=== PATIENT | female | born 1950 | race Caucasian/White ===

== ENCOUNTER → 2018-01-21 14:37 | Outpatient (CLI) | payer MEDICARE, SELFPAY ==
--- NOTE | 2018-01-21 14:41 | BI_ITS ---
MAMMOGRAPHY - BILATERAL SCREENING REASON FOR EXAM: Female, 67 years old. Routine annual screening examination. PERTINENT HISTORY: Aunt with breast cancer. Remote right excisional breast biopsy. TECHNIQUE: Digital bilateral breast ten (3D mammographic acquisition) in the CC and MLO projections. 2-D mediolateral oblique (MLO) and craniocaudad (CC) views of both breasts were obtained. CAD: Full Field Digital Mammography with Computer Added Detection was performed. COMPARISON: Comparison is made with prior axial examination dated September 21, 2016 and September 13, 2014. FINDINGS: Breast Composition: There are scattered areas of fibroglandular density. There are no dominant masses or suspicious calcifications. No other significant abnormalities are identified. There has been no significant change since the prior study. BI/SCREENING MAMM (CAD), BILAT IMPRESSION: Stable bilateral screening mammogram. Yearly follow-up mammogram recommended. (A) ASSESSMENT CATEGORY: BIRADS Category 1: Negative. A letter regarding these results will be sent to the patient by the facility within 30 days. Approximately 10% of breast cancers are not detected by mammography. A normal mammogram should not delay biopsy of a clinically suspicious abnormality. [id number] Electronically Signed: Ildefonso Owens MD at 8:07 EDT Tel [phone], Service support ,
== END ==
PROVIDERS: Visit Provider Obstetrics & Gynecology
DX: Z12.31 Encounter for screening mammogram for malignant neoplasm of breast (principal)
CPT/HCPCS: 77063; 77067

== ENCOUNTER → 2018-10-21 15:05 | Outpatient (CLI) | payer MEDICARE, SELFPAY ==
[2018-10-21 18:29] LABS: Anion Gap 6 (5-15); BUN 16 mg/dL (7-18); BUN/Creat Ratio 20.5 RATIO (10-20); Chloride 106 mmol/L (98-107); Cholesterol 228 mg/dL (200); Creatinine, Serum 0.78 mg/dL (0.55-1.02); EST Glomerular Filtration Rate 78 mL/min (>60); Est Glom Filt Rate - Afr Amer 94 mL/min (>60); Glucose 88 mg/dL (74-106); High Density Lipoprotein 80 mg/dL; Potassium 4.1 mmol/L (3.5-5.1); Sodium Level 141 mmol/L (136-145); Triglycerides 57 mg/dL; Very Low Density Lipoprotein 11 mg/dL (5-40)
[2018-10-21 18:31] LABS: Vitamin D,25 Hydroxy 55.9 ng/mL (29.95-100.01)
== END ==
PROVIDERS: Visit Provider Family Medicine
DX: Z00.00 Encounter for general adult medical examination without abnormal findings (principal); E55.9 Vitamin D deficiency, unspecified
CPT/HCPCS: 36415; 80048; 80061; 82306

== ENCOUNTER → 2019-01-30 08:38 | Outpatient (CLI) | payer MEDICARE, SELFPAY ==
[2019-01-03 14:17] VITALS: BMI 24.3
--- NOTE | 2019-01-30 08:42 | BI_ITS ---
MAMMOGRAPHY - BILATERAL SCREENING REASON FOR EXAM: Female, 68 years old. Routine annual screening examination. PERTINENT HISTORY: Non-contributory. TECHNIQUE: Digital bilateral breast adrianna (3D mammographic acquisition) in the CC and MLO projections. 2-D mediolateral oblique (MLO) and craniocaudad (CC) views of both breasts were obtained. CAD: Full Field Digital Mammography with Computer Added Detection was performed. COMPARISON: Comparison is made with prior study dated January 21, 2018 and September 13, 2014. FINDINGS: Breast Composition: There are scattered areas of fibroglandular density. There are no dominant masses or suspicious calcifications. Small bilateral axillary lymph nodes. No other significant abnormalities are identified. There has been no significant change since the prior study. BI/SCREEN MAMM (CAD) W/ADRIANNA BILAT IMPRESSION: Stable bilateral screening mammogram. Yearly follow-up mammogram recommended. (A) ASSESSMENT CATEGORY: BIRADS Category 2: Benign. A letter regarding these results will be sent to the patient by the facility within 30 days. Approximately 10% of breast cancers are not detected by mammography. A normal mammogram should not delay biopsy of a clinically suspicious abnormality. [id number] Electronically Signed: Ildefonso Owens, at 9:54 EDT , Service support ,
== END ==
PROVIDERS: Referring Provider Obstetrics & Gynecology; Visit Provider Obstetrics & Gynecology
DX: Z12.31 Encounter for screening mammogram for malignant neoplasm of breast (principal)
CPT/HCPCS: 77063; 77067

== ENCOUNTER → 2020-01-19 10:50 | Outpatient (CLI) | payer MEDICARE, SELFPAY ==
[2020-01-08 09:55] VITALS: BMI 24.0
--- NOTE | 2020-01-19 10:56 | BI_ITS ---
MAMMOGRAPHY - BILATERAL SCREENING 3-D TOMOSYNTHESIS REASON FOR EXAM: Female, 69 years old. Routine screening PERTINENT HISTORY: FM HX MAAT GRT AUNT 30''S, PAT COUSINS, RT EXC BX (SEBACEOUS CYST) 1989. TECHNIQUE: 2-D mammograms and 3-D Tomosynthesis of the breast (s) were performed. CAD was performed. COMPARISON: 01/30/2019 FINDINGS: The breast composition is composed of scattered fibroglandular density. Scattered benign calcifications are seen. No dense spiculated masses or suspicious microcalcifications are identified. No architectural distortion is identified. There is no skin thickening or retraction. There has been no significant change since the prior study. BI/SCREEN MAMM (CAD) W/ADRIANNA BILAT IMPRESSION: No mammographic signs of malignancy. Routine yearly mammograms recommended. ASSESSMENT CATEGORY: BIRADS Category 2: Benign. A letter regarding these results will be sent to the patient by the facility within 30 days. FOLLOW UP RECOMMENDATION: Yearly follow up mammogram recommended. (A) Approximately 10% of breast cancers are not detected by mammography. A normal mammogram should not delay biopsy of a clinically suspicious abnormality. Electronically Signed: Justin Bowers MD at 12:23 EDT , Service support ,
== END ==
PROVIDERS: PCP Family Medicine; Referring Provider Obstetrics & Gynecology; Visit Provider Obstetrics & Gynecology
DX: Z12.31 Encounter for screening mammogram for malignant neoplasm of breast (principal)
CPT/HCPCS: 77063; 77067

== ENCOUNTER → 2020-02-15 16:19 | Outpatient (CLI) | payer MEDICARE, SELFPAY ==
[2020-01-08 09:55] VITALS: BMI 24.0
[2020-02-15 17:02] LABS: Absolute Lymphocyte Count 1.39 X10^3/uL (0.83-4.51); Absolute Neutrophil Count 7.4 X10^3/uL (2.0-7.7); Basophil# 0.02 X10^3/uL; Basophil% 0.2 % (0-1); Eosinophil# 0.03 X10^3/uL; Eosinophils% 0.3 % (0-5); Hematocrit 39.3 % (37-47); Hemoglobin 12.7 g/dL (12.0-15.0); Lymphocyte # 1.39 X10^3/ul (4.0); Lymphocyte % 14.3 % (19-41); Mean Corp Hgb Conc 32.3 g/dL (32-36); Mean Corpuscular Volume 95.9 fL (81-99); Mean Platelet Vol. 10.7 fl (6.2-12.0); Monocyte# 0.87 X10^3/uL; NRBC Flagged by Analyzer 0 % (0-5); Neutrophil # 7.38 X10^3/uL (2.7-7.7); Platelet Count 177 K/mm3 (150-450); RBC Distribution Width SD 45.4 fl (35.1-43.9); White Blood Count 9.7 K/mm3 (4.4-11.0)
[2020-02-15 17:52] LABS: ALB/GLOB Ratio 1.2 RATIO (0.9-2.4); AST(SGOT) 17 U/L (15-37); Alanine Aminotransfer ALT/SGPT 18 U/L (13-56); Albumin, Serum 3.8 g/dL (3.2-5.0); Alkaline Phosphatase 61 U/L (45-117); Anion Gap 3 (5-15); BUN 16 mg/dL (7-18); BUN/Creat Ratio 19.8 RATIO (10-20); Calcium,Total 8.5 mg/dL (8.5-10.1); Chloride 108 mmol/L (98-107); Creatinine, Serum 0.81 mg/dL (0.55-1.02); EST Glomerular Filtration Rate 74 mL/min (>60); Est Glom Filt Rate - Afr Amer 90 mL/min (>60); Globulin 3.2 g/dL (2.2-4.2); Glucose 88 mg/dL (74-106); Potassium 3.6 mmol/L (3.5-5.1); Sodium Level 141 mmol/L (136-145); Thyroid Stim Hormone (TSH) 1.81 uIU/mL (0.358-3.74)
[2020-02-16 13:13] LABS: Hepatitis C Antibody Non-Reactive (Nonreactive); Vitamin D,25 Hydroxy 46.1 ng/mL
== END ==
PROVIDERS: PCP Family Medicine Geriatric Medicine; Visit Provider Family Medicine Geriatric Medicine
DX: E55.9 Vitamin D deficiency, unspecified (principal); R53.83 Other fatigue; Z13.89 Encounter for screening for other disorder
CPT/HCPCS: 36415; 80053; 82306; 84443; 85025; 86803

== ENCOUNTER 2020-02-16 15:17 | Emergency (ER) | payer MEDICARE, SELFPAY ==
[2020-01-08 09:55] VITALS: BMI 24.0
[2020-02-16 15:18] VITALS: BP 129/82; PULSE 87; RESP 16; TEMP 36.6; O2SAT 96; BMI 23.3
--- NOTE | 2020-02-16 15:29 | ED.VIS.GEN ---
History of Present Illness Chief Complaint: Cellulitis Informant: Patient Narrative: 69 year-old female presents with concern for swelling to her left hand. States that she was bitten by a cat approximately 48 hours ago. Presented to her primary care physician who then gave her 4 doses of IV antibiotics in the office. States it is gotten progressively worse as well as the redness that is streaking up her arm. States that it is aching in nature and worse with movement. Patient states that it was her cat and has been up-to-date on shots. Past Medical History - Allergies and Home Meds Allergies/Adverse Reactions: Allergies sulfamethoxazole [From Bactrim] Allergy (Mild, Verified 02/16/20 15:18) Other trimethoprim [From Bactrim] Allergy (Mild, Verified 02/16/20 15:18) Other Primary Care Physician: Cesar Perkins Chi, MD [Primary Care Provider] - Past Medical History: None Surgical History: no surgical history Lives: Spouse/ Significant Other Smoking Status: Never smoker Alcohol: None Drugs: None Review of Systems General: Denies: Chills, Fever, Sweats Eyes: Denies: Visual changes - bilaterally, Diplopia ENT: Denies: Rhinorrhea, Sore throat Cardiovascular: Denies: Chest pain, Palpitations Respiratory: Denies: Dyspnea, Cough, Dyspnea on exertion Gastrointestinal: Denies: Abdominal pain, Nausea, Vomiting, Diarrhea, Melena, Hematochezia Genitourinary: Denies: Dysuria, Hematuria, Frequency Musculoskeletal: Reports: Arthralgias. Denies: Back pain, Extremity Pain Skin: Reports: Wounds. Denies: Rash Neurological: Denies: Headache, Weakness, Numbness Physical Exam Vital Signs/Narrative: Vital Signs Temp Pulse Resp BP Pulse Ox 02/16/20 15:18 98 F 87 16 129/82 H 96 Inital Vital Signs reviewed: Yes General: Well nourished, Well developed, No Acute Distress Head: Normocephalic, Atraumatic Eyes: Perrl, EOMI ENT: Moist mucous membranes, No rhinorrhea Neck: Supple, Nontender Cardiovascular: Regular rate, Regular rhythm, No murmurs Respiratory: No distress, CTA bilaterally, Chest nontender Abdomen: Soft, Nontender, Nondistended, Normal bowel sounds Back: Nontender, Normal Inspection Extremities: - - Significant edema and erythema to the left hand and wrist. Erythema extending up the left arm to mid forearm. Skin: Normal color, No rash Neurological: Alert, Oriented x3, Cranial nerves II-XII grossly intact, Normal Strength, Normal Sensation Psychological: Normal affect, Normal Mood Diagnostic/Tx/Re-eval Laboratory Data 02/16/20 02/16/20 15:40 15:40 WBC 8.7 RBC 4.21 Hgb 12.7 Hct 40.5 MCV 96.2 MCH 30.2 MCHC 31.4 L RDW Std Deviation 45.9 H RDW Coeff of Smiley 13.0 Plt Count 178 MPV 11.0 Immature Gran % (Auto) 0.200 Neut % (Auto) 74.0 H Lymph % (Auto) 14.3 L [place] % (Auto) 10.7 H Eos % (Auto) 0.6 Baso % (Auto) 0.2 Absolute Neuts (auto) 6.5 Absolute Lymphs (auto) 1.25 Nucleated RBC % 0 ESR 11 Sodium 141 Potassium 4.0 Chloride 111 H Carbon Dioxide 28.0 Anion Gap 2 L BUN 16 Creatinine 1.01 Estim Creat Clear Calc 49.21 Est GFR (MDRD) Af Amer 70 Est GFR (MDRD) Non-Af 58 L BUN/Creatinine Ratio 15.8 Glucose 97 Calcium 8.2 L C-React Prot Ext Range 68.80 H - Medical Decision Making Appears well and nontoxic. Vital signs within normal limits. No leukocytosis. Elevated CRP. Concern for significant cellulitis versus abscess. Patient was given Unasyn as well as vancomycin. Spoke initially with orthopedist hotel registration clerk Dr. Dalton who could not accept given it would require hand surgery. Spoke with plastic surgeon Dr. May will be out of town this weekend. Spoke finally with Dr. Crane hand surgeon at [facility] who is agreeable with transfer and admission to hospitalist service. Patient will be admitted to Dr. Gallo's service. Will travel by private vehicle. Stable at time of transfer. Impression: 1. Cat bite 2. Left upper extremity cellulitis versus abscess ED Disposition - Plan for ED Patient: Disposition: [facility] Referrals: Cesar Perkins Chi, MD [Primary Care Provider] -
[2020-02-16 15:47] LABS: Absolute Lymphocyte Count 1.25 X10^3/uL (0.83-4.51); Absolute Neutrophil Count 6.5 X10^3/uL (2.0-7.7); Basophil# 0.02 X10^3/uL; Basophil% 0.2 % (0-1); Eosinophil# 0.05 X10^3/uL; Eosinophils% 0.6 % (0-5); Hematocrit 40.5 % (37-47); Hemoglobin 12.7 g/dL (12.0-15.0); Lymphocyte # 1.25 X10^3/ul (4.0); Lymphocyte % 14.3 % (19-41); Mean Corp Hgb Conc 31.4 g/dL (32-36); Mean Corpuscular Hgb 30.2 pg (27.0-32.0); Mean Corpuscular Volume 96.2 fL (81-99); Monocyte# 0.93 X10^3/uL; Monocyte% 10.7 % (0-10); NRBC Flagged by Analyzer 0 % (0-5); Neutrophil # 6.46 X10^3/uL (2.7-7.7); Platelet Count 178 K/mm3 (150-450); RBC Distribution Width SD 45.9 fl (35.1-43.9); Red Blood Count 4.21 M/mm3 (4.2-5.4); White Blood Count 8.7 K/mm3 (4.4-11.0)
[2020-02-16 15:59] LABS: Erythrocyte Sedimentation Rate 11 mm/hr (0-30)
[2020-02-16 16:07] LABS: Anion Gap 2 (5-15); BUN 16 mg/dL (7-18); BUN/Creat Ratio 15.8 RATIO (10-20); Calcium,Total 8.2 mg/dL (8.5-10.1); Chloride 111 mmol/L (98-107); Creatinine, Serum 1.01 mg/dL (0.55-1.02); EST Glomerular Filtration Rate 58 mL/min (>60); Est Glom Filt Rate - Afr Amer 70 mL/min (>60); Estimated Creatinine Clearance 49.21 ml/min; Glucose 97 mg/dL (74-106); Sodium Level 141 mmol/L (136-145)
--- NOTE | 2020-02-16 17:39 | ED.RN ---
not sepsis work up at this time
[2020-02-16 17:41] VITALS: BP 139/74; PULSE 81; RESP 18; O2SAT 99
[2020-02-16 19:41] VITALS: BP 134/78; PULSE 71; RESP 16; O2SAT 99
== END 2020-02-16 19:44 | disposition short-term general hospital (02) ==
PROVIDERS: Emergency Provider Emergency Medicine; PCP Family Medicine Geriatric Medicine
DX: S61.452A Open bite of left hand, initial encounter (principal); W55.01XA Bitten by cat, initial encounter; Y93.9 Activity, unspecified; Y92.9 Unspecified place or not applicable; Y99.9 Unspecified external cause status
CPT/HCPCS: 80048; 85025; 85652; 86140; 96365; 96366; 96367; 99284; J7030; J7050; A4216; J0295

== ENCOUNTER → 2020-02-29 07:46 | Outpatient (CLI) | payer MEDICARE, SELFPAY ==
[2020-02-16 15:18] VITALS: BMI 23.3
[2020-02-29 09:23] LABS: Anion Gap 5 (5-15); BUN 11 mg/dL (7-18); BUN/Creat Ratio 7.7 RATIO (10-20); Calcium,Total 8.8 mg/dL (8.5-10.1); Chloride 106 mmol/L (98-107); Creatinine, Serum 1.43 mg/dL (0.55-1.02); EST Glomerular Filtration Rate 39 mL/min (>60); Est Glom Filt Rate - Afr Amer 47 mL/min (>60); Glucose 93 mg/dL (74-106); Potassium 3.8 mmol/L (3.5-5.1); Sodium Level 141 mmol/L (136-145)
== END ==
PROVIDERS: PCP Family Medicine; Referring Provider Internal Medicine Nephrology; Visit Provider Internal Medicine Nephrology
DX: N17.9 Acute kidney failure, unspecified (principal)
CPT/HCPCS: 36415; 80048

== ENCOUNTER 2020-09-26 10:00 | Outpatient (RCR) | payer MEDICARE, SELFPAY ==
--- NOTE | 2020-09-04 09:04 | HP.PTEVAL_ITS ---
Patient's Visit Information MARCE VILLA is a 70 year old F referred to Physical Therapy by Dr. Laura Riddle MD with a diagnosis of RIGHT SACROILEITIS. Date of Evaluation: 09/04/20 Physical Therapist: Shani Espinal PT, Cert MDT - Visit Plan Frequency: 2x /Week Duration: 6 Weeks Plan: POSTURE CORRECTION/STRENGTHENING, INSTRUCTION IN APPROPRIATE BODY MECHANICS AND ACTIVITY MODIFICATIONS. DLS STARTING WITH A NEUTRAL SPINE PROGRESSING ROM TOLERATED. KATJA LE ROM, STRETCHING AND STRENGTHENING. HEP INSTRUCTION. - Subjective Work/Leisure: RETIRED. 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 Disability: NO. Present symptoms: RIGHT LOW BACK PAIN. RIGHT LATERAL THIGH PAIN THAT WRAPS AROUND AND GOES DOWN THE FRONT OF THE RIGHT THIGH. PATIENT DENIES NUMBNESS AND TINGLING ANYWHERE. Present since: END OF APR 2020 (ABOUT 4 MONTHS AGO). Pain Scale: WORST 8/10, LEAST 0/10. Currently: 10. I'M NOT GETTING ANY BETTER. Commenced as a result of: PICKING UP LARGE LOGS AND PUTTING THEM IN A WHEEL [place]. STATES SHE FELT A PULL IN HER RIGHT LOW BACK - AN INSTANT HURT WHILE SHE WAS DOING IT AND THE REST OF THE DAY WAS MISERABLE BECAUSE SHE STILL HAD TO CLEAN UP THE TREE. Symptoms at onset: RIGHT LOW BACK. Worse: BEGIN DEJA OF HIKE BUT GETS BETTER SHE GOES, BENDING OVER, SITTING, MVMT IN GENERAL, LEANING OVER TO CLEAN THE CAT BOX, RISING FROM SITTING, LYING DOWN AT NIGHT. CAN'T LAY ON EITHER SIDE WHEN FIRST GOES TO BED BUT EVENTUALLY CAN. Better: IBUPROFEN, LIDOCAINE TOPICAL, RIGHT KNEE TO CHEST HOLDING FOR ABOUT 2 MINUTES. Disturbed sleep: YES. Previous history/Previous treatment: LOW BACK PAIN WORKING AND WENT TO [facility]IROP[facility]CTOR ABOUT 5 YEARS AGO. STATES SHE WAS PICKING UP TOO MUCH WEIGHT AT WORK. Treatment this episode: PATIENT REPORTS SHE WENT TO A CHIROPRACTOR BECAUSE SHE WAS GETTING WORSE. ONLY ONE CHIROPRACTIC VISIT THIS EPISODE. FELT BETTER THAT DAY AND HAD HIGH HOPES BUT BACK TO [place] ONE THE NEXT DAY. THEN WENT TO SEE DR. RIDDLE. PT CONSULT. Coughing/sneezing/straining: POSITIVE. Gait: DIFFICULTY INITIATING GAIT BUT BECOMES NORMAL. Difficulty initiating urinatin: NO. Accidents: NO. Unexplained weight loss: NO. Imaging: NO. PMH: UNREMARKABLE. OTHER: JANUARY 2020 GOT BIT BY CAT IN L HAND AND GOT INFECTION. HOSPITALIZED IN JANUARY FOR 8 DAYS. PLASTIC SURGERY L HAND. STATES KIDNEYS WERE SHUTTING DOWN. VERY SICK. ON 4 ANTIBIOTICS. HAD RECOVERED BY THE TIME SHE HURT HER BACK IN APR 2020. - Objective Sitting/Standing Posture: FAIR. Lordosis: INCREASED. Lateral shift: NO. Relevant shift: N/A. Active Correction of posture: NE. Other Observations: INDEP GAIT AND TRANSFERS WITHOUT OBVIOUS GUARDING. Motor deficit: KATJA LE'S 5/5 WITH MMT'ING AND TESTING DOES NOT INCREASE PAIN. Sensory deficit: KATJA LE LIGHT TOUCH SENSATION INTACT AND SYMMETRICAL. ROM deficit: KATJA LE'S WFL'S. Reflexes: KATJA LE'S 2/3. Dural Signs: NEGATIVE KATJA LE'S. Lumbar mvmt loss: flex - NIL. ext - MIN. R SG - MOD. L SG - MIN. Core strength: FAIR. Palpation: TENDERNESS WITH PALPATION OF THE RIGHT LUMBOSACRAL REGION. OTHERWISE, NO ACUTE THORACIC, LUMBAR, SACRAL, BUTTOCK OR HIP TENDERNESS. TREATMENT: NEUROMUSCULAR REEDUCATION - RETRAINING OF MVMT AND POSTURE FOR SITTING, LYING AND STANDING ACTIVITIES. - Goals Goal 1:: DECREASE C/O RIGHT LOW BACK PAIN. Goal Time Frame: 4-6 Weeks Goal 2:: IMPROVE PERSONAL CARE, SITTING, STANDING, SLEEP, TRAVEL AND HOMEMAKING FUNCTION Goal Time Frame: 4-6 Weeks Goal 3:: INSTRUCT IN PROPHYLAXIS Goal Time Frame: 4-6 Weeks - Anticipated Interventions Patient/Client Instruction: Educate patient on: Condition, Plan of Care, Risk Factors, Benefits of Fitness Program For the Purpose of:: To improve self management Therapeutic Exercise to Include: Strength training, Body mechanics, Postural training, Flexibilty training, Neuromotor development, Dynamic Lumbar Stabilization For the Purpose of:: To decrease pain, To improve muscle performance and motor function, To increase tolerance to activity/condition/position, To improve ability of physical actions for home/community/work/leisure TENS: Yes IF ES: Yes Cryotherapy (ice pack, ice massage): Yes Thermo therapy (hot pack): Yes Ultrasound (thermal/non thermal): Yes For the Purpose of:: To decrease pain, To decrease swelling/inflammation, To improve nutrient delivery to tissue Thank you for the opportunity to evaluate your patient. For Medicare and Medicare HMO plans, please review the plan of care and approve it. It will need to be FAXED BACK to us at [phone] for Medicare purposes. For Medicare only, by signing this I certify the plan of care. Please let me know if there are questions or concerns regarding this plan of care. Physician Signature: Date:
--- NOTE | 2020-09-26 12:41 | HP.PTDCSUM ---
It has been my pleasure to treat MARCE VILLA referred by Dr. Laura Riddle MD, with the diagnosis of RIGHT SACROILEITIS for a total of 6 visit(s). Discharge Date: Please see the following information for a summary of their discharge status. Subjective: I'VE BEEN FEELING BETTER, BUT FLARED IT UP PICKING UP CAT IN CAT CARRIER AND SITTING IN [place] FOR AN HOUR. PATIENT REPORTS PAIN ALMOST INSTANTLY WENT AWAY WITH US LAST VISIT. ONLY NEEDING TO TAKE ONE IBUPROFEN ABOUT ONCE A WK NOW AND WAS TAKING 2 ABOUT EVERY OTHER DAY. PATIENT REPORTS SHE WOULD LIKE TO STOP FORMAL PT AT THIS TIME AND SEE HOW SHE DOES WITH THE EX'S ON HER OWN. RIGHT LBP Pain Intensity (Out of 10): 8 RIGHT THIGH Pain Intensity (Out of 10): 0 % Improvement: 40 Objective/Function: ABLE TO ABOLISH THIGH SX'S AND REDUCE LBP TO 1/10 POST SESSION. PATIENT IS MAKING SLOW PROGRESS TOWARD ALL PT GOALS AND IS A GOOD CANDIDATE TO CONTINUE PT BASED ON PROGRESS MADE, CONTINUED HIGH PAIN LEVELS AT TIMES AND ROOM FOR FURTHER IMPROVEMENT BUT SHE WOULD LIKE TO BE DISCHARGED TO [facility] AT THIS TIME. SHE IS INDEP WITH HEP AND WE WILL DISCHARGE BUT WOULD BE HAPPY TO RESUME PT NEEDED/INDICATED IN THE FUTURE. Goal 1:: DECREASE C/O RIGHT LOW BACK PAIN. Goal Progress: Progressing Goal 2:: IMPROVE PERSONAL CARE, SITTING, STANDING, SLEEP, TRAVEL AND HOMEMAKING FUNCTION Goal Progress: Progressing Goal 3:: INSTRUCT IN PROPHYLAXIS Goal Progress: Progressing Plan: D/C AT PATIENTS REQUEST. If there are questions or concerns regarding this patient's physical therapy, please feel free to call me at [phone]. Thank you for the referral of this patient. Sincerely, Shani Espinal, PT, Cert MDT
== END 2020-09-26 19:00 | disposition home or self-care (01) ==
LOC: PT 10:00
PROVIDERS: PCP Family Medicine; Referring Provider Family Medicine; Visit Provider Family Medicine
DX: M46.1 Sacroiliitis, not elsewhere classified (principal)
CPT/HCPCS: 97035; 97110; 97112; 97162; 97530

== ENCOUNTER → 2021-01-20 12:55 | Outpatient (CLI) | payer MEDICARE, SELFPAY ==
[2021-01-09 08:30] VITALS: BMI 23.3
--- NOTE | 2021-01-20 12:58 | BI_ITS ---
MAMMOGRAPHY - BILATERAL SCREENING REASON FOR EXAM: Female, 70 years old. Routine annual screening examination. PERTINENT HISTORY: Non-contributory. TECHNIQUE: Digital bilateral breast adrianna (3D mammographic acquisition) in the CC and MLO projections. 2-D mediolateral oblique (MLO) and craniocaudad (CC) views of both breasts were obtained. CAD: Full Field Digital Mammography with Computer Added Detection was performed. COMPARISON: Comparison is made with prior study dated 01/19/2020 and 01/30/2019. FINDINGS: Breast Composition: There are scattered areas of fibroglandular density. There are no dominant masses or suspicious calcifications. No other significant abnormalities are identified. There has been no significant change since the prior study. BI/SCRN MAMM (CAD)W/ADRIANNA BILAT IMPRESSION: Stable bilateral screening mammogram. Yearly follow-up mammogram recommended. (A) ASSESSMENT CATEGORY: BIRADS Category 1: Negative. A letter regarding these results will be sent to the patient by the facility within 30 days. Approximately 10% of breast cancers are not detected by mammography. A normal mammogram should not delay biopsy of a clinically suspicious abnormality. [id number] Electronically Signed: Ildefonso Owens MD at 14:20 EDT , Service support ,
== END ==
PROVIDERS: PCP Family Medicine; Referring Provider Obstetrics & Gynecology; Visit Provider Obstetrics & Gynecology
DX: Z12.31 Encounter for screening mammogram for malignant neoplasm of breast (principal)
CPT/HCPCS: 77063; 77067

== ENCOUNTER 2021-08-06 13:18 | Outpatient (CLI) | payer MEDICARE, SELFPAY ==
[2021-08-06] MEDS: DENOSUMAB 60 MG/ML SC (13:41)
== END 2021-08-06 23:59 | disposition short-term general hospital (02) ==
LOC: MEDOUTP 13:19
PROVIDERS: PCP Family Medicine; Referring Provider Internal Medicine Endocrinology, Diabetes & Metabolism; Visit Provider Internal Medicine Endocrinology, Diabetes & Metabolism
DX: M81.0 Age-related osteoporosis without current pathological fracture (principal)
CPT/HCPCS: 96372; J0897

== ENCOUNTER 2021-08-19 08:51 | Outpatient (CLI) | payer MEDICARE, SELFPAY ==
[2021-08-19 09:54] LABS: Vitamin D,25 Hydroxy 45.5 ng/mL
[2021-08-19 10:07] LABS: ALB/GLOB Ratio 1.2 RATIO (0.9-2.4); AST(SGOT) 18 U/L (15-37); Alanine Aminotransfer ALT/SGPT 21 U/L (13-56); Albumin, Serum 3.6 g/dL (3.2-5.0); Alkaline Phosphatase 85 U/L (45-117); Anion Gap 3 (5-15); BUN 16 mg/dL (7-18); Calcium,Total 8.2 mg/dL (8.5-10.1); Chloride 109 mmol/L (98-107); Cholesterol 231 mg/dL (200); Creatinine, Serum 0.84 mg/dL (0.55-1.02); EST Glomerular Filtration Rate 71 mL/min (>60); Est Glom Filt Rate - Afr Amer 86 mL/min (>60); Globulin 3.1 g/dL (2.2-4.2); Glucose 81 mg/dL (74-106); High Density Lipoprotein 83 mg/dL; Potassium 4.3 mmol/L (3.5-5.1); Protein, Total 6.7 g/dL (6.4-8.2); Sodium Level 141 mmol/L (136-145); Thyroid Stim Hormone (TSH) 2.86 uIU/mL (0.358-3.74); Triglycerides 74 mg/dL; Very Low Density Lipoprotein 15 mg/dL (5-40)
== END 2021-08-19 23:59 | disposition short-term general hospital (02) ==
LOC: LAB 08:52
PROVIDERS: PCP Family Medicine; Referring Provider Internal Medicine Endocrinology, Diabetes & Metabolism; Visit Provider Internal Medicine Endocrinology, Diabetes & Metabolism
DX: M81.0 Age-related osteoporosis without current pathological fracture (principal); R53.83 Other fatigue; E55.9 Vitamin D deficiency, unspecified; E78.2 Mixed hyperlipidemia
CPT/HCPCS: 36415; 80053; 80061; 82306; 84443

== ENCOUNTER → 2022-02-04 | Outpatient (CLI) | payer MEDICARE, SELFPAY ==
[2022-02-04] MEDS: DENOSUMAB 60 MG/ML SC (13:38)
[2022-02-04 13:44] VITALS: BP 104/59; PULSE 68; RESP 16; O2SAT 97
== END | disposition home or self-care (01) ==
LOC: MEDOUTP 13:26
PROVIDERS: PCP Family Medicine; Referring Provider Internal Medicine Endocrinology, Diabetes & Metabolism; Visit Provider Internal Medicine Endocrinology, Diabetes & Metabolism
DX: M81.0 Age-related osteoporosis without current pathological fracture (principal)
CPT/HCPCS: 96372; J0897

== ENCOUNTER → 2022-02-12 | Outpatient (CLI) | payer MEDICARE, SELFPAY ==
--- NOTE | 2022-02-12 15:20 | BI_ITS ---
MAMMOGRAPHY - BILATERAL SCREENING REASON FOR EXAM: Female, 71 years old. Routine annual screening examination. PERTINENT HISTORY: Non-contributory. TECHNIQUE: Digital bilateral breast adrianna (3D mammographic acquisition) in the CC and MLO projections. 2-D mediolateral oblique (MLO) and craniocaudad (CC) views of both breasts were obtained. CAD: Full Field Digital Mammography with Computer Added Detection was performed. COMPARISON: Comparison is made with prior study dated 01/20/2021 and 01/19/2020. FINDINGS: Breast Composition: The breasts are heterogeneously dense, which may obscure small masses. There are no dominant masses or suspicious calcifications. No other significant abnormalities are identified. There has been no significant change since the prior study. BI/SCRN MAMM (CAD)W/ADRIANNA BILAT IMPRESSION: Stable bilateral screening mammogram. Yearly follow-up mammogram recommended. (A) ASSESSMENT CATEGORY: BIRADS Category 1: Negative. A letter regarding these results will be sent to the patient by the facility within 30 days. Approximately 10% of breast cancers are not detected by mammography. A normal mammogram should not delay biopsy of a clinically suspicious abnormality. [id number] Electronically Signed: Ildefonso Owens MD at 8:03 EDT ,
--- NOTE | 2022-02-12 15:37 | BD_ITS ---
STUDY: DUAL ENERGY X-RAY ABSORPTIOMETRY / DXA REASON FOR EXAM: Female, 71 years old. Osteoporosis TECHNIQUE: Bone Mineral Density (BMD) measurements of lumbar spine and bilateral hips were obtained. COMPARISON: Comparison is made with prior examination dated 09/13/2014. FINDINGS: Lumbar Spine (L1-L4): g/cm2 (0.813) / T-score (-2.1) / Z-score (0.1) Findings are suggestive of osteopenia with a high fracture risk. Left Femur Total: g/cm2 (0.710) / T-score (-1.9) / Z-score (-0.3) Left Femoral Neck: g/cm2 (0.638) / T-score (-1.9) / Z-score (0.0) Right Femur Total: g/cm2 (0.705) / T-score (-1.9) / Z-score (-0.3) Right Femoral Neck: g/cm2 (0.6-0) / T-score (-2.1) / Z-score (-0.2) The T-Scores on the most recent prior examination were: Lumbar Spine (L1-L4): There has been improvement of bone density since the previous examination. Left Femur Total: which represents an improvement of 4.4%. Right Femur Total: which represents an improvement of 11.1%. BD/Dexa Bone Density Study IMPRESSION: The patient is considered osteopenic as outlined below according to World [employer] Organization (WHO) criteria with a high fracture risk. There has been improvement of bone density since the previous examination. Reference Information: The T-score is the number of standard deviations above or below the standard which is normal for young adults at their peak bone mineral density. The World Health Organization (WHO) interprets the T-scores as follows: Above -1 Normal bone density Between -1 and -2.5 Osteopenia Equal to / or below -2.5 Osteoporosis As a practical clinical guideline, osteopenia may be graded as follows: Mild -1 through -1.5 Moderate -1.6 through -2.0 Severe -2.1 through -2.4 The Z-score is the number of standard deviations above or below age-matched controls. A Z-score of less than -1.5 would be considered abnormal. References: 1. NIH Osteoporosis and Related Bone Diseases www osteo.org 2. International Society for Clinical Densitometry www iscd.org 3. National Osteoporosis Foundation www nof.org Electronically Signed: Ildefonso Owens MD at 15:21 EDT ,
== END | disposition home or self-care (01) ==
LOC: OPBD 15:18
PROVIDERS: PCP Family Medicine; Visit Provider Obstetrics & Gynecology
DX: Z12.31 Encounter for screening mammogram for malignant neoplasm of breast (principal); M81.0 Age-related osteoporosis without current pathological fracture; M85.80 Other specified disorders of bone density and structure, unspecified site
CPT/HCPCS: 77063; 77067; 77080

== ENCOUNTER → 2022-08-05 | Outpatient (CLI) | payer MEDICARE, SELFPAY ==
[2022-08-05 13:27] VITALS: BP 131/72; PULSE 71; RESP 16; TEMP 36.2; O2SAT 98; BMI 22.9
[2022-08-05] MEDS: DENOSUMAB 60 MG/ML SC (13:32)
[2022-08-05 15:01] LABS: PTHIN 71.1 pg/mL (18.4-80.1)
[2022-08-05 15:06] LABS: Vitamin D,25 Hydroxy 42.8 ng/mL
[2022-08-05 15:11] LABS: ALB/GLOB Ratio 1.2 RATIO (0.9-2.4); AST(SGOT) 19 U/L (15-37); Alanine Aminotransfer ALT/SGPT 24 U/L (13-56); Albumin, Serum 3.8 g/dL (3.2-5.0); Alkaline Phosphatase 62 U/L (45-117); Anion Gap 6 (5-15); BUN 16 mg/dL (7-18); BUN/Creat Ratio 17.2 RATIO (10-20); Chloride 104 mmol/L (98-107); Creatinine, Serum 0.93 mg/dL (0.55-1.02); EST Glomerular Filtration Rate 63 mL/min (>60); Est Glom Filt Rate - Afr Amer 76 mL/min (>60); Globulin 3.1 g/dL (2.2-4.2); Glucose 89 mg/dL (74-106); Potassium 4.1 mmol/L (3.5-5.1); Protein, Total 6.9 g/dL (6.4-8.2); Sodium Level 138 mmol/L (136-145); Thyroid Stim Hormone (TSH) 2.37 uIU/mL (0.358-3.74)
== END | disposition home or self-care (01) ==
PROVIDERS: PCP Family Medicine; Referring Provider Internal Medicine Endocrinology, Diabetes & Metabolism; Visit Provider Internal Medicine Endocrinology, Diabetes & Metabolism
DX: M81.0 Age-related osteoporosis without current pathological fracture (principal); E83.51 Hypocalcemia; R53.83 Other fatigue
CPT/HCPCS: 36415; 80053; 82306; 83970; 84443; 96372; J0897

== ENCOUNTER 2023-02-05 14:35 | Outpatient (CLI) | payer MEDICARE, SELFPAY ==
[2023-02-05 14:50] VITALS: BP 94/46; PULSE 76; RESP 16; TEMP 36.1; O2SAT 94
[2023-02-05] MEDS: DENOSUMAB 60 MG/ML SC (14:56)
== END 2023-02-05 14:36 | disposition home or self-care (01) ==
LOC: MEDOUTP 14:35
PROVIDERS: PCP Family Medicine; Referring Provider Internal Medicine Endocrinology, Diabetes & Metabolism; Visit Provider Internal Medicine Endocrinology, Diabetes & Metabolism
DX: M81.0 Age-related osteoporosis without current pathological fracture (principal)
CPT/HCPCS: 96372; J0897

== ENCOUNTER → 2023-02-15 | Outpatient (CLI) | payer MEDICARE, SELFPAY ==
--- NOTE | 2023-02-15 08:49 | BI_ITS ---
MAMMOGRAPHY - BILATERAL SCREENING REASON FOR EXAM: Female, 72 years old. Routine annual screening examination. PERTINENT HISTORY: Non-contributory. TECHNIQUE: Digital bilateral breast adrianna (3D mammographic acquisition) in the CC and MLO projections. 2-D mediolateral oblique (MLO) and craniocaudad (CC) views of both breasts were obtained. CAD: Full Field Digital Mammography with Computer Added Detection was performed. COMPARISON: Comparison is made with prior study dated February 12, 2022 and January 20, 2021. FINDINGS: Breast Composition: The breasts are heterogeneously dense, which may obscure small masses. There are no dominant masses or suspicious calcifications. No other significant abnormalities are identified. There has been no significant change since the prior study. BI/SCRN MAMM (CAD)W/ADRIANNA BILAT IMPRESSION: Stable bilateral screening mammogram. Yearly follow-up mammogram recommended. (A) ASSESSMENT CATEGORY: BIRADS Category 1: Negative. A letter regarding these results will be sent to the patient by the facility within 30 days. Approximately 10% of breast cancers are not detected by mammography. A normal mammogram should not delay biopsy of a clinically suspicious abnormality. [id number] Electronically Signed: Ildefonso Owens MD at 9:42 EDT ,
== END | disposition home or self-care (01) ==
LOC: OPBI 08:48
PROVIDERS: PCP Family Medicine; Referring Provider Obstetrics & Gynecology; Visit Provider Obstetrics & Gynecology
DX: Z12.31 Encounter for screening mammogram for malignant neoplasm of breast (principal)
CPT/HCPCS: 77063; 77067

== ENCOUNTER 2023-08-06 13:04 | Outpatient (CLI) | payer MEDICARE, SELFPAY ==
[2023-08-06 13:28] VITALS: BP 123/74; PULSE 87; RESP 16; TEMP 35.9; O2SAT 100; BMI 22.4
[2023-08-06] MEDS: DENOSUMAB 60 MG/ML SC (13:38)
--- OUTSIDE RECORDS SUMMARY | 2023-08-06 13:58 | XMS RPT_ITS | CCD ---
Author Name Unknown Address [address] [place] [address] Organization [facility] Care Team Providers Care Discharge Planner Name Role Phone Ajit POE, Ren Primary Care Provider Allergies Allergy Classification Reported Allergen(s) Allergy Type Date of Onset Reaction(s) Facility (1 source) Sulfamethoxazole / Trimethoprim Drug Allergy [facility] Work Phone: Medications Completed/Discontinued Medications Medication Drug Class(es) Dates Sig (Normalized) Sig (Original) calcium carbonate 600 mg / cholecalciferol 125 unt oral tablet (1 source) Vitamin D Start: 03-29-2020 calcium carbonate/vitamin d3(CALCIUM 600 + D 600 MG-125 UNIT TAB) Take by mouth once daily. 0 03/29/2020 Active Problems Problem Classification Problem Date Documented Da te Episodic/Chronic Anxiety disorders (1 source) Anxiety; Translations: [Anxiety disorder, unspecified] Onset: 07-29-2016 07-29-2016 Chronic Disorders of lipid metabolism (1 source) Mixed hyperlipidemia; Translations: [Mixed hyperlipidemia] Onset: 07-29-2016 07-29-2016 Chronic Menopausal disorders (1 source) Atrophic vaginitis; Translations: [Postmenopausal atrophic vaginitis] Onset: 07-02-2008 07-02-2008 Chronic Osteoporosis (1 source) Osteoporosis; Translations: [Age-related osteoporosis without current pathological fracture] Onset: 07-29-2016 07-29-2016 Chronic Other screening for suspected conditions (not mental disorders or infectious disease) (2 sources) Patient encounter status; Translations: [Encounter for screening mammogram for malignant neoplasm of breast] Onset: 07-29-2016 Episodic Results Test Name Value Interpretation Reference Range Facil ity Encounters Encounter Date Encounter Type Care Provider Facility Start: 01-21-2022 ambulatory Ren Mclaughlin Work Phone: [facility] Procedures Date Procedure Procedure Detail Performing Clinician Start: 01-30-2019 Mammography Ren youngblood MD Work Phone: Start: 07-29-2016 Adult depression scr eening assessment Ren Turner MD Work Phone: Start: 09-26-2012 Colonoscopy Ren youngblood MD Work Phone: Plan of Treatment Date Care Activity Detail Author Start: 09-24-2024 LIPID SCREEN LIPID SCREEN [facility] Start: 03-18-2023 DIABETES SCREEN DIABETES SCREEN [facility] Start: 09-26-2022 Colonoscopy COLONOSCOPY [facility] Start: 09-26-2022 COLORECTAL CANCER SCREENING COLORECTAL CANCER SCREENING [facility] Start: 03-26-2022 Influenza [facility] Start: 12-25-2021 COVID-19 VACCINE (2 - Pfizer series) COVID-19 VACCINE (2 - Pfizer series) [facility] Start: 07-26-2021 ADVANCE DIRECTIVE DISCUSSION ADVANCE DIRECTIVE DISCUSSION [facility] Start: 01-31-2020 Mammography MAMMOGRAM [facility] Start: 07-29-2017 Adult depression screening assessment DEPRESSION SCREENING [facility] Start: 2015 PNEUMOCOCCAL: 65+ (1 - PCV) PNEUMOCOCCAL: 65+ (1 - PCV) [facility] Start: 2000 SHINGRIX VACCINE (1 of 2) SHINGRIX VACCINE (1 of 2) [facility] Start: 1995 COLOGUARD (FIT-DNA) COLOGUARD (FIT-DNA) [facility] Start: [address] COLONOGRAPHY [facility] Start: 1995 FECAL OCCULT BLOOD FECAL OCCULT BLOOD [facility] Start: 1995 SIGMOIDOSCOPY SIGMOIDOSCOPY [facility] Start: 1969 Urine microalbumin profile DTAP,TDAP,TD (1 - Tdap) [facility] Start: 1968 HEPATITIS C SCREENING HEPATITIS C SCREENING [facility] End: 02-20-2023 Screening mammography bi 2-view breast inc cad ANÍBAL SCREENING Radiology Routine Encounter for screening mammogram for breast cancer 1 Occurrences starting 01/21/2022 until 02/20/2023 [facility] Work Phone: Immunizations Immunization Date Immunization Notes Care Provider Sheldon delgado 12-04-2021 COVID-19 vaccine, ag e 12+ yr ([employer] - PURPLE [employer]) eRn Turner MD Work Phone: [facility] 05-16-2017 influenza, high dose seasonal, preservative-free Ren Turner MD Work Phone: [facility] 05-13-2016 influenza, high dose seasonal, preservative-free Ren Turner MD Work Phone: [facility] Work Phone: 04-25-2011 influenza virus vaccine, unspecified formulation Ren Turner MD Work Phone: [facility] Payers Date Payer Category Payer Unknown ANTHEM BLUE CROS S AND BLUE SHIELD AN[employer]M MEDIBLUE O [id number] 2019-Present [phone] [address] [place] [address] O [id number] Social History Date Type Detail Facility Tobacco smoking stat [facility] Never smoked tobacco [facility] Start: 03-29-2020 Alcohol intake Current drinke r of alcohol (finding) [facility] Start: 03-29-2020 Alcohol intake [facility] Start: 1950 Sex Assigned At Not on file [facility] Clinical Note 01-21-2022 Note Date & Type Note Facility 01-21-2022 Note Patient Outreach (IN [facility]) [facility] ([id number]) 1950 F Date Time Provider Department 01/21/22 REN TURNER During your visit today, we recorded the following information about you: Allergies As of Date: 01/21/2022 Noted Allergy Reaction BACTRIM (SULFAMETHOXAZOLE-TRIMETH*05/27/2006 Comments: Rash and swelling of her throat Date Reviewed: 06/26/2020 Reviewed by: Tri Sheffield LPN - Fully Assessed Visit Diagnosis:Encounter for screening mammogram for breast cancer [Z12.31] Order(s):[facility] SCREENING [[id number]] Order #: [id number] FUTURE Prescriptions as of 01/26/2022 - denosumab (PROLIA) 60 mg/mL Inject 1 mL subcutaneously once every 6 months. - docosahexaenoic acid/epa (FISH OIL ORAL) Take by mouth once daily. - ondansetron (ZOFRAN) 4 mg tablet Take 1 tablet by mouth every 12 hours as needed for Nausea/Vomiting. - loperamide (IMODIUM) 2 mg cap(s) Take 1 capsule by mouth twice daily as needed for Diarrhea. - Lactobacillus acidophilus (ACIDOPHILUS) cap Take 1 capsule by mouth twice daily for 15 days. - Cholecalciferol, Vitamin D3, 5,000 unit cap Take 1 capsule by mouth once daily. - turmeric root extract 500 mg cap Take 500 mg by mouth once daily. - estradiol (ESTRACE) 0.01 % (0.1 mg/g) vaginal cream Use 1 g vaginally 3 times a WEEK. - vitamin b complex(B COMPLEX 1 TAB) Take one(1) tablet daily. - THERAPEUTIC MULTIVITAMIN TAB Take one(1) tablet daily. - calcium carbonate/vitamin d3(CALCIUM 600 + D 600 MG-125 UNIT TAB) Take by mouth once daily. Problem List As Of Date 01/21/2022 Noted Resolved Symptomatic menopausal or female climacteric st*07/02/2008 07/17/2011 ATROPHIC VAGINITIS [N95.2] 07/02/2008 Mixed hyperlipidemia [E78.2] 07/29/2016 Osteoporosis [M81.0] 07/29/2016 Anxiety [F41.9] 07/29/2016 Shortened HI interval [R94.31] 07/29/2016 Cellulitis [L03.90] 02/16/2020 02/23/2020 BESSY (acute kidney injury) (HCC) [N17.9] 02/23/2020 02/23/2020 Encounter Status:Closed by [facility], PRODUSER on 01/26/22 [facility] Clinical Note 07-23-2021 Note Date & Type Note Facility 02-14-2021 Note Patient Outreach (IN [facility]) [facility] ([id number]) 1950 F Date Time Provider Department 02/14/21 REN TURNER During your visit today, we recorded the following information about you: Allergies As of Date: 02/14/2021 Noted Allergy Reaction BACTRIM (SULFAMETHOXAZOLE-TRIMETH*05/27/2006 Comments: Rash and swelling of her throat Date Reviewed: 06/26/2020 Reviewed by: Tri Sheffield LPN - Fully Assessed Visit Diagnosis:Encounter for screening mammogram for breast cancer [Z12.31] Order(s):[facility] SCREENING [[id number]] Order #: [id number] FUTURE Prescriptions as of 02/17/2021 - denosumab (PROLIA) 60 mg/mL Inject 1 mL subcutaneously once every 6 months. - docosahexaenoic acid/epa (FISH OIL ORAL) Take by mouth once daily. - ondansetron (ZOFRAN) 4 mg tablet Take 1 tablet by mouth every 12 hours as needed for Nausea/Vomiting. - loperamide (IMODIUM) 2 mg cap(s) Take 1 capsule by mouth twice daily as needed for Diarrhea. - Lactobacillus acidophilus (ACIDOPHILUS) cap Take 1 capsule by mouth twice daily for 15 days. - Cholecalciferol, Vitamin D3, 5,000 unit cap Take 1 capsule by mouth once daily. - turmeric root extract 500 mg cap Take 500 mg by mouth once daily. - estradiol (ESTRACE) 0.01 % (0.1 mg/g) vaginal cream Use 1 g vaginally 3 times a WEEK. - vitamin b complex(B COMPLEX 1 TAB) Take one(1) tablet daily. - THERAPEUTIC MULTIVITAMIN TAB Take one(1) tablet daily. - calcium carbonate/vitamin d3(CALCIUM 600 + D 600 MG-125 UNIT TAB) Take by mouth once daily. Facility-Administered Medications as of 02/17/2021 - denosumab 60 mg injection (PROLIA) Problem List As Of Date 02/14/2021 Noted Resolved Symptomatic menopausal or female climacteric st*07/02/2008 07/17/2011 ATROPHIC VAGINITIS [N95.2] 07/02/2008 Mixed hyperlipidemia [E78.2] 07/29/2016 Osteoporosis [M81.0] 07/29/2016 Anxiety [F41.9] 07/29/2016 Shortened HI interval [R94.31] 07/29/2016 Cellulitis [L03.90] 02/16/2020 02/23/2020 BESSY (acute kidney injury) (HCC) [N17.9] 02/23/2020 02/23/2020 Encounter Status:Closed by ANAI QUINTANILLA on 02/17/21 [facility] History of Past illness Narrative 02-23-2020 Note Date & Type Note Facility documented as of this encounter (statuses as of 01/26/2022) [facility] Evaluation note Note Date & Type Note Facility documented in this encounter [facility] Reason for referral (narrative) Diagnostic Procedure Only (Routine) - Pending Review Note Date & Type Note Facility Referral ID Status Reason Start Date Expiration Date Visits Requested Visits Authorized [id number] Pending Review Auto-Generat ed Referral 01/21/2022 02/20/2023 1 1 [facility] Summary Purpose Family History No Family History Records FoundNo Family History Records FoundNo Family History Records Found Advance Directives Documents on File Type Date Recorded Patient General Assignment Reporter Expl anation Advance Directive(s) 02/17/2020 12:12 PM Hospital Course Note HNO ID: [id number] Author: Mary Huggins Service: Hospital Medicine Author Type: Physician Type: Discharge Summary Filed: 02/23/2020 4:36 PM Note Text: DISCHARGE SUMMARY PATIENT NAME: Zulay Bearden Code Status: Not on file Highest Readmission Risk Score: 11 The 30 day readmissions risk score is derived from an internally validated risk model which evaluates patient level characteristics, utilization history, medication orders and lab results up until the day of discharge. Patients with a score of 40 or above are considered highest risk for readmission. Specific patient level drivers will be listed at the bottom of the summary. Admission Information Admission Information ADMIT DATE: 02/16/2020 DISCHARGE DATE: 02/23/2020 MY [facility] AND MEDICAL TE[facility]: [facility] Doctor: Tavares Huggins Primary Care Provider: REN TURNER MD My Medical Team Members: Treatment Team: Attending Provider: Tavares Huggins Consulting: Darrius Grant Consulting: Collette Nunn (Fel) Consulting: (more content not included)... Note HNO ID: [id number] Author: Manjula Grant Service: Plastic Surgery Author Type: Physician Type: Brief Op Note Filed: 02/17/2020 1:28 PM Note Text: BRIEF OPERATIVE / PROCEDURE NOTE LOG ID: [id number] SURGERY/PROCEDURE DATE: 02/17/2020 INCISION/PROCEDURE START TIME: 1:05 PM INCISION CLOSE/PROCEDURE END TIME: 1:23 PM SURGEON(S)/PROCEDURALIST(S) AND CONCRETE PLACEMENT EQUIPMENT OPERATOR(S): Surgeon(s) and Role: * Darrius Grant - Yosi No Additional Staff SURGERY/PROCEDURE(S): I AND D cat bite abscess L wrist dorsum ANESTHESIA: General FINDINGS: seropurulent fluid in subcutaneous space and peritendinous sheath -- no evidence of carpal joint penetration ESTIMATED BLOOD LOSS: 0 ml SPECIMENS: None COMPLICATIONS: None PRE-OP/PRE-PROCEDURE DIAGNOSIS: ABOVE POST-OP/POST-PROCEDURE DIAGNOSIS: Same as Preop SIGNATURE: Darrius Grant MD PATIENT NAME: Zulay Bearden DATE: February 17, 2020 TIME: 1:26 PM PAGER/CONTACT #: Procedure Findings Note HNO ID: [id number] Author: Manjula Grant Service: Plastic Surgery Author Type: Physician Type: Brief Op Note Filed: 02/17/2020 1:28 PM Note Text: BRIEF OPERATIVE / PROCEDURE NOTE LOG ID: [id number] SURGERY/PROCEDURE DATE: 02/17/2020 INCISION/PROCEDURE START TIME: 1:05 PM INCISION CLOSE/PROCEDURE END TIME: 1:23 PM SURGEON(S)/PROCEDURALIST(S) AND CONCRETE PLACEMENT EQUIPMENT OPERATOR(S): Surgeon(s) and Role: * Darrius Grant - Yosi No Additional Staff SURGERY/PROCEDURE(S): I AND D cat bite abscess L wrist dorsum ANESTHESIA: General FINDINGS: seropurulent fluid in subcutaneous space and peritendinous sheath -- no evidence of carpal joint penetration ESTIMATED BLOOD LOSS: 0 ml SPECIMENS: None COMPLICATIONS: None PRE-OP/PRE-PROCEDURE DIAGNOSIS: ABOVE POST-OP/POST-PROCEDURE DIAGNOSIS: Same as Preop SIGNATURE: Darrius Grant MD PATIENT NAME: Zulay Bearden DATE: February 17, 2020 TIME: 1:26 PM PAGER/CONTACT #: Additional Source Comments INFORMATION SOURCE (unrecogn ized section and content) DATE CREATED AUTHOR AUTHOR'S ORGANIZ ATION 03/21/2020 [facility] DATE CREATED AUTHOR AUTHOR'S ORGANIZ ATION 01/26/2022 [facility] Source Comments (unrecognize d section and content) In the event this informatio n is protected by the Federal Confidentiality of Alcohol and Drug Abuse Patient Records regulations: The Federal rules restrict any use of the information to criminally investigate or prosecute any alcohol or drug abuse patient.[facility] Care Teams (unrecognized sec tion and content) FOR RECORDS PERTAINING TO PATIENTS WHO ARE OR HAVE BEEN ENROLLED IN A CHEMICAL DEPENDENCY/SUBSTANCEABUSE PROGRAM, SOME INFORMATION MAY BE OMITTED. This clinical summary was aggregated from multiple sources. Caution should be exercised in using it in the provision of clinical care. This summary normalizes information from multiple sources, and as a consequence, information in this document may materially change the coding, format and clinical context of patient data. In addition, data may be omitted in some cases. CLINICAL DECISIONS SHOULD BE BASED ON THE PRIMARY CLINICAL RECORDS. [employer] provides no warranty or guarantee of the accuracy or completeness of information in this document.
[2023-08-06 14:20] LABS: Vitamin D,25 Hydroxy 59.2 ng/mL
[2023-08-06 14:31] LABS: ALB/GLOB Ratio 1.1 RATIO (0.9-2.4); AST(SGOT) 19 U/L (15-37); Alanine Aminotransfer ALT/SGPT 20 U/L (13-56); Albumin, Serum 3.8 g/dL (3.2-5.0); Alkaline Phosphatase 76 U/L (45-117); Anion Gap 6 (5-15); BUN 16 mg/dL (7-18); BUN/Creat Ratio 15.8 RATIO (10-20); Calcium,Total 9.5 mg/dL (8.5-10.1); Chloride 106 mmol/L (98-107); Creatinine, Serum 1.01 mg/dL (0.55-1.02); EST Glomerular Filtration Rate 57 mL/min (>60); Est Glom Filt Rate - Afr Amer 69 mL/min (>60); Estimated Creatinine Clearance 44.64 ml/min; Globulin 3.4 g/dL (2.2-4.2); Glucose 92 mg/dL (74-106); Potassium 4.1 mmol/L (3.5-5.1); Protein, Total 7.2 g/dL (6.4-8.2); Sodium Level 141 mmol/L (136-145); Thyroid Stim Hormone (TSH) 2.56 uIU/mL (0.358-3.74)
== END 2023-08-06 13:05 | disposition home or self-care (01) ==
PROVIDERS: PCP Family Medicine; Referring Provider Internal Medicine Endocrinology, Diabetes & Metabolism; Visit Provider Internal Medicine Endocrinology, Diabetes & Metabolism
DX: M81.0 Age-related osteoporosis without current pathological fracture (principal); E83.51 Hypocalcemia
CPT/HCPCS: 36415; 80053; 82306; 84443; 96372; J0897

== ENCOUNTER 2024-02-04 13:21 | Outpatient (CLI) | payer MEDICARE, SELFPAY ==
[2024-02-04 13:43] VITALS: BP 117/68; PULSE 72; RESP 16; TEMP 36.4; O2SAT 94
[2024-02-04] MEDS: DENOSUMAB 60 MG/ML SC (13:47)
== END 2024-02-04 23:59 | disposition home or self-care (01) ==
LOC: MEDOUTP 13:21
PROVIDERS: PCP Family Medicine; Referring Provider Internal Medicine Endocrinology, Diabetes & Metabolism; Visit Provider Internal Medicine Endocrinology, Diabetes & Metabolism
DX: M81.0 Age-related osteoporosis without current pathological fracture (principal)
CPT/HCPCS: 96372; J0897

== ENCOUNTER → 2024-03-01 | Outpatient (CLI) | payer MEDICARE, SELFPAY ==
--- NOTE | 2024-03-01 08:23 | BI_ITS ---
MAMMOGRAPHY - BILATERAL SCREENING REASON FOR EXAM: Female, 73 years old. Routine annual screening examination. PERTINENT HISTORY: Non-contributory. TECHNIQUE: Digital bilateral breast adrianna (3D mammographic acquisition) in the CC and MLO projections. 2-D mediolateral oblique (MLO) and craniocaudad (CC) views of both breasts were obtained. CAD: Full Field Digital Mammography with Computer Added Detection was performed. COMPARISON: Comparison is made with prior study dated February 15, 2023 and February 12, 2022. FINDINGS: Breast Composition: The breasts are heterogeneously dense, which may obscure small masses. There are no dominant masses or suspicious calcifications. No other significant abnormalities are identified. There has been no significant change since the prior study. BI/SCRN MAMM (CAD)W/DARIANNA BILAT IMPRESSION: Stable bilateral screening mammogram. Yearly follow-up mammogram recommended. (A) ASSESSMENT CATEGORY: BIRADS Category 1: Negative. A letter regarding these results will be sent to the patient by the facility within 30 days. Approximately 10% of breast cancers are not detected by mammography. A normal mammogram should not delay biopsy of a clinically suspicious abnormality. [id number] Electronically Signed: Ildefonso Owens MD at 9:41 EDT ,
== END | disposition home or self-care (01) ==
LOC: OPBI 08:23
PROVIDERS: PCP Family Medicine; Referring Provider Nurse Practitioner Women's Health; Visit Provider Nurse Practitioner Women's Health
DX: Z12.31 Encounter for screening mammogram for malignant neoplasm of breast (principal)
CPT/HCPCS: 77063; 77067

== ENCOUNTER → 2024-05-29 | Outpatient (CLI) | payer MEDICARE, SELFPAY ==
--- NOTE | 2024-05-29 11:38 | RAD_ITS ---
INDICATION: pain post fall EXAMINATION/TECHNIQUE: X-RAY - RIGHT XR Shoulder Min 2 Views 4 VIEWS COMPARISON: No relevant prior comparison study available FINDINGS: SOFT TISSUES: No soft tissue swelling or gas. No radiopaque foreign body. BONES/JOINTS: No acute fracture or subluxation.. Normal alignment. Preservation of the joint space.. No sclerotic or destructive changes observed. RAD/Shoulder min 2 Views IMPRESSION: Negative. Electronically Signed: Rody Dimas MD at 1:18 EST ,
== END | disposition home or self-care (01) ==
PROVIDERS: PCP Family Medicine; Referring Provider Family Medicine; Visit Provider Family Medicine
DX: S46.911D Strain of unspecified muscle, fascia and tendon at shoulder and upper arm level, right arm, subsequent encounter (principal); X58.XXXD Exposure to other specified factors, subsequent encounter
CPT/HCPCS: 73030

== ENCOUNTER 2024-05-30 08:56 | Outpatient (RCR) | payer MEDICARE, SELFPAY ==
--- NOTE | 2024-05-30 11:34 | HP.PTEVAL_ITS ---
Patient's Visit Information Visit Information Visit Information: MARCE VILLA is a 74 year old F referred to Physical Therapy by Dr. Laura Riddle MD with a diagnosis of R RTC strain. Date of Evaluation: 05/30/24 Physical Therapist: Art Doherty DPT Visit Plan Frequency: 1x/Week Duration: 6 Weeks Plan: 1) AAROM of R shoulder 2) RTC strengthening as tolerated. Slow progressive to aid in tissue remodeling. Pt. to trial exercises on her own for 1-2 weeks then back to PT once approved Subjective Subjective: Pt. is here today for her initial evaluation with diagnosis of R RTC strain. Pt. reports falling while hiking in May. Pt. reports having pain since. Pt. reports a progressive pain. She reports losing strength as well. D ifficulty with sleeping. Pt. is having difficulty with reaching [place] and with reaching out to the side. She has not done much strengthening for her R shoulder due to fear of making it worse. Pt. is hopeful to reduce symptoms in order to get back to all recreational activities without limitations. Pain R shoulder: Pain Intensity (Out of 10): 4 Pain Intensity Range: 2 and 7 Objective Objective: POSTURE: Pt. has decent posture in. Fairly normal shoulder positioning. No marked shoulder elevation. PALPATION: Pt. has tenderness at biceps in groove and most of her pain at posterior aspect of subacromial space. NEURO: Pt. has normal sensation and normal DTR of BUEs. ROM: AROM: L shoulder: full motion without increase in symptoms. R shoulder: flexion 170deg increase NW at mid range and above, abd 160deg increase NW at mid range and above, functional ER C4 increase NW, functional IR L 3 increase NW. Pt. has most pain with eccentrically lowering her arm out of these positions. PROM: R shoulder: flexion 175 increase NW at end range, no pain until then. Abd 170deg increase NW at end range, ER at 90deg of abd 95deg mild increase NW at end range. IR at 90deg of abd 50deg mild increase NW. MMT: L shoulder: flexion 15.1#, abd 13.2#, ER 13.1#, IR 15.9#. R shoulder: flexion 10.8# increase NW, abd 10.1# increase NW, ER 9.7# increase NW, IR 14.8# NE. Special Tests R Shoulder Lift Off Test - Subscapular Tear: Negative R Shoulder Drop Sign - IS Test: Negative R Shoulder Empty Can - SS: Positive R Shoulder Neer - Impingement: Positive R Shoulder Chiu Augustine - Impingement: Positive R Shoulder Speeds Test - Labrum/Biceps: Positive Balance/Special Test Scores Quick DASH Score: 27.2725 Goals Goal 1:: LTG: Pt. to be I with HEP. Goal Time Frame: 4-6 Weeks Goal 2:: LTG: Pt. have full R shoulder ROM without increase in symptoms. Goal Time Frame: 4-6 Weeks Goal 3:: LTG: Pt. to have symmetrical strength between B shoulders. Goal Time Frame: 4-6 Weeks Goal 4:: STG: Pt. to sleep throughout the night without increase in symptoms. Goal Time Frame: 2 Weeks Rehabilitation Potential Physical Therapy Diagnosis: Pt. has signs and symptoms consistent with R RTC strain. Due to her mech of injury I would consider a tear, but she has decent ROM with some weakness of her RTC. I would suggest that she work on progressive strengthening of her R RTC and periscapular musculature and regain full ROM in order to get back to all activities without limitations. Rehabilitation Potential: Good Anticipated Interventions Patient/Client Instruction: Educate patient on: Condition, Plan of Care, Risk Factors and Benefits of Fitness Program For the Purpose of:: To improve health and function, To foster healthy habits, To improve decision making, To facilitate caregiver knowledge, To improve self management, To prevent re-injury and To improve ability to perform tasks related to life management Therapeutic Exercise to Include: Strength training For the Purpose of:: To decrease pain, To increase ROM, To improve muscle performance and motor function, To increase tolerance to activity/condition/position, To improve health of tissue, To decrease soft tissue restriction, To increase flexibility/ROM, To improve endurance, To reduce risk of recurrence and To improve safety Text: Thank you for the opportunity to evaluate your patient. For Medicare and Medicare HMO plans, please review the plan of care and approve it. It will need to be FAXED BACK to us at [phone] for Medicare purposes. For Medicare only, by signing this I certify the plan of care. Please let me know if there are questions or concerns regarding this plan of care. Physician Signature: Date:
== END 2024-05-30 19:00 | disposition home or self-care (01) ==
LOC: PT 08:56
PROVIDERS: PCP Family Medicine; Referring Provider Family Medicine; Visit Provider Family Medicine
DX: S46.011D Strain of muscle(s) and tendon(s) of the rotator cuff of right shoulder, subsequent encounter (principal)
CPT/HCPCS: 97161

== ENCOUNTER 2024-08-04 13:25 | Outpatient (CLI) | payer MEDICARE, SELFPAY ==
[2024-08-04 13:38] VITALS: BP 118/71; PULSE 70; RESP 16; TEMP 35.5; O2SAT 100
[2024-08-04] MEDS: DENOSUMAB 60 MG/ML SC (13:49)
== END 2024-08-04 23:59 | disposition home or self-care (01) ==
LOC: MEDOUTP 13:26
PROVIDERS: PCP Family Medicine; Referring Provider Internal Medicine Endocrinology, Diabetes & Metabolism; Visit Provider Internal Medicine Endocrinology, Diabetes & Metabolism
DX: M81.0 Age-related osteoporosis without current pathological fracture (principal)
CPT/HCPCS: 96372; J0897

== ENCOUNTER → 2024-10-05 | Outpatient (CLI) | payer MEDICARE, SELFPAY ==
[2024-10-05 12:34] LABS: ALB/GLOB Ratio 1.7 RATIO (0.9-2.4); AST(SGOT) 21 U/L (<=31); Alanine Aminotransfer ALT/SGPT 12 U/L (<=34); Albumin, Serum 4.1 g/dL (3.4-4.8); Alkaline Phosphatase 66 U/L (35-104); Anion Gap 10 (5-15); BUN 23 mg/dL (4-19); BUN/Creat Ratio 26.7 RATIO (10-20); Calcium,Total 9.1 mg/dL (7.6-11.0); Carbon Dioxide 24.2 mmol/L (21.0-32.0); Chloride 107 mmol/L (98-108); Creatinine, Serum 0.88 mg/dL (0.70-1.20); EST Glomerular Filtration Rate 69 (>60); Globulin 2.5 g/dL (2.2-4.2); Glucose 92 mg/dL (70-99); Potassium 4.6 mmol/L (3.3-5.1); Protein, Total 6.6 g/dL (5.9-8.4); Sodium Level 141 mmol/L (133-145); Total Bilirubin 0.49 mg/dL (0.00-1.30)
[2024-10-05 12:37] LABS: Vitamin D,25 Hydroxy 33.6 ng/mL (30-100)
[2024-10-05 13:24] LABS: Cholesterol 256 mg/dL (<=200); High Density Lipoprotein 80 mg/dL; Low Density Lipoprotein Calc. 155 mg/dL; Triglycerides 108 mg/dL; Very Low Density Lipoprotein 22 mg/dL (5-40); cholesterol:hdl ratio screen 3.21
== END | disposition home or self-care (01) ==
LOC: LAB 09:55
PROVIDERS: PCP Family Medicine; Referring Provider Internal Medicine Endocrinology, Diabetes & Metabolism; Visit Provider Internal Medicine Endocrinology, Diabetes & Metabolism
DX: E78.5 Hyperlipidemia, unspecified (principal); E55.9 Vitamin D deficiency, unspecified; M81.0 Age-related osteoporosis without current pathological fracture
CPT/HCPCS: 80053; 80061; 82306

== ENCOUNTER 2025-02-01 13:23 | Outpatient (CLI) | payer MEDICARE, SELFPAY ==
[2025-02-01 13:29] VITALS: BP 136/71; PULSE 65; RESP 16; TEMP 36.5; O2SAT 100
[2025-02-01] MEDS: DENOSUMAB 60 MG/ML SC (13:32)
== END 2025-02-01 23:59 | disposition home or self-care (01) ==
LOC: MEDOUTP 13:25
PROVIDERS: PCP Family Medicine; Referring Provider Internal Medicine Endocrinology, Diabetes & Metabolism; Visit Provider Internal Medicine Endocrinology, Diabetes & Metabolism
DX: M81.0 Age-related osteoporosis without current pathological fracture (principal)
CPT/HCPCS: 96372; J0897

== ENCOUNTER → 2025-03-02 | Outpatient (CLI) | payer MEDICARE, SELFPAY ==
--- NOTE | 2025-03-02 10:08 | BI_ITS ---
EXAM: SCRN MAMM (CAD)W/ADRIANNA BILAT DATE: 03/02/2025 CLINICAL HISTORY: F, Age 74 y/o , SCREEN FOR BREAST CANCER TECHNIQUE: SCRN MAMM (CAD)W/ADRIANNA BILAT COMPARISON: Prior exam(s) were compared FINDINGS: TISSUE DENSITY: The breasts are heterogeneously dense, which may obscure small masses. Bilateral Breast Mammographic Findings: No suspicious masses, calcifications or other abnormalities are identified. BI/SCRN MAMM (CAD)W/ADRIANNA BILAT IMPRESSION: No mammographic evidence of malignancy in either breast OVERALL FINAL ASSESSMENT BI-RADS 1: NEGATIVE. RECOMMENDATION: Routine annual follow-up in 1 Year A letter with findings and recommendations will be mailed to the patient. Reading Location: [id number]
--- OUTSIDE RECORDS SUMMARY | 2025-03-02 11:26 | XMS RPT_ITS | CCD ---
Author Organization [facility] Care Team Providers Care Stamp Mounter Name Role Phone Ajit POE, Ren Primary Care Provider Dr. Laura Riddle Primary Care Provider Dr. Laura Riddle Referring Provider [phone] Connors Attending Provider Dr. Christina Bazan Attending Provider Dr. Laura Riddle Primary Care Provider Dr. Laura Riddle Referring Provider Dr. Kurt Connors Attending Provider Dr. Laura Riddle Primary Care Provider Dr. Laura Riddle Referring Provider Dr. Christina Bazan Attending Provider Dr. Jose Perez Attending Provider [phone] Laura Riddle Primary Care Provider Dr. Laura Riddle Referring Provider [phone] Kurt Connors Attending Provider Ajit POE, Ren Primary Care Provider Dr. Laura Riddle MD Primary Care Provider Dr. Laura Riddle MD Referring Provider Dr. Kurt Connors MD Attending Provider Dr. Kurt Connors MD Referring Provider Dr. Laura Riddle MD Primary Care Provider Dr. Kurt Cononrs MD Attending Provider Dr. Kurt Connors MD Referring Provider Jolliff, Laura S Referring Unavailable Jolliff, Laura S Attending Unavailable Jolliff, Laura S Primary Care Unavailable Heber ASSISTANT CLINICAL DIRECTOR, Jami Referring Unavailable Kemal ASSISTANT CLINICAL DIRECTOR, Jami Attending Unavailable Jolliff, Laura S Primary Care Unavailable Waylon, Kurt Attending Unavailable Jolliff, Laura S Primary Care Unavailable Waylon, Kurt Referring Unavailable Jolliff, Laura S Primary Care Unavailable Waylon, Kurt Referring Unavailable Waylon, Kurt Attending Unavailable Christina Bazan Attending Unavailabl e Jolliff, Laura S Referring Unavailable Jolliff, Laura S Primary Care Unavailable Waylon, Kurt Attending Unavailable Jolliff, Laura S Referring Unavailable Jolliff, Laura S Primary Care Unavailable Waylon, Kurt Referring Unavailable Waylon, Kurt Attending Unavailable Jolliff, Laura S Primary Care Unavailable Jolliff, Laura S Referring Unavailable Jolliff, Laura S Attending Unavailable Jolliff, Laura S Primary Care Unavailable Dr. Lauar Riddle MD Primary Care Provider Dr. Kurt Connors MD Attending Provider Dr. Kurt Connors MD Referring Provider Dr. Laura Riddle MD Referring Provider Dr. Christina Bazan DO Attending Provider Allergies Allergy Classification Reported Allergen(s) Allergy Type Date of Onset Reaction(s) Facility (2 sources) Sulfamethoxazole / Trimethoprim Drug Allergy 6 [facility] Work Phone: (8 sources) Sulfamethoxazole Drug Allergy 2 Other [facility] (8 sources) Trimethoprim Drug Allergy 2 Other [facility] (1 source) Sulfamethoxazole Drug Allergy 5 [facility] Repository (1 source) Trimethoprim Drug Allergy 5 [facility] Repository Medications Current Medications Medication Drug Class(es) Dates Sig (Normalized) Sig (Original) biotin 1 mg oral capsule (6 sources) Start: 01-27-2023 take 1 capsule by mouth once daily Biotin 1 mg capsule Active 1 mg PO DAILY January 27, 2023 12:00am cholecalciferol 0.125 mg oral capsule (9 sources) Vitamin D Start: 07-23-2022 take 1 capsule by mouth once daily Cholecalciferol (Vitamin D3) 125 mcg (5,000 unit) capsule Active 125 ug PO DAILY July 23, 2022 1:00am Start: 07-29-2016 take 1 capsule by [facility] once daily Cholecalciferol, Vitamin D3, 5,000 unit cap Take 1 capsule by mouth once daily. 0 07/29/2016 Active Comment on above: Take 1 capsule by [facility] once daily. melatonin 3 mg oral capsule (6 sources) Start: 01-27-2023 take 1 capsule by mouth at bedtime as needed for sleep Melatonin 3 mg capsule Active 3 mg PO BEDTIME as needed for sleep January 27, 2023 12:00am Mineral Oil-Hydrophil Petrolat (Aquaphor) ointment (4 sources) Start: 07-22-2023 Mineral Oil-Hydrophil Petrolat (Aquaphor) ointment Active 1 NMA TOPICAL THREE TIMES A DAY July 22, 2023 1:00am Start: 07-22-2023 Mineral Oil-Hy drophil Petrolat (Aquaphor) ointment Active 1 APPLIC TOPICAL THREE TIMES A DAY July 22, 2023 12:00am Multivitamin preparation (4 sources) Start: 07-23-2022 take 1 tablet by mouth every other day Multivitamin Active 1 TABLET PO .QOD July 23, 2022 1:00am Start: 07-23-2022 take 1 tablet by [facility] every other day Multivitamin Active 1 TABLET PO .QOD July 23, 2022 12:00am Multivitamin tablet (3 sources) Start: 07-23-2022 Multivitamin t ablet Active 1 {tbl} PO .QOD July 23, 2022 1:00am Vitamin B Complex (6 sources) Start: 07-22-2023 take 1 tablet by mouth once daily Vitamin B Complex Active 1 TABLET PO DAILY July 22, 2023 9:00am Start: 01-27-2023 End: 07-22-2023 take 1 tablet by mouth once daily Vitamin B Complex Discontinued 1 TABLET PO DAILY January 26, 2023 11:00pm July 22, 2023 9:01am Start: 01-27-2023 take 1 tablet by [facility] once daily Vitamin B Complex Active 1 TABLET PO DAILY January 27, 2023 12:00am Start: 07-04-2009 vitamin b comp shayy(B COMPLEX 1 TAB) Take one(1) tablet daily. 0 07/04/2009 Active Comment on above: Take one(1) tablet d aily. Vitamin B Complex tablet (6 sources) Start: 07-22-2023 Vitamin B Complex tablet Active 1 {tbl} PO DAILY as needed for . July 22, 2023 10:00am Start: 01-27-2023 End: 07-22-2023 Vitamin B Complex tablet Dis continued 1 {tbl} PO DAILY January 27, 2023 12:00am July 22, 2023 10:01am Completed/Discontinued Medications Medication Drug Class(es) Dates Sig (Normalized) Sig (Original) calcium carbonate 600 mg / cholecalciferol 125 unt oral tablet (2 sources) Vitamin D Start: 03-29-2020 calcium carbonate/vitamin d3(CALCIUM 600 + D 600 MG-125 UNIT TAB) Take by mouth once daily. 0 03/29/2020 Active Comment on above: Take by mouth once d aily. clobetasol propionate 0.0005 mg/mg topical ointment (20 sources) Corticosteroid Start: 01-09-2021 End: 07-21-2024 Clobetasol 0.05 % ointment Discontinued 1 NMA TOPICAL AT BEDTIME July 22, 2023 9:59am July 21, 2024 9:32am apply thin layer; massage gently into affected area nightly x 6 weeks then 1-2x weekly Start: 08-06-2017 End: 01-03-2019 Clobetasol 0.05 % ointment D iscontinued 1 NMA TOPICAL AT BEDTIME 22 10August 06, 2017 1:00am January 03, 2019 2:20pm apply thin layer; massage gently into affected area Start: 08-06-2017 End: 01-03-2019 Clobetasol Discontinued 1 AP PLIC TOPICAL AT BEDTIME August 06, 2017 12:00am January 03, 2019 1:20pm apply thin layer; massage gently into affected area 1 ml denosumab 60 mg/ml prefilled syringe (20 sources) RANK Ligand Inhibitor Start: 07-24-2021 End: 07-22-2023 Denosumab Active 60 MG SC every 6 months July 22, 2023 9:04am Start: 06-24-2020 End: 08-03-2024 Denosumab 60 mg/mL syringe D iscontinued 60 mg SC every 6 months 07 26January 25, 2024 1:37pm August 03, 2024 1:45pm Start: 08-06-2017 End: 01-03-2019 Denosumab (Prolia) 60 mg/mL syringe Discontinued 60 mg SC every 6 months August 06, 2017 1:00am January 03, 2019 2:20pm Comment on above: Inject 1 mL subcutan eously once every 6 months. docosahexaenoic acid/epa (FISH OIL ORAL) (1 source) docosahexaenoic acid/epa (FISH OIL ORAL) Take by mouth once daily. 0 Active Comment on above: Take by mouth once d aily. estradiol 0.1 mg/ml vaginal cream (2 sources) Estrogen Start: estradiol (ESTRACE) 0.01 % (0.1 mg/g) vaginal cream Use 1 g vaginally 3 times a WEEK. 42 g 0 08/12/2012 Active Comment on above: Use 1 g vaginally 3 times a WEEK. loperamide hydrochloride 2 mg oral capsule (1 source) Opioid Agonist Start: take 1 capsule by mouth every twelve hours as needed loperamide (IMODIUM) 2 mg cap(s) Take 1 capsule by mouth twice daily as needed for Diarrhea. 10 capsule 0 02/23/2020 Active Comment on above: Take 1 capsule by [facility] twice daily as needed for Diarrhea. niacin 500 mg oral tablet (7 sources) Nicotinic Acid Start: End: take 1 tablet by mouth every week Niacin 500 mg tablet Discontinued 500 mg PO .3X weekly July 23, 2022 1:00am July 23, 2022 10:31am Penelope 5-Aco-Yba-Fish Oil (Fish Oil) 1,200 (144-216) mg capsule (7 sources) Start: End: Penelope 0-Hde-Hwt-Fish Oil (Fish Oil) 1,200 (144-216) mg capsule Discontinued 1 NMA PO DAILY July 23, 2022 1:00am July 23, 2022 10:31am Start: 07-23-2022 End: 07-23-2022 take 1 capsule by mouth once daily Penelope 1-Gcm-Qbk-Fish Oil (Fish Oil) 1,200 (144-216) mg capsule Discontinued 1 CAP PO DAILY July 23, 2022 1:00am July 23, 2022 10:31am Start: 07-23-2022 End: 07-23-2022 take 1 capsule by mouth once daily Penelope 0-Uzi-Buk-Fish Oil (Fish Oil) 1,200 (144-216) mg capsule Discontinued 1 CAP PO DAILY July 23, 2022 12:00am July 23, 2022 9:31am ondansetron 4 mg oral tablet (1 source) Serotonin-3 Receptor Antagonist Start: 02-23-2020 take 1 tablet by mouth every twelve hours as needed ondansetron (ZOFRAN) 4 mg tablet Take 1 tablet by mouth every 12 hours as needed for Nausea/Vomiting. 10 tablet 0 02/23/2020 Active Comment on above: Take 1 tablet by [facility] every 12 hours as needed for Nausea/Vomiting. rifAXIMin 550 mg oral tablet (8 sources) Rifamycin Antibacterial Start: 01-09-2021 End: 01-23-2021 take 1 tablet by mouth three times daily Rifaximin (Xifaxan) 550 mg tablet Discontinued 550 mg PO THREE TIMES A DAY 42 14 0 January 09, 2021 12:00am January 22, 2021 12:00am January 23, 2021 12:01am THERAPEUTIC MULTIVITAMIN TAB (2 sources) Start: 06-30-2007 THERAPEUTIC MULTIVITAMIN TAB Take one(1) tablet daily. 0 06/30/2007 Active Comment on above: Take one(1) tablet d aily. turmeric root extract 500 mg cap (2 sources) Start: 07-29-2016 take 1 capsule by mouth once daily turmeric root extract 500 mg cap Take 500 mg by mouth once daily. 0 07/29/2016 Active Comment on above: Take 500 mg by mouth once daily. Problems Active Problems Problem Classification Problem Date Documented Da te Episodic/Chronic Administrative/social admission (10 sources) Counseling procedure with explicit context; Translations: [Vaccine counseling] Episodic Anxiety disorders (2 sources) Anxiety; Translations: [Anxiety disorder, unspecified] Onset: 07-29-2016 07-29-2016 Chronic Chronic kidney disease (9 sources) Chronic kidney disease; Translations: [Chronic kidney disease, unspecified] Chronic Disorders of lipid metabolism (3 sources) Mixed hyperlipidemia; Translations: [Mixed hyperlipidemia] Onset: 07-29-2016 07-29-2016 Chronic Menopausal disorders (2 sources) Atrophic vaginitis; Translations: [Postmenopausal atrophic vaginitis] Onset: 07-02-2008 07-02-2008 Chronic Nutritional deficiencies (10 sources) Vitamin D deficiency; Translations: [Vitamin D deficiency, unspecified] Onset: 07-21-2024 07-23-2022 Chronic Osteoporosis (17 sources) Osteoporosis; Translations: [Age-related osteoporosis without current pathological fracture] Onset: 07-29-2016 07-29-2016 Chronic Comment on above: On Prolia Other gastrointestinal disorders (8 sources) Irritable bowel syndrome with diarrhea; Translations: [Irritable bowel syndrome with diarrhea] 01-09-2021 Chronic Comment on above: failed OTC medicatio ns, xifaxan ordered. Other gastrointestinal disorders (1 source) Irritable bowel syndrome with diarrhea; Translations: [Irritable bowel syndrome] Chronic Other gastrointestinal disorders (8 sources) Incontinence of feces; Translations: [Full incontinence of feces] 01-09-2021 Episodic Comment on above: likely related to ch kimi in stool after hospitalization. Other gastrointestinal disorders (8 sources) Finding of measures of abdomen; Translations: [Other specified symptoms and signs involving the digestive system and abdomen] 01-03-2019 Episodic Comment on above: pelvic us Other gastrointestinal disorders (1 source) Full incontinence of feces; Translations: [Full incontinence of feces] Episodic Other nervous system disorders (4 sources) Tremor; Translations: [Tremor, unspecified] 07-22-2023 Episodic Other nervous system disorders (1 source) Tremor, unspecified; Translations: [Abnormal involuntary movements] 07-22-2023 Episodic Other nutritional; endocrine; and metabolic disorders (7 sources) Hypocalcemia; Translations: [Hypocalcemia] 07-23-2022 Chronic Other nutritional; endocrine; and metabolic disorders (1 source) Hypocalcemia; Translations: [Hypocalcemia] 07-23-2022 Chronic Other skin disorders (9 sources) Lichen sclerosus et atrophicus; 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 Past or Other Problems Problem Classification Problem Date Documented Da te Episodic/Chronic Other screening for suspected conditions (not mental disorders or infectious disease) (4 sources) Patient encounter status; Translations: [Encounter for screening mammogram for malignant neoplasm of breast] Onset: 07-29-2016 Episodic Sprains and strains (2 sources) Strain of muscle(s) and tendon(s) of the rotator cuff of right shoulder, initial encounter; Translations: [Strain of unspecified muscle, fascia and tendon at shoulder and upper arm level, right arm, subsequent encounter] Onset: 06-19-2024 Episodic Results Test Name Value Interpretation Reference Range Facility Anion gap in Serum or Plasma Ordered By: Kurt Connors on 10-05-2024 Anion gap [Moles/Vol] 10 mmol/L 5-15 [facility] BUN/creatinine ratioOrdered By: Kurt Connors on 10-05-2024 Urea nitrogen/Creatinine [Mass ratio] 26.7 mg/mg High 10-20 [facility] Bilirubin, totalOrdered By: Kurt Connors on 10-05-2024 Bilirubin [Mass/Vol] 0.49 mg/dL 0.00-1.30 [facility] Calculated very low density lipoprotein (VLDL) cholesterol measurementOrdered By: Kurt Connors on 10-05-2024 Calculated very low density lipoprotein (VLDL) cholesterol measurement 22 mg/dL 5-40 [facility] VLDL Cholesterol 22 mg/dL 5-40 [facility] Carbon dioxide, total [Moles /volume] in Central venous bloodOrdered By: Kurt Connors on 10-05-2024 CO2 [Moles/Vol] 24.2 mmol/L 21.0-32.0 [facility] Chloride assayOrdered By: Jw Connors on 10-05-2024 Chloride [Moles/Vol] 107 mmol/L 98-108 [facility] Comprehensive Metabolic Prof deepika 10-05-2024 Albumin [Mass/Vol] 4.1 g/dL Normal 3.4-4.8 [facility] Comment on above: Performed By: #### L 500.4050, L506.1001 #### [facility] [address] [place], [address] Albumin/Globulin [Mass ratio] 1.7 {ratio} Normal 0.9-2.4 [facility] Comment on above: Performed By: #### L [id number], L506.1001 #### [facility] [address] [place], [address] ALK PHOS 66 U/L Normal 35-104 [facility] Comment on above: Performed By: #### L [id number], L506.1001 #### [facility] [address] [place], [address] ALT [Catalytic activity/Vol] 12 U/L Normal <=34 [facility] Comment on above: Performed By: #### L [id number], L506.1001 #### [facility] [address] [place], [address] AST [Catalytic activity/Vol] 21 U/L Normal <=31 [facility] Comment on above: Performed By: #### L [id number], L506.1001 #### [facility] [address] [place], [address] Bilirubin [Mass/Vol] 0.49 mg/dL Normal 0.00-1.30 [facility] Comment on above: Performed By: #### L [id number], L506.1001 #### [facility] [address] [place], [address] BUN/CRE 26.7 RATIO High 10-20 [facility] Comment on above: Performed By: #### L [id number], L506.1001 #### [facility] [address] [place], [address] Calcium [Mass/Vol] 9.1 mg/dL Normal 7.6-11.0 [facility] Comment on above: Performed By: #### L [id number], L506.1001 #### [facility] [address] [place], [address] Chloride [Moles/Vol] 107 mmol/L Normal 98-108 [facility] Comment on above: Performed By: #### L [id number], [id number] #### [facility] [address] [place], [address] CO2 [Moles/Vol] 24.2 mmol/L Normal 21.0-32.0 [facility] Comment on above: Performed By: #### L [id number], L506.1001 #### [facility] [address] [place], [address] Creatinine [Mass/Vol] 0.88 mg/dL Normal 0.70-1.20 [facility] Comment on above: Performed By: #### L [id number], [id number] #### [facility] [address] [place], [address] GAP 10 Normal 5-15 [facility] Comment on above: Performed By: #### L 500.4050, [id number] #### [facility] [address] [place], [address] GFR/1.73 sq M.predicted among non-blacks MDRD (S/P/Bld) [Vol rate/Area] 69 mL/min/{1.73_m2} Normal >60 [facility] Comment on above: Result Comment: mL/m in/1.73m2 CKD-EPI Creatinine Equation (2020) Performed By: #### L 500.4050, L506.1001 #### [facility] [address] [place], [address] Globulin (S) [Mass/Vol] 2.5 g/dL Normal 2.2-4.2 [facility] Comment on above: Performed By: #### L [id number], L506.1001 #### [facility] [address] [place], [address] Glucose [Mass/Vol] 92 mg/dL Normal 70-99 [facility] Comment on above: Performed By: #### L 500.4050, [id number] #### [facility] [address] [place], [address] Potassium [Moles/Vol] 4.6 mmol/L Normal 3.3-5.1 [facility] Comment on above: Performed By: #### L [id number], [id number] #### [facility] [address] [place], [address] Sodium [Moles/Vol] 141 mmol/L Normal 133-145 [facility] Comment on above: Performed By: #### L 500.4050, [id number] #### [facility] [address] [place], [address] T PROT 6.6 g/dL Normal 5.9-8.4 [facility] Comment on above: Performed By: #### L [id number], [id number] #### [facility] [address] [place], [address] Urea nitrogen [Mass/Vol] 23 mg/dL High 4-19 [facility] Comment on above: Performed By: #### L 500.4050, [id number] #### [facility] [address] [place], [address] GFR/1.73 sq M.predicted haroldo g non-blacks MDRD (S/P/Bld) [Vol rate/Area]Ordered By: Kurt Connors on 10-05-2024 Estimated GFR (MDRD) Non-Af Amer 69 >60 [facility] Comment on above: mL/min/1.73m2 CKD-EP I Creatinine Equation (2020) Glomerular filtration rate ( GFR) estimation/1.73 sq m using serum, plasma, or whole bOrdered By: Kurt Connors on 10-05-2024 GFR/1.73 sq M.predicted among non-blacks MDRD (S/P/Bld) [Vol rate/Area] 69 mL/min/{1.73_m2} >60 [facility] Comment on above: mL/min/1.73m2 CKD-EP I Creatinine Equation (2020) L506.1001on 10-05-2024 Vitamin D 25-OH 33.6 ng/mL Normal 30-100 [facility] Comment on above: Result Comment: Vivian min D Status Deficiency: <20 ng/mL (50nmol/L) Insufficiency: 20-30 ng/mL (50-75 nmol/L) Sufficiency: 30-100 ng/mL (75-250 nmol/L) Toxicity: >100 ng/mL (>250 nmol/L) Performed By: #### L 500.4050, L506.1001 #### [facility] [address] [place], [place], [id number] LDL calc ser/plasOrdered By: Kurt Connors on 10-05-2024 Cholesterol in LDL [Mass/Vol] 155 mg/dL [facility] Comment on above: Nupyxqhygw=096-993 m g/dL & Higher Ijfu=923 mg/dL or greater LDL Cholesterol, Calculated 155 mg/dL [facility] Comment on above: Xxakiamqjm=027-008 m g/dL & Higher Oeie=210 mg/dL or greater Laboratory - Chemistry and C hemistry - challengeOrdered By: Kurt Connors on 10-05-2024 AST [Catalytic activity/Vol] 21 U/L <32 [facility] Lipid Profileon 10-05-2024 CHOL:HDL 3.21 Normal [facility] Comment on above: Order Comment: OFFIC E CALLED AND SAID TO ADD THIS TEST ON TO BW DONE THIS AM Performed By: #### L 500.0250 #### [facility] [address] [place], [place], [address] Cholesterol [Mass/Vol] 256 mg/dL High <=200 [facility] Comment on above: Order Comment: OFFIC E CALLED AND SAID TO ADD THIS TEST ON TO BW DONE THIS AM Result Comment: Chol esterol level, Desirable <200 mg/dL Borderline high cholesterol 200-239 mg/dL High cholesterol >=240 mg/dL Recommendations of the NCEP Adult Treatment Panel for the following risk-cutoff thresholds for the [place] population. Performed By: #### L 500.4100 #### [facility] [address] [place], [address] Cholesterol in HDL [Mass/Vol] 80 mg/dL Normal [facility] Comment on above: Order Comment: OFFIC E CALLED AND SAID TO ADD THIS TEST ON TO BW DONE THIS AM Result Comment: Amanda onal Cholesterol Education Program (NCEP) guidelines: <40 mg/dL: Low HDL-cholesterol (major risk factor for CHD) >= 60 mg/dL: High HDL-cholesterol (negative risk factor for CHD) HDL-cholesterol is affected by a number of factors, e.g. smoking, exercise, hormones, sex and age. Performed By: #### L 500.4100 #### [facility] [address] [place], [address] Cholesterol in LDL [Mass/Vol] 155 mg/dL Normal [facility] Comment on above: Order Comment: OFFIC E CALLED AND SAID TO ADD THIS TEST ON TO BW DONE THIS AM Result Comment: Bord ixcdou=189-828 mg/dL Higher Xrck=179 mg/dL or greater Performed By: #### L 500.4100 #### [facility] [address] [place], [address] Cholesterol in VLDL [Mass/Vol] 22 mg/dL Normal 5-40 [facility] Comment on above: Order Comment: OFFIC E CALLED AND SAID TO ADD THIS TEST ON TO BW DONE THIS AM Performed By: #### L 500.4100 #### [facility] [address] [place], [address] Triglyceride [Mass/Vol] 108 mg/dL Normal [facility] Comment on above: Order Comment: OFFIC E CALLED AND SAID TO ADD THIS TEST ON TO BW DONE THIS AM Result Comment: The drugs N-Acetylcysteine and Metamizole may falsely depress this assay. Normal range: <150 mg/dL Borderline High: 150-199 mg/dL High: 200-499 mg/dL Very High: >500 mg/dL Performed By: #### L 500.4100 #### [facility] [place], [address] Potassium (Unsp spec) [Mass/ Vol]Ordered By: Kurt Connors on 10-05-2024 Potassium [Moles/Vol] 4.6 mmol/L 3.3-5.1 [facility] Potassium measurement (mass/ volume)Ordered By: Kurt Connors on 10-05-2024 Potassium (Unsp spec) [Mass/Vol] 4.6 mmol/L 3.3-5.1 [facility] Screening total cholesterol/ high density lipoprotein (HDL) cholesterol ratioOrdered By: Kurt Connors on 10-05-2024 Cholesterol.total/Chol esterol in HDL [Mass ratio] 3.21 {ratio} [facility] Serum creatinine measurement (mass/volume)Ordered By: Kurt Connors on 10-05-2024 Creatinine [Mass/Vol] 0.88 mg/dL 0.70-1.20 [facility] Serum globulin measurementOr dered By: Kurt Connors on 10-05-2024 Globulin (S) [Mass/Vol] 2.5 g/dL 2.2-4.2 [facility] Serum glucose measurement (m ass/volume)Ordered By: Kurt Connors on 10-05-2024 Glucose [Mass/Vol] 92 mg/dL 70-99 [facility] Serum or plasma alanine johnson otransferase (ALT) measurementOrdered By: Kurt Connosr on 10-05-2024 ALT [Catalytic activity/Vol] 12 U/L <35 [facility] Serum or plasma albumin maciej urement (mass/volume)Ordered By: Kurt Connors on 10-05-2024 Albumin [Mass/Vol] 4.1 g/dL 3.4-4.8 [facility] Serum or plasma albumin/glob ulin mass ratioOrdered By: Kurt Connors on 10-05-2024 Albumin/Globulin [Mass ratio] 1.7 {ratio} 0.9-2.4 [facility] Serum or plasma alkaline babs sphatase measurementOrdered By: Kurt Connors on 10-05-2024 ALP [Catalytic activity/Vol] 66 U/L 35-104 [facility] Serum or plasma calcium maciej urement (mass/volume)Ordered By: Kurt Connors on 10-05-2024 Calcium [Mass/Vol] 9.1 mg/dL 7.6-11.0 [facility] Serum or plasma cholesterol in HDL measurement (mass/volume)Ordered By: Kurt Connors on 10-05-2024 Cholesterol in HDL [Mass/Vol] 80 mg/dL >40 [facility] Comment on above: National Cholesterol Education Program (NCEP) guidelines:<40 mg/dL: Low HDL-cholesterol (major risk factor for CHD)>= 60 mg/dL: High HDL-cholesterol (negative risk factor for CHD)HDL-cholesterol is affected by a number of factors, e.g. smoking, exercise, hormones, sex and age. Serum or plasma cholesterol measurement (mass/volume)Ordered By: Kurt Connors on 10-05-2024 Cholesterol [Mass/Vol] 256 mg/dL High <201 [facility] Comment on above: Cholesterol level, D esirable <200 mg/dLBorderline high cholesterol 200-239 mg/dLHigh cholesterol >=240 mg/dLRecommendations of the NCEP Adult Treatment Panel for the following risk-cutoff thresholds for the [place] population. Serum or plasma urea nitroge n measurement (mass/volume)Ordered By: Kurt Connors on 10-05-2024 Urea nitrogen [Mass/Vol] 23 mg/dL High 4-19 [facility] Sodium levelOrdered By: Kurt Connors on 10-05-2024 Sodium [Moles/Vol] 141 mmol/L 133-145 [facility] Total proteinOrdered By: Kane Connors on 10-05-2024 Protein [Mass/Vol] 6.6 g/dL 5.9-8.4 [facility] Triglycerides measurementOrd ered By: Kurt Connors on 10-05-2024 Triglyceride [Mass/Vol] 108 mg/dL <199 [facility] Comment on above: The drugs N-Acetylcy steine and Metamizole may falsely depress this assay. Normal range: <150 mg/dLBorderline High: 150-199 mg/dLHigh: 200-499 mg/dLVery High: >500 mg/dL Vitamin D, 25-hydroxyOrdered By: Kurt Connors on 10-05-2024 Vitamin D 25-Hydroxy 33.6 ng/mL 30-100 [facility] Comment on above: Vitamin D StatusDefi ciency: <20 ng/mL (50nmol/L)Insufficiency: 20-30 ng/mL (50-75 nmol/L)Sufficiency: 30-100 ng/mL (75-250 nmol/L)Toxicity: >100 ng/mL (>250 nmol/L) Endocrinology Visit Reporton 07-21-2024 Endocrinology Visit Report [facility] [address] [place] [address] OFFICE VISIT Date of Service: 07/21/24 MR#: [id number] Acct: [id number] Name: ZULAY BEARDEN Rep #: [id number] : 1950 Provider: Dao Escamilla Age/Sex: 74/F [place] [facility] [place]: Signed Intake Vital Signs 07/22/23 08:55 02/04/24 13:43 07/21/24 08:28 Height 5 ft 5 in 5 ft 5 in 5 ft 5 in Weight: 146 lb 2 oz BMI 24.3 BP 129/73 H Blood Pressure Location Rt brachial Position Sitting Pulse 66 Pulse Source Monitor Pulse Oximetry (%) 98 Oxygen Delivery Method room air Intake Visit Reasons: 1 Y FU Chief Complaint: Annual Is patient in pain?: No Allergies sulfamethoxazole (From Bactrim) Allergy (Mild, Verified 02/04/24 13:43) Other trimethoprim (From Bactrim) Allergy (Mild, Verified 02/04/24 13:43) Other Medications ???Medication ???Instructions ???Recorded ???Confirmed ???Type cholecalciferol (vitamin D3) 125 125 mcg PO DAILY 07/23/22 07/21/24 History mcg (5,000 unit) capsule multivitamin 1 tab PO .QOD 07/23/22 07/21/24 History biotin 1 mg capsule 1 mg PO DAILY 01/27/23 07/21/24 History melatonin 3 mg capsule 3 mg PO HS PRN sleep 01/27/23 07/21/24 History mineral oil-hydrophil petrolat 1 applic topical TID 07/22/23 07/21/24 History topical ointment (Aquaphor topical ointment) vitamin B complex 1 tab PO DAILY PRN . 07/22/23 07/21/24 History denosumab 60 mg/mL subcutaneous 60 mg subcut [id number] #1 mL 01/25/24 07/21/24 Rx syringe clobetasol 0.05 % topical ointment 1 applic topical QHS PRN 07/21/24 07/21/24 History Have you fallen in the past year?: Yes PFSH Medical History Fecal incontinence Tremor Vitamin D deficiency Hypocalcemia Vaccine counseling CKD (chronic kidney disease) Osteoporosis Lichen sclerosus et atrophicus colonoscopy Skin cancer Surgical History History of surgery on arm H/O dilation and curettage Family History Mother Arthritis Tremors of nervous system Father Cancer prostate Grandfather Cancer prostate Social History Smoking Status: Never smoker alcohol intake: current details: social substance use type: does not use caffeine: Yes what type of physical activity do you participate in: walking and other details: hike frequency: other details: 30-50 miles per week seatbelt use: always do you feel safe at home: Yes additional social history: 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 She has osteoporosis and started Prolia in 2020. She is tolerating it well. She understands she will take Prolia for her lifetime. Her mother last July. She has been travelling a lot this year. She is feeling well. She is due for labs. Osteoporosis/Bone Results: Calcium Level 9.5 mg/dL (8.5-10.1) Albumin 3.8 g/dL (3.2-5.0) Parathyroid Hormone (Intact) 71.1 pg/mL (18.4-80.1) Vitamin D 25-Hydroxy 59.2 ng/mL ROS Const Constitutional: No fatigue or weight change ENT ENT: No dizziness/vertigo Cardio Cardiology: No chest pain at rest, chest pain with exertion, shortness of breath or palpitations Skin Skin: No wounds Endo Endocrine: No fatigue or weight change Exam Const General: cooperative, healthy appearing, comfortable, no acute distress, well developed and not cushingoid Nutritional Appearance: well nourished Orientation: alert, awake and oriented x3 HENMT Head: normal to inspection Ears: hearing grossly normal bilaterally Nose: external nose normal Mouth: oral mucosae normal Eyes General: appearance normal, both eyes and all related structures Alignment and Position: alignment normal Periorbital: periorbital findings normal Eyelids: eyelids normal Conjunctivae: conjunctivae normal Neck Neck: normal visual inspection Neck mass: No Thyroid: diffusely enlarged (mild enlargerment) Lymphatic: no lymphadenopathy noted Chest Chest palpation inspection: normal inspection of the chest Resp Effort Inspection: normal respiratory effort, able to speak in complete sentences, symmetric chest movement, no audible wheezes and no cough Auscultation: Bilateral: Clear to Auscultation Cardio Rate: regular rate Rhythm: regular rhythm Pulses: posterior tibial pulses present Skin General: no rashes or lesions noted Neuro General: patient alert, patient awake and patient oriented x3 Cranial Nerves: (more content not included)... Normal [facility] Inital Evaluation (1) - PTon 05-30-2024 Inital Evaluation (1) - PT [facility] Physical Therapy [facility] [address] [place] [id number] / REHABILITATION SERVICES INITIAL EVALUATION MR#: [id number] Acct: [id number] Name: ZULAY BEARDEN Rep #: [id number] : 1950 74 From: Art Doherty DPT Referring Dr.: Dr. Laura Riddle MD Status: RE G RCR Insurance[facility] Patient's Visit Information Visit Information Visit Information: ZULAY BEARDEN is a 74 year old F referred to Physical Therapy by Dr. Laura Riddle MD with a diagnosis of R RTC strain. Date of Evaluation: 05/30/24 Physical Therapist: Art Doherty DPT Visit Plan Frequency: 1x/Week Duration: 6 Weeks Plan: 1) AAROM of R shoulder 2) RTC strengthening as tolerated. Slow progressive to aid in tissue remodeling. Pt. to trial exercises on her own for 1-2 weeks then back to PT once approved Subjective Subjective: Pt. is here today for her initial evaluation with diagnosis of R RTC strain. Pt. reports falling while hiking in May. Pt. reports having pain since. Pt. reports a progressive pain. She reports losing strength as well. Difficulty with sleeping. Pt. is having difficulty with reaching [place] and with reaching out to the side. She has not done much strengthening for her R shoulder due to fear of making it worse. Pt. is hopeful to reduce symptoms in order to get back to all recreational activities without limitations. Pain R shoulder: Pain Intensity (Out of 10): 4 Pain Intensity Range: 2 and 7 Objective Objective: POSTURE: Pt. has decent posture in. Fairly normal shoulder positioning. No marked shoulder elevation. PALPATION: Pt. has tenderness at biceps in groove and most of her pain at posterior aspect of subacromial space. NEURO: Pt. has normal sensation and normal DTR of BUEs. ROM: AROM: L shoulder: full motion without increase in symptoms. R shoulder: flexion 170deg increase NW at mid range and above, abd 160deg increase NW at mid range and above, functional ER C4 increase NW, functional IR L 3 increase NW. Pt. has most pain with eccentrically lowering her arm out of these positions. PROM: R shoulder: flexion 175 increase NW at end range, no pain until then. Abd 170deg increase NW at end range, ER at 90deg of abd 95deg mild increase NW at end range. IR at 90deg of abd 50deg mild increase NW. MMT: L shoulder: flexion 15.1#, abd 13.2#, ER 13.1#, IR 15.9#. R shoulder: flexion 10.8# increase NW, abd 10.1# increase NW, ER 9.7# increase NW, IR 14.8# NE. Special Tests R Shoulder Lift Off Test - Subscapular Tear: Negative R Shoulder Drop Sign - IS Test: Negative R Shoulder Empty Can - SS: Positive R Shoulder Neer - Impingement: Positive R Shoulder Chiu Augustine - Impingement: Positive R Shoulder Speeds Test - Labrum/Biceps: Positive Balance/Special Test Scores Quick DASH Score: 27.2725 Goals Goal 1:: LTG: Pt. to be I with HEP. Goal Time Frame: 4-6 Weeks Goal 2:: LTG: Pt. have full R shoulder ROM without increase in symptoms. Goal Time Frame: 4-6 Weeks Goal 3:: LTG: Pt. to have symmetrical strength between B shoulders. Goal Time Frame: 4-6 Weeks Goal 4:: STG: Pt. to sleep throughout the night without increase in symptoms. Goal Time Frame: 2 Weeks Rehabilitation Potential Physical Therapy Diagnosis: Pt. has signs and symptoms consistent with R RTC strain. Due to her mech of injury I would consider a tear, but she has decent ROM with some weakness of her RTC. I would suggest that she work on progressive strengthening of her R RTC and periscapular musculature and regain full ROM in order to get back to all activities without limitations. Rehabilitation Potential: Good Anticipated Interventions Patient/Client Instruction: Educate patient on: Condition, Plan of Care, Risk Factors and Benefits of Fitness Program For the Purpose of:: To improve health and function, To foster healthy habits, To improve decision making, To facilitate caregiver knowledge, To improve self management, To prevent re-injury and To improve ability to perform tasks related to life management Therapeutic Exercise to Include: Strength training For the Purpose of:: To decrease pain, To increase ROM, To improve muscle performance and motor function, To increase tolerance to activity/condition/posi tion, To improve health of tissue, To decrease soft tissue restriction, To increase flexibility/ROM, To improve endurance, To reduce risk of recurrence and To improve safety Text: Thank you for the opportunity to evaluate your patient. For Medicare and Medicare HMO plans, please review the plan of care and approve it. It will need to be FAXED BACK to us at [phone] for Medicare purposes. For Medicare only, by signing this I certify the plan of care. Please let me know if there are questions or concerns regard (more content not included)... Normal [facility] Shoulder min 2 Viewson 05-29 Shoulder min 2 Views [facility] [address] [place], [place] [address] Shoulder min 2 Views MR#: [id number] Acct: [id number] Name: ZULAY BEARDEN Rep #: [id number] : 1950 F 74 From: Rody Mclaughlin PCP: Dr. Laura Riddle MD Status: REG CLI Study: Shoulder min 2 Views Date of Exam: 05/29/24 Exam# [id number] Ordering Dr: [place] [id number] INDICATION: pain post fall EXAMINATION/TECHNIQUE: X-RAY - RIGHT XR Shoulder Min 2 Views 4 VIEWS COMPARISON: No relevant prior comparison study available FINDINGS: SOFT TISSUES: No soft tissue swelling or gas. No radiopaque foreign body. BONES/JOINTS: No acute fracture or subluxation.. Normal alignment. Preservation of the joint space.. No sclerotic or destructive changes observed. RAD/Shoulder min 2 Views IMPRESSION: Negative. Electronically Signed: Rody Dimas MD at 1:18 EST [place] Location ID and State: [facility] / [place] Tel , Service support , CC: Dr. Laura Riddle MD Order Clerk: Signed Normal [facility] SCRN MAMM (CAD)W/ADRIANNA BILATo n 03-01-2024 SCRN MAMM (CAD)W/ADRIANNA BILAT [facility] [address] [place] [address] SCRN MAMM (CAD)W/ADRIANNA BILAT MR#: [id number] Acct: [id number] Name: ZULAY BEARDEN Rep #: [id number] : 1950 F 73 From: Ildefonso vegas MD PCP: Dr. Laura Riddle MD Status: REG CLI Study: SCRN MAMM (CAD)W/ADRIANNA BILAT Date of Exam: 02/15 Exam# [id number] Ordering Dr: [place] [id number] MAMMOGRAPHY - BILATERAL SCREENING REASON FOR EXAM: Female, 73 years old. Routine annual screening examination. PERTINENT HISTORY: Non-contributory. TECHNIQUE: Digital bilateral breast adrianna (3D mammographic acquisition) in the CC and MLO projections. 2-D mediolateral oblique (MLO) and craniocaudad (CC) views of both breasts were obtained. CAD: Full Field Digital Mammography with Computer Added Detection was performed. COMPARISON: Comparison is made with prior study dated February 15, 2023 and February 12, 2022. FINDINGS: Breast Composition: The breasts are heterogeneously dense, which may obscure small masses. There are no dominant masses or suspicious calcifications. No other significant abnormalities are identified. There has been no significant change since the prior study. BI/SCRN MAMM (CAD)W/ADRIANNA BILAT IMPRESSION: Stable bilateral screening mammogram. Yearly follow-up mammogram recommended. (A) ASSESSMENT CATEGORY: BIRADS Category 1: Negative. A letter regarding these results will be sent to the patient by the facility within 30 days. Approximately 10% of breast cancers are not detected by mammography. A normal mammogram should not delay biopsy of a clinically suspicious abnormality. [id number] Electronically Signed: Ildefonso Owens MD at 9:41 EDT , CC: MARTY Sommer; Dr. aLura Riddle MD Order Clerk: Signed Normal [facility] Basophil percentageOrdered B y: Kurtfredy Connors on 08-06-2023 Bilirubin [Mass/Vol] 0.60 mg/dL 0.20-1.00 [facility] Comment on above: For patients on eltr ombopag therapy, use of Dimension Freedom TBIL is not recommended. Chloride [Moles/Vol] 106 mmol/L 98-107 [facility] Glucose [Mass/Vol] 92 mg/dL 74-106 [facility] Potassium [Moles/Vol] 4.1 mmol/L 3.5-5.1 [facility] Protein [Mass/Vol] 7.2 g/dL 6.4-8.2 [facility] Sodium [Moles/Vol] 141 mmol/L 136-145 [facility] Laboratory - Chemistry and C hemistry - challengeOrdered By: Kurt Connors on 08-06-2023 ALP [Catalytic activity/Vol] 76 U/L 45-117 [facility] ALT [Catalytic activity/Vol] 20 U/L 13-56 [facility] CO2 [Moles/Vol] 29.0 mmol/L 21.0-32.0 [facility] Globulin (S) [Mass/Vol] 3.4 g/dL 2.2-4.2 [facility] Urea nitrogen/Creatinine [Mass ratio] 15.8 mg/mg 10-20 [facility] No Panel InformationOrdered By: Kurt Connors on 08-06-2023 Estimated Creatinine Clearance Calc 44.64 ml/min [facility] Estimated GFR (MDRD) Amer 69 mL/min >60 [facility] Comment on above: GFR Calc Estimated GFR (MDRD) Non-Af Amer 57 mL/min >60 [facility] Comment on above: Non- GFR Calc Thyroid Stimulating Hormone (TSH) 2.56 uIU/mL 0.358-3.74 [facility] Vitamin D 25-Hydroxy 59.2 ng/mL [facility] Comment on above: Vitamin D 25(OH) Sta tus Range Deficiency <20 ng/mL (50nmol/L) Insufficiency 20 - 30 ng/mL (50 - 75 nmol/L) Sufficiency 30 - 100 ng/mL (75 - 250 nmol/L) Toxicity >100 ng/mL (>250 nmol/L) Serum or plasma albumin maciej urement (mass/volume)Ordered By: Kurt Connors on 08-06-2023 Albumin [Mass/Vol] 3.8 g/dL 3.2-5.0 [facility] Serum or plasma albumin/glob ulin mass ratioOrdered By: Kurt Connors on 08-06-2023 Albumin/Globulin [Mass ratio] 1.1 {ratio} 0.9-2.4 [facility] Serum or plasma calcium maciej urement (mass/volume)Ordered By: Kurt Connors on 08-06-2023 Calcium [Mass/Vol] 9.5 mg/dL 8.5-10.1 [facility] Serum or plasma creatinine m easurement (mass/volume)Ordered By: Kurt Connors on 08-06-2023 Creatinine [Mass/Vol] 1.01 mg/dL 0.55-1.02 [facility] Comment on above: The validity of the calculated GFR & GFRAA in patients over 70 years has not been determined. Clinical correlation is essential. Serum or plasma urea nitroge n measurement (mass/volume)Ordered By: Kurt Connors on 08-06-2023 Urea nitrogen [Mass/Vol] 16 mg/dL 7-18 [facility] Thin prep Papanicolaou smear with manual screeningOrdered By: Kurt Connors on 08-06-2023 Thin prep Papanicolaou smear with manual screening 19 U/L 15-37 [facility] Thin prep Papanicolaou smear with manual screening 6 5-15 [facility] Basophil percentageOrdered B y: Dr. Connors on 08-05-2022 Bilirubin [Mass/Vol] 0.60 mg/dL 0.20-1.00 [facility] Comment on above: For patients on eltr ombopag therapy, use of Dimension Freedom TBIL is not recommended. Chloride [Moles/Vol] 104 mmol/L 98-107 [facility] Glucose [Mass/Vol] 89 mg/dL 74-106 [facility] Potassium [Moles/Vol] 4.1 mmol/L 3.5-5.1 [facility] Protein [Mass/Vol] 6.9 g/dL 6.4-8.2 [facility] Sodium [Moles/Vol] 138 mmol/L 136-145 [facility] Laboratory - Chemistry and C hemistry - challengeOrdered By: Dr. Connors on 08-05-2022 ALP [Catalytic activity/Vol] 62 U/L 45-117 [facility] ALT [Catalytic activity/Vol] 24 U/L 13-56 [facility] CO2 [Moles/Vol] 28.0 mmol/L 21.0-32.0 [facility] Globulin (S) [Mass/Vol] 3.1 g/dL 2.2-4.2 [facility] Urea nitrogen/Creatinine [Mass ratio] 17.2 mg/mg 10-20 [facility] No Panel InformationOrdered By: Dr. Connors on 08-05-2022 Estimated Creatinine Clearance Calc 49.20 ml/min [facility] Estimated GFR (MDRD) Amer 76 mL/min >60 [facility] Comment on above: GFR Calc Estimated GFR (MDRD) Non-Af Amer 63 mL/min >60 [facility] Comment on above: Non- GFR Calc Parathyroid Hormone (Intact) 71.1 pg/mL 18.4-80.1 [facility] Thyroid Stimulating Hormone (TSH) 2.37 uIU/mL 0.358-3.74 [facility] Vitamin D 25-Hydroxy 42.8 ng/mL [facility] Comment on above: Vitamin D 25(OH) Sta tus Range Deficiency <20 ng/mL (50nmol/L) Insufficiency 20 - 30 ng/mL (50 - 75 nmol/L) Sufficiency 30 - 100 ng/mL (75 - 250 nmol/L) Toxicity >100 ng/mL (>250 nmol/L) Serum or plasma albumin maciej urement (mass/volume)Ordered By: Dr. Connors on 08-05-2022 Albumin [Mass/Vol] 3.8 g/dL 3.2-5.0 [facility] Serum or plasma albumin/glob ulin mass ratioOrdered By: Dr. Connors on 08-05-2022 Albumin/Globulin [Mass ratio] 1.2 {ratio} 0.9-2.4 [facility] Serum or plasma calcium maciej urement (mass/volume)Ordered By: Dr. Connors on 08-05-2022 Calcium [Mass/Vol] 9.0 mg/dL 8.5-10.1 [facility] Serum or plasma creatinine m easurement (mass/volume)Ordered By: Dr. Connors on 08-05-2022 Creatinine [Mass/Vol] 0.93 mg/dL 0.55-1.02 [facility] Comment on above: The validity of the calculated GFR & GFRAA in patients over 70 years has not been determined. Clinical correlation is essential. Serum or plasma urea nitroge n measurement (mass/volume)Ordered By: Dr. Connors on 08-05-2022 Urea nitrogen [Mass/Vol] 16 mg/dL 7-18 [facility] Thin prep Papanicolaou smear with manual screeningOrdered By: Dr. Connors on 08-05-2022 Thin prep Papanicolaou smear with manual screening 19 U/L 15-37 [facility] Thin prep Papanicolaou smear with manual screening 6 5-15 [facility] OPERATIVE NOon 03-17-2020 OPERATIVE NO HNO ID: [id number] Author: Darrius Grant Service: Plastic Surgery Author Type: Physician Type: Operative Report Filed: 03/20/2020 11:35 AM Note Text: [facility] - Operative Report ZULAY BEARDEN : 1950 AGE: 69. SEX: F PATIENT TYPE: I HOSP SVC: INT LOCATION: [id number] ATTENDING PHYSICIAN: HUNTER GARRIDO CSN NUMBER: [id number] DATE OF SURGERY/PROCEDURE: 02/17/2020 INCISION/PROCEDURE START TIME: 1:05 PM INCISION CLOSE/PROCEDURE END TIME: 1:23 PM PREOPERATIVE DIAGNOSIS: Abscess, left dorsal wrist secondary to cat bite infection. POSTOPERATIVE DIAGNOSIS: Abscess, left dorsal wrist secondary to cat bite infection. SURGEON: Darrius Grant MD EMPLOYEE BENEFITS DIRECTOR: No Additional Staff SURGERY/PROCEDURE: Incision and drainage of abscess, left dorsal wrist (into extensor tendon sheaths). ANESTHESIA: General. OPERATIVE FINDINGS: Seropurulent drainage in subcutaneous space and around extensor tendon sheath, 4th dorsal compartment. COMPLICATIONS: None. INDICATIONS: This is a middle-aged female who presented with a few day history of cat bite to the left dorsal wrist and hand. This was a stray cat that she had picked up sometime within the past previous year. Apparently, the cat was up-to- date with its shots, etc. Despite initiation of oral antibiotics by her family doctor at [place], her infection progressively worsened. She was transferred to [facility] for hand surgical consultation. Aggressive IV antibiotics were initiated, but her pain and erythema was worsening. Surgical intervention was therefore recommended. She was brought to the operative room at this time for the above-mentioned procedure. DESCRIPTION OF PROCEDURE: After transported by cart to the operating room, patient was placed in the supine position on the operating room table. Following successful induction of general anesthesia, the left upper extremity was prepped and draped in usual sterile fashion using antiseptic soap solution. Through a longitudinally oriented incision made between the 3rd and 4th dorsal extensor compartments, dissection was begun. Seropurulent drainage was noted in the subcutaneous space and around the extensor tendon sheath in the 4th dorsal extensor compartment. The wound was copiously irrigated. The infection did not appear to extend deeper into the radiocarpal joint. This did not appear to extend. After copious irrigation of the wound, one-half inch iodoform gauze was inserted into the subcutaneous space adjacent to the 4th dorsal extensor compartment tendon sheaths. A dry sterile bulky dressing was then applied. Sponge and needle counts were correct. Blood losswas minimal. The patient tolerated the procedure well and was transferred to recovery room in stable condition. Darrius Grant MD MOP:[id number] /[id number] Normal [facility] Basic Metabolic Panelon 07- Anion gap [Moles/Vol] 9 mmol/L Normal 9-18 [facility] Comment on above: Performed By: #### G FR #### [facility] [address] [place], [place] [address] Calcium [Mass/Vol] 8.2 mg/dL Low 8.5-10.2 [facility] Comment on above: Performed By: #### G FR #### [facility] [address] [place], [place] [address] Chloride [Moles/Vol] 111 mmol/L High 97-105 [facility] Comment on above: Performed By: #### G FR #### [facility] [address] [place], [place] [address] CO2 Blood 23 mmol/L Normal 22-30 [facility] Comment on above: Performed By: #### G FR #### [facility] [address], [place] [address] Creatinine [Mass/Vol] 1.58 mg/dL High 0.58-0.96 [facility] Comment on above: Performed By: #### G FR #### [facility] [address], [place] [address] Glucose [Mass/Vol] 93 mg/dL Normal 74-99 [facility] Comment on above: Result Comment: The [place] Diabetes Association (ADA) provides guidance for cutoff values for fasting glucose and random glucose. The ADA defines fasting as no caloric intake for at least 8 hours.Fasting plasma glucose results between 100 to 125 mg/dL indicate increased risk for diabetes (prediabetes). Fasting plasma glucose results greater than or equal to 126 mg/dL meet the criteria for diagnosis of diabetes. In the absence of unequivocal hyperglycemia, results should be confirmed by repeat testing. In a patient with classic symptoms of hyperglycemia or hyperglycemic crisis, random plasma glucose results greater than or equal to 200 mg/dL meet the criteria for diagnosis of diabetes. Reference: Standards of Medical Care in Diabetes 2016; [place] [employer]. Diabetes Care. 2016;39(Suppl 1). Performed By: #### G FR #### [facility] [address], [place] [address] Potassium [Moles/Vol] 4.0 mmol/L Normal 3.7-5.1 [facility] Comment on above: Performed By: #### G FR #### [facility] [address], [place] [address] Sodium [Moles/Vol] 143 mmol/L Normal 136-144 [facility] Comment on above: Performed By: #### G FR #### [facility] [address], [place] [address] Urea nitrogen [Mass/Vol] 11 mg/dL Normal 7-21 [facility] Comment on above: Performed By: #### G FR #### [facility] [address], [place] [address] CASE MANAGEMon 02-23-2020 CASE MANAGEM HNO ID: [id number] Author: Tamiko LazaroRn) SEUN Canales Service: Care Management Author Type: Registered Nurse Type: Care Mgt Progress Note Filed: 02/23/2020 10:10 AM Note Text: CARE MANAGEMENT PROGRESS NOTE SERVICE DATE: 02/23/2020 SERVICE TIME: 10:09 AM LOS: 6 days Final ID recs are oral abx. Pharmacy aware of linezolid. Plan remains dc home. Will continue to follow. . SIGNATURE: Tamiko Canales RN PATIENT NAME: Zulay Bearden DATE: February 23, 2020 TIME: 10:09 AM PAGER/CONTACT #: [phone] [facility] CONSULT PROGon 02-23-2020 CONSULT PROG HNO ID: [id number] Author: Darrius Grant Service: Plastic Surgery Author Type: Physician Type: Consult Progress Note Filed: 02/23/2020 2:40 PM Note Text: PLASTIC SURGERY AND HAND SURGERY STAFF NOTE: Plans for anticipated discharge noted. PLAN: 1. To continue dressing changes BID at home with Iodoform gauze as in hospital. 2. OK to get wound wet in shower and wash with soap and water (any soap is OK). 3. F/u in my office in [place] on 03/07/2020 -- patient should call at her convenience for an appointment anytime this week. Please contact me for any other questions or concerns. Thank you, Amandeep Grant MD Pager: [phone] [facility] ECG COMPLETEon 02-23-2020 ECG COMPLETE NAME : ZULAY BEARDEN PID : [id number] : 1950 Gender : Female Race : ORD : [id number] Procedure Date : Feb 23 2020 13:17:01 Edit Date : Feb 25 2020 11:29:24 Diagnosis:SINUS RHYTHM WITH SHORT TX OTHERWISE NORMAL ECG NO PREVIOUS ECGS AVAILABLE Confirmed by MD HAHTAWAY SACHIN ([id number]) on 02/25/2020 11:29:19 AM Ventricular Rate : 67 BPM Atrial Rate : 67 BPM P-R Interval : 106 ms QRS Duration : 78 ms Q-T Interval : 404 ms QTC Calculation(Bazett) : 426 ms P Chacon : 41 degrees R Chacon : 65 degrees T Chacon : 39 degrees Test Reason : Arrhythmia Location : 19 : [id number] Overread By : MD HATHAWAY SACHIN Edited By : MD HATHAWAY SACHIN Referred By : KRISTEN SCHULER Acquired by : KATHY STOVER [facility] MDRD GFRon 02-23-2020 GFR/1.73 sq M predicted among non-blacks MDRD (S/P/Bld) [Vol rate/Area] 32.35 mL/min/{1.73_m2} Normal >60mL/min/1.7 3m2 [facility] Comment on above: Result Comment: If t he patient is , multiply the result by 1.210. Performed By: #### G FR #### [facility] [address] [place] [address] PLAN OF CAREon 02-23-2020 PLAN OF CARE HNO ID: [id number] Author: Minna Gallo (Sales Service Rep) Service: ? Author Type: ? Type: Plan of Care Filed: 02/23/2020 6:13 PM Note Text: The following medications were delivered to the patient's RN Angella at the nurses station. Medication List START taking these medications ACIDOPHILUS Cap Generic drug: Lactobacillus acidophilus Take 1 capsule by mouth twice daily for 15 days. amoxicillin-clavulanic acid 875-125 mg per tablet Commonly known as: AUGMENTIN Take 1 tablet by mouth every 12 hours for 15 days. linezolid 600 mg tablet Commonly known as: ZYVOX Take 1 tablet by mouth every 12 hours for 15 days. loperamide 2 mg cap(s) Commonly known as: IMODIUM Take 1 capsule by mouth twice daily as needed for Diarrhea. ondansetron 4 mg tablet Commonly known as: ZOFRAN Take 1 tablet by mouth every 12 hours as needed for Nausea/Vomiting. CONTINUE taking these medications B COMPLEX 1 Tab Generic drug: vitamin b complex CALCIUM 600 + D 600-125 mg-unit Tab Generic drug: Calcium-Cholecalciferol (D3) Cholecalciferol (Vitamin D3) 125 mcg (5,000 unit) Cap estradiol 0.01 % (0.1 mg/gram) vaginal cream Commonly known as: ESTRACE Use 1 g vaginally 3 times a WEEK. therapeutic multivitamin tablet Commonly known as: THERA VITAMIN turmeric root extract 500 mg Cap You might also be taking other medications not listed above. If you have questions about any of your other medications, talk to the person who prescribed them or your Primary Care Provider. STOP taking these medications denosumab 60 mg/mL Commonly known as: ONDINA Gallo (Sales Service Rep) PAGER: [phone] February 23, 2020 6:12 PM Normal [facility] PROGRESSon 02-23-2020 PROGRESS HNO ID: [id number] Author: Hunter Garrido Service: Hospital Medicine Author Type: Physician Type: Progress Notes Filed: 02/23/2020 3:59 PM Note Text: DEPARTMENT OF HOSPITAL MEDICINE PROGRESS NOTE SERVICE DATE: 02/23/2020 SERVICE TIME: 3:41 PM Hospital Medicine/Primary Attending: Hunter Garrido MD NIGHT AND WEEKEND COVERAGE: [place] COVERAGE: From 7am - 7pm, please call [phone] After 7pm, please call cross cover pager #[phone] Subjective INTERVAL HPI: patient seen at bedside. She has been doing dressing changes and was saying that she had instruction from surgeon. Surgery recs are noted in the chart. Iodoform gauze and dressing changes bid. Needs continued follow up as outpatient in [place] office 03/07/2020. Discussed with ID, duration of antibiotics is supposed to three weeks since surgery date 02/16. Confirmed with ID antibiotics until 03/09/2020. Patient's hand swelling continues to improve with less swelling than before and improved range of motion. She has remained afebrile and no leukocytosis. c diff was checked and was negative. Patient is requesting medication for nausea only as needed after discharge. Discussed with nurse and some wound supplies to be provided from hospital. Counseled on follow up. Patient says she has followed with cardio in past and has had an event monitor which was nil acute. MEDICATIONS: Reviewed Objective PHYSICAL EXAM: BP 127/68 Pulse 66 Temp (Src) 98.8 (Oral) Resp 18 Ht 5' 6 (1.68m) Wt 165 lb 1.6 oz (74.9kg) SpO2 95% LMP 04/23/2008 BMI 26.66 kg/(m2). O2 Therapy: Room Air Physical Exam Performed General: awake alert oriented x 4 no acute distress sitting up in bed HEENT: eomi perrl no marked pallor nor icterus CV: s1s2 normal, rrr, no mrg no jvd Lung: bilateral air entry no wheezes no rales no rubs no rhonchi Abdomen: soft nt nd bowel sounds present Extremities: no le edema skin warm and moist Left wrist dressing cdi, the swelling has gone down further since two days ago, the erythema has receded, have not noticed drainage from wounds, she has improved rom in wrist and for making a fist, she states swelling is improved ? Lines, Drains, and Airways Line Peripheral 02/21/20 0104 Right Forearm 22 Gauge 2 days DATA: Diagnostic tests reviewed for today's visit: Most recent labs and imaging results. Assessment/Plan Active Problems: 1. ?Left hand cellulitis: POA, stable S/p cat bite, ptnt states domesticated cat Id recs appreciated, linezolid and augmentin for three week course since surgery so until 03/09 Id aware of cultures ? As per plastics, left hand/wrist pain slowly improving, seropurulent fluid in subcutaneous space and peritendinous sheath -- no evidence of carpal joint penetration ? Hand swelling continues to improve since two days ago ? 2. ?Diarrhea: POA, stable Likely antibiotic induced c diff was negative Patient states relief with immodium prn ? 3. ?LORETA: POA, stable Renal on board Cr trending down S/p ivf and patient is tolerating po Monitor, continued follow up outpatient, repeat bmp in 5-7 days ? Renal doses and avoid nephrotoxic medications No nsaids Renal recommendations appreciated ? 4. ?Incidentally noted 2.2 cm left kidney nodule: POA, stable Further imaging was recommended w/wo contrast On hold bc of loreta until after f/u outpatient Medication and Non-Pharmacologic VTE Prophylaxis/Anticoagula nts Anticoagulant AND Antiplatelet Medications (From admission, onward) Start Dose Route Frequency Ordered Stop 02/16/202129 heparin 5,000 Units injection (Medical Risk Categories) 5,000 Units SUBCUTANEOUS EVERY 12 HOURS 02/16/201 -- VTE Prophylaxis: heparin dvt px Disposition: Home Plan of care discussed with: Provider, RN, Patient, id SIGNATURE: Hunter Garrido MD PATIENT NAME: Zulay Bearden DATE: February 23, 2020 TIME: 3:41 PM PAGER/CONTACT #: [phone] etx [id number] Normal [facility] PROGRESS HNO ID: [id number] Author: Anibal Nunn Service: Nephrology Author Type: Physician Type: Progress Notes Filed: 02/23/2020 10:31 PM Note Text: Nephrology Progress Note Following for LORETA. Pt denies CP or SOB. Nausea is stable with Zofran. Diarrhea is controlled with Imodium. Current Inpatient Medications: denosumab 60 mg injection (PROLIA), 60 mg, SUBCUTANEOUS, Q 6 MONTH, Vik (Office Worker) Adam, 60 mg at 12/25/19 1443 Cholecalciferol, Vitamin D3, 5,000 unit cap, Take 1 capsule by mouth once daily., Disp: , Rfl: 0 turmeric root extract 500 mg cap, Take 500 mg by mouth once daily., Disp: , Rfl: 0 estradiol (ESTRACE) 0.01 % (0.1 mg/g) vaginal cream, Use 1 g vaginally 3 times a WEEK., Disp: 42 g, Rfl: 0 vitamin b complex(B COMPLEX 1 TAB), Take one(1) tablet daily., Disp: , Rfl: 0 THERAPEUTIC MULTIVITAMIN TAB, Take one(1) tablet daily., Disp: , Rfl: 0 ondansetron (ZOFRAN) 4 mg tablet, Take 1 tablet by mouth every 12 hours as needed for Nausea/Vomiting., Disp: 10 tablet, Rfl: 0 linezolid (ZYVOX) 600 mg tablet, Take 1 tablet by mouth every 12 hours for 15 days., Disp: 30 tablet, Rfl: 0 amoxicillin-clavulanic acid (AUGMENTIN) 875-125 mg per tablet, Take 1 tablet by mouth every 12 hours for 15 days., Disp: 30 tablet, Rfl: 0 loperamide (IMODIUM) 2 mg cap(s), Take 1 capsule by mouth twice daily as needed for Diarrhea., Disp: 10 capsule, Rfl: 0 Lactobacillus acidophilus (ACIDOPHILUS) cap, Take 1 capsule by mouth twice daily for 15 days., Disp: 30 capsule, Rfl: 0 calcium carbonate/vitamin d3(CALCIUM 600 + D 600 MG-125 UNIT TAB), Take one(1) tablet twice daily., Disp: , Rfl: 0 Vitals: BP 127/68 Pulse 66 Temp 37.1 ?C (98.8 ?F) (Oral) Resp 18 Ht 167.6 cm (5' 6) Wt 74.9 kg (165 lb 1.6 oz) LMP 04/23/2008 SpO2 95% BMI 26.65 kg/m? BLOOD PRESSURE RANGE: Systolic (24hrs), Av , Min:125 , Max:128 ; Diastolic (24hrs), Av, Min:60, Max:68 24HR INTAKE/OUTPUT: Intake/Output Summary (Last 24 hours) at 02/23/20202228 Last data filed at 02/23/2020 1300 Gross per 24 hour Intake 1080 ml Output ? Net 1080 ml Physical exam: General: A+O x 3. NAD. HEENT: NCAT, MMM. Neck: Supple. Heart: Normal S1, S2. No R/M/G. Lungs: CTAB. Abdomen: +BS, soft, NT. No G/R. Ext: No LE edema. Neuro: No focal deficit. Data: Labs: Recent Labs 02/22/20 0622 WBC 5.82 HB 10.0* HCT 31.3* MCV 93.2 PLT 197 Recent Labs 02/23/20 0520 02/22/20 0622 02/21/20 0615 NA 143 144 143 K 4.0 3.9 3.9 CO2 23 22 22 P -- 3.3 3.1 BUN 11 14 12 CREAT 1.58* 1.76* 2.09* CA 8.2* 8.4* 8.2* Assessment and Plan: 1. Acute Kidney injury. No prior history of CKD. LORETA is prerenal, related to GI fluid loss, nausea and prior use of NSAID. FENa was <1% on 02/18, but pt has likely ?progressed to ischemic ATN. ? Renal function has continued to slowly improve. Stopped IVF on 02/21/20 as pt has better oral intake and is feeling swollen. Continue to encourage oral intake. Recheck renal function in am. No need for kidney replacement therapy. OK to discharge today. I will arrange for follow up at our office in [place] in 1-2 weeks. ? 2. Metabolic acidosis. Serum HCO3 is 23. Likely due to LORETA and diarrhea. Serum HCO3 is stable today. Continue treatment of LOREAT as above. Imodium for diarrhea. ? 3. L hand infection s/p cat bite. S/p I+D. Antibiotic as per hospitalist. ? 4. L renal nodule. Will need re imaging at later date. This can be followed as outpt. ? d/w Dr. Garrido Please do not hesitate to contact me at [phone] if there is any question or concern. Natthavat Tanphaichitr, MD (Anibal Nunn) [facility] PROGRESS HNO ID: [id number] Author: Gael Villagomez III Service: Infectious Disease Author Type: Physician Type: Progress Notes Filed: 02/23/2020 1:58 PM Note Text: INFECTIOUS DISEASE PROGRESS NOTE February 23, 2020 1:55 PM Subjective Nausea no worse on oral antibiotics. Review of Systems No fevers or chills Mild left wrist pain Nausea No diarrhea No rashes Objective Current Facility-Administered Medications Medication Dose Route Frequency Provider Last Rate Last Dose - linezolid 600 mg tab(s) (ZYVOX) 600 mg ORAL q 12 H Gael Dc Dahlia III 600 mg at 02/23/20 0945 - amoxicillin-clavulanic acid 875 mg tab(s) (AUGMENTIN) 875 mg ORAL q 12 H Gael Villagomez III 875 mg at 02/23/20 0945 - loperamide 2 mg cap(s) (IMODIUM) 2 mg ORAL TID PRN Sherine Mcgill MD 2 mg at 02/23/20 0806 - oxyCODONE IR 5 mg tab(s) (ROXICODONE) 5 mg ORAL q 4 H PRN Sherine Mcgill MD - acetaminophen 650 mg tab(s) (TYLENOL) 650 mg ORAL q 6 H PRN Sherine Mcgill MD 650 mg at 02/23/20 0806 - LORazepam 0.5 mg injection (ATIVAN) 0.5 mg INTRAVENOUS q 6 H PRN Graham He - heparin 5,000 Units injection 5,000 Units SUBCUTANEOUS q 12 H Darrius H Rudy 5,000 Units at 02/23/20 0807 - aluminum-magnesium hydroxide-simethicone 200-200-20 mg/5 mL 30 mL (MAALOX,MYLANTA,MAG-AL PLUS) 30 mL ORAL DAILY PRN Darrius H Rudy - ondansetron 4 mg tab(s) (ZOFRAN) 4 mg ORAL q 6 H PRN Darrius H Rudy 4 mg at 02/23/20 1332 Or - ondansetron (PF) 4 mg injection (ZOFRAN) 4 mg INTRAVENOUS q 6 H PRN Darrius H Rudy 4 mg at 02/22/20 2313 - polyethylene glycol 3350 17 g packet (MIRALAX, GLYCOLAX) 17 g ORAL DAILY PRN Darrius H Rudy - docusate sodium 100 mg cap(s) (COLACE) 100 mg ORAL BID PRN Darrius H Rudy - magnesium hydroxide 400 mg/5 mL 30 mL (MOM) 30 mL ORAL DAILY PRN Darrius H Rudy - bisacodyl 10 mg suppository (DULCOLAX) 10 mg RECTAL DAILY PRN Darrius H Rudy 02/22/20 1908 02/22/20 2319 02/23/20 0652 02/23/20 1315 BP: 125/67 125/66 128/60 127/68 Pulse: 87 73 69 66 Resp: 16 18 18 18 Temp: 37.2 ?C (99 ?F) 36.9 ?C (98.4 ?F) 36.4 ?C (97.5 ?F) 37.1 ?C (98.8 ?F) TempSrc: Oral Oral Oral Oral SpO2: 96% 93% 93% 95% Weight: 74.9 kg (165 lb 1.6 oz) Height: Physical Exam General: no distress Extremities: left wrist bandaged DATA: Recent Labs 02/23/20 0520 02/22/20 0622 02/21/20 0615 WBC -- 5.82 -- HB -- 10.0* -- HCT -- 31.3* -- PLT -- 197 -- NEUTNUM -- 3.53 -- CREAT 1.58* 1.76* 2.09* Microbiology and infection related labs: Cultures reviewed- coagulase negative staph from 02/16 still in ID process Impression/Recommendati ons 69 female with tenosynovitis and cellulitis related to cat bite with growth of a coagulase negative staph from the surgical site- currently in work-up for ID and susceptibility. Would still want to cover for anaerobes and pasteurella as well. Seems to be tolerating antibiotics ok. Continue linezolid plus augmentin through 03/02 I will call her Wednesday with final culture results She is ok for discharge from my standpoint SIGNATURE: Gael Villagomez III, MD PATIENT NAME: Zulay Bearden DATE: February 23, 2020 TIME: 1:55 PM PAGER/CONTACT #: [phone] Normal [facility] PROGRESS HNO ID: [id number] Author: Hunter Garrido Service: Hospital Medicine Author Type: Physician Type: Progress Notes Filed: 02/22/2020 11:47 PM Note Text: DEPARTMENT OF HOSPITAL MEDICINE PROGRESS NOTE SERVICE DATE: 02/22/2020 SERVICE TIME: 11:45 PM Hospital Medicine/Primary Attending: Hunter Garrido MD NIGHT AND WEEKEND COVERAGE: [place] COVERAGE: From 7am - 7pm, please call [phone] After 7pm, please call cross cover pager #[phone] Subjective INTERVAL HPI: patient seen at bedside. Discussed with id. Patient's hand swelling continues to improve and can now make fist and has rom at wrist. MEDICATIONS: Reviewed Objective PHYSICAL EXAM: BP 125/67 Pulse 87 Temp (Src) 99 (Oral) Resp 16 Ht 5' 6 (1.68m) Wt 166 lb 3.2 oz (75.4kg) SpO2 96% LMP 04/23/2008 BMI 26.84 kg/(m2). O2 Therapy: Room Air Physical Exam Performed General: awake alert oriented x 4 no acute distress sitting up in bed HEENT: eomi perrl no marked pallor nor icterus CV: s1s2 normal, rrr, no mrg no jvd Lung: bilateral air entry no wheezes no rales no rubs no rhonchi Abdomen: soft nt nd bowel sounds present Extremities: no le edema skin warm and moist Left wrist swelling present moreso on the dorsum of the hand with some tenderness, radial pulse is palpable, erythema and swelling seem to have receded from fingers and forearm Lines, Drains, and Airways Line Peripheral 02/21/20 0104 Right Forearm 22 Gauge 1 day DATA: Diagnostic tests reviewed for today's visit: Most recent labs and imaging results. Assessment/Plan Active Problems: 1. Left hand cellulitis: POA, stable S/p cat bite, ptnt states domesticated cat Id recs appreciated, linezolid and augmentin Culture from I and d - coag neg staph Pain medicine as needed ? As per plastics, left hand/wrist pain slowly improving, seropurulent fluid in subcutaneous space and peritendinous sheath -- no evidence of carpal joint penetration Hand swelling improved further today ? 2. Diarrhea: POA, stable Likely antibiotic induced c diff was negative Patient states relief with immodium ? 3. LORETA: POA, stable Renal on board Cr trending down Receiving ivf Monitor ? Renal doses and avoid nephrotoxic medications ? 4. Incidentally noted 2.2 cm left kidney nodule: POA, stable Further imaging was recommended w/wo contrast On hold bc of loreta Medication and Non-Pharmacologic VTE Prophylaxis/Anticoagula nts Anticoagulant AND Antiplatelet Medications (From admission, onward) Start Dose Route Frequency Ordered Stop 02/16/202129 heparin 5,000 Units injection (Medical Risk Categories) 5,000 Units SUBCUTANEOUS EVERY 12 HOURS 02/16/202110 -- VTE Prophylaxis: heparin dvt px Disposition: Home Plan of care discussed with: Provider, RN, Patient SIGNATURE: Hunter Garrido MD PATIENT NAME: Zulay Bearden DATE: February 22, 2020 TIME: 11:45 PM PAGER/CONTACT #: [phone] etx [id number] Normal [facility] CONSULTon 02-22-2020 CONSULT HNO ID: [id number] Author: Gael Villagomez III Service: Infectious Disease Author Type: Physician Type: Consults Filed: 02/23/2020 1:15 AM Note Text: Patient seen. Full note to follow. Start linezolid and augmentin po. Stop IV antibiotics. INFECTIOUS DISEASE CONSULT NOTE February 22, 2020 4:29 PM REASON FOR CONSULT: cat bite with forearm infection REFERRING PHYSICIAN: Dr. Garrido HPI: 69 female who presented after cat bite to left wrist. Has IANDD which showed tenosynovitis. Growth of coagulase negative staph from site. Currently on vancomycin and zosyn. Patient overall feeling much better. Mild pain in wrist at present. 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 - PMH - PAST MEDICAL HISTORY OF ARTHRITIS - PMH - PAST MEDICAL HISTORY OF REYNAUDS DISEASE - Skin cancer Face FAMILY HISTORY Problem Relation Age of Onset - Cancer Father PROSTATE, AND KIDNEY - Cancer Mother SKIN - Cancer Paternal Grandfather PROSTATE, AND HEART DISEASE, STOKE - Cancer Paternal Aunt pancreatic and lung Social History Tobacco Use - Smoking status: Never Smoker - Smokeless tobacco: Never Used Substance Use Topics - Alcohol use: Yes Alcohol/week: 20.0 standard drinks Types: 8 Glasses of Wine (5oz) per week Comment: occasionally - Drug use: No Current Facility-Administered Medications Medication Dose Route Frequency Provider Last Rate Last Dose - piperacillin-tazobactam iv piggyback 3.375 g in dextrose (iso-osmotic) 50 mL (ZOSYN) 3.375 g INTRAVENOUS q 8 H Mohammad F Holiness 100 mL/hr at 02/22/20 1414 3.375 g at 02/22/20 1414 - loperamide 2 mg cap(s) (IMODIUM) 2 mg ORAL TID PRN Sherine Mcgill MD 2 mg at 02/22/20 1031 - oxyCODONE IR 5 mg tab(s) (ROXICODONE) 5 mg ORAL q 4 H PRN Sherine Mcgill MD - lactated ringers infusion 75 mL/hr INTRAVENOUS CONTINUOUS [place] (Res) MD Jey 75 mL/hr at 02/21/20 0613 75 mL/hr at 02/21/20612 - acetaminophen 650 mg tab(s) (TYLENOL) 650 mg ORAL q 6 H PRN Sherine Mcgill MD 650 mg at 02/21/202023 - LORazepam 0.5 mg injection (ATIVAN) 0.5 mg INTRAVENOUS q 6 H PRN Graham He - heparin 5,000 Units injection 5,000 Units SUBCUTANEOUS q 12 H Darrius H Rudy 5,000 Units at 02/22/20 0826 - aluminum-magnesium hydroxide-simethicone 200-200-20 mg/5 mL 30 mL (MAALOX,MYLANTA,MAG-AL PLUS) 30 mL ORAL DAILY PRN Darrius H Rudy - ondansetron 4 mg tab(s) (ZOFRAN) 4 mg ORAL q 6 H PRN Darrius H Rudy Or - ondansetron (PF) 4 mg injection (ZOFRAN) 4 mg INTRAVENOUS q 6 H PRN Darrius H Rudy 4 mg at 02/18/20 1907 - polyethylene glycol 3350 17 g packet (MIRALAX, GLYCOLAX) 17 g ORAL DAILY PRN Darrius H Rudy - docusate sodium 100 mg cap(s) (COLACE) 100 mg ORAL BID PRN Darrius H Rudy - magnesium hydroxide 400 mg/5 mL 30 mL (MOM) 30 mL ORAL DAILY PRN Darrius H Rudy - bisacodyl 10 mg suppository (DULCOLAX) 10 mg RECTAL DAILY PRN Darrius H Rudy - vancomycin dosing and monitoring per pharmacy OTHER As Directed Darrius Grant ACTIVE PROBLEM LIST Postmenopausal Atrophic Vaginitis Mixed Hyperlipidemia Osteoporosis Anxiety Shortened Pr Interval Cellulitis Review of Systems Constitutional: Negative. HENT: Negative. Respiratory: Negative. Cardiovascular: Negative. Gastrointestinal: Positive for nausea. Negative for diarrhea. Genitourinary: Negative. Skin: Negative. 02/21/20 1843 02/21/20 2338 02/22/20 0810 02/22/20 0820 BP: 122/71 126/65 132/75 Pulse: 65 71 76 Resp: 18 16 16 Temp: 37.1 ?C (98.8 ?F) 36.8 ?C (98.2 ?F) 36.5 ?C (97.7 ?F) TempSrc: Oral Oral Oral SpO2: 94% 96% 96% Weight: 71.4 kg (157 lb 6.5 oz) 75.4 kg (166 lb 3.2 oz) Height: Physical Exam Constitutional: She is well-developed, well-nourished, and in no distress. HENT: Mouth/Throat: Oropharynx is clear and moist. Eyes: Conjunctivae are normal. No scleral icterus. Cardiovascular: Normal rate and regular rhythm. No murmur heard. Pulmonary/Chest: Effort normal and breath sounds normal. Abdominal: Soft. Bowel sounds are normal. There is no abdominal tenderness. Musculoskeletal: General: No edema. Comments: Small wound at IANDD site with packing in place. Very faint erythema much improved compared to prior lines of demarcation. Mild edema. Skin: Skin is warm and dry. No rash noted. DATA: Recent Labs 02/22/20 0622 02/21/20 0615 02/20/20 0640 WBC 5.82 -- -- HB 10.0* -- -- HCT 31.3* -- -- PLT 197 -- -- NA 144 143 143 K 3.9 3.9 3.9 CHLOR 112* 113* 112* CO2 22 22 20* CREAT 1.76* 2.09* 2.65* P 3.3 3.1 -- BUN 14 12 16 GLUC 94 94 94 TPROT -- -- 5.1* ALB 3.1* 3.0* 3.1* CA 8.4* 8.2* 7.9* ALKPHOS -- -- 33* TBILI -- -- 0.3 AST -- -- 15 ALT -- -- 8 LIPASE -- -- 25 Coagulase negative staph from superficial and deep cultures from IANDD Assessment 69 female with tenosynovitis and cellulitis related to cat bite with growth of a coagulase negative staph from the surgical site. Would still want to cover for anaerobes and pasteurella as well. Plan Change to oral linezolid plus oral augmentin . Would like to get total of three weeks of antibiotics from surgical date so would plan for therapy through 03/02. Asked micro to do ID/susceptibility of coagulase negative staph to see if we could give her doxycycline instead of linezolid, but if she is doing well before this is back then can be sent home on linezolid plus augmentin SIGNATURE: Gael Villagomez III, MD PATIENT NAME: Zulay Bearden DATE: February 23, 2020 TIME: 1:15 AM PAGER/CONTACT #: [phone] [facility] CONSULT PROGon 02-22-2020 CONSULT PROG HNO ID: [id number] Author: Karla Bangura (Pharmacist) Service: Pharmacy Author Type: Pharmacist Type: Consult Progress Note Filed: 02/22/2020 6:05 PM Note Text: PHARMACY VANCOMYCIN DOSING NOTE Patient Name: Zulay Bearden Admission Date: 02/16/2020 Date of Consult: 02/22/2020 Time of Consult: 6:05 PM The ID service has discontinued vancomycin therapy. Pharmacy vancomycin dosing service will sign off. Thank you for allowing us to participate in this patient's care. Please contact pharmacy if questions. EXT [phone] KARLA BANGURA, PHARMACIST [facility] CONSULT PROG HNO ID: [id number] Author: Asha Khanna MD Service: Nephrology Author Type: Resident Type: Consult Progress Note Filed: 02/22/2020 3:36 PM Note Text: Attestation signed by Anibal Nunn at 02/22/2020 11:26 PM NEPHROLOGY STAFF PHYSICIAN NOTE OF PERSONAL INVOLVEMENT IN CARE AND VISIT ATTESTATION I have seen the patient face to face and reviewed the history and physical examination obtained and documented by Dr. Khanna. I personally participated in the ronquillo components. I have discussed the case and management of the patient's care. Agree with above findings, assessment and plan of care. Amendments, if present, are entered in the note and/or detailed below. Following for LORETA. Pt denies CP or SOB. Still with occasional nausea. Diarrhea is controlled with Imodium. Exam: General: A+O x 3. NAD. HEENT: NCAT, MMM. Neck: Supple. Heart: Normal S1, S2. No R/M/G. Lungs: CTAB. Abdomen: +BS, soft, NT. No G/R. Ext: No LE edema. Neuro: No focal deficit. Impression/Plan: 1. Acute Kidney injury. No prior history of CKD. Suspect LORETA is prerenal, related to GI fluid loss, nausea and prior use of NSAID. FENa was <1% on 02/18, but pt has likely progressed to ischemic ATN. Renal function has continued to improve. Stopped IVF on 02/21/20 as pt has better oral intake and is feeling swollen. Continue to encourage oral intake. Recheck renal function in am. No need for kidney replacement therapy. 2. Metabolic acidosis. Serum HCO3 is 20. Likely due to LORETA and diarrhea. Serum HCO3 is stable today. Continue treatment of LORETA as above. Imodium for diarrhea. 3. L hand infection s/p cat bite. S/p I+D. Antibiotic as per hospitalist. 4. L renal nodule. Will need re imaging at later date. This can be followed as outpt. Divya Velazco MD (Anibal Nunn) Please do not hesitate to call me at if there is any questions. CONSULT PROGRESS NOTE NEPHROLOGY SERVICE SERVICE DATE: 02/22/2020 SERVICE TIME: 1:53 PM Subjective HPI: 69 year old female ?has a past medical history of Mixed hyperlipidemia, Osteoporosis (07/22/2016) presented with?Left hand and forearm redness, swelling, pain after cat bite?for last few days?prior to arrival to the hospital.?Initially?red ness and swelling?was mild,?intermittent?but gradually getting more persistent. During her hospital course the patient developed LORETA 2/2 NSAIDs and hypovolemia and hence nephrology was consulted. ? INTERVAL HISTORY:? Patient reports improvement in the left arm pain , nausea which later improved and some episodes of loose bowel movement this AM again requiring imodium. She denies episodes of vomiting today. She does not report fever, chills, chest pain, dyspnea, changes in bowel or bladder habits. She reported improvement in cough and she is on Imodium for diarrhea.? MEDICATIONS: Current Facility-Administered Medications Medication Dose Route Frequency - heparin 5,000 Units injection 5,000 Units SUBCUTANEOUS q 12 H - aluminum-magnesium hydroxide-simethicone 200-200-20 mg/5 mL 30 mL (MAALOX,MYLANTA,MAG-AL PLUS) 30 mL ORAL DAILY PRN - ondansetron 4 mg tab(s) (ZOFRAN) 4 mg ORAL q 6 H PRN Or - ondansetron (PF) 4 mg injection (ZOFRAN) 4 mg INTRAVENOUS q 6 H PRN - polyethylene glycol 3350 17 g packet (MIRALAX, GLYCOLAX) 17 g ORAL DAILY PRN - docusate sodium 100 mg cap(s) (COLACE) 100 mg ORAL BID PRN - magnesium hydroxide 400 mg/5 mL 30 mL (MOM) 30 mL ORAL DAILY PRN - bisacodyl 10 mg suppository (DULCOLAX) 10 mg RECTAL DAILY PRN - vancomycin dosing and monitoring per pharmacy OTHER As Directed - LORazepam 0.5 mg injection (ATIVAN) 0.5 mg INTRAVENOUS q 6 H PRN - oxyCODONE IR 5 mg tab(s) (ROXICODONE) 5 mg ORAL q 4 H PRN - lactated ringers infusion 75 mL/hr INTRAVENOUS CONTINUOUS - acetaminophen 650 mg tab(s) (TYLENOL) 650 mg ORAL q 6 H PRN - loperamide 2 mg cap(s) (IMODIUM) 2 mg ORAL TID PRN - piperacillin-tazobactam iv piggyback 3.375 g in dextrose (iso-osmotic) 50 mL (ZOSYN) 3.375 g INTRAVENOUS q 8 H Objective PHYSICAL EXAM: BP 132/75 Pulse 76 Temp 36.5 ?C (97.7 ?F) (Oral) Resp 16 Ht 167.6 cm (5' 6) Wt 75.4 kg (166 lb 3.2 oz) LMP 04/23/2008 SpO2 96% BMI 26.83 kg/m? Intake/Output Summary (Last 24 hours) at 02/22/2020 1535 Last data filed at 02/22/2020 1414 Gross per 24 hour Intake 1110 ml Output ? Net 1110 ml Constitutional:?No acute distress, Responsive, Normal habitus and Well-nourished Neck:?Trachea midline No jugular venous distension Cardiovascular:?Regular rate and rhythm, normal S1 and S2, no murmurs, rubs, or gallops No peripheral edema Respiratory:?Normal respiratory effort. Lungs clear bilaterally. Abdomen:?Soft, non-tender, non-distended. Normal bowel sounds. No hepatosplenomegaly. Psychiatric:?Alert and oriented x self, place, time, and setting Normal mood/affect DATA: Diagnostic tests reviewed for today's visit: Most recent labs and imaging results. Most recent labs Most recent imaging Most recent EKG Recent Labs 02/22/20 0622 02/21/20 0615 02/20/20 0640 02/19/20 0530 02/18/20 0550 NA 144 143 143 142 142 K 3.9 3.9 3.9 3.9 4.0 CHLOR 112* 113* 112* 112* 110* CO2 22 22 20* 20* 24 BUN 14 12 16 17 16 CREAT 1.76* 2.09* 2.65* 2.92* 1.58* GLUC 94 94 94 102* 120* ANION 10 8* 11 10 8* CA 8.4* 8.2* 7.9* 7.6* 8.0* P 3.3 3.1 -- -- -- Recent Labs 02/22/20 0622 02/19/20 0530 02/18/20 0550 WBC 5.82 6.41 7.44 HB 10.0* 10.7* 11.0* HCT 31.3* 34.1 34.7 PLT 197 164* 156* No results for input(s): INR, APTT in the last 168 hours. Recent Labs 02/19/20 1130 COLOR YELLOW UGLUC NEGATIVE UBILI NEGATIVE UKET NEGATIVE SPGR 1.012 UPH 5.0 UPROT TRACE* NITRITES NEGATIVE LEUKEST NEGATIVE UWBC 5.7* URBC 4.8 No results for input(s): PH, PCO2, PO2, LACT in the last 168 hours. Assessment/Plan 69 year old female who presents with?PMH of osteoporosis who initially presented for a cat bite.Nephrology was consulted for LORETA. ? ? PLAN? 1.LOERTA -Patient had pre renal insult most likely. She has a FeNa of <1% -She had hypovolemia secondary to vomiting and diarrhea. She also received toradol which could have contributed to LORETA. She was on vancomycin and zosyn combination which could be contributory. -She did not have any episodes on vomiting today -Encourage oral fluid intake -Acetaminophen PRN for pain -Avoid nephrotoxic agents. ? 2.Renal nodule on USG -Indeterminate 2.2 x 2.1 x 1.5 cm left kidney hypoechoic cortical nodule. -Follow up O/P -Needs to be assessed using contrast CT scan/ MRI, to be avoided now in the setting of LORETA SIGNATURE: Asha Khanna MD PATIENT NAME: Zulay Bearden DATE: February 22, 2020 TIME: 1:53 PM PAGER: [phone] Normal [facility] CONSULT PROG HNO ID: [id number] Author: Betsy Newsome (Pharmacist) Service: Pharmacy Author Type: Pharmacist Type: Consult Progress Note Filed: 02/21/2020 10:56 PM Note Text: PHARMACY VANCOMYCIN DOSING NOTE Patient Name: Zulay Bearden Admission Date: 02/16/2020 Date of Consult: 02/21/2020 Time of Consult: 10:51 PM Indication: Skin/Soft tissue infection Goal Range: 10-20 mcg/mL RECOMMENDATIONS/PLAN: Pharmacy consulted for vancomycin dosing for Zulay Bearden, a 69 year old, female who is being treated with vancomycin for SSTI from feline bite. 1. Patient is currently ordered Vancomycin dosed by level. Today is day 6 of therapy. 2. The most recent vancomycin level was 14 mcg/mL drawn at 2103 on 02/21/2020. This is a 23 hour level on the 6th day of therapy. 3. Vancomycin level is below or within therapeutic goal. Will re dose vancomycin 1 g x 1 dose today 4. The next vancomycin level has been ordered for 02/22/2020 @ 2200 (Completed) We will follow patient renal function, vancomycin levels and doses with you during the course of therapy. Additional recommendations will appear in follow up notes. If you have [place] [phone]. Age: [age] year old Allergies: ALLERGIES Allergen Reactions - Bactrim [Sulfametho* Rash and swelling of her throat Last 3 Encounter Wt Readings: Date: Wt: 02/16/2020 71.8 kg (158 lb 3.2 oz) 09/25/2019 69.4 kg (153 lb) 10/29/2016 68.9 kg (152 lb) Last 1 Encounter Ht Readings: Date: Ht: 02/16/2020 167.6 cm (5' 6) CrCl: 25.8 mL/min Temp (24hrs), Av.8 ?C (98.3 ?F), Min:36.5 ?C (97.7 ?F), Max:37.1 ?C (98.8 ?F) - Current Temp: 37.1 ?C (98.8 ?F) Labs BUN (mg/dL) Date Value 02/21/2020 12 02/20/2020 16 02/19/2020 17 Creatinine (mg/dL) Date Value 02/21/2020 2.09 (H) 02/20/2020 2.65 (H) 02/19/2020 2.92 (H) WBC (thou/cmm) Date Value 02/19/2020 6.41 02/18/2020 7.44 02/17/2020 8.41 Vancomycin Levels: Vancomycin,Random (ug/mL) Date/Time Value 02/21/2020 2103 14.0 02/20/20207 12.1 BETSY NEWSOME, PHARMACIST Normal [facility] Hemogram/Diffon 02-22-2020 Abs Immature Grans 0.02 thou/cmm Normal 0.00-0.05 [facility] Comment on above: Performed By: #### G FR #### [place] [address] Abs Neut (ANC) 3.53 thou/cmm Normal 1.56-6.13 [facility] Comment on above: Performed By: #### G FR #### [place] [address] Abs. Baso 0.04 thou/cmm Normal 0.01-0.08 [facility] Comment on above: Performed By: #### G FR #### [place] [address] Abs. Hickman 0.64 thou/cmm Normal 0.27-0.70 [facility] Comment on above: Performed By: #### G FR #### [place] [address] Basophils/100 WBC (Bld) 0.7 % Normal [facility] Comment on above: Performed By: #### G FR #### [place] [address] Eosinophils (Bld) [#/Vol] 0.16 thou/cmm Normal 0.00-0.31 [facility] Comment on above: Performed By: #### G FR #### [place] [address] Eosinophils/100 WBC (Bld) 2.7 % Normal [facility] Comment on above: Performed By: #### G FR #### [place] [address] Erythrocyte distribution width (RBC) [Ratio] 13.2 % Normal 11.7-14.4 [facility] Comment on above: Performed By: #### G FR #### [address] [place], [place] [address] Hematocrit (Bld) [Volume fraction] 31.3 % Low 34.1-44.9 [facility] Comment on above: Performed By: #### G FR #### [facility] [address] [place] [address] Hemoglobin (Bld) [Mass/Vol] 10.0 g/dL Low 11.2-15.7 [facility] Comment on above: Performed By: #### G FR #### [facility] [address] [place] [address] Immature Grans 0.30 % Normal [facility] Comment on above: Performed By: #### G FR #### [facility] [address] [place] [address] Lymphocytes (Bld) [#/Vol] 1.44 thou/cmm Normal 1.18-3.74 [facility] Comment on above: Performed By: #### G FR #### [place] [address] Lymphocytes/100 WBC (Bld) 24.7 % Normal [facility] Comment on above: Performed By: #### G FR #### [facility] [address] [place] [address] MCH (RBC) [Entitic mass] 29.8 pg Normal 25.6-32.2 [facility] Comment on above: Performed By: #### G FR #### [facility] [address] [place] [address] MCHC (RBC) [Mass/Vol] 31.9 % Normal 31.6-34.8 [facility] Comment on above: Performed By: #### G FR #### [facility] [address] [place] [address] MCV (RBC) [Entitic vol] 93.2 fL Normal 79.4-94.8 [facility] Comment on above: Performed By: #### G FR #### [place] [address] Monocytes/100 WBC (Bld) 11.0 % Normal [facility] Comment on above: Performed By: #### G FR #### [facility] [address] [place] [address] Platelet mean volume (Bld) [Entitic vol] 10.8 fL Normal 9.4-12.3 [facility] Comment on above: Performed By: #### G FR #### [facility] [address] [place] [address] Platelets (Bld) [#/Vol] 197 thou/cmm Normal 182-369 [facility] Comment on above: Performed By: #### G FR #### [facility] [address] [place] [address] RBC (Bld) [#/Vol] 3.36 mil/cmm Low 3.93-5.22 [facility] Comment on above: Performed By: #### G FR #### [facility] [address] [place] [address] RDW SD 45.4 fl Normal 36.4-46.3 [facility] Comment on above: Performed By: #### G FR #### [facility] [address] [place] [address] Seg Neutrophil 60.6 % Normal [facility] Comment on above: Performed By: #### G FR #### [facility] [address] [place] [address] WBC (Bld) [#/Vol] 5.82 thou/cmm Normal 3.98-10.04 [facility] Comment on above: Performed By: #### G FR #### [facility] [address] [place] [address] Renal Function Panelon 02-21 Albumin [Mass/Vol] 3.1 g/dL Low 3.9-4.9 [facility] Comment on above: Performed By: #### G FR #### [facility] [address] [place] [address] Anion gap [Moles/Vol] 10 mmol/L Normal 9-18 [facility] Comment on above: Performed By: #### G FR #### [facility] [address] [place] [address] Calcium [Mass/Vol] 8.4 mg/dL Low 8.5-10.2 [facility] Comment on above: Performed By: #### G FR #### [facility] [address] [place], [place] [address] Chloride [Moles/Vol] 112 mmol/L High 97-105 [facility] Comment on above: Performed By: #### G FR #### [facility] [address] [place], [place] [address] CO2 Blood 22 mmol/L Normal 22-30 [facility] Comment on above: Performed By: #### G FR #### [facility] [address] [place], [place] [address] Creatinine [Mass/Vol] 1.76 mg/dL High 0.58-0.96 [facility] Comment on above: Performed By: #### G FR #### [facility] [address] [place], [place] [address] Glucose [Mass/Vol] 94 mg/dL Normal 74-99 [facility] Comment on above: Result Comment: The [place] [employer] (ADA) provides guidance for cutoff values for fasting glucose and random glucose. The ADA defines fasting as no caloric intake for at least 8 hours.Fasting plasma glucose results between 100 to 125 mg/dL indicate increased risk for diabetes (prediabetes). Fasting plasma glucose results greater than or equal to 126 mg/dL meet the criteria for diagnosis of diabetes. In the absence of unequivocal hyperglycemia, results should be confirmed by repeat testing. In a patient with classic symptoms of hyperglycemia or hyperglycemic crisis, random plasma glucose results greater than or equal to 200 mg/dL meet the criteria for diagnosis of diabetes. Reference: Standards of Medical Care in Diabetes 2016; [place] [employer]. Diabetes Care. 2016;39(Suppl 1). Performed By: #### G FR #### [facility] [address] [place], [place] [address] Phosphate [Mass/Vol] 3.3 mg/dL Normal 2.7-4.8 [facility] Comment on above: Performed By: #### G FR #### [facility] [address] [place], [place] [address] Potassium [Moles/Vol] 3.9 mmol/L Normal 3.7-5.1 [facility] Comment on above: Performed By: #### G FR #### [facility] [address] [place], [place] [address] Sodium [Moles/Vol] 144 mmol/L Normal 136-144 [facility] Comment on above: Performed By: #### G FR #### [facility] [address] [place], [place] [address] Urea nitrogen [Mass/Vol] 14 mg/dL Normal 7-21 [facility] Comment on above: Performed By: #### G FR #### [facility] [address] [place], [place] [address] CASE MANAGEMon 02-21-2020 CASE MANAGEM HNO ID: [id number] Author: Kelle Muro Service: Care Management Author Type: ? Type: Care Mgt Progress Note Filed: 02/21/2020 11:29 AM Note Text: CARE MANAGEMENT PROGRESS NOTE SERVICE DATE: 02/21/2020 SERVICE TIME: 1015 LOS: 4 days IMM Follow Up Copy Given: Yes Copy given to:: Patient Method: In Person SIGNATURE: Kelle Muro PATIENT NAME: Zulay Bearden DATE: February 21, 2020 TIME: 11:29 AM Normal [facility] CONSULT PROGon 02-21-2020 CONSULT PROG HNO ID: [id number] Author: Asha Khanna MD Service: Nephrology Author Type: Resident Type: Consult Progress Note Filed: 02/21/2020 1:59 PM Note Text: Attestation signed by Anibal Nunn at 02/21/2020 7:51 PM NEPHROLOGY STAFF PHYSICIAN NOTE OF PERSONAL INVOLVEMENT IN CARE AND VISIT ATTESTATION I have seen the patient face to face and reviewed the history and physical examination obtained and documented by Dr. Khanna. I personally participated in the ronquillo components. I have discussed the case and management of the patient's care. Agree with above findings, assessment and plan of care. Amendments, if present, are entered in the note and/or detailed below. Following for LORETA. Pt denies CP, SOB or nausea. Diarrhea is controlled with Imodium. Complain of L hand pain. Starting to feel swollen, especially in the hands. Exam: General: A+O x 3. NAD. HEENT: NCAT, MMM. Neck: Supple. Heart: Normal S1, S2. No R/M/G. Lungs: CTAB. Abdomen: +BS, soft, NT. No G/R. Ext: No LE edema. Neuro: No focal deficit. Impression/Plan: 1. Acute Kidney injury. No prior history of CKD. Suspect LORETA is prerenal, related to GI fluid loss, nausea and use of NSAID in the past 2 days. FENa was <1%. Has likely progressed to ischemic ATN. Renal function has continued to slowly improve. OK to continue vancomycin and Zosyn for now. Doubt AIN or ATN from antibiotics. Will stop IVF today as pt has better david intake and is feeling swollen. Recheck renal function in am. If renal function is worse or if she cannot keep up with oral intake, I may restart IVF tomorrow. Encouraged oral intake today. No urgent need for kidney replacement therapy. 2. Metabolic acidosis. Serum HCO3 is 20. Likely due to LORETA and diarrhea. Serum HCO3 is better today. Continue treatment of LORETA as above. Imodium for diarrhea. 3. L hand infection s/p cat bite. S/p I+D. Antibiotics as per hospitalist. Divya Velazco MD (Anibal Nunn) Please do not hesitate to call me at if there is any questions. CONSULT PROGRESS NOTE NEPHROLOGY SERVICE SERVICE DATE: 02/21/2020 SERVICE TIME: 1:53 PM Subjective HPI: 69 year old female ?has a past medical history of Mixed hyperlipidemia, Osteoporosis (07/22/2016) presented with?Left hand and forearm redness, swelling, pain after cat bite?for last few days?prior to arrival to the hospital.?Initially?red ness and swelling?was mild,?intermittent?but gradually getting more persistent. During her hospital course the patient developed LORETA 2/2 NSAIDs and hypovolemia and hence nephrology was consulted. ? INTERVAL HISTORY:? Patient reports improvement in the left arm pain , improvement in nausea and some episodes of loose bowel movement this AM requiring imodium. She denies episodes of vomiting today. She does not report fever, chills, chest pain, dyspnea, changes in bowel or bladder habits. She reported improvement in cough and she is on Imodium for diarrhea.? MEDICATIONS: Current Facility-Administered Medications Medication Dose Route Frequency - heparin 5,000 Units injection 5,000 Units SUBCUTANEOUS q 12 H - aluminum-magnesium hydroxide-simethicone 200-200-20 mg/5 mL 30 mL (MAALOX,MYLANTA,MAG-AL PLUS) 30 mL ORAL DAILY PRN - ondansetron 4 mg tab(s) (ZOFRAN) 4 mg ORAL q 6 H PRN Or - ondansetron (PF) 4 mg injection (ZOFRAN) 4 mg INTRAVENOUS q 6 H PRN - polyethylene glycol 3350 17 g packet (MIRALAX, GLYCOLAX) 17 g ORAL DAILY PRN - docusate sodium 100 mg cap(s) (COLACE) 100 mg ORAL BID PRN - magnesium hydroxide 400 mg/5 mL 30 mL (MOM) 30 mL ORAL DAILY PRN - bisacodyl 10 mg suppository (DULCOLAX) 10 mg RECTAL DAILY PRN - piperacillin-tazobactam iv piggyback 3.375 g in dextrose (iso-osmotic) 50 mL (ZOSYN) 3.375 g INTRAVENOUS q 6 H - vancomycin dosing and monitoring per pharmacy OTHER As Directed - LORazepam 0.5 mg injection (ATIVAN) 0.5 mg INTRAVENOUS q 6 H PRN - oxyCODONE IR 5 mg tab(s) (ROXICODONE) 5 mg ORAL q 4 H PRN - lactated ringers infusion 75 mL/hr INTRAVENOUS CONTINUOUS - acetaminophen 650 mg tab(s) (TYLENOL) 650 mg ORAL q 6 H PRN - loperamide 2 mg cap(s) (IMODIUM) 2 mg ORAL TID PRN Objective PHYSICAL EXAM: BP 130/71 Pulse 77 Temp 36.5 ?C (97.7 ?F) (Oral) Resp 18 Ht 167.6 cm (5' 6) Wt 71.8 kg (158 lb 3.2 oz) LMP 04/23/2008 SpO2 97% BMI 25.53 kg/m? Intake/Output Summary (Last 24 hours) at 02/21/2020 1353 Last data filed at 02/20/2020 1400 Gross per 24 hour Intake 360 ml Output ? Net 360 ml Constitutional:?No acute distress, Responsive, Normal habitus and Well-nourished Neck:?Trachea midline No jugular venous distension Cardiovascular:?Regular rate and rhythm, normal S1 and S2, no murmurs, rubs, or gallops No peripheral edema Respiratory:?Normal respiratory effort. Lungs clear bilaterally. Abdomen:?Soft, non-tender, non-distended. Normal bowel sounds. No hepatosplenomegaly. Psychiatric:?Alert and oriented x self, place, time, and setting Normal mood/affect DATA: Diagnostic tests reviewed for today's visit: Most recent labs and imaging results. Most recent labs Most recent imaging Most recent EKG Recent Labs 02/21/20 0615 02/20/20 0640 02/19/20 0530 02/18/20 0550 02/17/20 0329 NA 143 143 142 142 139 K 3.9 3.9 3.9 4.0 3.6* CHLOR 113* 112* 112* 110* 108* CO2 22 20* 20* 24 22 BUN 12 16 17 16 10 CREAT 2.09* 2.65* 2.92* 1.58* 0.75 GLUC 94 94 102* 120* 97 ANION 8* 11 10 8* 9 CA 8.2* 7.9* 7.6* 8.0* 8.0* P 3.1 -- -- -- -- Recent Labs 02/19/20 0530 02/18/20 0550 02/17/20 0329 WBC 6.41 7.44 8.41 HB 10.7* 11.0* 11.7 HCT 34.1 34.7 36.7 PLT 164* 156* 169* No results for input(s): INR, APTT in the last 168 hours. Recent Labs 02/19/20 1130 COLOR YELLOW UGLUC NEGATIVE UBILI NEGATIVE UKET NEGATIVE SPGR 1.012 UPH 5.0 UPROT TRACE* NITRITES NEGATIVE LEUKEST NEGATIVE UWBC 5.7* URBC 4.8 No results for input(s): PH, PCO2, PO2, LACT in the last 168 hours. Assessment/Plan 69 year old female who presents with?PMH of osteoporosis who initially presented for a cat bite.Nephrology was consulted for LORETA. ? ? PLAN? 1.LORETA -Patient had pre renal insult most likely. She has a FeNa of <1% -She had hypovolemia secondary to vomiting and diarrhea. She also received toradol which could have contributed to LORETA. She was on vancomycin and zosyn combination which could be contributory. -She did not have any episodes on vomiting today -IV fluid discontinued today, encourage oral fluid intake -Acetaminophen PRN for pain -Avoid nephrotoxic agents. ? 2.Renal nodule on USG -Indeterminate 2.2 x 2.1 x 1.5 cm left kidney hypoechoic cortical nodule. -Follow up O/P -Needs to be assessed using contrast CT scan/ MRI, to be avoided now in the setting of LORETA SIGNATURE: Asha Khanna MD PATIENT NAME: Zulay Bearden DATE: February 21, 2020 TIME: 1:53 PM PAGER: [phone] [facility] CONSULT PROG HNO ID: [id number] Author: Betsy Newsome (Pharmacist) Service: Pharmacy Author Type: Pharmacist Type: Consult Progress Note Filed: 02/20/2020 10:22 PM Note Text: PHARMACY VANCOMYCIN DOSING NOTE Patient Name: Zulay Bearden Admission Date: 02/16/2020 Date of Consult: 02/20/2020 Time of Consult: 10:08 PM Indication: Skin/Soft tissue infection Goal Range: 10-20 mcg/mL RECOMMENDATIONS/PLAN: Pharmacy consulted for vancomycin dosing for Zulay Bearden, a 69 year old, female who is being treated with vancomycin for SSTI from feline bite. 1. Patient is currently ordered Vancomycin dosed by level. Today is day 5 of therapy. 2. The most recent vancomycin level was 12.1 mcg/mL drawn at 7 on 02/20/2020. This is a 46 hour level on the 5th day of therapy. 3. Vancomycin level is below or within therapeutic goal. Will re dose vancomycin 1 g x 1 dose today 4. The next vancomycin level has been ordered for 02/21/2020 @ 2200 (Completed) We will follow patient renal function, vancomycin levels and doses with you during the course of therapy. Additional recommendations will appear in follow up notes. If [place] [phone]. Age: [age] year old Allergies: ALLERGIES Allergen Reactions - Bactrim [Sulfametho* Rash and swelling of her throat Last 3 Encounter Wt Readings: Date: Wt: 02/16/2020 71.8 kg (158 lb 3.2 oz) 09/25/2019 69.4 kg (153 lb) 10/29/2016 68.9 kg (152 lb) Last 1 Encounter Ht Readings: Date: Ht: 02/16/2020 167.6 cm (5' 6) CrCl: 20.3 mL/min Temp (24hrs), Av.6 ?C (97.8 ?F), Min:36.3 ?C (97.4 ?F), Max:36.8 ?C (98.2 ?F) - Current Temp: 36.8 ?C (98.2 ?F) Labs BUN (mg/dL) Date Value 02/20/2020 16 02/19/2020 17 02/18/2020 16 Creatinine (mg/dL) Date Value 02/20/2020 2.65 (H) 02/19/2020 2.92 (H) 02/18/2020 1.58 (H) WBC (thou/cmm) Date Value 02/19/2020 6.41 02/18/2020 7.44 02/17/2020 8.41 Vancomycin Levels: Vancomycin,Random (ug/mL) Date/Time Value 02/20/2020 2057 12.1 02/19/2020 2216 20.1 (H) BETSY NEWSOME, PHARMACIST [facility] NURSING PROGon 02-21-2020 NURSING PROG HNO ID: [id number] Author: Zulay (Rn) Nitin, SEUN Service: Nursing Author Type: Registered Nurse Type: Nursing Progress Note Filed: 02/21/2020 12:05 PM Note Text: Dr. Garrido at bedside with patient to see her during soaking. Support offered Normal [facility] PROGRESSon 02-21-2020 PROGRESS HNO ID: [id number] Author: Hunter Garrido Service: Hospital Medicine Author Type: Physician Type: Progress Notes Filed: 02/21/2020 12:19 PM Note Text: DEPARTMENT OF HOSPITAL MEDICINE PROGRESS NOTE SERVICE DATE: 02/21/2020 SERVICE TIME: 12:05 PM Hospital Medicine/Primary Attending: Hunter Garrido MD NIGHT AND WEEKEND COVERAGE: [place] COVERAGE: From 7am - 7pm, please call [phone] After 7pm, please call cross cover pager [phone] Subjective INTERVAL HPI: Patient seen at bedside. She says that swelling from fingers and forearm and redness has gone down but there is still quite a bit of tenderness on the dorsum of the left hand around and distal to wear incisions are. Did not appreciate purulence at this time. She has difficulty making a full fist but can do this partially, and she seems to have some range of motion in wrist. Plastic surgery recs appreciated - s/p I and d and findings of seropurulent fluid in sq space and peritendinous sheat but no evidence of carpal joint penetration. Afebrile. Patient sitting up in bed comfortably. MEDICATIONS: Reviewed Objective PHYSICAL EXAM: BP 127/61 Pulse 68 Temp (Src) 98.2 (Oral) Resp 16 Ht 5' 6 (1.68m) Wt 158 lb 3.2 oz (71.8kg) SpO2 94% LMP 04/23/2008 BMI 25.55 kg/(m2). O2 Therapy: Room Air Physical Exam Performed General: awake alert oriented x 4 no acute distress sitting up in bed HEENT: eomi perrl no marked pallor nor icterus CV: s1s2 normal, rrr, no mrg no jvd Lung: bilateral air entry no wheezes no rales no rubs no rhonchi Abdomen: soft nt nd bowel sounds present Extremities: no le edema skin warm and moist Left wrist swelling present moreso on the dorsum of the hand with some tenderness, radial pulse is palpable, erythema and swelling seem to have receded from fingers and forearm Lines, Drains, and Airways Line Peripheral 02/21/20 0104 Right Forearm 22 Gauge less than 1 day DATA: Diagnostic tests reviewed for today's visit: Most recent labs and imaging results. Assessment/Plan Active Problems: 1. Left hand cellulitis: POA, stable S/p cat bite, ptnt states domesticated cat Currently on vanco and zosyn Culture from I and d - coag neg staph Consult ID Pain medicine as needed As per plastics, left hand/wrist pain slowly improving, seropurulent fluid in subcutaneous space and peritendinous sheath -- no evidence of carpal joint penetration Still has some swelling and tenderness on dorsum of hand/wrist, erythema seems to have receded 2. Diarrhea: POA, stable Likely antibiotic induced c diff was negative Patient states relief with immodium 3. LORETA: POA, stable Renal on board Cr trending down Receiving ivf Monitor Renal doses and avoid nephrotoxic medications 4. Incidentally noted 2.2 cm left kidney nodule: POA, stable Further imaging was recommended w/wo contrast On hold bc of loreta Medication and Non-Pharmacologic VTE Prophylaxis/Anticoagula nts Anticoagulant AND Antiplatelet Medications (From admission, onward) Start Dose Route Frequency Ordered Stop 02/16/202129 heparin 5,000 Units injection (Medical Risk Categories) 5,000 Units SUBCUTANEOUS EVERY 12 HOURS 02/16/202110 -- VTE Prophylaxis: heparin dvt px Disposition: Home Plan of care discussed with: Provider, RN, Patient SIGNATURE: Hunter Garrido MD PATIENT NAME: Zulay Bearden DATE: February 21, 2020 TIME: 12:05 PM PAGER/CONTACT #: [phone] Normal [facility] Renal Function Panelon 02-20 Albumin [Mass/Vol] 3.0 g/dL Low 3.9-4.9 [facility] Comment on above: Performed By: #### G FR #### [facility] [address], [place] [address] Anion gap [Moles/Vol] 8 mmol/L Low 9-18 [facility] Comment on above: Performed By: #### G FR #### [facility] [address], [place] [address] Calcium [Mass/Vol] 8.2 mg/dL Low 8.5-10.2 [facility] Comment on above: Performed By: #### G FR #### [facility] [address], [place] [address] Chloride [Moles/Vol] 113 mmol/L High 97-105 [facility] Comment on above: Performed By: #### G FR #### [facility] [address], [place] [address] CO2 Blood 22 mmol/L Normal 22-30 [facility] Comment on above: Performed By: #### G FR #### [facility] [address], [place] [address] Creatinine [Mass/Vol] 2.09 mg/dL High 0.58-0.96 [facility] Comment on above: Performed By: #### G FR #### [facility] [address], [place] [address] Glucose [Mass/Vol] 94 mg/dL Normal 74-99 [facility] Comment on above: Result Comment: The [place] Diabetes Association (ADA) provides guidance for cutoff values for fasting glucose and random glucose. The ADA defines fasting as no caloric intake for at least 8 hours.Fasting plasma glucose results between 100 to 125 mg/dL indicate increased risk for diabetes (prediabetes). Fasting plasma glucose results greater than or equal to 126 mg/dL meet the criteria for diagnosis of diabetes. In the absence of unequivocal hyperglycemia, results should be confirmed by repeat testing. In a patient with classic symptoms of hyperglycemia or hyperglycemic crisis, random plasma glucose results greater than or equal to 200 mg/dL meet the criteria for diagnosis of diabetes. Reference: Standards of Medical Care in Diabetes 2016; [place] [employer]. Diabetes Care. 2016;39(Suppl 1). Performed By: #### G FR #### [facility] [address], [place] [address] Phosphate [Mass/Vol] 3.1 mg/dL Normal 2.7-4.8 [facility] Comment on above: Performed By: #### G FR #### [facility] [address], [place] [address] Potassium [Moles/Vol] 3.9 mmol/L Normal 3.7-5.1 [facility] Comment on above: Performed By: #### G FR #### [facility] [address], [place] [address] Sodium [Moles/Vol] 143 mmol/L Normal 136-144 [facility] Comment on above: Performed By: #### G FR #### [facility] [address] [place] [address] Urea nitrogen [Mass/Vol] 12 mg/dL Normal 7-21 [facility] Comment on above: Performed By: #### G FR #### [facility] [address] [place] [address] Vancomycin,Randomon 02-21-20 20 INR Coag (Bld) [Relative time] 14.0 ug/mL Normal 10.0-20.0 [facility] Comment on above: Result Comment: Refe rence ranges and high/low indicator flags are provided as general guidelines only. The treating physician must determine appropriate target levels/dosing based on the specific clinical situation. 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 Will follow-up as able. Manager Event Signature: Nafisa Davis To contact the Spiritual Care Department: Please call [phone] or Page the On-Call Manager Event at pager [phone] Thank you for the opportunity to be of service. This is an electronically created document. IF PRINTED, PLEASE DO NOT REMOVE FROM THE CHART OR MODIFY PRINTED COPY. Normal [facility] CONSULTon 02-20-2020 CONSULT HNO ID: [id number] Author: Asha Khanna MD Service: Nephrology Author Type: Resident Type: Consults Filed: 02/20/2020 7:02 PM Note Text: Attestation signed by Anibal Nunn at 02/20/2020 7:28 PM NEPHROLOGY STAFF PHYSICIAN NOTE OF PERSONAL INVOLVEMENT IN CARE AND VISIT ATTESTATION I have seen the patient face to face and reviewed the history and physical examination obtained and documented by Dr. Khanna. I personally participated in the ronquillo components. I have discussed the case and management of the patient's care. Agree with above findings, assessment and plan of care. Amendments, if present, are entered in the note and/or detailed below. Following for LORETA. Pt denies CP, SOB or nausea. Complain of L hand pain. Exam: General: A+O x 3. NAD. HEENT: NCAT, MMM. Neck: Supple. Heart: Normal S1, S2. No R/M/G. Lungs: CTAB. Abdomen: +BS, soft, NT. No G/R. Ext: No LE edema. Neuro: No focal deficit. Impression/Plan: 1. Acute Kidney injury. No prior history of CKD. Suspect LORETA is prerenal, related to GI fluid loss, nausea and use of NSAID in the past 2 days. FENa is <1%. At some risk of progression to ischemic ATN. Continue with IVF. Will use LR since she has low serum HCO3. Mo obstruction seen on renal US. OK to continue vancomycin and Zosyn for now. Doubt AIN or ATN from antibiotics. Recheck renal function in am. No urgent need for kidney replacement therapy. 2. Metabolic acidosis. Serum HCO3 is 20. Likely due to LORETA and diarrhea. Use LR to limit further acidosis. 3. L hand infection s/p cat bite. S/p I+D. Antibiotics as per hospitalist. Divya Velazco MD (Anibal Nunn) Please do not hesitate to call me at if there is any questions. CONSULT PROGRESS NOTE NEPHROLOGY SERVICE SERVICE DATE: 02/20/2020 SERVICE TIME: 6:58 PM Subjective HPI: 69 year old female ?has a past medical history of Mixed hyperlipidemia, Osteoporosis (07/22/2016) presented with?Left hand and forearm redness, swelling, pain after cat bite?for last few days?prior to arrival to the hospital.?Initially?red ness and swelling?was mild,?intermittent?but gradually getting more persistent. ? INTERVAL HISTORY: Patient reports improvement in the left arm pain , improvement in nausea and some episodes of loose bowel movement this AM requiring imodium. She denies episodes of vomiting today. She does not report fever, chills, chest pain, dyspnea, changes in bowel or bladder habits. She reported increased cough since morning and appeared like she is trying to take deep breathes during my conversation, will reduce the IV fluid rate. MEDICATIONS: Current Facility-Administered Medications Medication Dose Route Frequency - heparin 5,000 Units injection 5,000 Units SUBCUTANEOUS q 12 H - aluminum-magnesium hydroxide-simethicone 200-200-20 mg/5 mL 30 mL (MAALOX,MYLANTA,MAG-AL PLUS) 30 mL ORAL DAILY PRN - ondansetron 4 mg tab(s) (ZOFRAN) 4 mg ORAL q 6 H PRN Or - ondansetron (PF) 4 mg injection (ZOFRAN) 4 mg INTRAVENOUS q 6 H PRN - polyethylene glycol 3350 17 g packet (MIRALAX, GLYCOLAX) 17 g ORAL DAILY PRN - docusate sodium 100 mg cap(s) (COLACE) 100 mg ORAL BID PRN - magnesium hydroxide 400 mg/5 mL 30 mL (MOM) 30 mL ORAL DAILY PRN - bisacodyl 10 mg suppository (DULCOLAX) 10 mg RECTAL DAILY PRN - piperacillin-tazobactam iv piggyback 3.375 g in dextrose (iso-osmotic) 50 mL (ZOSYN) 3.375 g INTRAVENOUS q 6 H - vancomycin dosing and monitoring per pharmacy OTHER As Directed - LORazepam 0.5 mg injection (ATIVAN) 0.5 mg INTRAVENOUS q 6 H PRN - oxyCODONE IR 5 mg tab(s) (ROXICODONE) 5 mg ORAL q 4 H PRN - lactated ringers infusion 75 mL/hr INTRAVENOUS CONTINUOUS - acetaminophen 650 mg tab(s) (TYLENOL) 650 mg ORAL q 6 H PRN - loperamide 2 mg cap(s) (IMODIUM) 2 mg ORAL TID PRN Objective PHYSICAL EXAM: BP 127/71 Pulse 65 Temp 36.3 ?C (97.4 ?F) (Oral) Resp 16 Ht 167.6 cm (5' 6) Wt 71.8 kg (158 lb 3.2 oz) LMP 04/23/2008 SpO2 97% BMI 25.53 kg/m? Intake/Output Summary (Last 24 hours) at 02/20/2020 1858 Last data filed at 02/20/2020 1400 Gross per 24 hour Intake 2650 ml Output ? Net 2650 ml Constitutional: No acute distress, Responsive, Normal habitus and Well-nourished Neck: Trachea midline No jugular venous distension Cardiovascular: Regular rate and rhythm, normal S1 and S2, no murmurs, rubs, or gallops No peripheral edema Respiratory: Normal respiratory effort. Lungs clear bilaterally. Abdomen: Soft, non-tender, non-distended. Normal bowel sounds. No hepatosplenomegaly. Psychiatric: Alert and oriented x self, place, time, and setting Normal mood/affect DATA: Diagnostic tests reviewed for today's visit: Most recent labs and imaging results. Most recent labs Most recent imaging Recent Labs 02/20/20 0640 02/19/20 0530 02/18/20 0550 02/17/20 0329 NA 143 142 142 139 K 3.9 3.9 4.0 3.6* CHLOR 112* 112* 110* 108* CO2 20* 20* 24 22 BUN 16 17 16 10 CREAT 2.65* 2.92* 1.58* 0.75 GLUC 94 102* 120* 97 ANION 11 10 8* 9 CA 7.9* 7.6* 8.0* 8.0* Recent Labs 02/19/20 0530 02/18/20 0550 02/17/20 0329 WBC 6.41 7.44 8.41 HB 10.7* 11.0* 11.7 HCT 34.1 34.7 36.7 PLT 164* 156* 169* No results for input(s): INR, APTT in the last 168 hours. Recent Labs 02/19/20 1130 COLOR YELLOW UGLUC NEGATIVE UBILI NEGATIVE UKET NEGATIVE SPGR 1.012 UPH 5.0 UPROT TRACE* NITRITES NEGATIVE LEUKEST NEGATIVE UWBC 5.7* URBC 4.8 No results for input(s): PH, PCO2, PO2, LACT in the last 168 hours. Assessment/Plan 69 year old female who presents with PMH of osteoporosis who initially presented for a cat bite.Nephrology was consulted for LORETA. ? PLAN 1.LORETA -Patient has SeCr trending from 0.75 upon admission to 2.92 in 3 days. -Patient has pre renal insult most likely. She has a FeNa of <1% -She had hypovolemia secondary to vomiting and diarrhea yesterday. She also received toradol over the last 3 days which could have contributed to LORETA. She is on vancomycin and zosyn combination which could be contributory. -She did not have any episodes on vomiting today -IV fluid at 75 ml/h, switch to LR from NS in the setting of decreasing bicarb -Toradol replaced by acetaminophen -Adequate oral intake -Renal USG -Vanc levels per pharmacy -Renal US, avoid nephrotoxic agents. 2.Renal nodule on USG -Indeterminate 2.2 x 2.1 x 1.5 cm left kidney hypoechoic cortical nodule. -Follow up O/P -Needs to be assessed using contrast CT scan/ MRI, to be avoided now in the setting of LORETA SIGNATURE: Asha Khanna MD PATIENT NAME: Zulay Bearden DATE: February 20, 2020 TIME: 6:58 PM PAGER: [phone] Normal [facility] CONSULT PROGon 02-20-2020 Cholesterol [Mass/Vol] HNO ID: [id number] Author: Darrius Grant Service: Plastic Surgery Author Type: Physician Type: Consult Progress Note Filed: 02/20/2020 12:49 PM Note Text: PLASTIC SURGERY AND HAND SURGERY STAFF NOTE: Appreciate all medical teams' assistance with this patient's care. L hand and wrist pain improving slowly. WBC continues to trend downward. Continue present dressing changes. Amandeep Grant MD Pager: [phone] Normal [facility] CONSULT PROG HNO ID: [id number] Author: Betsy Newsome (Pharmacist) Service: Pharmacy Author Type: Pharmacist Type: Consult Progress Note Filed: 02/19/2020 11:09 PM Note Text: PHARMACY VANCOMYCIN DOSING NOTE Patient Name: Zulay Bearden Admission Date: 02/16/2020 Date of Consult: 02/19/2020 Time of Consult: 11:02 PM Indication: Skin/Soft tissue infection Goal Range: 10-20 mcg/mL RECOMMENDATIONS/PLAN: Pharmacy consulted for vancomycin dosing for Zulay Bearden, a 69 year old, female who is being treated with vancomycin for SSTI from feline bite. 1. Patient is currently ordered Vancomycin dosed by level. Today is day 4 of therapy. 2. The most recent vancomycin level was 20.1 mcg/mL drawn at 2216 on 02/19/2020. This is a 23 hour level on the 4th day of therapy. 3. Serum creatinine and/or urine output have changed markedly in the previous days, therefore will discontinue vancomycin at this time and dose by level. Patient's LORETA has significantly worsened, therefore may see more accumulation of vancomycin. 4. The next vancomycin level has been ordered for 02/20/2020 @ 2200 (Completed) We will follow patient renal function, vancomycin levels and doses with you during the course of therapy. Additional recommendations will appear in follow up notes. If you have [place] [phone]. Age: [age] year old Allergies: ALLERGIES Allergen Reactions - Bactrim [Sulfametho* Rash and swelling of her throat Last 3 Encounter Wt Readings: Date: Wt: 02/16/2020 71.5 kg (157 lb 9.6 oz) 09/25/2019 69.4 kg (153 lb) 10/29/2016 68.9 kg (152 lb) Last 1 Encounter Ht Readings: Date: Ht: 02/16/2020 167.6 cm (5' 6) CrCl: 18.4 mL/min Temp (24hrs), Av.2 ?C (98.9 ?F), Min:36.9 ?C (98.4 ?F), Max:37.6 ?C (99.7 ?F) - Current Temp: 37 ?C (98.6 ?F) Labs BUN (mg/dL) Date Value 02/19/2020 17 02/18/2020 16 02/17/2020 10 Creatinine (mg/dL) Date Value 02/19/2020 2.92 (H) 02/18/2020 1.58 (H) 02/17/2020 0.75 WBC (thou/cmm) Date Value 02/19/2020 6.41 02/18/2020 7.44 02/17/2020 8.41 Vancomycin Levels: Vancomycin,Random (ug/mL) Date/Time Value 02/19/2020 2216 20.1 (H) 02/18/2020 2100 17.9 BETSY NEWSOME, PHARMACIST Normal [facility] CPKon 02-20-2020 CK [Catalytic activity/Vol] 42 U/L Normal 42-196 [facility] Comment on above: Performed By: #### C MP #### [place] [address] Comprehensive Metabolic Pane lorna 02-20-2020 Albumin [Mass/Vol] 3.1 g/dL Low 3.9-4.9 [facility] Comment on above: Performed By: #### C MP #### [place] [address] ALP [Catalytic activity/Vol] 33 U/L Low 34-123 [facility] Comment on above: Performed By: #### C MP #### [place] [address] ALT [Catalytic activity/Vol] 8 U/L Normal 7-38 [facility] Comment on above: Performed By: #### C MP #### [place] [address] Anion gap [Moles/Vol] 11 mmol/L Normal 9-18 [facility] Comment on above: Performed By: #### C MP #### [place] [address] AST [Catalytic activity/Vol] 15 U/L Normal 13-35 [facility] Comment on above: Performed By: #### C MP #### [place] [address] Bilirubin [Mass/Vol] 0.3 mg/dL Normal 0.2-1.3 [facility] Comment on above: Performed By: #### C MP #### [place] [address] Calcium [Mass/Vol] 7.9 mg/dL Low 8.5-10.2 [facility] Comment on above: Performed By: #### C MP #### [facility] [address], [place] [address] Chloride [Moles/Vol] 112 mmol/L High 97-105 [facility] Comment on above: Performed By: #### C MP #### [facility] [address], [place] [address] CO2 Blood 20 mmol/L Low 22-30 [facility] Comment on above: Performed By: #### C MP #### [facility] [address], [place] [address] Creatinine [Mass/Vol] 2.65 mg/dL High 0.58-0.96 [facility] Comment on above: Performed By: #### C MP #### [facility] [address], [place] [address] Glucose [Mass/Vol] 94 mg/dL Normal 74-99 [facility] Comment on above: Result Comment: The [place] Diabetes Association (ADA) provides guidance for cutoff values for fasting glucose and random glucose. The ADA defines fasting as no caloric intake for at least 8 hours.Fasting plasma glucose results between 100 to 125 mg/dL indicate increased risk for diabetes (prediabetes). Fasting plasma glucose results greater than or equal to 126 mg/dL meet the criteria for diagnosis of diabetes. In the absence of unequivocal hyperglycemia, results should be confirmed by repeat testing. In a patient with classic symptoms of hyperglycemia or hyperglycemic crisis, random plasma glucose results greater than or equal to 200 mg/dL meet the criteria for diagnosis of diabetes. Reference: Standards of Medical Care in Diabetes 2016; [place] [employer]. Diabetes Care. 2016;39(Suppl 1). Performed By: #### C MP #### [facility] [address], [place] [address] Potassium [Moles/Vol] 3.9 mmol/L Normal 3.7-5.1 [facility] Comment on above: Performed By: #### C MP #### [facility] [address], [place] [address] Protein [Mass/Vol] 5.1 g/dL Low 6.3-8.0 [facility] Comment on above: Performed By: #### C MP #### [facility] [address], [place] [address] Sodium [Moles/Vol] 143 mmol/L Normal 136-144 [facility] Comment on above: Performed By: #### C MP #### [facility] [address], [place] [address] Urea nitrogen [Mass/Vol] 16 mg/dL Normal 7-21 [facility] Comment on above: Performed By: #### C MP #### [facility] [address], [place] [address] Lipase Bloodon 02-20-2020 Lipase Blood 25 U/L Normal 16-61 [facility] Comment on above: Performed By: #### C MP #### [facility] [address], [place] [address] PROGRESSon 02-20-2020 PROGRESS HNO ID: [id number] Author: Sherine Mcgill MD Service: Hospital Medicine Author Type: Physician Type: Progress Notes Filed: 02/20/2020 4:28 PM Note Text: DEPARTMENT OF HOSPITAL MEDICINE PROGRESS NOTE SERVICE DATE: 02/20/2020 SERVICE TIME: 4:19 PM Hospital Medicine/Primary Attending: Sherine Guajardo MD NIGHT AND WEEKEND COVERAGE: After 7pm please page [phone] CHIEF COMPLAINT: Left hand pain, following cat bite SUBJECTIVE: Pt seen and examined. Redness and pain much better x 24 hours, swelling coming down, no chills. Significant improvement in nausea, able to eat food , no emesis. OBJECTIVE: PHYSICAL EXAM: BP 127/71 Pulse 65 Temp (Src) 97.4 (Oral) Resp 16 Ht 5' 6 (1.68m) Wt 158 lb 3.2 oz (71.8kg) SpO2 97% LMP 04/23/2008 BMI 25.55 kg/(m2). O2 Therapy: Room Air General - AANDOx3, NAD, Calm CV - RRR S1 S2, No M/R/G RESP - CTA B/L No wheezes, ronchi, rales ABD - soft, NT, ND +BS EXT - no gross joint deformity, no clubbing, cyanosis, edema NEURO - CN II-XII grossly intact, no focal deficits Left hand - two clean cuts on the dorsum of the hand , some swelling noted, no visible pus, no significant erythema around the woundsn, no induration. MEDICATIONS: Current Facility-Administered Medications Medication Dose Route Frequency - heparin 5,000 Units injection 5,000 Units SUBCUTANEOUS q 12 H - aluminum-magnesium hydroxide-simethicone 200-200-20 mg/5 mL 30 mL (MAALOX,MYLANTA,MAG-AL PLUS) 30 mL ORAL DAILY PRN - ondansetron 4 mg tab(s) (ZOFRAN) 4 mg ORAL q 6 H PRN Or - ondansetron (PF) 4 mg injection (ZOFRAN) 4 mg INTRAVENOUS q 6 H PRN - polyethylene glycol 3350 17 g packet (MIRALAX, GLYCOLAX) 17 g ORAL DAILY PRN - docusate sodium 100 mg cap(s) (COLACE) 100 mg ORAL BID PRN - magnesium hydroxide 400 mg/5 mL 30 mL (MOM) 30 mL ORAL DAILY PRN - bisacodyl 10 mg suppository (DULCOLAX) 10 mg RECTAL DAILY PRN - piperacillin-tazobactam iv piggyback 3.375 g in dextrose (iso-osmotic) 50 mL (ZOSYN) 3.375 g INTRAVENOUS q 6 H - vancomycin dosing and monitoring per pharmacy OTHER As Directed - LORazepam 0.5 mg injection (ATIVAN) 0.5 mg INTRAVENOUS q 6 H PRN - oxyCODONE IR 5 mg tab(s) (ROXICODONE) 5 mg ORAL q 4 H PRN - lactated ringers infusion 75 mL/hr INTRAVENOUS CONTINUOUS - acetaminophen 650 mg tab(s) (TYLENOL) 650 mg ORAL q 6 H PRN - loperamide 2 mg cap(s) (IMODIUM) 2 mg ORAL TID PRN DATA: Diagnostic tests reviewed for today's visit: CBC: No results for input(s): WBC, RBC, HB, HCT, PLT, MCV, MCH, MPV, RDW in the last 24 hours. Coags: No results for input(s): PT, INR, APTT in the last 24 hours. BMP: Recent Labs 02/20/20 0640 NA 143 K 3.9 CHLOR 112* CO2 20* BUN 16 CREAT 2.65* GLUC 94 CMP: Recent Labs 02/20/20 0640 NA 143 K 3.9 CHLOR 112* CO2 20* BUN 16 CREAT 2.65* GLUC 94 TPROT 5.1* CA 7.9* TBILI 0.3 ALKPHOS 33* ALT 8 AST 15 ANION 11 Cardiac Enzymes: Recent Labs 02/20/20 0640 CK 42 Liver Function, Amylase, Lipase: Recent Labs 02/20/20 0640 TPROT 5.1* ALB 3.1* ALT 8 AST 15 ALKPHOS 33* TBILI 0.3 LIPASE 25 MG/PHOS: No results for input(s): MG, P in the last 24 hours. Renal Panel: Recent Labs 02/20/20 0640 CREAT 2.65* BUN 16 GLUC 94 CA 7.9* CHLOR 112* K 3.9 CO2 20* NA 143 Heme: No results for input(s): RETICP, ABSRETIC, LD, SUNDEEP, FE, TIBC, TRANSFERSAT in the last 24 hours. No results found for: UALBCR Assessment/Plan Active Problems: This is a 69 year old female ?has a past medical history of Mixed hyperlipidemia, Osteoporosis (07/22/2016) presented with?Left hand and forearm redness, swelling, pain after cat bite. Patient was seen by plastic surgery, underwent I/D, cx growing coag negative staph but, sensitivity pending. Hospital course complicated by severe nausea emesis, (likely pain medications/abx related) and Elevated creatinine / LORETA 02/19/20. Wound healing well, remains on iv vancomycin, will switch to oral abx once sensitivity back. Active problems. ?#Left hand cellulitis likely 2/2 to cat bite - day 6 vancomycin/zosyn- Coag negative staph, sensitivity pending, vitals stable - low systolic BP - baseline for patient - S/p IANDD 02/16 - left hand with plastic surgery #ongoing nausea - improved with less narcotic use. - Zofran PRN for nausea. low-dose IV ativan as second line ? #LORETA,-creatinine slight decrease 2.6, ATN /pre renal from hypovolemia (emesis and diarhea) , low systolic blood pressure and concomittant NSAID use . Toradol discontinued 02/17 - continue NS @ 75/hr - Monitor BMP daily? -nephrology consult, -FENA < 1%, ?renal ultrasound - left kidney cortical nodule, discussed with Edouard Kang- will follow up as an outpatient, will be set up through . #Diarrhea, improving - Likely 2/2 to medication side effect - c diff negative, continue loperamide ? #History of osteoporosis - Stable on denosumab ? #Ppx: SCDs, heparin #FULL CODE #Dispo: , final culture results , improvement in renal function Medication and Non-Pharmacologic VTE Prophylaxis/Anticoagula nts Anticoagulant AND Antiplatelet Medications (From admission, onward) Start Dose Route Frequency Ordered Stop 02/16/202129 heparin 5,000 Units injection (Medical Risk Categories) 5,000 Units SUBCUTANEOUS EVERY 12 HOURS 02/16/202110 -- 02/16/202114 vte non-pharmacologic prophylaxis - none indicated (co,oh) 02/16/202114 activity - mobilize patient (co,ga) Lines, Drains, and Airways Line Peripheral 02/19/20 0900 Short Right Forearm 22 Gauge 1 day Plan of care discussed with: Provider, RN, Patient SIGNATURE: Sherine Guajardo MD PATIENT NAME: Zulay Bearden DATE: February 20, 2020 TIME: 4:19 PM PAGER/CONTACT #: Team color pager Disclaimer: Portions of this note may have been generated using [employer] voice recognition software. Reasonable efforts were made to correct any dictation errors that resulted due to the programming of this software but some may still be present. Normal [facility] US KIDNEY/BLADDERon 02-20-20 US KIDNEY/BLADDER Final Report DATE OF EXAM: Feb 20 2020 10:45AM [facility] 1055 - US KIDNEY/BLADDER / PROCEDURE REASON: Bladder outlet symptoms, BPH suspected Physician Interpretation EXAMINATION: RENAL ULTRASOUND CLINICAL HISTORY: Acute kidney injury. TECHNIQUE: Sonography of the kidneys and urinary bladder is performed. Images are obtained and stored in a permanent archive. MQ: UR_1 COMPARISON: None. RESULT: Right Kidney: -Renal length: 11.4 cm -Parenchyma: Prominent, hypoechoic pyramids. 1.8 cm parenchymal thickness. -Collecting system: No hydronephrosis. -Calculus: No echogenic, shadowing calculus. -Lesion: None. Left Kidney: -Renal length: 11.3 cm -Parenchyma: Normal parenchymal echogenicity. 1.8 cm parenchymal thickness. -Collecting system: No hydronephrosis. -Calculus: No echogenic, shadowing calculus. -Lesion: 2.2 x 2.1 x 1.5 cm heterogeneous hypoechoic cortical nodule medial kidney. Bladder: Unremarkable, under distended appearance. 44 cc volume. IMPRESSION: Indeterminate 2.2 x 2.1 x 1.5 cm left kidney hypoechoic cortical nodule. Further characterization with CT or MR imaging without and with IV contrast is needed to exclude the presence of soft tissue neoplasm when clinically able. No hydronephrosis to suggest obstructive uropathy. A summary of findings is discussed with Dr. Khanna at time of dictation. Order Clerk: [facility] Transcribe Date/Time: Feb 20 2020 10:59A Dictated by : BETHANIE VIDES MD This examination was interpreted and the report reviewed and electronically signed by: BETHANIE VIDES MD on Feb 20 2020 11:29AM EST Normal [facility] Vancomycin,Randomon 02-20-20 20 INR Coag (Bld) [Relative time] 12.1 ug/mL Normal 10.0-20.0 [facility] Comment on above: Result Comment: Refe rence ranges and high/low indicator flags are provided as general guidelines only. The treating physician must determine appropriate target levels/dosing based on the specific clinical situation. Performed By: #### G FR #### [place] [address] Basic Metabolic Panelon 01-24 Anion gap [Moles/Vol] 10 mmol/L Normal 9-18 [facility] Comment on above: Performed By: #### C MP #### [address] [address] Calcium [Mass/Vol] 7.6 mg/dL Low 8.5-10.2 [facility] Comment on above: Performed By: #### C MP #### [address] [address] Chloride [Moles/Vol] 112 mmol/L High 97-105 [facility] Comment on above: Performed By: #### C MP #### [address] [address] CO2 Blood 20 mmol/L Low 22-30 [facility] Comment on above: Performed By: #### C MP #### [facility] [address], [place] [address] Creatinine [Mass/Vol] 2.92 mg/dL High 0.58-0.96 [facility] Comment on above: Performed By: #### C MP #### [facility] [address] [place], [place] [address] Glucose [Mass/Vol] 102 mg/dL High 74-99 [facility] Comment on above: Result Comment: The [place] Diabetes Association (ADA) provides guidance for cutoff values for fasting glucose and random glucose. The ADA defines fasting as no caloric intake for at least 8 hours.Fasting plasma glucose results between 100 to 125 mg/dL indicate increased risk for diabetes (prediabetes). Fasting plasma glucose results greater than or equal to 126 mg/dL meet the criteria for diagnosis of diabetes. In the absence of unequivocal hyperglycemia, results should be confirmed by repeat testing. In a patient with classic symptoms of hyperglycemia or hyperglycemic crisis, random plasma glucose results greater than or equal to 200 mg/dL meet the criteria for diagnosis of diabetes. Reference: Standards of Medical Care in Diabetes 2016; [place] Diabetes Association. Diabetes Care. 2016;39(Suppl 1). Performed By: #### C MP #### [facility] [address] [place], [place] [address] Potassium [Moles/Vol] 3.9 mmol/L Normal 3.7-5.1 [facility] Comment on above: Performed By: #### C MP #### [facility] [address] [place], [place] [address] Sodium [Moles/Vol] 142 mmol/L Normal 136-144 [facility] Comment on above: Performed By: #### C MP #### [facility] [address] [place], [place] [address] Urea nitrogen [Mass/Vol] 17 mg/dL Normal 7-21 [facility] Comment on above: Performed By: #### C MP #### [facility] [address] [place], [place] [address] CASE MANAGEMon 02-19-2020 CASE MANAGEM HNO ID: [id number] Author: Kelle Muro Service: Care Management Author Type: ? Type: Care Mgt Progress Note Filed: 02/19/2020 1:49 PM Note Text: CARE MANAGEMENT PROGRESS NOTE SERVICE DATE: 02/19/2020 SERVICE TIME: 1030 LOS: 2 days IMM Follow Up Copy Given: Yes Copy given to:: Patient Method: In Person SIGNATURE: Kelle Muro PATIENT NAME: Zulay Bearden DATE: February 19, 2020 TIME: 1:49 PM PAGER/CONTACT #: Jeiym [facility] CASE MGT INIT ASSESon 2019 CASE MGT INIT ASSES HNO ID: [id number] Author: Tamiko (Rn) SEUN Canales Service: Care Management Author Type: Registered Nurse Type: Care Mgt Initial Assessment Filed: 02/19/2020 4:38 PM Note Text: CARE MANAGEMENT: ASSESSMENT AND DISCHARGE PLAN SERVICE DATE: February 19, 2020 SERVICE TIME: 4:37 PM PRIMARY CARE PHYSICIAN: REN TURNER MD ADMISSION STATUS: Inpatient Needs Prior to Discharge: None 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 Advantage Last Discharge Date: N/A Is this Within the Past 30 days? Last discharge within 30 days: No Advance Directive: Current Advance Directive: None Automatic Presser Attempted to Assist with AD Completion: Yes Action: Education Provided Health LiteracyHow often do you need to have someone help you when you read instructions, pamphlets, or other written material from your doctor or pharmacy? : 1 - Never How confident are you filling out medical forms by yourself?: 1 - Extremely If Patient scores > 3 on either question, the following interventions were put into place:: Patient did not score > 3 on either question. Baseline Mental Status Prior to this Illness what was the patient's Baseline Mental Status?: Alert AND Oriented Prior to this illness, has anyone described the patient having any of the following behaviors?: Not Applicable Relationship of the informant to the patient:: Self Functional Status: Independent Does Patient Currently Receive Any Community Services or Home Care?: None Equipment Prior to Admission: None SOCIAL: Living Arrangements: Home Lives With: Spouse Financial Resources: EmployedPrimary Contact: Extended Emergency Contact Information Primary Emergency Contact: Loy Bearden Address: [address] [place] [address] Relation: Spouse Supportive Patient Contact:: Yes Contact Resources: Family Family Name/Phone: Loy (spouse) [phone] Social Needs Food insecurity Worry: Not on file Inability: Not on file Resources Needed: No Social Needs Financial resource strain: Not on file Social Needs Transportation needs Medical: Not on file Non-medical: Not on file Caregiver AssessmentCaregiver is ready, willing and able to meet the patient's needs as recommended by the inter-professional team:: No Caregiver needed Does the patient have an acute stroke diagnosis, or has the patient had a stroke during this admission?: No Patient's transition needs and plan for meeting these needs: home independently no needs Patient's perception of need for this admission: cat bite Medication Adherance I am convinced of the importance of my prescription medication: 0 - Agree Completely I worry that my prescription medication will do more harm than good to me : 0 - Disagree Completely I feel financially burdened by my [id number] expenses for my prescription medication:: 0 - Disagree Completely Risk Score: 0 Patient is categorized as: Low risk < 2 Are you interested in bedside delivery of your medications? No Is Patient Psychosocially Complex?: No ASSESSMENT AND PLAN: Medical Needs: Medical Needs: None Psychosocial Needs: Psychosocial Needs: None FREEDOM OF CHOICE EXPLAINED: [place] of Choice Given: No Reason Not Given: No placements necessary POTENTIAL TRANSITION PLANS No Services Indicated From home w/ spouse, independent in activities of daily living, plan return home at discharge. No needs identified. Patient is currently on IV antibiotics but will likely be switched to orals. WIll continue to follow. SIGNATURE: Tamiko Canales RN PATIENT NAME: Zulay Bearden DATE: February 19, 2020 TIME: 4:37 PM PAGER/CONTACT #: [phone] [facility] CONSULTon 02-19-2020 CONSULT HNO ID: [id number] Author: Asha Khanna MD Service: Nephrology Author Type: Resident Type: Consults Filed: 02/19/2020 3:30 PM Note Text: Attestation signed by Anibal Nunn at 02/19/2020 10:34 PM NEPHROLOGY STAFF PHYSICIAN NOTE OF PERSONAL INVOLVEMENT IN CARE AND VISIT ATTESTATION I have seen the patient face to face and reviewed the history and physical examination obtained and documented by Dr. Khanna. I personally participated in the ronquillo components. I have discussed the case and management of the patient's care. Agree with above findings, assessment and plan of care. Amendments, if present, are entered in the note and/or detailed below. Consulted for LORETA. HPI: The pt is a 69-year-old woman with history of osteoporosis is admitted with L hand cat bite. She is s/p I+D of L wrist on 02/17/20. Nephrology is asked to see the patient because of LORETA. SCr has increased to 2.92 mg/dL today from 0.75 mg/dL on 02/17/20. There is no prior history of CKD. The pt did received ketorolac x 5 doses. She reports poor oral intake since admit. She was also nauseated and had loose BM yesterday. She denies CP, SOB, or LE edema. There is no LUTS. Exam: General: A+O x 3. NAD. HEENT: NCAT, MMM. Neck: Supple. Heart: Normal S1, S2. No R/M/G. Lungs: CTAB. Abdomen: +BS, soft, NT. No G/R. Ext: No LE edema. Neuro: No focal deficit. Impression/Plan: 1. Acute Kidney injury. No prior history of CKD. Suspect LORETA is prerenal, related to GI fluid loss, nausea and use of NSAID in the past 2 days. UA is reviewed and is not suggestive of glomerulonephritis (no significant RBC or proteinuria). Another possibility is vancomycin nephrotoxicity since she is also on Zosyn which can increase the risk for ATN due to vancomycin. At this point, however, I have lower suspicion for vancomycin renal toxicity. Agree with IVF. Will use LR since she has declining serum HCO3. Check CK in am to see if there if there is any significant rhabdomyolysis. Check renal US. OK to continue vancomycin and Zosyn for now. Recheck renal function in am. No urgent need for kidney replacement therapy. 2. Metabolic acidosis. Serum HCO3 is 20. Likely due to LORETA and diarrhea. Use LR to limit further acidosis. 3. L hand infection s/p cat bite. S/p I+D. Antibiotics as per hospitalist. Divya Velazco MD (Anibal Nunn) Please do not hesitate to call me at if there is any questions. CONSULT PROGRESS NOTE NEPHROLOGY SERVICE SERVICE DATE: 02/19/2020 SERVICE TIME: 3:03 PM Subjective HPI: 69 year old female has a past medical history of Mixed hyperlipidemia, Osteoporosis (07/22/2016) presented with Left hand and forearm redness, swelling, pain after cat bite for last few days prior to arrival to the hospital. Initially redness and swelling was mild, intermittent but gradually getting more persistent. INTERVAL HISTORY: Patient reports improvement in the left arm pain and redness, improvement in nausea and reduced episodes of loose bowel movement as well. She denies episodes of vomiting today. She does not report fever, chills, chest pain, dyspnea, changes in bowel or bladder habits. She was switched from toradol to acetaminophen yesterday. MEDICATIONS: Current Facility-Administered Medications Medication Dose Route Frequency - heparin 5,000 Units injection 5,000 Units SUBCUTANEOUS q 12 H - aluminum-magnesium hydroxide-simethicone 200-200-20 mg/5 mL 30 mL (MAALOX,MYLANTA,MAG-AL PLUS) 30 mL ORAL DAILY PRN - ondansetron 4 mg tab(s) (ZOFRAN) 4 mg ORAL q 6 H PRN Or - ondansetron (PF) 4 mg injection (ZOFRAN) 4 mg INTRAVENOUS q 6 H PRN - polyethylene glycol 3350 17 g packet (MIRALAX, GLYCOLAX) 17 g ORAL DAILY PRN - docusate sodium 100 mg cap(s) (COLACE) 100 mg ORAL BID PRN - magnesium hydroxide 400 mg/5 mL 30 mL (MOM) 30 mL ORAL DAILY PRN - bisacodyl 10 mg suppository (DULCOLAX) 10 mg RECTAL DAILY PRN - acetaminophen 650 mg tab(s) (TYLENOL) 650 mg ORAL q 6 H PRN - piperacillin-tazobactam iv piggyback 3.375 g in dextrose (iso-osmotic) 50 mL (ZOSYN) 3.375 g INTRAVENOUS q 6 H - vancomycin dosing and monitoring per pharmacy OTHER As Directed - LORazepam 0.5 mg injection (ATIVAN) 0.5 mg INTRAVENOUS q 6 H PRN - oxyCODONE IR 5 mg tab(s) (ROXICODONE) 5 mg ORAL q 4 H PRN - NaCl 0.9% iv infusion 150 mL/hr INTRAVENOUS CONTINUOUS Objective PHYSICAL EXAM: BP 110/59 Pulse 71 Temp 36.9 ?C (98.4 ?F) (Oral) Resp 18 Ht 167.6 cm (5' 6) Wt 71.5 kg (157 lb 9.6 oz) LMP 04/23/2008 SpO2 97% BMI 25.44 kg/m? Intake/Output Summary (Last 24 hours) at 02/19/2020 1503 Last data filed at 02/19/2020 0900 Gross per 24 hour Intake 1620 ml Output 50 ml Net 1570 ml Constitutional: No acute distress, Responsive, Normal habitus and Well-nourished Neck: Trachea midline No jugular venous distension Cardiovascular: Regular rate and rhythm, normal S1 and S2, no murmurs, rubs, or gallops No peripheral edema Respiratory: Normal respiratory effort. Lungs clear bilaterally. Abdomen: Soft, non-tender, non-distended. Normal bowel sounds. No hepatosplenomegaly. Psychiatric: Alert and oriented x self, place, time, and setting Normal mood/affect Left arm is covered in a dressing and has tenderness. DATA: Diagnostic tests reviewed for today's visit: Most recent labs and imaging results. Most recent labs Most recent imaging Recent Labs 02/19/20 0530 02/18/20 0550 02/17/20 0329 NA 142 142 139 K 3.9 4.0 3.6* CHLOR 112* 110* 108* CO2 20* 24 22 BUN 17 16 10 CREAT 2.92* 1.58* 0.75 GLUC 102* 120* 97 ANION 10 8* 9 CA 7.6* 8.0* 8.0* Recent Labs 02/19/20 0530 02/18/20 0550 02/17/20 0329 WBC 6.41 7.44 8.41 HB 10.7* 11.0* 11.7 HCT 34.1 34.7 36.7 PLT 164* 156* 169* No results for input(s): INR, APTT in the last 168 hours. No results for input(s): COLOR, CLARITY, UGLUC, UBILI, UKET, SPGR, UHB, UPH, UPROT, NITRITES, LEUKEST, UWBC, URBC in the last 8784 hours. No results for input(s): PH, PCO2, PO2, LACT in the last 168 hours. Recent Labs 02/19/20 0530 HB 10.7* Recent Labs 02/19/20 0530 02/17/20 0329 CA 7.6* < > 8.0* ALB -- -- 3.4* < > = values in this interval not displayed. Invalid input(s): HEPSABG Recent Labs 02/17/20 0329 TBILI 0.6 ALT 9 AST 15 ALKPHOS 61 Assessment/Plan 69 year old female who presents with PMH of osteoporosis who initially presented for a cat bite.Nephrology was consulted for LORETA. PLAN 1.LORETA -Patient has SeCr trending from 0.75 upon admission to 2.92 in 3 days. -Patient has pre renal insult most likely. She has a FeNa of <1% -She had hypovolemia secondary to vomiting and diarrhea yesterday. She also received toradol over the last 3 days which could have contributed to LORETA. She is on vancomycin and zosyn combination which could be contributory. -She did not have any episodes on vomiting today -IV fluid at 150 ml/h, switch to LR from NS in the setting of decreasing bicarb -Toradol replaced by acetaminophen -Adequate oral intake -Renal USG -Vanc levels per pharmacy -Renal US, avoid nephrotoxic agents. SIGNATURE: Asha Khanna MD PATIENT NAME: Zulay Bearden DATE: February 19, 2020 TIME: 3:03 PM PAGER: [phone] Normal [facility] CONSULT PROGon 02-19-2020 CONSULT PROG HNO ID: [id number] Author: Betsy Newsome (Pharmacist) Service: Pharmacy Author Type: Pharmacist Type: Consult Progress Note Filed: 02/18/2020 10:27 PM Note Text: PHARMACY VANCOMYCIN DOSING NOTE Patient Name: Zulay Bearden Admission Date: 02/16/2020 Date of Consult: 02/18/2020 Time of Consult: 10:23 PM Indication: Skin/Soft tissue infection Goal Range: 10-20 mcg/mL RECOMMENDATIONS/PLAN: Pharmacy consulted for vancomycin dosing for Zulay Bearden, a 69 year old, female who is being treated with vancomycin for SSTI from feline bite. 1. Patient is currently ordered Vancomycin dosed by level. Today is day 3 of therapy. 2. The most recent vancomycin level was 17.9 mcg/mL drawn at 2100 on 02/18/2020. This is a 24 hour level on the 3rd day of therapy. 3. Vancomycin level is below or within therapeutic goal. Will re dose vancomycin 1 g x 1 dose today 4. The next vancomycin level has been ordered for 02/19/2020 @ 2100 (Completed) We will follow patient renal function, vancomycin levels and doses with you during the course of therapy. Additional recommendations will appear in follow up notes. If you have [place] [phone]. Age: [age] year old Allergies: ALLERGIES Allergen Reactions - Bactrim [Sulfametho* Rash and swelling of her throat Last 3 Encounter Wt Readings: Date: Wt: 02/16/2020 70.9 kg (156 lb 3.2 oz) 09/25/2019 69.4 kg (153 lb) 10/29/2016 68.9 kg (152 lb) Last 1 Encounter Ht Readings: Date: Ht: 02/16/2020 167.6 cm (5' 6) CrCl: 31.5 mL/min Temp (24hrs), Av.8 ?C (98.3 ?F), Min:36.6 ?C (97.9 ?F), Max:37.2 ?C (99 ?F) - Current Temp: 37.2 ?C (99 ?F) Labs BUN (mg/dL) Date Value 02/18/2020 16 02/17/2020 10 09/25/2019 15 Creatinine (mg/dL) Date Value 02/18/2020 1.58 (H) 02/17/2020 0.75 09/25/2019 0.81 WBC Date Value 02/18/2020 7.44 thou/cmm 02/17/2020 8.41 thou/cmm 09/25/2019 6.52 k/uL Vancomycin Levels: Vancomycin,Random (ug/mL) Date/Time Value 02/18/2020 2100 17.9 02/18/2020 0849 21.4 (H) BETSY NEWSOME, PHARMACIST Normal [facility] CPKon 02-19-2020 CK [Catalytic activity/Vol] 32 U/L Low 42-196 [facility] Comment on above: Performed By: #### C MP #### [place] [address] Creatinine, Urineon 02-19-20 20 Creatinine, Urine 79.9 mg/dL Normal 42.2-237.9 [facility] Comment on above: Performed By: #### C MP #### [place] [address] Hemogramon 02-19-2020 Erythrocyte distribution width (RBC) [Ratio] 12.7 % Normal 11.7-14.4 [facility] Comment on above: Performed By: #### C MP #### [place] [address] Hematocrit (Bld) [Volume fraction] 34.1 % Normal 34.1-44.9 [facility] Comment on above: Performed By: #### C MP #### [place] [address] Hemoglobin (Bld) [Mass/Vol] 10.7 g/dL Low 11.2-15.7 [facility] Comment on above: Performed By: #### C MP #### [place] [address] MCH (RBC) [Entitic mass] 30.1 pg Normal 25.6-32.2 [facility] Comment on above: Performed By: #### C MP #### [place] [address] MCHC (RBC) [Mass/Vol] 31.4 % Low 31.6-34.8 [facility] Comment on above: Performed By: #### C MP #### [facility] [address] [place] [address] MCV (RBC) [Entitic vol] 96.1 fL High 79.4-94.8 [facility] Comment on above: Performed By: #### C MP #### [facility] [address] [place] [address] Platelet mean volume (Bld) [Entitic vol] 11.2 fL Normal 9.4-12.3 [facility] Comment on above: Performed By: #### C MP #### [place] [address] Platelets (Bld) [#/Vol] 164 thou/cmm Low 182-369 [facility] Comment on above: Performed By: #### C MP #### [place] [address] RBC (Bld) [#/Vol] 3.55 mil/cmm Low 3.93-5.22 [facility] Comment on above: Performed By: #### C MP #### [facility] [address] [place] [address] RDW SD 44.9 fl Normal 36.4-46.3 [facility] Comment on above: Performed By: #### C MP #### [place] [address] WBC (Bld) [#/Vol] 6.41 thou/cmm Normal 3.98-10.04 [facility] Comment on above: Performed By: #### C MP #### [place] [address] PROGRESSon 02-19-2020 PROGRESS HNO ID: [id number] Author: Sherine Mcgill MD Service: Hospital Medicine Author Type: Physician Type: Progress Notes Filed: 02/19/2020 11:01 AM Note Text: DEPARTMENT OF HOSPITAL MEDICINE PROGRESS NOTE SERVICE DATE: 02/19/2020 SERVICE TIME: 10:20 AM Hospital Medicine/Primary Attending: Sherine Guajardo MD NIGHT AND WEEKEND COVERAGE: After 7pm please page [phone] CHIEF COMPLAINT: Left hand cellulitis, SUBJECTIVE: Pt seen and examined. Severe nausea and loose stools since admission, overall feeling not so good. Pain in hand improving slowly. No chills. No abdominal pain. No blood in stools OBJECTIVE: PHYSICAL EXAM: BP 99/54 Pulse 64 Temp (Src) 99 (Oral) Resp 18 Ht 5' 6 (1.68m) Wt 157 lb 9.6 oz (71.5kg) SpO2 95% LMP 04/23/2008 BMI 25.45 kg/(m2). O2 Therapy: Room Air General - AANDOx3, NAD, Calm CV - RRR S1 S2, No M/R/G RESP - CTA B/L No wheezes, ronchi, rales ABD - soft, NT, ND +BS EXT - no gross joint deformity, no clubbing, cyanosis, edema NEURO - CN II-XII grossly intact, no focal deficits Left hand - wrapped, redness much improved compared to markings on skin from before. MEDICATIONS: Current Facility-Administered Medications Medication Dose Route Frequency - HYDROmorphone 0.5 mg injection (DILAUDID) 0.5 mg INTRAVENOUS q 4 H PRN - heparin 5,000 Units injection 5,000 Units SUBCUTANEOUS q 12 H - aluminum-magnesium hydroxide-simethicone 200-200-20 mg/5 mL 30 mL (MAALOX,MYLANTA,MAG-AL PLUS) 30 mL ORAL DAILY PRN - ondansetron 4 mg tab(s) (ZOFRAN) 4 mg ORAL q 6 H PRN Or - ondansetron (PF) 4 mg injection (ZOFRAN) 4 mg INTRAVENOUS q 6 H PRN - polyethylene glycol 3350 17 g packet (MIRALAX, GLYCOLAX) 17 g ORAL DAILY PRN - docusate sodium 100 mg cap(s) (COLACE) 100 mg ORAL BID PRN - magnesium hydroxide 400 mg/5 mL 30 mL (MOM) 30 mL ORAL DAILY PRN - bisacodyl 10 mg suppository (DULCOLAX) 10 mg RECTAL DAILY PRN - acetaminophen 650 mg tab(s) (TYLENOL) 650 mg ORAL q 6 H PRN - piperacillin-tazobactam iv piggyback 3.375 g in dextrose (iso-osmotic) 50 mL (ZOSYN) 3.375 g INTRAVENOUS q 6 H - vancomycin dosing and monitoring per pharmacy OTHER As Directed - LORazepam 0.5 mg injection (ATIVAN) 0.5 mg INTRAVENOUS q 6 H PRN DATA: Diagnostic tests reviewed for today's visit: CBC: Recent Labs 02/19/20 0530 WBC 6.41 RBC 3.55* HB 10.7* HCT 34.1 PLT 164* MCV 96.1* MCH 30.1 MPV 11.2 RDW 12.7 Coags: No results for input(s): PT, INR, APTT in the last 24 hours. BMP: Recent Labs 02/19/20 0530 NA 142 K 3.9 CHLOR 112* CO2 20* BUN 17 CREAT 2.92* GLUC 102* CMP: Recent Labs 02/19/20 0530 NA 142 K 3.9 CHLOR 112* CO2 20* BUN 17 CREAT 2.92* GLUC 102* CA 7.6* ANION 10 Cardiac Enzymes: No results for input(s): CK, MB, CKMB, TROPT in the last 24 hours. Liver Function, Amylase, Lipase: No results for input(s): TPROT, ALB, ALT, AST, ALKPHOS, TBILI, AMYLASE, LIPASE, LACTATE in the last 24 hours. MG/PHOS: No results for input(s): MG, P in the last 24 hours. Renal Panel: Recent Labs 02/19/20 0530 CREAT 2.92* BUN 17 GLUC 102* CA 7.6* CHLOR 112* K 3.9 CO2 20* NA 142 Heme: No results for input(s): RETICP, ABSRETIC, LD, SUNDEEP, FE, TIBC, TRANSFERSAT in the last 24 hours. No results found for: UALBCR Assessment/Plan This is a 69 year old female has a past medical history of Mixed hyperlipidemia, Osteoporosis (07/22/2016) presented with Left hand and forearm redness, swelling, pain after cat bite Active Problems: #Left hand cellulitis likely 2/2 to cat bite - day 5 vancomycin/zosyn for now pending cultures, NGTD day #2 , vitals stable - low systolic BP - baseline for patient - Imaging without gas or signs of OM - S/p IANDD 02/16 - left hand with plastic surgery - Zofran PRN for nausea. low-dose IV ativan as second line - Aggressive pain control -cx - no growth day 1, rare gram postiive organisms. ? #LORETA,-creatinine doubled in the last 24 hours, Nsaid induced vs Vancomycin induced vs ATN /pre renal from hypovolemia (emesis and diarhea) low systolic blood pressure. Toradol discontinued yesterday. - continue NS @150 cc/hr - Monitor on BMP daily -nephrology consult, renal ultrasound, urine analysis, urine electrolytes ? #Diarrhea, nausea without emesis - Likely 2/2 to medication side effect - Check c diff. If negative will treat with loperamide. - emesis secondary to narcotics?. Benign abdominal exam. Will check LFTs with am labs. ? #History of osteoporosis - Stable on denosumab ? #Ppx: SCDs, heparin #FULL CODE #Dispo: Pending OR, final culture results Medication and Non-Pharmacologic VTE Prophylaxis/Anticoagula nts Anticoagulant AND Antiplatelet Medications (From admission, onward) Start Dose Route Frequency Ordered Stop 02/16/202129 heparin 5,000 Units injection (Medical Risk Categories) 5,000 Units SUBCUTANEOUS EVERY 12 HOURS 02/16/202110 -- 02/16/202114 vte non-pharmacologic prophylaxis - none indicated (co,ga) 02/16/202114 activity - mobilize patient ([place] Lines, Drains, and Airways Line Peripheral 02/19/20 0900 Short Right Forearm 22 Gauge less than 1 day VTE Prophylaxis: Heparin 5000 units Sub Q BID Disposition: Home Functional Status Prior to Admit: Medical Necessity for Continued Hospitalization Plan of care discussed with: Provider, RN, Patient SIGNATURE: Sherine Guajardo MD PATIENT NAME: Zulay Bearden DATE: February 19, 2020 TIME: 10:20 AM PAGER/CONTACT #: Team color pager Disclaimer: Portions of this note may have been generated using [employer] voice recognition software. Reasonable efforts were made to correct any dictation errors that resulted due to the programming of this software but some may still be present. Normal [facility] Sodium,Urineon 02-19-2020 Sodium (U) [Moles/Vol] 26.0 mmol/L Normal 14.0-216.[address] [facility] Comment on above: Performed By: #### C MP #### [facility] [address] [place] [place] [address] Urinalysis Routineon 020 Bacteria LM.HPF (Urine sed) [#/Area] NONE Normal None [facility] Comment on above: Performed By: #### C MP #### [facility] [address] [place] [address] Ep Cells Urine 4.3 /hpf Normal 0.0-5.0 [facility] Comment on above: Performed By: #### C MP #### [place] [address] Hyaline Cast 1.0 /lpf Normal 0.0-1.0 [facility] Comment on above: Performed By: #### C MP #### [place] [address] RBC LM.HPF (Urine sed) [#/Area] 4.8 /[HPF] Normal 0.0-5.0 [facility] Comment on above: Performed By: #### C MP #### [place] [address] WBC LM.HPF (Urine sed) [#/Area] 5.7 /[HPF] High 0.0-5.0 [facility] Comment on above: Performed By: #### C MP #### [place] [address] Appearance (U) CLOUDY Normal [facility] Comment on above: Performed By: #### C MP #### [place] [address] Bilirubin (U) [Mass/Vol] Negative Normal Negative [facility] Comment on above: Performed By: #### C MP #### [place] [address] Color (U) YELLOW Normal [facility] Comment on above: Performed By: #### C MP #### [place] [address] Glucose Ql (U) Negative Normal Negative [facility] Comment on above: Performed By: #### C MP #### [facility] [address] [place] [address] Hemoglobin,Urine Negative Normal Negative [facility] Comment on above: Performed By: #### C MP #### [facility] [address] [place] [address] Ketone Urine Negative Normal Negative [facility] Comment on above: Performed By: #### C MP #### [facility] [address] [place] [address] Leukocytes Esterase Negative Normal Negative [facility] Comment on above: Performed By: #### C MP #### [facility] [address] [place] [address] Nitrites Urine Negative Normal Negative [facility] Comment on above: Performed By: #### C MP #### [facility] [address] [place] [address] pH (U) 5.0 [pH] Normal 5.0-8.0 [facility] Comment on above: Performed By: #### C MP #### [place] [address] Protein (U) [Mass/Vol] TRACE Abnormal Negative [facility] Comment on above: Performed By: #### C MP #### [place] [address] [place], Ur 1.012 Normal 1.005-1.030 [facility] Comment on above: Performed By: #### C MP #### [place] [address] Urobilinogen,Ur 0.2 EU/dL Normal 0.2-1.0 [facility] Comment on above: Performed By: #### C MP #### [place] [address] Vancomycin,Randomon 02-19-20 20 INR Coag (Bld) [Relative time] 20.1 ug/mL High 10.0-20.0 [facility] Comment on above: Result Comment: Refe rence ranges and high/low indicator flags are provided as general guidelines only. The treating physician must determine appropriate target levels/dosing based on the specific clinical situation. Performed By: #### C MP #### [facility] [address] [place], [place] [address] Basic Metabolic Panelon 07-2 -2019 Anion gap [Moles/Vol] 8 mmol/L Low 9-18 [facility] Comment on above: Performed By: #### B MP #### [facility] [address] [place], [place] [address] Calcium [Mass/Vol] 8.0 mg/dL Low 8.5-10.2 [facility] Comment on above: Performed By: #### B MP #### [facility] [address] [place], [place] [address] Chloride [Moles/Vol] 110 mmol/L High 97-105 [facility] Comment on above: Performed By: #### B MP #### [facility] [address] [place], [place] [address] CO2 Blood 24 mmol/L Normal 22-30 [facility] Comment on above: Performed By: #### B MP #### [facility] [address] [place], [place] [address] Creatinine [Mass/Vol] 1.58 mg/dL High 0.58-0.96 [facility] Comment on above: Performed By: #### B MP #### [facility] [address] [place], [place] [address] Glucose [Mass/Vol] 120 mg/dL High 74-99 [facility] Comment on above: Result Comment: The [place] Diabetes Association (ADA) provides guidance for cutoff values for fasting glucose and random glucose. The ADA defines fasting as no caloric intake for at least 8 hours.Fasting plasma glucose results between 100 to 125 mg/dL indicate increased risk for diabetes (prediabetes). Fasting plasma glucose results greater than or equal to 126 mg/dL meet the criteria for diagnosis of diabetes. In the absence of unequivocal hyperglycemia, results should be confirmed by repeat testing. In a patient with classic symptoms of hyperglycemia or hyperglycemic crisis, random plasma glucose results greater than or equal to 200 mg/dL meet the criteria for diagnosis of diabetes. Reference: Standards of Medical Care in Diabetes 2016; [place] [employer] Association. Diabetes Care. 2016;39(Suppl 1). Performed By: #### B MP #### [facility] [address] [place] [address] Potassium [Moles/Vol] 4.0 mmol/L Normal 3.7-5.1 [facility] Comment on above: Performed By: #### B MP #### [facility] [address] [place] [address] Sodium [Moles/Vol] 142 mmol/L Normal 136-144 [facility] Comment on above: Performed By: #### B MP #### [facility] [address] [place] [address] Urea nitrogen [Mass/Vol] 16 mg/dL Normal 7-21 [facility] Comment on above: Performed By: #### B MP #### [place] [address] C. diff by PCRon 02-18-2020 C. difficile by PCR Negative Normal Negative [facility] Comment on above: Performed By: #### C DIFF #### [place] [address] CONSULT PROGon 02-18-2020 Cholesterol [Mass/Vol] HNO ID: [id number] Author: Darrius Grant Service: Plastic Surgery Author Type: Physician Type: Consult Progress Note Filed: 02/18/2020 4:13 PM Note Text: PLASTIC SURGERY AND HAND SURGERY STAFF NOTE: POD # 1 s/p I AND D abscess L dorsal wrist: To begin BID soaks and dressing changes today. WBC trending downward, also. Amandeep Grant MD Pager: [phone] Normal [facility] CONSULT PROG HNO ID: [id number] Author: Jeff (Pharmd) Blanca Service: Pharmacy Author Type: Pharmacist Type: Consult Progress Note Filed: 02/18/2020 10:14 AM Note Text: PHARMACY VANCOMYCIN DOSING NOTE Patient Name: Zulay Bearden Admission Date: 02/16/2020 Date of Consult: 02/18/2020 Time of Consult: 10:12 AM Indication: Skin/Soft tissue infection Goal Range: 10-20 mcg/mL RECOMMENDATIONS/PLAN: Pharmacy consulted for vancomycin dosing for Zulay Bearden, a 69 year old, female who is being treated with vancomycin for SSTI - Cat bite 1. Patient is currently ordered Vancomycin 1 g IV q12h. Today is day 3 of therapy. 2. The most recent vancomycin level was 21.4 mcg/mL drawn at 0849 on 02/18/2020. This is a 12 hour level on the 3rd day of therapy. 3. Serum creatinine and/or urine output have changed markedly in the previous days, therefore will discontinue vancomycin at this time and dose by level. 4. The next vancomycin level has been ordered for today, 02/18/2020, at 2030 (Completed) We will follow patient renal function, vancomycin levels and doses with you during the course of therapy. Additional recommendations will appear in follow up notes. If you have any questions[place] [phone]. Age: [age] year old Allergies: ALLERGIES Allergen Reactions - Bactrim [Sulfametho* Rash and swelling of her throat Last 3 Encounter Wt Readings: Date: Wt: 02/16/2020 69.1 kg (152 lb 6.4 oz) 09/25/2019 69.4 kg (153 lb) 10/29/2016 68.9 kg (152 lb) Last 1 Encounter Ht Readings: Date: Ht: 02/16/2020 167.6 cm (5' 6) CrCl: 31.5 mL/min Temp (24hrs), Av.6 ?C (97.9 ?F), Min:36 ?C (96.8 ?F), Max:37 ?C (98.6 ?F) - Current Temp: 36.8 ?C (98.2 ?F) Labs BUN (mg/dL) Date Value 02/18/2020 16 02/17/2020 10 09/25/2019 15 Creatinine (mg/dL) Date Value 02/18/2020 1.58 (H) 02/17/2020 0.75 09/25/2019 0.81 WBC Date Value 02/18/2020 7.44 thou/cmm 02/17/2020 8.41 thou/cmm 09/25/2019 6.52 k/uL Vancomycin Levels: Vancomycin,Random (ug/mL) Date/Time Value 02/18/2020 0849 21.4 (H) Jeff Rios, PharmD Normal [facility] Hemogramon 02-18-2020 Erythrocyte distribution width (RBC) [Ratio] 12.6 % Normal 11.7-14.4 [facility] Comment on above: Performed By: #### C BC1 #### [facility] [address] [place], [place] [address] Hematocrit (Bld) [Volume fraction] 34.7 % Normal 34.1-44.9 [facility] Comment on above: Performed By: #### C BC1 #### [facility] [address] [place], [place] [address] Hemoglobin (Bld) [Mass/Vol] 11.0 g/dL Low 11.2-15.7 [facility] Comment on above: Performed By: #### C BC1 #### [facility] [address] [place], [place] [address] MCH (RBC) [Entitic mass] 30.3 pg Normal 25.6-32.2 [facility] Comment on above: Performed By: #### C BC1 #### [facility] [address] [place], [place] [address] MCHC (RBC) [Mass/Vol] 31.7 % Normal 31.6-34.8 [facility] Comment on above: Performed By: #### C BC1 #### [facility] [address] [place], [place] [address] MCV (RBC) [Entitic vol] 95.6 fL High 79.4-94.8 [facility] Comment on above: Performed By: #### C BC1 #### [facility] [address] [place], [place] [address] Platelet mean volume (Bld) [Entitic vol] 11.6 fL Normal 9.4-12.3 [facility] Comment on above: Performed By: #### C BC1 #### [facility] [address] [place], [place] [address] Platelets (Bld) [#/Vol] 156 thou/cmm Low 182-369 [facility] Comment on above: Performed By: #### C BC1 #### [facility] [address] [place], [place] [address] RBC (Bld) [#/Vol] 3.63 mil/cmm Low 3.93-5.22 [facility] Comment on above: Performed By: #### C BC1 #### [facility] [address] [place], [place] [address] RDW SD 44.1 fl Normal 36.4-46.3 [facility] Comment on above: Performed By: #### C BC1 #### [facility] [address] [place], [place] [address] WBC (Bld) [#/Vol] 7.44 thou/cmm Normal 3.98-10.04 [facility] Comment on above: Performed By: #### C BC1 #### [facility] [address] [place], [place] [address] PROGRESSon 02-18-2020 PROGRESS HNO ID: [id number] Author: Graham He Service: Hospital Medicine Author Type: Physician Type: Progress Notes Filed: 02/18/2020 8:59 AM Note Text: DEPARTMENT OF HOSPITAL MEDICINE PROGRESS NOTE SERVICE DATE: 02/18/2020 SERVICE TIME: 8:49 AM Hospital Medicine/Primary Attending: Graham He MD NIGHT AND WEEKEND COVERAGE: [place] COVERAGE: After 7pm, please call cross cover pager #[phone] Subjective INTERVAL HPI: POD#1 IANDD of left hand. Patient experienced significant post-operative nausea and vomiting, has continued today. Also reports some diarrhea. Pain is well controlled. She denies and fevers or chills. Was able to eat yogurt at breakfast but nothing else. MEDICATIONS: Reviewed Objective PHYSICAL EXAM: BP 113/48 Pulse 80 Temp (Src) 98.2 (Oral) Resp 16 Ht 5' 6 (1.68m) Wt 152 lb 6.4 oz (69.1kg) SpO2 96% LMP 04/23/2008 BMI 24.61 kg/(m2). O2 Therapy: Room Air Physical Exam Performed GENERAL: Alert, no distress, cooperative LUNGS: Lungs clear to auscultation, Good diaphragmatic excursion CARDIAC: Normal S1 and S2; no rubs, murmurs, or gallops ABDOMEN: Left hand swollen, erythematous, tender up to forearm. Very tender to palpation. Warm EXTREMITIES: Extremities normal, no deformities, edema, clubbing or skin discoloration. Good capillary refill., No ulcers NEURO: Gait normal. Reflexes normal and symmetric. Sensation grossly intact, Cranial nerves II-XII intact PULSES: 2+ radial, 2+ carotid Lines, Drains, and Airways Line Peripheral 02/16/20 2327 Admission to Hospital Right Forearm 20 Gauge 1 day Reviewed lines and needs to be continued: REASONS: Intravenous fluids and Intravenous antibiotics DATA: Diagnostic tests reviewed for today's visit: Most recent labs Assessment/Plan #Left hand cellulitis likely 2/2 to cat bite - Continue vancomycin/zosyn for now pending cultures, NGTD day #1 - Imaging without gas or signs of OM - S/p IANDD left hand with plastic surgery - Zofran PRN for nausea. Will add low-dose IV ativan as second line - Aggressive pain control #LORETA, likely pre-renal from vomiting/poor PO intake, would be early for ATN from vancomycin - Start NS @100 cc/hr for 1 day - Monitor on BMP daily #Diarrhea - Likely 2/2 to medication side effect - Check c diff. If negative will treat with loperamide. #History of osteoporosis - Stable on denosumab #Ppx: SCDs, heparin #FULL CODE #Dispo: Pending OR, final culture results Medication and Non-Pharmacologic VTE Prophylaxis/Anticoagula nts Anticoagulant AND Antiplatelet Medications (From admission, onward) Start Dose Route Frequency Ordered Stop 02/16/202129 heparin 5,000 Units injection (Medical Risk Categories) 5,000 Units SUBCUTANEOUS EVERY 12 HOURS 02/16/202110 -- 02/16/202114 vte non-pharmacologic prophylaxis - none indicated (co,ga) 02/16/202114 activity - mobilize patient ([place]) VTE Prophylaxis: VTE prophylaxis appropriate Disposition: Home Plan of care discussed with: Patient and RN SIGNATURE: Graham He MD PATIENT NAME: Zulay Bearden DATE: February 18, 2020 TIME: 8:49 AM PAGER/CONTACT #: [phone] [phone] Normal [facility] Vancomycin,Randomon 02-18-20 20 INR Coag (Bld) [Relative time] 17.9 ug/mL Normal 10.0-20.0 [facility] Comment on above: Result Comment: Refe rence ranges and high/low indicator flags are provided as general guidelines only. The treating physician must determine appropriate target levels/dosing based on the specific clinical situation. Performed By: #### V ANC #### [facility] [address] [place], [place] [address] INR Coag (Bld) [Relative time] 21.4 ug/mL High 10.0-20.0 [facility] Comment on above: Result Comment: Refe rence ranges and high/low indicator flags are provided as general guidelines only. The treating physician must determine appropriate target levels/dosing based on the specific clinical situation. Performed By: #### V ANC #### [facility] [address] [place], [place] [address] ANES Jose 02-17-2020 ANES POST HNO ID: [id number] Author: Michelle Hays Service: Anesthesiology Author Type: Physician Type: Anesthesia PostOp Filed: 02/17/2020 2:22 PM Note Text: POST ANESTHESIA EVALUATION NOTE SERVICE DATE: 02/17/2020 SERVICE TIME: 2:22 PM : 1950 Vitals: 02/17/20 0905 02/17/20 1213 02/17/20 1325 02/17/20 1415 Temp: 36.8 ?C (98.2 ?F) 37 ?C (98.6 ?F) 36 ?C (96.8 ?F) 36.4 ?C (97.5 ?F) 02/17/20 1330 02/17/20 1345 02/17/20 1400 02/17/20 1415 BP: 123/59 138/65 135/65 146/69 02/17/20 1330 02/17/20 1345 02/17/20 1400 02/17/20 1415 Pulse: 66 70 (!) 56 62 02/17/20 1330 02/17/20 1345 02/17/20 1400 02/17/20 1415 Resp: 11 12 9 11 02/17/20 1330 02/17/20 1345 02/17/20 1400 02/17/20 1415 SpO2: 100% 100% 100% 100% Validated Vital Signs: Yes POST ANES STATUS: No apparent anesthetic complications. The patient is appropriately hydrated with stable respiratory and cardiovascular status. Patient has safe and adequate airway control. The patient has appropriate pain relief and no significant post operative nausea or vomiting. The patient has achieved baseline mental status. Intra-Operative Events: No Significant Anesthesia Events Further assessment by Anesthesia Service: None Other Remarks: SIGNATURE: Michelle Hays MD PATIENT NAME: Zulay Bearden DATE: February 17, 2020 TIME: 2:21 PM PAGER/CONTACT #: [phone] [facility] ANES PREOPon 02-17-2020 ANES PREOP HNO ID: [id number] Author: Michelle Hays Service: Anesthesiology Author Type: Physician Type: Anesthesia PreOp Filed: 02/17/2020 12:24 PM Note Text: ANESTHESIOLOGY DAY OF SURGERY NOTE SERVICE DATE: 02/17/2020 SERVICE TIME: 12:00 PM : 1950 Procedure(s) (LRB): INCISION AND DRAINAGE ABSCESS EXTREMITY UPPER (Left) Surgeon(s): Darrius Grant Estimated body mass index is 23.86 kg/m? as calculated from the following: Height as of this encounter: 167.6 cm (5' 6). Weight as of this encounter: 67 kg (147 lb 12.8 oz). Most recent hematocrit and potassium results: Hematocrit 36.7 02/17/2020 Potassium 3.6 02/17/2020 69yo female with left hand cellulitis after a cat bite, HL, anxiety, Raynaud's disease Zosyn, next dose due at 1200? 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 SHOULDER BX. - PAST SURGICAL HISTORY OF 08/29/2010 Cancerous skin removed FAMILY HISTORY Problem Relation Age of Onset - Cancer Father PROSTATE, AND KIDNEY - Cancer Mother SKIN - Cancer Paternal Grandfather PROSTATE, AND HEART DISEASE, STOKE - Cancer Paternal Aunt pancreatic and lung Social History: Social History Tobacco Use - Smoking status: Never Smoker - Smokeless tobacco: Never Used Substance Use Topics - Alcohol use: Yes Alcohol/week: 20.0 standard drinks Types: 8 Glasses of Wine (5oz) per week Comment: occasionally - Drug use: No No current facility-administered medications on file prior to encounter. Current Outpatient Medications on File Prior to Encounter Medication Sig - Cholecalciferol, Vitamin D3, 5,000 unit cap [...] MULTIVITAMIN TAB Take one(1) tablet daily. - denosumab (PROLIA) 60 mg/mL Inject 1 mL subcutaneously once every 6 months. - calcium carbonate/vitamin d3(CALCIUM 600 + D 600 MG-125 UNIT TAB) Take one(1) tablet twice daily. Current Facility-Administered Medications Medication Dose Route Frequency Provider Last Rate Last Dose - [MAR Hold due to Transfer] ketorolac 15 mg injection (TORADOL) 15 mg INTRAVENOUS q 6 H PRN Mohammad F Holiness 15 mg at 02/16/209 - [MAR Hold due to Transfer] HYDROmorphone 0.5 mg injection (DILAUDID) 0.5 mg INTRAVENOUS q 4 H PRN Mohammad F Holiness - [MAR Hold due to Transfer] heparin 5,000 Units injection 5,000 Units SUBCUTANEOUS q 12 H Mohammad F Holiness - [MAR Hold due to Transfer] NaCl 0.9% iv infusion 75 mL/hr INTRAVENOUS CONTINUOUS Mohammad F Holiness 75 mL/hr at 02/16/200 75 mL/hr at 02/16/202129 - [MAR Hold due to Transfer] aluminum-magnesium hydroxide-simethicone 200-200-20 mg/5 mL 30 mL (MAALOX,MYLANTA,MAG-AL PLUS) 30 mL ORAL DAILY PRN Mohammad F Holiness - [MAR Hold due to Transfer] ondansetron 4 mg tab(s) (ZOFRAN) 4 mg ORAL q 6 H PRN Mohammad F Holiness Or - [MAR Hold due to Transfer] ondansetron (PF) 4 mg injection (ZOFRAN) 4 mg INTRAVENOUS q 6 H PRN Mohammad F Holiness - [MAR Hold due to Transfer] polyethylene glycol 3350 17 g packet (MIRALAX, GLYCOLAX) 17 g ORAL DAILY PRN Mohammad F Holiness - [MAR Hold due to Transfer] docusate sodium 100 mg cap(s) (COLACE) 100 mg ORAL BID PRN Mohammad F Holiness - [MAR Hold due to Transfer] magnesium hydroxide 400 mg/5 mL 30 mL (MOM) 30 mL ORAL DAILY PRN Mohammad F Holiness - [MAR Hold due to Transfer] bisacodyl 10 mg suppository (DULCOLAX) 10 mg RECTAL DAILY PRN Mohammad F Holiness - [MAR Hold due to Transfer] acetaminophen 650 mg tab(s) (TYLENOL) 650 mg ORAL q 6 H PRN Mohammad F Holiness - [MAR Hold due to Transfer] piperacillin-tazobactam iv piggyback 3.375 g in dextrose (iso-osmotic) 50 mL (ZOSYN) 3.375 g INTRAVENOUS q 6 H Mohammad F Holiness 100 mL/hr at 02/17/20 0908 3.375 g at 02/17/20 0908 - [MAR Hold due to Transfer] vancomycin dosing and monitoring per pharmacy OTHER As Directed Mohammad F Holiness - [MAR Hold due to Transfer] vancomycin iv piggyback 1 g in D5W 200 mL (VANCOCIN) 1 g INTRAVENOUS q 12 HR Mohammad F Holiness 200 mL/hr at 02/17/20 1118 1 g at 02/17/20 1118 Allergies: ALLERGIES Allergen Reactions - Bactrim [Sulfametho* Rash and swelling of her throat DOS EXAM: Adequate NPO status: Yes Anesthetic risks, benefits, alternatives, personnel and consent discussed: Yes Patient agrees to proceed: Yes Previous Anesthesia: No history of adverse event. Airway Assessment: MP 2; Neck ROM: Full ROM without neurologic symptoms; Airway Evaluation: No significant abnormalities Symptoms of Sleep Apnea: Age over 50 (69 year old) Dentition: Teeth intact Additional Physical Exam: Lungs: Patient health status unchanged since recent history and physical. See history and physical for exam findings. Cardiac: Patient health status unchanged since recent history and physical. See history and physical for exam findings. Additional Pertinent Findings: N/A Blood Products: Not anticipated for this procedure. Anesthetic Plan: General, Standard ASA Monitors Pain Management Plan: Parenteral or Oral ASA Class: 2 Other Medical Problems: None Chronic Beta Bacilio medication administered within 24 hours: N/A I have interviewed and examined the patient. I have reviewed the medical record and/or the pre-anesthesia evaluation, pertinent labs, and test results. Significant changes in the patient's condition since the History and Physical, not otherwise documented in primary service progress notes: No This contains updated information obtained within 48 hours of Surgery/Procedure. SIGNATURE: Michelle Hays MD PATIENT NAME: Zulay Bearden DATE: February 17, 2020 TIME: 12:00 PM CSN: [id number] [facility] CONSULT PROGon 02-17-2020 CONSULT PROG HNO ID: [id number] Author: Jeff (Pharmd) [place] Service: Pharmacy Author Type: Pharmacist Type: Consult Progress Note Filed: 02/17/2020 9:42 AM Note Text: PHARMACY VANCOMYCIN DOSING NOTE Patient Name: Zulay Bearden Admission Date: 02/16/2020 Date of Consult: 02/17/2020 Time of Consult: 9:39 AM Indication: Skin/Soft tissue infection Goal Range: 10-20 mcg/mL RECOMMENDATIONS/PLAN: Pharmacy consulted for vancomycin dosing for Zulay Bearden, a 69 year old, female who is being treated with vancomycin for SSTI - Cat bite 1. Patient is currently ordered Vancomycin 1 g IV q12h. Today is day 2 of therapy. 2. No vancomycin level has been drawn for this dosing regimen. 3. The present dose of vancomycin is the recommended dosage for this patient at this time. Continue therapy as prescribed. 4. The next vancomycin level has been ordered for 0830 on 02/18/2020 (Completed) Apparently the patient received a dose at [place] on 02/15 before arrival At [facility] of 1.25g x1 at 1800 and then received another 1g dose here at 2130. Therefore, will get a level before the 4th dose of the current regimen. We will follow patient renal function, vancomycin levels and doses with you during the course of therapy. Additional recommendations will appear in follow up notes. If you have [place] questions[place] [phone]. Age: [age] year old Allergies: ALLERGIES Allergen Reactions - Bactrim [Sulfametho* Rash and swelling of her throat Last 3 Encounter Wt Readings: Date: Wt: 02/16/2020 67 kg (147 lb 12.8 oz) 09/25/2019 69.4 kg (153 lb) 10/29/2016 68.9 kg (152 lb) Last 1 Encounter Ht Readings: Date: Ht: 02/16/2020 167.6 cm (5' 6) CrCl: 66.3 mL/min Temp (24hrs), Av ?C (98.6 ?F), Min:36.8 ?C (98.2 ?F), Max:37.2 ?C (99 ?F) - Current Temp: 36.8 ?C (98.2 ?F) Labs BUN (mg/dL) Date Value 02/17/2020 10 09/25/2019 15 08/04/2016 18 Creatinine (mg/dL) Date Value 02/17/2020 0.75 09/25/2019 0.81 08/04/2016 0.88 WBC Date Value 02/17/2020 8.41 thou/cmm 09/25/2019 6.52 k/uL Vancomycin Levels: No results found for: FLORENCIO Rios, PharmD Normal [facility] Comprehensive Metabolic Pane lorna 02-17-2020 Albumin [Mass/Vol] 3.4 g/dL Low 3.9-4.9 [facility] Comment on above: Performed By: #### C MP #### [address] [address] ALP [Catalytic activity/Vol] 61 U/L Normal 34-123 [facility] Comment on above: Performed By: #### C MP #### [address] [address] ALT [Catalytic activity/Vol] 9 U/L Normal 7-38 [facility] Comment on above: Performed By: #### C MP #### [facility] [address] [address] Anion gap [Moles/Vol] 9 mmol/L Normal 9-18 [facility] Comment on above: Performed By: #### C MP #### [facility] [address] [address] AST [Catalytic activity/Vol] 15 U/L Normal 13-35 [facility] Comment on above: Performed By: #### C MP #### [facility] [address] [address] Bilirubin [Mass/Vol] 0.6 mg/dL Normal 0.2-1.3 [facility] Comment on above: Performed By: #### C MP #### [facility] [address] [address] Calcium [Mass/Vol] 8.0 mg/dL Low 8.5-10.2 [facility] Comment on above: Performed By: #### C MP #### [facility] [address] [address] Chloride [Moles/Vol] 108 mmol/L High 97-105 [facility] Comment on above: Performed By: #### C MP #### [facility] [address] [address] CO2 Blood 22 mmol/L Normal 22-30 [facility] Comment on above: Performed By: #### C MP #### [facility] [address] [address] Creatinine [Mass/Vol] 0.75 mg/dL Normal 0.58-0.96 [facility] Comment on above: Performed By: #### C MP #### [facility] [address] [address] Glucose [Mass/Vol] 97 mg/dL Normal 74-99 [facility] Comment on above: Result Comment: The [place] Diabetes Association (ADA) provides guidance for cutoff values for fasting glucose and random glucose. The ADA defines fasting as no caloric intake for at least 8 hours.Fasting plasma glucose results between 100 to 125 mg/dL indicate increased risk for diabetes (prediabetes). Fasting plasma glucose results greater than or equal to 126 mg/dL meet the criteria for diagnosis of diabetes. In the absence of unequivocal hyperglycemia, results should be confirmed by repeat testing. In a patient with classic symptoms of hyperglycemia or hyperglycemic crisis, random plasma glucose results greater than or equal to 200 mg/dL meet the criteria for diagnosis of diabetes. Reference: Standards of Medical Care in Diabetes 2016; [place] [employer] Association. Diabetes Care. 2016;39(Suppl 1). Performed By: #### C MP #### [facility] [address] [address] Potassium [Moles/Vol] 3.6 mmol/L Low 3.7-5.1 [facility] Comment on above: Performed By: #### C MP #### [place] [address] Protein [Mass/Vol] 5.4 g/dL Low 6.3-8.0 [facility] Comment on above: Performed By: #### C MP #### [place] [address] Sodium [Moles/Vol] 139 mmol/L Normal 136-144 [facility] Comment on above: Performed By: #### C MP #### [place] [address] Urea nitrogen [Mass/Vol] 10 mg/dL Normal 7-21 [facility] Comment on above: Performed By: #### C MP #### [place] [address] Cult and Smr Aerobicon 02-16 Cult and Smr Aerobic Test performed at A [facility] No organisms seen Few Mononuclear cells Many RBCs ORGANISM: *Coagulase negative staphylococcus species (ID: 1) Rare Normal [facility] Comment on above: Performed By: #### C _AER #### [place] [address] Cult and Smr Aerobic Test performed at A [facility] No organisms seen Rare Polymorphonuclear leukocytes Rare Mononuclear cells Many RBCs ORGANISM: *Staphylococcus epidermidis (ID: 1) Rare Normal [facility] Comment on above: Performed By: #### C _AER #### [facility] [address] [address] HISTORY PHYSICALon 0 HISTORY PHYSICAL HNO ID: [id number] Author: Dmitry Desai Service: Hospital Medicine Author Type: Physician Type: HANDP Filed: 02/17/2020 6:23 AM Note Text: DEPARTMENT OF HOSPITAL MEDICINE HISTORY AND PHYSICAL EXAM AUTHOR: Dmitry Desai MD PATIENT NAME: Zulay Bearden DATE: February 17, 2020 , : 1950 Primary Care Physician: REN TURNER MD NIGHT AND WEEKEND COVERAGE: From 7am - 7pm, please call Sound Physician on duty After 7pm, please call cross cover pager #[phone] Subjective CHIEF COMPLAINT / REASON FOR ADMISSION: Left hand and forearm redness, swelling, pain after cat bite HPI: This is a 69 year old female has a past medical history of Mixed hyperlipidemia, Osteoporosis (07/22/2016) presented with Left hand and forearm redness, swelling, pain after cat bite for last few days prior to arrival to the hospital. Initially redness and swelling was mild, intermittent but gradually getting more persistent. No fever or chills reported. The patient was seen and examined at bedside, appears alert and awake with no acute distress and is able to answer simple questions. On direct questioning, patient denied any resting ongoing chest pain, resting SOB, hemoptysis, productive cough, fever, ongoing palpitation, active abdominal pain, hematemesis, rectal bleeding, ananth, hematuria, any other and GI complaints and any new focal neuro deficits . 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 SHOULDER BX. - PAST SURGICAL HISTORY OF 08/29/2010 Cancerous skin removed FAMILY HISTORY Problem Relation Age of Onset - Cancer Father PROSTATE, AND KIDNEY - Cancer Mother SKIN - Cancer Paternal Grandfather PROSTATE, AND HEART DISEASE, STOKE - Cancer Paternal Aunt pancreatic and lung Social History Tobacco Use - Smoking status: Never Smoker - Smokeless tobacco: Never Used Substance Use Topics - Alcohol use: Yes Alcohol/week: 20.0 standard drinks Types: 8 Glasses of Wine (5oz) per week Comment: occasionally - Drug use: No TOBHX Tobacco Use: Never ALCHX Alcohol Use: Approximately 12 oz/week [which includes 8 Glasses of Wine (5oz) per week] (occasionally) DRUGHX Drug Use: No ALLERGIES: ALLERGIES Allergen Reactions - Bactrim [Sulfametho* Rash and swelling of her throat HOME MEDICATIONS: denosumab 60 mg injection (PROLIA), 60 mg, SUBCUTANEOUS, Q 6 MONTH, Vik (Office Worker) Adam, 60 mg at 12/25/19 1443 Cholecalciferol, Vitamin D3, 5,000 unit cap, Take 1 capsule by mouth once daily., Disp: , Rfl: 0 turmeric root extract 500 mg cap, Take 500 mg by mouth once daily., Disp: , Rfl: 0 estradiol (ESTRACE) 0.01 % (0.1 mg/g) vaginal cream, Use 1 g vaginally 3 times a WEEK., Disp: 42 g, Rfl: 0 vitamin b complex(B COMPLEX 1 TAB), Take one(1) tablet daily., Disp: , Rfl: 0 THERAPEUTIC MULTIVITAMIN TAB, Take one(1) tablet daily., Disp: , Rfl: 0 denosumab (PROLIA) 60 mg/mL, Inject 1 mL subcutaneously once every 6 months., Disp: 1 mL, Rfl: 1 calcium carbonate/vitamin d3(CALCIUM 600 + D 600 MG-125 UNIT TAB), Take one(1) tablet twice daily., Disp: , Rfl: 0 MEDICATIONS: Current Facility-Administered Medications Medication Dose Route Frequency - ketorolac 15 mg injection (TORADOL) 15 mg INTRAVENOUS q 6 H PRN - HYDROmorphone 0.5 mg injection (DILAUDID) 0.5 mg INTRAVENOUS q 4 H PRN - heparin 5,000 Units injection 5,000 Units SUBCUTANEOUS q 12 H - NaCl 0.9% iv infusion 75 mL/hr INTRAVENOUS CONTINUOUS - aluminum-magnesium hydroxide-simethicone 200-200-20 mg/5 mL 30 mL (MAALOX,MYLANTA,MAG-AL PLUS) 30 mL ORAL DAILY PRN - ondansetron 4 mg tab(s) (ZOFRAN) 4 mg ORAL q 6 H PRN Or - ondansetron (PF) 4 mg injection (ZOFRAN) 4 mg INTRAVENOUS q 6 H PRN - polyethylene glycol 3350 17 g packet (MIRALAX, GLYCOLAX) 17 g ORAL DAILY PRN - docusate sodium 100 mg cap(s) (COLACE) 100 mg ORAL BID PRN - magnesium hydroxide 400 mg/5 mL 30 mL (MOM) 30 mL ORAL DAILY PRN - bisacodyl 10 mg suppository (DULCOLAX) 10 mg RECTAL DAILY PRN - acetaminophen 650 mg tab(s) (TYLENOL) 650 mg ORAL q 6 H PRN - piperacillin-tazobactam iv piggyback 3.375 g in dextrose (iso-osmotic) 50 mL (ZOSYN) 3.375 g INTRAVENOUS q 6 H - vancomycin dosing and monitoring per pharmacy OTHER As Directed - vancomycin iv piggyback 1 g in D5W 200 mL (VANCOCIN) 1 g INTRAVENOUS q 12 HR ROS: Pertinent positives and negatives are noted in the HPI, all other systems are reviewed and negative Objective Vitals: BP 133/69 Pulse 81 Temp (Src) 99 (Oral) Resp 16 Ht 5' 6 (1.68m) Wt 147 lb 12.8 oz (67.0kg) SpO2 96% LMP 04/23/2008 BMI 23.87 kg/(m2). O2 Therapy: Room Air Physical Exam: GENERAL: No acute distress, Alert and awake, Afebrile, Appears tired and weak otherwise hemodynamically stable at present. HEENT: PERRLA, no icterus. OP clear and no exudates. NECK: Supple, There is no LAD or thyromegaly. no carotid/ophthalmic bruits, JVD None. RESPIRATORY: Bilateral equal vesicular breath sound with no wheezing. Lung bases are clear. HEART: No tachycardia at bedside and regular rhythm. Normal S1 and S2, No S3 or S4 is audible. No pulsation, thrills, murmur or friction rubs. ABDOMEN: Soft, nondistended, nontender. No hepatomegaly or splenomegaly. No CVA tenderness on the both sides. Bowel sound is present. Left UE: Redness, pain, tenderness and swelling of entire hand, wrist extending upto mid forearm. No crepitation of fluctuations EXTREMITIES: All peripheral pulses are present. No calf tenderness or swelling. No pedal edema is present.. NEUROLOGY: Alert and awake. No new focal neuro deficit. Bilateral Pupil is equal and reactive to light. CN-ii-xii otherwise grossly intact. Motor and Sensory: Grossly Intact bilaterally with no new focal signs Admission Lab/Imaging/Procedure workup: Available labs/imaging/test results were reviewed by me. Most recent labs and imaging results. Results for orders placed or performed in visit on 09/25/19 LIPID PANEL BASIC Result Value Ref Range Cholesterol, Total 244 (H) <200 mg/dL Triglyceride 64 <150 mg/dL HDL Cholesterol 78 >39 mg/dL LDL Cholesterol 153 (H) <100 mg/dL Non HDL Cholesterol 166 (H) <130 mg/dL Fasting Time 16 hrs VLDL Cholesterol 13 <30 mg/dL TC:HDL Ratio 3.13 <5.10 LDL:HDL Ratio 1.96 <2.54 CBC + DIFF Result Value Ref Range WBC 6.52 3.70 - 11.00 k/uL RBC 4.40 3.90 - 5.20 m/uL Hemoglobin 13.3 11.5 - 15.5 g/dL Hematocrit 41.4 36.0 - 46.0 % MCV 94.1 80.0 - 100.0 fL MCH 30.2 26.0 - 34.0 pG MCHC 32.1 30.5 - 36.0 g/dL RDW-CV 12.6 11.5 - 15.0 % Platelet Count 206 150 - 400 k/uL MPV 11.2 9.0 - 12.7 fL Neut% 59.4 % Abs Neut (ANC) 3.85 1.45 - 7.50 k/uL Lymph% 31.4 % Abs Lymph 2.05 1.00 - 4.00 k/uL Hickman% 7.8 % Abs Hickman 0.51 <0.87 k/uL Eosin% 0.9 % Abs Eosin 0.06 <0.46 k/uL Baso% 0.5 % Abs Baso 0.03 <0.11 k/uL Nucleated Reds 0.0 0 /100 WBC Absolute nRBC <0.01 <0.01 k/uL Diff Type Auto Diff BASIC METABOLIC PNL Result Value Ref Range Glucose 92 74 - 99 mg/dL BUN 15 7 - 21 mg/dL Creatinine 0.81 0.58 - 0.96 mg/dL Sodium 140 136 - 144 mmol/L Potassium 4.2 3.7 - 5.1 mmol/L Chloride 103 97 - 105 mmol/L CO2 26 22 - 30 mmol/L Anion Gap 11 9 - 18 mmol/L Calcium 9.5 8.5 - 10.2 mg/dL eGFR- >60 eGFR-All Other Races >60 . Present on Admission: - Cellulitis Assessment/Plan # Cellulitis of left hand with no clear abscess/gas formation - rule out sepsis - After cat bite Redness, pain, tenderness and swelling of entire hand, wrist extending upto mid forearm. No crepitation of fluctuations Tetanus shots uptodate Started on IV Vancomycin + Zosyn Imaging showed no subcutaneous gas / features of OM Hand Surgery consult requested for possible IANDD F/u culture and vitals, Wound care consult/wound dressing, ID consult as needed. # Rest of the chronic medical problems are stable and will be managed with appropriately with home medications, placed nursing communication order to verify home medications before giving them to the patient. # Diet: On PO Diet # IVF's: No # Fall Precaution: Yes # Disposition: Home/primary residence # Code Status: Full code by default # DVT Prophylaxis : - Anticoagulant AND Antiplatelet Medications (From admission, onward) Start Dose Route Frequency Ordered Stop 02/16/202129 heparin 5,000 Units injection (Medical Risk Categories) 5,000 Units SUBCUTANEOUS EVERY 12 HOURS 02/16/202110 -- The patient at bedside was counseled about clinical status, laboratory/imaging results, diagnoses, medication side effects, risk, and treatment plan, all questions were answered to patient's satisfaction and verbalized understanding SIGNATURE: Dmitry Desai MD PATIENT NAME: Zulay Bearden PAGER/CONTACT #: After 7 pm [phone] Disclaimer: Portions of this note may have been generated using [employer] voice recognition software. Reasonable efforts were made to correct any dictation errors that resulted due to the programming of this software but some may still be present. Normal [facility] Hemogramon 02-17-2020 Erythrocyte distribution width (RBC) [Ratio] 13.0 % Normal 11.7-14.4 [facility] Comment on above: Performed By: #### C BC1 #### [facility] [address] [address] Hematocrit (Bld) [Volume fraction] 36.7 % Normal 34.1-44.9 [facility] Comment on above: Performed By: #### C BC1 #### [facility] [address], [place] [address] Hemoglobin (Bld) [Mass/Vol] 11.7 g/dL Normal 11.2-15.7 [facility] Comment on above: Performed By: #### C BC1 #### [facility] [address] [address] MCH (RBC) [Entitic mass] 30.2 pg Normal 25.6-32.2 [facility] Comment on above: Performed By: #### C BC1 #### [facility] [address] [address] MCHC (RBC) [Mass/Vol] 31.9 % Normal 31.6-34.8 [facility] Comment on above: Performed By: #### C BC1 #### [facility] [address] [address] MCV (RBC) [Entitic vol] 94.6 fL Normal 79.4-94.8 [facility] Comment on above: Performed By: #### C BC1 #### [facility] [address] [address] Platelet mean volume (Bld) [Entitic vol] 11.4 fL Normal 9.4-12.3 [facility] Comment on above: Performed By: #### C BC1 #### [facility] [address] [address] Platelets (Bld) [#/Vol] 169 thou/cmm Low 182-369 [facility] Comment on above: Performed By: #### C BC1 #### [facility] [address] [address] RBC (Bld) [#/Vol] 3.88 mil/cmm Low 3.93-5.22 [facility] Comment on above: Performed By: #### C BC1 #### [facility] [address] [place], [place] [address] RDW SD 44.7 fl Normal 36.4-46.3 [facility] Comment on above: Performed By: #### C BC1 #### [facility] [address], [place] [address] WBC (Bld) [#/Vol] 8.41 thou/cmm Normal 3.98-10.04 [facility] Comment on above: Performed By: #### C BC1 #### [facility] [address] [place] [id number] NURSING PROGon 02-17-2020 NURSING PROG HNO ID: [id number] Author: Rafaela (Rn) SEUN Weeks Service: Nursing Author Type: Registered Nurse Type: Nursing Progress Note Filed: 02/18/2020 2:19 AM Note Text: Nursing Progress Note Patient Name: Zulay Bearden Patient Location: [id number]/[facility]5400-54 02-23 Daily Note: Updated Pts daughter on the phone with pts approval regarding pts procedure today and plan of care. All questions answered. Daughter had wanted to talk to pt on the phone, but pt stated that she didn't feel up to it, so encouraged her to call pts spouse Loy per pts request if she wanted to know anything more. Daughter agreeable to this. This note was completed by: Rafaela Weeks RN Normal [facility] PROGRESSon 02-17-2020 PROGRESS HNO ID: [id number] Author: Graham He Service: Hospital Medicine Author Type: Physician Type: Progress Notes Filed: 02/17/2020 11:47 AM Note Text: DEPARTMENT OF HOSPITAL MEDICINE PROGRESS NOTE SERVICE DATE: 02/17/2020 SERVICE TIME: 11:31 AM Hospital Medicine/Primary Attending: Graham He MD NIGHT AND WEEKEND COVERAGE: [place] COVERAGE: After 7pm, please call cross cover pager #[phone] Subjective INTERVAL HPI: NAEON. Patient still hsa very bad pain. Had some pus drainage from one of the sites. No fevers or chills, nausea or vomiting. Seen by Dr. Grant this morning. Patient will be taken to OR this afternoon. MEDICATIONS: Reviewed Objective PHYSICAL EXAM: BP 100/61 Pulse 66 Temp (Src) 98.2 (Oral) Resp 18 Ht 5' 6 (1.68m) Wt 147 lb 12.8 oz (67.0kg) SpO2 97% LMP 04/23/2008 BMI 23.87 kg/(m2). O2 Therapy: Room Air Physical Exam Performed GENERAL: Alert, no distress, cooperative LUNGS: Lungs clear to auscultation, Good diaphragmatic excursion CARDIAC: Normal S1 and S2; no rubs, murmurs, or gallops ABDOMEN: Left hand swollen, erythematous, tender up to forearm. Very tender to palpation. Warm EXTREMITIES: Extremities normal, no deformities, edema, clubbing or skin discoloration. Good capillary refill., No ulcers NEURO: Gait normal. Reflexes normal and symmetric. Sensation grossly intact, Cranial nerves II-XII intact PULSES: 2+ radial, 2+ carotid Lines, Drains, and Airways Line Peripheral 02/16/20 0947 Admission to Hospital Right Forearm 20 Gauge less than 1 day Reviewed lines and needs to be continued: REASONS: Intravenous fluids and Intravenous antibiotics DATA: Diagnostic tests reviewed for today's visit: Most recent labs Assessment/Plan #Left hand cellulitis likely 2/2 to cat bite - Continue vancomycin/zosyn for now - Imaging without gas or signs of OM - Consult to hand surgery for possible debridement/cx, Dr. Grant to take patient today. Appreciate quick response to consult. Will make NPO. MIVF while not eating. - Aggressive pain control #History of osteoporosis - Stable on denosumab #Ppx: SCDs, heparin #FULL CODE #Dispo: Pending OR, final culture results Medication and Non-Pharmacologic VTE Prophylaxis/Anticoagula nts Anticoagulant AND Antiplatelet Medications (From admission, onward) Start Dose Route Frequency Ordered Stop 02/16/202129 heparin 5,000 Units injection (Medical Risk Categories) 5,000 Units SUBCUTANEOUS EVERY 12 HOURS 02/16/202110 -- 02/16/202114 vte non-pharmacologic prophylaxis - none indicated (fl,ga) 02/16/202114 activity - mobilize patient ([place]) VTE Prophylaxis: VTE prophylaxis appropriate Disposition: Home Plan of care discussed with: Patient and RN SIGNATURE: Graham He MD PATIENT NAME: Zulay Bearden DATE: February 17, 2020 TIME: 11:31 AM PAGER/CONTACT #: [phone] [phone] [facility] CONSULT PROGon 02-16-2020 CONSULT PROG HNO ID: [id number] Author: Renae Glass (Pharmacist) Service: Pharmacy Author Type: Pharmacist Type: Consult Progress Note Filed: 02/16/2020 10:05 PM Note Text: PHARMACY VANCOMYCIN DOSING NOTE Patient Name: Zulay Bearden Admission Date: 02/16/2020 Date of Consult: 02/16/2020 Time of Consult: 9:46 PM Indication: Skin/Soft tissue infection Goal Range: 10-20 mcg/mL RECOMMENDATIONS/PLAN: Pharmacy consulted for vancomycin dosing for Zulay Bearden, a 69 year old, female who is being treated with vancomycin for SSTI 1. Patient is currently ordered Vancomycin 1 g IV q12h. Today is day 1 of therapy. 2. No vancomycin level has been drawn for this dosing regimen. 3. Will schedule vancomycin to 1 g with a dosing interval of once as patient has no recent labs/sCr to calculate creatinine clearance. 4. The next vancomycin level will be scheduled by pharmacy once a dosing frequency has been established after patient's BMP results and their creatinine clearance can be calculated. We will follow patient renal function, vancomycin levels and doses with you during the course of therapy. Additional recommendations will appear in follow up notes. If you have any questions, please [place] pharmacy [place] ext [phone]. Age: [age] year old Allergies: ALLERGIES Allergen Reactions - Bactrim [Sulfametho* Rash and swelling of her throat Last 3 Encounter Wt Readings: Date: Wt: 09/25/2019 69.4 kg (153 lb) 10/29/2016 68.9 kg (152 lb) 09/25/2016 67.6 kg (149 lb) Last 1 Encounter Ht Readings: Date: Ht: 09/25/2019 165.1 cm (5' 5) CrCl: unknown, waiting for labs mL/min Temp (24hrs), Av.2 ?C (99 ?F), Min:37.2 ?C (99 ?F), Max:37.2 ?C (99 ?F) - Current Temp: 37.2 ?C (99 ?F) Labs BUN (mg/dL) Date Value 09/25/2019 15 08/04/2016 18 Creatinine (mg/dL) Date Value 09/25/2019 0.81 08/04/2016 0.88 WBC (k/uL) Date Value 09/25/2019 6.52 Vancomycin Levels: No results found for: FLORENCIO GLASS, PHARMACIST Normal [facility] HOSPon 02-16-2020 HOSP Patient:Arnoldo Bearden MRN: Height:5' 6(1.676 m) Weight:147 lb 12.8 oz (67.042 kg) Outpatient Medications as of 02/17/20: denosumab (PROLIA) 60 mg/mL Cholecalciferol, Vitamin D3, 5,000 unit cap turmeric root extract 500 mg cap estradiol (ESTRACE) 0.01 % (0.1 mg/g) vaginal cream vitamin b complex(B COMPLEX 1 TAB) THERAPEUTIC MULTIVITAMIN TAB calcium carbonate/vitamin d3(CALCIUM 600 + D 600 MG-125 UNIT TAB) Admission/Clinic Administered Medications as of 02/17/20: ketorolac 15 mg injection (TORADOL) HYDROmorphone 0.5 mg injection (DILAUDID) heparin 5,000 Units injection NaCl 0.9% iv infusion aluminum-magnesium hydroxide-simethicone 200-200-20 mg/5 mL 30 mL (MAALOX,MYLANTA,MAG-AL PLUS) ondansetron 4 mg tab(s) (ZOFRAN) ondansetron (PF) 4 mg injection (ZOFRAN) polyethylene glycol 3350 17 g packet (MIRALAX, GLYCOLAX) docusate sodium 100 mg cap(s) (COLACE) magnesium hydroxide 400 mg/5 mL 30 mL (MOM) bisacodyl 10 mg suppository (DULCOLAX) acetaminophen 650 mg tab(s) (TYLENOL) piperacillin-tazobactam iv piggyback 3.375 g in dextrose (iso-osmotic) 50 mL (ZOSYN) vancomycin dosing and monitoring per pharmacy vancomycin iv piggyback 1 g in D5W 200 mL (VANCOCIN) Problem List: Postmenopausal atrophic vaginitis [N95.2] Mixed hyperlipidemia [E78.2] Osteoporosis [M81.0] Anxiety [F41.9] Shortened TX interval [R94.31] Cellulitis [L03.90] Allergies: Bactrim [Sulfamethoxazole-Trime thoprim] Date Verified: 02/17/20 Lab Values Lab Value Units Date High Low POTA* 3.6 mmol/L 02/17/2020 5.1 3.7 DEMETRIA* 36.7 % 02/17/2020 44.9 34.1 Progress Notes (): RENAE GLASS, PHARMACIST 02/16/2020 10:05 PM Signed PHARMACY VANCOMYCIN DOSING NOTE Patient Name: Zulay Bearden Admission Date: 02/16/2020 Date of Consult: 02/16/2020 Time of Consult: 9:46 PM Indication: Skin/Soft tissue infection Goal Range: 10-20 mcg/mL RECOMMENDATIONS/PLAN: Pharmacy consulted for vancomycin dosing for Zulay Bearden, a 69 year old, female who is being treated with vancomycin for SSTI 1. Patient is currently ordered Vancomycin 1 g IV q12h. Today is day 1 of therapy. 2. No vancomycin level has been drawn for this dosing regimen. 3. Will schedule vancomycin to 1 g with a dosing interval of once as patient has no recent labs/sCr to calculate creatinine clearance. 4. The next vancomycin level will be scheduled by pharmacy once a dosing frequency has been established after patient's BMP results and their creatinine clearance can be calculated. We will follow patient renal function, vancomycin levels and doses with you during the course of therapy. Additional recommendations will appear in follow up notes. If you have any questions, please contact pharmacy at ext [phone]. Age: [age] year old Allergies: ALLERGIES Allergen Reactions - Bactrim [Sulfametho* Rash and swelling of her throat Last 3 Encounter Wt Readings: Date: Wt: 09/25/2019 69.4 kg (153 lb) 10/29/2016 68.9 kg (152 lb) 09/25/2016 67.6 kg (149 lb) Last 1 Encounter Ht Readings: Date: Ht: 09/25/2019 165.1 cm (5' 5) CrCl: unknown, waiting for labs mL/min Temp (24hrs), Av.2 ?C (99 ?F), Min:37.2 ?C (99 ?F), Max:37.2 ?C (99 ?F) - Current Temp: 37.2 ?C (99 ?F) Labs BUN (mg/dL) Date Value 09/25/2019 15 08/04/2016 18 Creatinine (mg/dL) Date Value 09/25/2019 0.81 08/04/2016 0.88 WBC (k/uL) Date Value 09/25/2019 6.52 Vancomycin Levels: No results found for: FLORENCIO GLASS, PHARMACIST Dmitry Desai MD 02/17/2020 6:23 AM Signed DEPARTMENT OF HOSPITAL MEDICINE HISTORY AND PHYSICAL EXAM AUTHOR: Dmitry Desai MD PATIENT NAME: Zulay Bearden DATE: February 17, 2020 , : 1950 Primary Care Physician: REN TURNER MD NIGHT AND WEEKEND COVERAGE: From 7am - 7pm, please call Sound Physician on duty After 7pm, please call cross cover pager #[phone] Subjective CHIEF COMPLAINT / REASON FOR ADMISSION: Left hand and forearm redness, swelling, pain after cat bite HPI: This is a 69 year old female has a past medical history of Mixed hyperlipidemia, Osteoporosis (07/22/2016) presented with Left hand and forearm redness, swelling, pain after cat bite for last few days prior to arrival to the hospital. Initially redness and swelling was mild, intermittent but gradually getting more persistent. No fever or chills reported. The patient was seen and examined at bedside, appears alert and awake with no acute distress and is able to answer simple questions. On direct questioning, patient denied any resting ongoing chest pain, resting SOB, hemoptysis, productive cough, fever, ongoing palpitation, active abdominal pain, hematemesis, rectal bleeding, ananth, hematuria, any other and GI complaints and any new focal neuro deficits . 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 SHOULDER BX. - PAST SURGICAL HISTORY OF 08/29/2010 Cancerous skin removed FAMILY HISTORY Problem Relation Age of Onset - Cancer Father PROSTATE, AND KIDNEY - Cancer Mother SKIN - Cancer Paternal Grandfather PROSTATE, AND HEART DISEASE, STOKE - Cancer Paternal Aunt pancreatic and lung Social History Tobacco Use - Smoking status: Never Smoker - Smokeless tobacco: Never Used Substance Use Topics - Alcohol use: Yes Alcohol/week: 20.0 standard drinks Types: 8 Glasses of Wine (5oz) per week Comment: occasionally - Drug use: No TOBHX Tobacco Use: Never ALCHX Alcohol Use: Approximately 12 oz/week [which includes 8 Glasses of Wine (5oz) per week] (occasionally) DRUGHX Drug Use: No ALLERGIES: ALLERGIES Allergen Reactions - Bactrim [Sulfametho* Rash and swelling of her throat HOME MEDICATIONS: denosumab 60 mg injection (PROLIA), 60 mg, SUBCUTANEOUS, Q 6 MONTH, Vik (Salazar) Adam, 60 mg at 12/25/19 1443 Cholecalciferol, Vitamin D3, 5,000 unit cap, Take 1 capsule by mouth once daily., Disp: , Rfl: 0 turmeric root extract 500 mg cap, Take 500 mg by mouth once daily., Disp: , Rfl: 0 estradiol (ESTRACE) 0.01 % (0.1 mg/g) vaginal cream, Use 1 g vaginally 3 times a WEEK., Disp: 42 g, Rfl: 0 vitamin b complex(B COMPLEX 1 TAB), Take one(1) tablet daily., Disp: , Rfl: 0 THERAPEUTIC MULTIVITAMIN TAB, Take one(1) tablet daily., Disp: , Rfl: 0 denosumab (PROLIA) 60 mg/mL, Inject 1 mL subcutaneously once every 6 months., Disp: 1 mL, Rfl: 1 calcium carbonate/vitamin d3(CALCIUM 600 + D 600 MG-125 UNIT TAB), Take one(1) tablet twice daily., Disp: , Rfl: 0 MEDICATIONS: Current Facility-Administered Medications Medication Dose Route Frequency - ketorolac 15 mg injection (TORADOL) 15 mg INTRAVENOUS q 6 H PRN - HYDROmorphone 0.5 mg injection (DILAUDID) 0.5 mg INTRAVENOUS q 4 H PRN - heparin 5,000 Units injection 5,000 Units SUBCUTANEOUS q 12 H - NaCl 0.9% iv infusion 75 mL/hr INTRAVENOUS CONTINUOUS - aluminum-magnesium hydroxide-simethicone 200-200-20 mg/5 mL 30 mL (MAALOX,MYLANTA,MAG-AL PLUS) 30 mL ORAL DAILY PRN - ondansetron 4 mg tab(s) (ZOFRAN) 4 mg ORAL q 6 H PRN Or - ondansetron (PF) 4 mg injection (ZOFRAN) 4 mg INTRAVENOUS q 6 H PRN - polyethylene glycol 3350 17 g packet (MIRALAX, GLYCOLAX) 17 g ORAL DAILY PRN - docusate sodium 100 mg cap(s) (COLACE) 100 mg ORAL BID PRN - magnesium hydroxide 400 mg/5 mL 30 mL (MOM) 30 mL ORAL DAILY PRN - bisacodyl 10 mg suppository (DULCOLAX) 10 mg RECTAL DAILY PRN - acetaminophen 650 mg tab(s) (TYLENOL) 650 mg ORAL q 6 H PRN - piperacillin-tazobactam iv piggyback 3.375 g in dextrose (iso-osmotic) 50 mL (ZOSYN) 3.375 g INTRAVENOUS q 6 H - vancomycin dosing and monitoring per pharmacy OTHER As Directed - vancomycin iv piggyback 1 g in D5W 200 mL (VANCOCIN) 1 g INTRAVENOUS q 12 HR ROS: Pertinent positives and negatives are noted in the HPI, all other systems are reviewed and negative Objective Vitals: BP 133/69 Pulse 81 Temp (Src) 99 (Oral) Resp 16 Ht 5' 6 (1.68m) Wt 147 lb 12.8 oz (67.0kg) SpO2 96% LMP 04/23/2008 BMI 23.87 kg/(m2). O2 Therapy: Room Air Physical Exam: GENERAL: No acute distress, Alert and awake, Afebrile, Appears tired and weak otherwise hemodynamically stable at present. HEENT: PERRLA, no icterus. OP clear and no exudates. NECK: Supple, There is no LAD or thyromegaly. no carotid/ophthalmic bruits, JVD None. RESPIRATORY: Bilateral equal vesicular breath sound with no wheezing. Lung bases are clear. HEART: No tachycardia at bedside and regular rhythm. Normal S1 and S2, No S3 or S4 is audible. No pulsation, thrills, murmur or friction rubs. ABDOMEN: Soft, nondistended, nontender. No hepatomegaly or splenomegaly. No CVA tenderness on the both sides. Bowel sound is present. Left UE: Redness, pain, tenderness and swelling of entire hand, wrist extending upto mid forearm. No crepitation of fluctuations EXTREMITIES: All peripheral pulses are present. No calf tenderness or swelling. No pedal edema is present.. NEUROLOGY: Alert and awake. No new focal neuro deficit. Bilateral Pupil is equal and reactive to light. CN-[id number] otherwise grossly intact. Motor and Sensory: Grossly Intact bilaterally with no new focal signs Admission Lab/Imaging/Procedure workup: Available labs/imaging/test results were reviewed by me. Most recent labs and imaging results. Results for orders placed or performed in visit on 09/25/19 LIPID PANEL BASIC Result Value Ref Range Cholesterol, Total 244 (H) <200 mg/dL Triglyceride 64 <150 mg/dL HDL Cholesterol 78 >39 mg/dL LDL Cholesterol 153 (H) <100 mg/dL Non HDL Cholesterol 166 (H) <130 mg/dL Fasting Time 16 hrs VLDL Cholesterol 13 <30 mg/dL TC:HDL Ratio 3.13 <5.10 LDL:HDL Ratio 1.96 <2.54 CBC + DIFF Result Value Ref Range WBC 6.52 3.70 - 11.00 k/uL RBC 4.40 3.90 - 5.20 m/uL Hemoglobin 13.3 11.5 - 15.5 g/dL Hematocrit 41.4 36.0 - 46.0 % MCV 94.1 80.0 - 100.0 fL MCH 30.2 26.0 - 34.0 pG MCHC 32.1 30.5 - 36.0 g/dL RDW-CV 12.6 11.5 - 15.0 % Platelet Count 206 150 - 400 k/uL MPV 11.2 9.0 - 12.7 fL Neut% 59.4 % Abs Neut (ANC) 3.85 1.45 - 7.50 k/uL Lymph% 31.4 % Abs Lymph 2.05 1.00 - 4.00 k/uL Hickman% 7.8 % Abs Hickman 0.51 <0.87 k/uL Eosin% 0.9 % Abs Eosin 0.06 <0.46 k/uL Baso% 0.5 % Abs Baso 0.03 <0.11 k/uL Nucleated Reds 0.0 0 /100 WBC Absolute nRBC <0.01 <0.01 k/uL Diff Type Auto Diff BASIC METABOLIC PNL Result Value Ref Range Glucose 92 74 - 99 mg/dL BUN 15 7 - 21 mg/dL Creatinine 0.81 0.58 - 0.96 mg/dL Sodium 140 136 - 144 mmol/L Potassium 4.2 3.7 - 5.1 mmol/L Chloride 103 97 - 105 mmol/L CO2 26 22 - 30 mmol/L Anion Gap 11 9 - 18 mmol/L Calcium 9.5 8.5 - 10.2 mg/dL eGFR- >60 eGFR-All Other Races >60 . Present on Admission: - Cellulitis Assessment/Plan # Cellulitis of left hand with no clear abscess/gas formation - rule out sepsis - After cat bite Redness, pain, tenderness and swelling of entire hand, wrist extending upto mid forearm. No crepitation of fluctuations Tetanus shots uptodate Started on IV Vancomycin + Zosyn Imaging showed no subcutaneous gas / features of OM Hand Surgery consult requested for possible IANDD F/u culture and vitals, Wound care consult/wound dressing, ID consult as needed. # Rest of the chronic medical problems are stable and will be managed with appropriately with home medications, placed nursing communication order to verify home medications before giving them to the patient. # Diet: On PO Diet # IVF's: No # Fall Precaution: Yes # Disposition: Home/primary residence # Code Status: Full code by default # DVT Prophylaxis : - Anticoagulant AND Antiplatelet Medications (From admission, onward) Start Dose Route Frequency Ordered Stop 02/16/202129 heparin 5,000 Units injection (Medical Risk Categories) 5,000 Units SUBCUTANEOUS EVERY 12 HOURS 02/16/202110 -- The patient at bedside was counseled about clinical status, laboratory/imaging results, diagnoses, medication side effects, risk, and treatment plan, all questions were answered to patient's satisfaction and verbalized understanding SIGNATURE: Dmitry Desai MD PATIENT NAME: Zulay Bearden PAGER/CONTACT #: After 7 pm [phone] Disclaimer: Portions of this note may have been generated using [employer] voice recognition software. Reasonable efforts were made to correct any dictation errors that resulted due to the programming of this software but some may still be present. Previous Version Jeff Rios PharmD 02/17/2020 9:42 AM Signed PHARMACY VANCOMYCIN DOSING NOTE Patient Name: Zulay Bearden Admission Date: 02/16/2020 Date of Consult: 02/17/2020 Time of Consult: 9:39 AM Indication: Skin/Soft tissue infection Goal Range: 10-20 mcg/mL RECOMMENDATIONS/PLAN: Pharmacy consulted for vancomycin dosing for Zulay Bearden, a 69 year old, female who is being treated with vancomycin for SSTI - Cat bite 1. Patient is currently ordered Vancomycin 1 g IV q12h. Today is day 2 of therapy. 2. No vancomycin level has been drawn for this dosing regimen. 3. The present dose of vancomycin is the recommended dosage for this patient at this time. Continue therapy as prescribed. 4. The next vancomycin level has been ordered for 0830 on 02/18/2020 (Completed) Apparently the patient received a dose at [place] on 02/15 before arrival At [facility] of 1.25g x1 at 1800 and then received another 1g dose here at 2130. Therefore, will get a level before the 4th dose of the current regimen. We will follow patient renal function, vancomycin levels and doses with you during the course of therapy. Additional recommendations will appear in follow up notes. If you have any questions[place] [phone]. Age: [age] year old Allergies: ALLERGIES Allergen Reactions - Bactrim [Sulfametho* Rash and swelling of her throat Last 3 Encounter Wt Readings: Date: Wt: 02/16/2020 67 kg (147 lb 12.8 oz) 09/25/2019 69.4 kg (153 lb) 10/29/2016 68.9 kg (152 lb) Last 1 Encounter Ht Readings: Date: Ht: 02/16/2020 167.6 cm (5' 6) CrCl: 66.3 mL/min Temp (24hrs), Av ?C (98.6 ?F), Min:36.8 ?C (98.2 ?F), Max:37.2 ?C (99 ?F) - Current Temp: 36.8 ?C (98.2 ?F) Labs BUN (mg/dL) Date Value 02/17/2020 10 09/25/2019 15 08/04/2016 18 Creatinine (mg/dL) Date Value 02/17/2020 0.75 09/25/2019 0.81 08/04/2016 0.88 WBC Date Value 02/17/2020 8.41 thou/cmm 09/25/2019 6.52 k/uL Vancomycin Levels: No results found for: FLORENCIO Rios, PharmD Graham He MD 02/17/2020 11:47 AM Signed DEPARTMENT OF HOSPITAL MEDICINE PROGRESS NOTE SERVICE DATE: 02/17/2020 SERVICE TIME: 11:31 AM Hospital Medicine/Primary Attending: Graham He MD NIGHT AND WEEKEND COVERAGE: [place] COVERAGE: After 7pm, please call cross cover pager #[phone] Subjective INTERVAL HPI: NAEON. Patient still hsa very bad pain. Had some pus drainage from one of the sites. No fevers or chills, nausea or vomiting. Seen by Dr. Grant this morning. Patient will be taken to OR this afternoon. MEDICATIONS: Reviewed Objective PHYSICAL EXAM: BP 100/61 Pulse 66 Temp (Src) 98.2 (Oral) Resp 18 Ht 5' 6 (1.68m) Wt 147 lb 12.8 oz (67.0kg) SpO2 97% LMP 04/23/2008 BMI 23.87 kg/(m2). O2 Therapy: Room Air Physical Exam Performed GENERAL: Alert, no distress, cooperative LUNGS: Lungs clear to auscultation, Good diaphragmatic excursion CARDIAC: Normal S1 and S2; no rubs, murmurs, or gallops ABDOMEN: Left hand swollen, erythematous, tender up to forearm. Very tender to palpation. Warm EXTREMITIES: Extremities normal, no deformities, edema, clubbing or skin discoloration. Good capillary refill., No ulcers NEURO: Gait normal. Reflexes normal and symmetric. Sensation grossly intact, Cranial nerves II-XII intact PULSES: 2+ radial, 2+ carotid Lines, Drains, and Airways Line Peripheral 02/16/20 2812 Admission to Hospital Right Forearm 20 Gauge less than 1 day Reviewed lines and needs to be continued: REASONS: Intravenous fluids and Intravenous antibiotics DATA: Diagnostic tests reviewed for today's visit: Most recent labs Assessment/Plan #Left hand cellulitis likely 2/2 to cat bite - Continue vancomycin/zosyn for now - Imaging without gas or signs of OM - Consult to hand surgery for possible debridement/cx, Dr. Grant to take patient today. Appreciate quick response to consult. Will make NPO. MIVF while not eating. - Aggressive pain control #History of osteoporosis - Stable on denosumab #Ppx: SCDs, heparin #FULL CODE #Dispo: Pending OR, final culture results Medication and Non-Pharmacologic VTE Prophylaxis/Anticoagula nts Anticoagulant AND Antiplatelet Medications (From admission, onward) Start Dose Route Frequency Ordered Stop 02/16/202129 heparin 5,000 Units injection (Medical Risk Categories) 5,000 Units SUBCUTANEOUS EVERY 12 HOURS 02/16/202110 -- 02/16/202114 vte non-pharmacologic prophylaxis - none indicated (co,ga) 02/16/202114 activity - mobilize patient (co,ga) VTE Prophylaxis: VTE prophylaxis appropriate Disposition: Home Plan of care discussed with: Patient and RN SIGNATURE: Graham He MD PATIENT NAME: Zulay Bearden DATE: February 17, 2020 TIME: 11:31 AM PAGER/CONTACT #: [phone] Michelle Hays MD 02/17/2020 12:24 PM Signed ANESTHESIOLOGY DAY OF SURGERY NOTE SERVICE DATE: 02/17/2020 SERVICE TIME: 12:00 PM : 1950 Procedure(s) (LRB): INCISION AND DRAINAGE ABSCESS EXTREMITY UPPER (Left) Surgeon(s): Darrius Grant Estimated body mass index is 23.86 kg/m? as calculated from the following: Height as of this encounter: 167.6 cm (5' 6). Weight as of this encounter: 67 kg (147 lb 12.8 oz). Most recent hematocrit and potassium results: Hematocrit 36.7 02/17/2020 Potassium 3.6 02/17/2020 69yo female with left hand cellulitis after a cat bite, HL, anxiety, Raynaud's disease Zosyn, next dose due at 1200? 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 SHOULDER BX. - PAST SURGICAL HISTORY OF 08/29/2010 Cancerous skin removed FAMILY HISTORY Problem Relation Age of Onset - Cancer Father PROSTATE, AND KIDNEY - Cancer Mother SKIN - Cancer Paternal Grandfather PROSTATE, AND HEART DISEASE, STOKE - Cancer Paternal Aunt pancreatic and lung Social History: Social History Tobacco Use - Smoking status: Never Smoker - Smokeless tobacco: Never Used Substance Use Topics - Alcohol use: Yes Alcohol/week: 20.0 standard drinks Types: 8 Glasses of Wine (5oz) per week Comment: occasionally - Drug use: No No current facility-administered medications on file prior to encounter. Current Outpatient Medications on File Prior to Encounter Medication Sig - Cholecalciferol, Vitamin D3, 5,000 unit cap [...] MULTIVITAMIN TAB Take one(1) tablet daily. - denosumab (PROLIA) 60 mg/mL Inject 1 mL subcutaneously once every 6 months. - calcium carbonate/vitamin d3(CALCIUM 600 + D 600 MG-125 UNIT TAB) Take one(1) tablet twice daily. Current Facility-Administered Medications Medication Dose Route Frequency Provider Last Rate Last Dose - [MAR Hold due to Transfer] ketorolac 15 mg injection (TORADOL) 15 mg INTRAVENOUS q 6 H PRN Mohammad F Holiness 15 mg at 02/16/202238 - [MAR Hold due to Transfer] HYDROmorphone 0.5 mg injection (DILAUDID) 0.5 mg INTRAVENOUS q 4 H PRN Mohammad F Holiness - [MAR Hold due to Transfer] heparin 5,000 Units injection 5,000 Units SUBCUTANEOUS q 12 H Mohammad F Holiness - [MAR Hold due to Transfer] NaCl 0.9% iv infusion 75 mL/hr INTRAVENOUS CONTINUOUS Mohammad F Holiness 75 mL/hr at 02/16/202129 75 mL/hr at 02/16/202129 - [MAR Hold due to Transfer] aluminum-magnesium hydroxide-simethicone 200-200-20 mg/5 mL 30 mL (MAALOX,MYLANTA,MAG-AL PLUS) 30 mL ORAL DAILY PRN Mohammad F Holiness - [MAR Hold due to Transfer] ondansetron 4 mg tab(s) (ZOFRAN) 4 mg ORAL q 6 H PRN Mohammad F Holiness Or - [MAR Hold due to Transfer] ondansetron (PF) 4 mg injection (ZOFRAN) 4 mg INTRAVENOUS q 6 H PRN Mohammad F Holiness - [MAR Hold due to Transfer] polyethylene glycol 3350 17 g packet (MIRALAX, GLYCOLAX) 17 g ORAL DAILY PRN Mohammad F Holiness - [MAR Hold due to Transfer] docusate sodium 100 mg cap(s) (COLACE) 100 mg ORAL BID PRN Mohammad F Holiness - [MAR Hold due to Transfer] magnesium hydroxide 400 mg/5 mL 30 mL (MOM) 30 mL ORAL DAILY PRN Mohammad F Holiness - [MAR Hold due to Transfer] bisacodyl 10 mg suppository (DULCOLAX) 10 mg RECTAL DAILY PRN Mohammad F Holiness - [MAR Hold due to Transfer] acetaminophen 650 mg tab(s) (TYLENOL) 650 mg ORAL q 6 H PRN Mohammad F Holiness - [MAR Hold due to Transfer] piperacillin-tazobactam iv piggyback 3.375 g in dextrose (iso-osmotic) 50 mL (ZOSYN) 3.375 g INTRAVENOUS q 6 H Mohammad F Holiness 100 mL/hr at 02/17/20 0908 3.375 g at 02/17/20 0908 - [SEP Hold due to Transfer] vancomycin dosing and monitoring per pharmacy OTHER As Directed Mohammad F Holiness - [MAR Hold due to Transfer] vancomycin iv piggyback 1 g in D5W 200 mL (VANCOCIN) 1 g INTRAVENOUS q 12 HR Mohammad F Holiness 200 mL/hr at 02/17/20 1118 1 g at 02/17/20 1118 Allergies: ALLERGIES Allergen Reactions - Bactrim [Sulfametho* Rash and swelling of her throat DOS EXAM: Adequate NPO status: Yes Anesthetic risks, benefits, alternatives, personnel and consent discussed: Yes Patient agrees to proceed: Yes Previous Anesthesia: No history of adverse event. Airway Assessment: MP 2; Neck ROM: Full ROM without neurologic symptoms; Airway Evaluation: No significant abnormalities Symptoms of Sleep Apnea: Age over 50 (69 year old) Dentition: Teeth intact Additional Physical Exam: Lungs: Patient health status unchanged since recent history and physical. See history and physical for exam findings. Cardiac: Patient health status unchanged since recent history and physical. See history and physical for exam findings. Additional Pertinent Findings: N/A Blood Products: Not anticipated for this procedure. Anesthetic Plan: General, Standard ASA Monitors Pain Management Plan: Parenteral or Oral ASA Class: 2 Other Medical Problems: None Chronic Beta Bacilio medication administered within 24 hours: N/A I have interviewed and examined the patient. I have reviewed the medical record and/or the pre-anesthesia evaluation, pertinent labs, and test results. Significant changes in the patient's condition since the History and Physical, not otherwise documented in primary service progress notes: No This contains updated information obtained within 48 hours of Surgery/Procedure. SIGNATURE: Michelle Hays MD PATIENT NAME: Zulay Bearden DATE: February 17, 2020 TIME: 12:00 PM CSN: [id number] Normal [facility] Vital Signs Date Time Vital Sign Value Performing Clinician Jennifer jay 02-27-2025 13:40-0400 Body height 165.[address] Laura Riddle MD Work Phone: [facility] 02-27-2025 13:40-0400 Body mass index (BMI) [Ratio] 23.8 kg/m2 Dr. Laura Riddle MD Work Phone: [facility] 02-27-2025 13:40-0400 Body weight 64.[address] Laura Riddle MD Work Phone: [facility] 02-27-2025 13:40-0400 Diastolic blood pressure 72 mm[Hg] Dr. Laura Riddle MD Work Phone: 8(018)054-454038 [place] [address] 02-27-2025 13:40-0400 Systolic blood pressure 127 mm[Hg] Dr. Laura Riddle MD Work Phone: 9(659)104-632673 [place] [address] 02-01-2025 13:29-0400 Body height 165.[address] Laura Riddle MD Work Phone: 6(352)637-772273 [place] [address] 02-01-2025 13:29-0400 Body temperature 97.7 [degF] Dr. Laura Riddle MD Work Phone: 4(574)960-737073 [place] [address] 02-01-2025 13:29-0400 Diastolic blood pressure 71 mm[Hg] Dr. Laura Riddle MD Work Phone: 4(578)032-035838 [place] [address] 02-01-2025 13:29-0400 Heart rate 65 /min Dr. Laura Riddel MD Work Phone: 7(291)419-777973 [place] [address] 02-01-2025 13:29-0400 Respiratory rate 16 /min Dr. Laura Riddle MD Work Phone: 1(634)009-500373 [place] [address] 02-01-2025 13:29-0400 SaO2% (BldA) [Mass fraction] 100 % Dr. Laura Riddle MD Work Phone: [facility] 02-01-2025 13:29-0400 Systolic blood pressure 136 mm[Hg] Dr. Laura Riddle MD Work Phone: 8(786)795-010073 [address] 08-04-2024 13:38-0500 Body height 165.[address] Laura Riddle MD Work Phone: 3(144)280-180638 [place] [address] 08-04-2024 13:38-0500 Body temperature 96 [degF] Dr. Laura Riddle MD Work Phone: 1(217)016-070938 [place] [address] 08-04-2024 13:38-0500 Diastolic blood pressure 71 mm[Hg] Dr. Laura Riddle MD Work Phone: 7(856)152-370773 [place] [address] 08-04-2024 13:38-0500 Heart rate 70 /min Dr. Laura Riddle MD Work Phone: 7(594)429-729073 [place] [address] 08-04-2024 13:38-0500 Respiratory rate 16 /min Dr. Laura Riddle MD Work Phone: 2(758)306-696573 [place] [address] 08-04-2024 13:38-0500 SaO2% (BldA) [Mass fraction] 100 % Dr. Laura Riddle MD Work Phone: 3(640)116-177873 [place] [address] 08-04-2024 13:38-0500 Systolic blood pressure 118 mm[Hg] Dr. Laura Riddle MD Work Phone: 1(057)330-534773 [place] [address] 07-21-2024 08:28-0500 Body mass index (BMI) [Ratio] 24.3 kg/m2 Dr. Laura Riddle MD Work Phone: 7(725)617-954573 [place] [address] 07-21-2024 08:28-0500 Body weight 66.[address] Laura Riddle MD Work Phone: 6(414)104-964473 [place] [address] 07-21-2024 08:28-0500 Diastolic blood pressure 73 mm[Hg] Dr. Laura Riddle MD Work Phone: 8(017)792-138073 [place] [address] 07-21-2024 08:28-0500 Heart rate 66 /min Dr. Laura Riddle MD Work Phone: 5(053)929-506273 [place] [address] 07-21-2024 08:28-0500 SaO2% (BldA) [Mass fraction] 98 % Dr. Laura Riddle MD Work Phone: 3(517)591-098573 [place] [address] 07-21-2024 08:28-0500 Systolic blood pressure 129 mm[Hg] Dr. Laura Riddle MD Work Phone: 0(717)548-073873 [place] [address] 08-06-2023 13:28-0500 Body height 165.[address] Laura Riddle Work Phone: [facility] 08-06-2023 13:28-0500 Body mass index (BMI) [Ratio] 22.4 kg/m2 Dr. Laura Riddle Work Phone: [facility] 08-06-2023 13:28-0500 Body temperature 96.7 [degF] Dr. Laura Riddle Work Phone: [facility] 08-06-2023 13:28-0500 Body weight 61.[address] Laura Riddle Work Phone: [facility] 08-06-2023 13:28-0500 Diastolic blood pressure 74 mm[Hg] Dr. Laura Riddle Work Phone: [facility] 08-06-2023 13:28-0500 Heart rate 87 /min Dr. Laura Riddle Work Phone: [facility] 08-06-2023 13:28-0500 Respiratory rate 16 /min Dr. Laura Riddle Work Phone: [facility] 08-06-2023 13:28-0500 SaO2% (BldA) [Mass fraction] 100 % Dr. Laura Riddle Work Phone: [facility] 08-06-2023 13:28-0500 Systolic blood pressure 123 mm[Hg] Dr. Laura Riddle Work Phone: [facility] 07-22-2023 08:55-0500 Body mass index (BMI) [Ratio] 39.7 kg/m2 Dr. Laura Riddle Work Phone: [facility] 07-22-2023 08:55-0500 Body temperature 98.4 [degF] Dr. Laura Riddle Work Phone: [facility] 07-22-2023 08:55-0500 Body weight 108.[address] Laura Riddle Work Phone: [facility] 07-22-2023 08:55-0500 Diastolic blood pressure 73 mm[Hg] Dr. Laura Riddle Work Phone: [facility] 07-22-2023 08:55-0500 Heart rate 71 /min Dr. Laura Riddle Work Phone: [facility] 07-22-2023 08:55-0500 Respiratory rate 16 /min Dr. Laura Riddle Work Phone: [facility] 07-22-2023 08:55-0500 SaO2% (BldA) [Mass fraction] 97 % Dr. Laura Riddle Work Phone: [facility] 07-22-2023 08:55-0500 Systolic blood pressure 117 mm[Hg] Dr. Laura Riddle Work Phone: [facility] 02-05-2023 14:50-0400 Body height 165.[address] Laura Riddle Work Phone: [facility] 02-05-2023 14:50-0400 Body temperature 97 [degF] Dr. Laura Riddle Work Phone: [facility] 02-05-2023 14:50-0400 Diastolic blood pressure 46 mm[Hg] Dr. Laura Riddle Work Phone: [facility] 02-05-2023 14:50-0400 Heart rate 76 /min Dr. Laura Riddle Work Phone: [facility] 02-05-2023 14:50-0400 Respiratory rate 16 /min Dr. Laura Riddle Work Phone: [facility] 02-05-2023 14:50-0400 SaO2% (BldA) [Mass fraction] 94 % Dr. Laura Riddle Work Phone: [facility] 02-05-2023 14:50-0400 Systolic blood pressure 94 mm[Hg] Dr. Laura Riddle Work Phone: [facility] 01-27-2023 08:06-0400 Body mass index (BMI) [Ratio] 22.9 kg/m2 Dr. Laura Riddle Work Phone: [facility] 01-27-2023 08:06-0400 Body weight 62.[address] Laura Riddle Work Phone: [facility] 01-27-2023 08:06-0400 Diastolic blood pressure 70 mm[Hg] Dr. Laura Riddle Work Phone: [facility] 01-27-2023 08:06-0400 Systolic blood pressure 117 mm[Hg] Dr. Laura Riddle Work Phone: [facility] 08-05-2022 13:27-0500 Body height 165.[address] Laura Riddle Work Phone: 6(894)511-381173 [address] 08-05-2022 13:27-0500 Body mass index (BMI) [Ratio] 22.9 kg/m2 Dr. Laura Riddle Work Phone: 4(828)309-620938 [place] [address] 08-05-2022 13:27-0500 Body temperature 97.1 [degF] Dr. Laura Riddle Work Phone: 3(150)932-338238 [place] [address] 08-05-2022 13:27-0500 Body weight 62.[address] Laura Riddle Work Phone: [facility] 08-05-2022 13:27-0500 Diastolic blood pressure 72 mm[Hg] Dr. Laura Riddle Work Phone: 9(947)813-944838 [place] [address] 08-05-2022 13:27-0500 Heart rate 71 /min Dr. Laura Riddle Work Phone: 2(055)566-244338 [place] [address] 08-05-2022 13:27-0500 Respiratory rate 16 /min Dr. Laura Riddle Work Phone: 0(538)845-390938 [place] [address] 08-05-2022 13:27-0500 SaO2% (BldA) [Mass fraction] 98 % Dr. Laura Riddle Work Phone: 0(093)010-595438 [place] [address] 08-05-2022 13:27-0500 Systolic blood pressure 131 mm[Hg] Dr. Laura Riddle Work Phone: [facility] 07-23-2022 09:01-0500 Body mass index (BMI) [Ratio] 23.2 kg/m2 Dr. Laura Riddle Work Phone: [facility] 07-23-2022 09:01-0500 Body temperature 96.7 [degF] Dr. Laura Riddle Work Phone: [facility] 07-23-2022 09:01-0500 Body weight 63.[address] Laura Riddle Work Phone: [facility] 07-23-2022 09:01-0500 Diastolic blood pressure 74 mm[Hg] Dr. Laura Riddle Work Phone: [facility] 07-23-2022 09:01-0500 Heart rate 65 /min Dr. Laura Riddle Work Phone: [facility] 07-23-2022 09:01-0500 Respiratory rate 16 /min Dr. Laura Riddle Work Phone: [facility] 07-23-2022 09:01-0500 SaO2% (BldA) [Mass fraction] 96 % Dr. Laura Riddle Work Phone: [facility] 07-23-2022 09:01-0500 Systolic blood pressure 112 mm[Hg] Dr. Laura Riddle Work Phone: [facility] 02-04-2022 13:44-0400 Body height 162.[address] Laura Riddle Work Phone: [facility] Work Phone: 02-04-2022 13:44-0400 Diastolic blood pressure 59 mm[Hg] Dr. Laura Riddle Work Phone: [facility] Work Phone: 02-04-2022 13:44-0400 Heart rate 68 /min Dr. Laura Riddle Work Phone: [facility] Work Phone: 02-04-2022 13:44-0400 Respiratory rate 16 /min Dr. Laura Riddle Work Phone: [facility] Work Phone: 02-04-2022 13:44-0400 SaO2% (BldA) [Mass fraction] 97 % Dr. Laura Riddle Work Phone: [facility] Work Phone: 02-04-2022 13:44-0400 Systolic blood pressure 104 mm[Hg] Dr. Laura Riddle Work Phone: [facility] Work Phone: 01-21-2022 08:31-0400 Body mass index (BMI) [Ratio] 23.3 kg/m2 Dr. Laura Riddle Work Phone: [facility] Work Phone: 01-21-2022 08:31-0400 Body weight 62.[address] Laura Riddle Work Phone: [facility] Work Phone: 01-21-2022 08:31-0400 Diastolic blood pressure 70 mm[Hg] Dr. Laura Riddle Work Phone: [facility] Work Phone: 01-21-2022 08:31-0400 Systolic blood pressure 100 mm[Hg] Dr. Laura Riddle Work Phone: [facility] Work Phone: 10-24-2021 09:41-0400 Body mass index (BMI) [Ratio] 24 kg/m2 Dr. Laura Riddle Work Phone: [facility] Work Phone: 10-24-2021 09:41-0400 Body temperature 97 [degF] Dr. Laura Riddle Work Phone: [facility] Work Phone: 10-24-2021 09:41-0400 Body weight 64.[address] Laura Riddle Work Phone: [facility] Work Phone: 10-24-2021 09:41-0400 Diastolic blood pressure 82 mm[Hg] Dr. Laura Riddle Work Phone: [facility] Work Phone: 10-24-2021 09:41-0400 Heart rate 77 /min Dr. Laura Riddle Work Phone: [facility] Work Phone: 10-24-2021 09:41-0400 Respiratory rate 18 /min Dr. Laura Riddle Work Phone: [facility] Work Phone: 10-24-2021 09:41-0400 SaO2% (BldA) [Mass fraction] 100 % Dr. Laura Riddle Work Phone: [facility] Work Phone: 10-24-2021 09:41-0400 Systolic blood pressure 130 mm[Hg] Dr. Laura Riddle Work Phone: [facility] Work Phone: Encounters Encounter Date Encounter Type Care Provider Facility Start: 02-27-2025 End: 02-27-[address] Christina Bazan DO -[facility] Work Phone: Start: 02-27-2025 End: 02-27-[address] Christina Bazan DO [facility] Start: 02-27-2025 End: 02-27-2025 ambulatory Christina Bazan Facility:[facility] Start: 02-01-2025 End: 02-01-[address] Kurt Connors MD -[facility] Work Phone: Start: 02-01-2025 End: 02-01-[address] Laura Riddle MD Work Phone: -[facility] Start: 10-05-2024 End: 10-05-[address] Laura Riddle MD Work Phone: [facility] Work Phone: Start: 10-05-2024 End: 10-05-[address] Kurt Connors MD -Laboratory Work Phone: Start: 10-05-2024 End: 10-05-2024 ambulatory [facility] Facility:[facility] Start: 08-04-2024 End: 08-04-[address] Kurt Connors MD -[facility] Work Phone: Start: 08-04-2024 End: 08-04-2024 ambulatory [facility] Facility:[facility] Start: 07-21-2024 End: 07-21-[address] Kurt Connors MD -[facility] Work Phone: Start: 07-21-2024 End: 07-21-2024 ambulatory [facility] Facility:[facility] Start: 05-30-2024 End: 05-30-2024 ambulatory Laura S Janessa Facility:[facility] Start: 05-29-2024 End: 05-29-2024 ambulatory Laura S Jollmayra Facility:[facility] Start: 03-01-2024 End: 03-01-2024 ambulatory Jamijarrett Rutledgemitchell JAVIER Facility:[facility] Start: 08-06-2023 End: 08-06-[address] Laura Riddle Work Phone: [facility] Work Phone: Start: 08-06-2023 End: 08-06-[address] Laura Riddle Work Phone: [facility]-Medical Out Work Phone: Start: 07-22-2023 End: 07-22-[address] Laura Riddle Work Phone: [facility] Work Phone: Start: 02-19-2023 Non-patient / Non-visit Dr. Maria Esther Riddle Work Phone: [facility] Start: 02-19-[address] Laura bragg Work Phone: [facility]-Cardiovascular Services Work Phone: Start: 02-15-2023 End: 02-15-[address] Laura Riddle Work Phone: [facility] Work Phone: Start: 02-15-2023 End: 02-15-[address] Laura Riddle Work Phone: [facility]-Outpatient Breast Imaging Work Phone: Start: 02-05-2023 End: 02-05-[address] Laura Riddle Work Phone: [facility] Work Phone: Start: 02-05-2023 End: 02-05-[address] Laura Riddle Work Phone: [facility] Work Phone: Start: 01-27-2023 End: 01-27-[address] Laura Riddle Work Phone: [facility] Work Phone: Start: 08-05-2022 End: 08-05-[address] Laura Riddle Work Phone: [facility] Work Phone: Start: 08-05-2022 End: 08-05-[address] Laura Riddle Work Phone: [facility] Start: 07-23-2022 End: 07-23-[address] Laura Riddle Work Phone: [facility] Start: 02-04-2022 End: 02-04-[address] Laura Riddle Work Phone: [facility] Start: 01-21-2022 ambulatory Ren Mclaughlin Work Phone: [facility] [place] Start: 01-21-2022 End: 01-21-[address] Laura Riddle Work Phone: [facility] Start: 10-24-2021 End: 10-24-[address] Laura Riddle Work Phone: [facility] Start: 05-22-2019 Orders Only Ren Mclaughlin Work Phone: [facility] [place] Comment on above: Osteoporosis without current pathological fracture, unspecified osteoporosis type (Primary Dx) Procedures Date Procedure Procedure Detail Performing Clinician Start: 10-05-2024 Vitamin D, 25-hydrox y measurement Dr. Laura iRddle MD Work Phone: Comment on above: Vitamin D StatusDefi ciency: <20 ng/mL (50nmol/L)Insufficiency: 20-30 ng/mL (50-75 nmol/L)Sufficiency: 30-100 ng/mL (75-250 nmol/L)Toxicity: >100 ng/mL (>250 nmol/L) Start: 02-15-2023 Screening mammography Arnoldo Riddle Work Phone: Start: 09-25-2019 Lipid 1996 panel - S zahira or Plasma Ren Turner MD Work Phone: Start: 01-30-2019 Mammography Ren youngblood MD Work Phone: Start: 07-29-2016 Adult depression scr eening assessment Ren Turner MD Work Phone: Start: 09-26-2012 Colonoscopy Ren youngblood MD Work Phone: Colonoscopy colonoscopy Dr. Laura Riddle Work Phone: Plan of Treatment Date Care Activity Detail Author Start: 09-24-2024 Lipid panel Lipid Screening [facility] Start: 09-24-2024 LIPID SCREEN LIPID SCREEN [facility] Start: 07-26-2023 Advance Directive Discussion Advance Directive Discussion [facility] Start: 07-26-2023 Depression Assessment Depression Ass essment [facility] Start: 03-26-2023 Covid-19 Vaccine ( season) Covid-19 Vaccine () [facility] Start: 03-26-2023 Influenza vaccination Influenza Vacc ine (#1) [facility] Start: 03-18-2023 DIABETES SCREEN DIABETES SCREEN [facility] Start: 03-18-2023 Diabetes Screening Diabetes Screenin g [facility] Start: 09-26-2022 Colonoscopy COLONOSCOPY [facility] Start: 09-26-2022 COLORECTAL CANCER SCREENING COLORECTAL CANCER SCREENING [facility] Start: 09-26-2022 Screening for malign ant neoplasm of colon [facility] Start: 03-26-2022 Influenza vaccination INFLUENZ A (Season Ended) [facility] Start: 12-25-2021 COVID-19 VACCINE (2 - Pfizer series) COVID-19 VACCINE (2 - Pfizer series) [facility] Start: 07-26-2021 ADVANCE DIRECTIVE DISCUSSION ADVANCE DIRECTIVE DISCUSSION [facility] Start: 01-31-2020 Mammography MAMMOGRAM [facility] Start: 01-31-2020 Screening for malign ant neoplasm of breast Mammogram Screening [facility] Start: 07-29-2017 Adult depression screening assessment DEPRESSION SCREENING [facility] Start: 2015 Pneumococcal Vaccine : 65+ (1 of 1 - PCV) Pneumococcal Vaccine: 65+ (1 of 1 - PCV) [facility] Start: 2015 PNEUMOCOCCAL: 65+ (1 - PCV) PNEUMOCOCCAL: 65+ (1 - PCV) [facility] Start: 2010 RSV Vaccine (1 - 1-d ose 60+ series) RSV Vaccine (1 - 1-dose 60+ series) [facility] Start: 2000 SHINGRIX VACCINE (1 of 2) SHINGRIX VACCINE (1 of 2) [facility] Start: 1995 COLOGUARD (FIT-DNA) COLOGUARD (FIT-D NA) [facility] Start: [address] COLONOGRAPHY [facility] Start: 1995 FECAL OCCULT BLOOD FECAL OCCULT BLOO D [facility] Start: 1995 Screening for malign ant neoplasm of colon [facility] Start: 1995 SIGMOIDOSCOPY SIGMOIDOSCOPY [facility] Start: 1969 Urine microalbumin profile [facility] Start: 1968 HEPATITIS C SCREENING HEPATITIS C [facility] Start: 1968 Hepatitis C screening Hepatitis C [facility] DXA Bone [Mass/Area] Bone density [facility] Work Phone: MG Breast - bilatera l Screening [facility] Work Phone: MG Breast - bilatera l Screening [facility] End: 02-20-2023 Screening mammography bi 2-view breast inc cad ANÍBAL SCREENING Radiology Routine Encounter for screening mammogram for breast cancer 1 Occurrences starting 01/21/2022 until 02/20/2023 [facility] Work Phone: Comment on above: 1 Occurrences starti ng 01/21/2022 until 02/20/2023 Immunizations Immunization Date Immunization Notes Care Provider Fa cili 04-27-2022 influenza virus vaccine, unspecified formulation Ren Turner MD Work Phone: [facility] 12-04-2021 COVID-19 vaccine, ag e 12+ yr (goviral-BiiCodeNTZeto - PURPLE TOP) Ren Turner MD Work Phone: [facility] 05-16-2017 influenza, high dose seasonal, preservative-free Ren Turner MD Work Phone: [facility] 05-13-2016 influenza, high dose seasonal, preservative-free Ren Turner MD Work Phone: [facility] Work Phone: 04-25-2011 influenza virus vaccine, unspecified formulation Ren Turner MD Work Phone: [facility] Payers Date Payer Category Payer Self-pay [id number] 2023 Unknown [id number] 2019 Unknown ANTHEM BLUE CROS S AND BLUE SHIELD ANTHEM MEDIXOCHILT O [id number] 2019-Present [phone] [address] [place] [address] HMO [id number] 2017 Medicare HUMANA MEDICARE HU[employer]NA MEDICARE PFFS [id number] 2017-2019 [address] [address] [place] [address] Indemnity [id number] Medicare [id number] Medicare [id number] Unknown [id number] Unknown [id number] Unknown [id number] Unknown [id number] Unknown [id number] Unknown [id number] Unknown [id number] Unknown [id number] Social History Date Type Detail Facility Start: 08-12-2012 End: 02-27-2025 Tobacco smoking status NHIS Never smoked tobacco [facility] Start: 10-29-2016 End: 03-29-2020 Alcohol intake Current drinker of alcohol (finding) [facility] Start: 10-29-2016 End: 03-29-2020 Alcohol intake [facility] Start: 1950 Sex Assigned At Not on file [facility] Start: 01-21-2022 End: 07-22-2023 Tobacco smoking status NHIS Unknown if ever smoked [facility] Start: 02-16-[address] [facility] Start: 02-16-2020 Spouse/ Signif icant Other [facility] Start: 1950 Sex Assigned At Female [facility] Start: 08-12-2012 Tobacco use and exposure Smokeless tobacco non-user [facility] Gender identity Not on file [facility] Start: 10-14-2024 Sex Female (finding) [facility] Mental Status Date Assessment Result Facility 02-01-2025 Cognitive function Awake;Alert;A ppropriate;Fol lows Commands [facility] Work Phone: 08-04-2024 Cognitive function Awake;Alert;A ppropriate;Fol lows Commands [facility] Work Phone: 02-05-2023 Cognitive function Awake;Alert;A ppropriate;Fol lows Commands [facility] Work Phone: 08-05-2022 Cognitive function Voice/Name [facility] Work Phone: 02-04-2022 Cognitive function Voice/Name [facility] Work Phone: Clinical Notes 07-02-2008 to 02-27-2025 Note Date & Type Note Facility 02-27-2025 Progress note [facility] 02-27-2025 Progress note Note Date/Time February 27, 2025 2:23pm [facility] [address], [address] [place] [address] OFFICE VISIT Date of Service: 02/27/25 MR#: [id number] Acct: [id number] Name: KAYLEE BEARDENORAAgata URBAN Rep #: [id number] : 1950 Provider: Dr. 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) Quality Assurance Associate Required: No Is patient in pain?: No Allergies sulfamethoxazole (From Bactrim) Allergy (Mild, Verified 02/27/25 13:34) Other trimethoprim (From Bactrim) Allergy (Mild, Verified 02/27/25 13:34) Other Medications ?Medication ?Instructions ?Recorded ?Confirmed ?Type cholecalciferol (vitamin D3) 125 125 mcg PO DAILY 06/2602/27/25 History mcg (5,000 unit) capsule multivitamin 1 tab PO .QOD 07/23/2202/27 History biotin 1 mg capsule 1 mg PO DAILY 01/27/2302/27 History melatonin 3 mg capsule 3 mg PO HS PRN sleep 3 02/27/25 History mineral oil-hydrophil petrolat 1 applic topical TID 02/27/25 History topical ointment (Aquaphor topical ointment) vitamin B complex 1 tab PO DAILY PRN . 3 02/27/25 History clobetasol 0.05 % topical ointment 1 applic topical QH S 07/21/24 02/27/25 History denosumab 60 mg/mL subcutaneous 60 mg subcut [id number] #1 mL 08/03/24 02/27/25 Rx syringe Is last menstrual period known: No Post menopausal: Yes Patient : No : No PFSH Medical History Fecal incontinence Tremor Vitamin D deficiency Hypocalcemia Vaccine counseling CKD (chronic kidney disease) Osteoporosis Lichen sclerosus et atrophicus colonoscopy Skin cancer Surgical History History of surgery on arm H/O dilation and curettage Family History Mother Arthritis Tremors of nervous system Father Cancer prostate Grandfather Cancer prostate Social History (Updated 02/27/25 @ 13:47 by Linda Gallegos) Smoking Status: Never smoker alcohol intake: current details: social substance use type: does not use caffeine: Yes what type of physical activity do you participate in: other details: hikes around 7 miles frequency: daily seatbelt use: always do you feel safe at home: Yes additional social history: 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 Date Name GA/Weeks Outcome Route Bth Weight Gen Labor Lgth Anesthesia Del Locatn Provider FOB Unknown 1970 Aaron Unknown 1979 Mark HPI Encounter for routine gynecological examination Details: ZULAY BEARDEN is a 74 year old who presents for annual exam. Last PAP: prior to age 65 History of abnormal PAP:no Last mammogram: 03/01/24 History of abnormal mammogram: no Colon cancer screening: patient states did her last colonoscopy in 2022 Other preventative health care screenings: followed by pcp and Dr. Connors. she interested in the Coronary calcium CT test. The patient reports a history of tick bites, with the most recent incident resulting in an infection that required antibiotic treatment. The tick was foundon her thigh, and she experienced pain and swelling at the site, leading to a consultation with her physician who prescribed antibiotics. She has been diagnosed with osteoporosis and is currently receiving Prolia injections. The patient expressed concerns about potential side effects, including a past incident where a piece of her jawbone detached, which she attributes to the medication. The patient has a history of hyperlipidemia, with elevated LDL cholesterol levels noted in recent tests. She has been advised against statin therapy due toher good HDL levels and concerns about potential side effects. The patient also reports lichen sclerosus, which is being managed with topical treatments. Additionally, she experiences some bladder control issues, although they are notsevere at this time. Attestation: Documentation on this patient encounter was supported using ambient scribe technology/ voice AI technology. The patient consented to recording for the purpose of documenting the encounter. Provider reviewed content of the generatednote prior to signature. Female Reproductive History Questions: metrorrhagia: No, sexually active: Yes, dyspareunia: No and PCB: No Menopausal Symptoms: No hot flashes, No night sweats, No weight change, No mood changes, No difficulty concentrating, No sleep problems and No change in libido ROS Const Constitutional: Reports as per HPI; Denies fatigue, increased appetite, poor appetite, night sweats, weight gain or weight loss Cardio Card: Denies chest pain Resp Resp: Denies cough or dyspnea GI GI: Reports as per HPI; Denies abdominal pain, bloating, constipation, nausea or vomiting : Reports as per HPI and other; Denies difficulty voiding, dysuria, hematuria, hot flashes, nipple discharge, pelvic pain, prolapse symptoms, urinary frequency, urinary incontinence, urinaryurgency, vaginal discharge, vaginal dryness, vaginal odor or vaginal pruritus Skin Skin/Breast: Denies changing lesions, breast mass, breast pain, breast skin changes or nipple discharge Psych Psych: Denies anxiety, change in libido, depression or difficulty concentrating Exam Const General: cooperative, healthy appearing, comfortable, no acute distress, well developed and well groomed [facility] Head: normal to inspection and normocephalic Ears: hearing grossly normal bilaterally and external ears normal Nose: external nose normal Face and sinus: normal facial exam Neck Neck: normal visual inspection, full ROM and no lymphadenopathy Thyroid: thyroid normal Chest Chest palpation & inspection: normal inspection of the chest Breast inspection: normal inspection of the breasts and normal inspection of theaxillae Breast palpation: normal palpation of the breasts, normal palpation of the axillae and no axillary lymphadenopathy Resp Effort & Inspection: normal respiratory effort GI Inspection: normal to inspection and non-distended Palpation: soft, no hepatosplenomegaly and no guarding General: bladder normal to palpation External Female Exam: normal external appearance, normal appearance of the urethra and no lesions Urethra: normal appearance of the urethra and normal palpation Speculum Exam - Vagina: normal appearance of the vagina and normal vaginal discharge Speculum Exam - Cervix: normal appearance of the cervix, no cervical discharge, no lesions and nontender Bimanual Exam- Vagina & Uterus: normal bimanual exam, uterine size normal, bladder normal to palpation, No tender, uterine mobility normal, consistency normal, non-tender and no cervical motion tenderness Bimanual Exam- Adnexa, other: normal adnexae, no masses and non-tender Skin General: no rashes or lesions noted Neuro General: patient alert, moves all extremities and no focal motor deficits Extrem General: normal to inspection and no pedal edema Psych Appearance: grossly normal Mental Status: mental status grossly normal Affect: normal affect Speech and Movement: speech and movement normal Attitude: cooperative Coding Level of Care Code Pelvic/Breast Diagnoses Encounter for routine gynecological examination Z01.419 Assessment and Plan Assessment and Plan (1) Encounter for routine gynecological examination: Plan: Assessment and Plan 74-year-old female with a history of osteoporosis presenting with a wellness check and management of chronic conditions. The patient experienced a tick bite that resulted in an infection, which was treated with antibiotics. The infection was localized to the thigh, and the patient responded well to the treatment. Osteoporosis is being managed with Prolia injections, although the patient has concerns about potential side effects, including a previous incident of jawbone detachment. Hyperlipidemia is noted with elevated LDL cholesterol levels, but statin therapyis not currently recommended due to good HDL levels and potential side effects. Lichen sclerosus is present and managed with topical treatments. Bladder control issues are mild and not currently impacting the patient's quality of life significantly. 1. Tick Bite With Subsequent Infection The patient experienced a tick bite that resulted in an infection, which was treated with a 10-day course of antibiotics. The infection was localized to the thigh, and the patient responded well to the treatment. 2. Osteoporosis With Prolia Treatment Osteoporosis is being managed with Prolia injections, although the patient has concerns about potential side effects, including a previous incident of jawbone detachment. Continued monitoring and discussion of risks versus benefits of ongoing treatment are recommended. 3. Hyperlipidemia Hyperlipidemia is noted with elevated LDL cholesterol levels, but statin therapyis not currently recommended due to good HDL levels and potential side effects. A coronary CT calcium score screening is planned to assess cardiovascular risk further. 4. Lichen Sclerosus Lichen sclerosus is present and managed with topical treatments. 5. Bladder Control Issues Bladder control issues are mild and not currently impacting the patient's quality of life significantly. No immediate intervention is required, but monitoring for any progression is advised. 6. Preventative Care: Coronary Ct Calcium Score Screening A coronary CT calcium score screening is planned to assess cardiovascular risk further. This test is available through a tracie and will help determine the needfor statin therapy based on the results. 02/27/25 1423 <Electronically signed by Christina Mccann DO> Date _ Christina Bazan DO Cosigner Signature: Date (if applicable) CC: ~ [facility] Work Phone: 1(951) 572-956012-27-2024 Evaluation note* Diagnosis Onset Date Resolution Status Admit Date Osteoporosis chronic June 8:32am [facility] Work Phone: 1(777) 533-303806-29-2022 NotePatient Outreach (INTMMN) [place]EN ([id number]) 1950 F Date Time Provider Department 01/21/22 REN TURNER INTMMN During your visit today, we recorded the following information about you: Allergies As of Date: 01/21/2022 Noted Allergy Reaction BACTRIM (SULFAMETHOXAZOLE-TRIMETH*05/27/2006 Comments: Rash and swelling of her throat Date Reviewed: 06/26/2020 Reviewed by: Tri Sheffield LPN - Fully Assessed Visit Diagnosis:Encounter for screening mammogram for breast cancer [Z12.31] Order(s):[facility] SCREENING [[id number]] Order #: [id number] FUTURE Prescriptions as of 01/26/2022 - denosumab [...] Osteoporosis [M81.0] 07/29/2016 Anxiety [F41.9] 07/29/2016 Shortened TX interval [R94.31] 07/29/2016 Cellulitis [L03.90] 02/16/2020 02/23/2020 LORETA (acute kidney injury) (HCC) [N17.9] 02/23/2020 02/23/2020 Encounter Status:Closed by Estrogen Gene Test on 01/26/22[facility] 02-14-2021 NotePatient Outreach (INTMMN) ZULAY BEARDEN ([id number]) 1950 F Date Time Provider Department 02/14/21 REN TURNER INTMMN During your visit today, we recorded the following information about you: Allergies As of Date: 02/14/2021 Noted Allergy Reaction BACTRIM (SULFAMETHOXAZOLE-TRIMETH*05/27/2006 Comments: Rash and swelling of her throat Date Reviewed: 06/26/2020 Reviewed by: Tri Sheffield LPN - Fully Assessed Visit Diagnosis:Encounter for screening mammogram for breast cancer [Z12.31] Order(s):[facility] SCREENING [[id number]] Order #: [id number] FUTURE Prescriptions as of 02/17/2021 - denosumab [...] Osteoporosis [M81.0] 07/29/2016 Anxiety [F41.9] 07/29/2016 Shortened TX interval [R94.31] 07/29/2016 Cellulitis [L03.90] 02/16/2020 02/23/2020 LORETA (acute kidney injury) (HCC) [N17.9] 02/23/2020 02/23/2020 Encounter Status:Closed by SOCORRO PRODUSER on 02/17/21[facility] 02-23-2020 History of Past illness Narrative* Problem Noted Date Resolved Date LORETA (acute kidney injury) 02/23/20202019 Cellulitis 02/16/2020 02/23/2020 Symptomatic menopausal or female climacteric sta satnam 07/02/2008 07/17/2011 documented as of this encounter (statuses as of 01/26/2022) [facility]12-08-2008 History of Past illness Narrative* Problem Noted Date Diagnosed Date Resolved Date Symptomatic menopausal or fe male climacteric states 07/02/2008 07/17/2011 documented as of this encounter (statuses as of 09/13/2023) [facility] note* Diagnosis Encounter for screening mammogram for breast cancer documented in this encounter [facility] note* Diagnosis Onset Date Resolution Status Osteoporosis acute Vaccine counseling acute Fecal incontinence acute Irritable bowel syndrome with diarrhea acute Osteoporosis acute Vaccine counseling acute CKD (chronic kidney disease) chronic Lichen sclerosus et atrophicus chronic Encounter for routine gynecological examination noneactive [facility] Work Phone: evaluation note* Diagnosis Onset Date Resolution Status Hypocalcemia acute Osteoporosis acute Vitamin D deficiency acute [facility] Work Phone: evaluation note* Diagnosis Onset Date Resolution Status Encounter for routine gynecological examination noneactive [facility] Work Phone: evaluation note* Diagnosis Onset Date Resolution Status Tremor acute Osteoporosis chronic Vitamin D deficiency chronic [facility] Work Phone: evaluation note* Diagnosis Osteoporosis without current pathological fracture, unspecified osteoporosis type- Primary documented in this encounter [facility] noteNo assessment information [facility] Work Phone: evaluation note* Diagnosis Onset Date Resolution Status Admit Date Encounter for routine gynecological examination noneactive February 27, 2025 1:31pm [facility] Work Phone: Reason for referral (narrative)* Diagnostic Procedure Only (Routine) - Pending Review Specialty Diagnoses / Procedures Referred By Jimi t Referred To Contact [facility] Diagnoses Encounter for screening mammogram for breast cancer Procedures ANÍBAL SCREENING SCREENING MAMMOGRAPHY BI 2-VIEW BREAST INC Ren Gutierrez MD [address] [place] [address] [facility] [address] [place] [address] Referral ID Status Reason Start Date Expiration Date Visits Requested Visits Authorized [id number] Pending Review Auto-Generat ed Referral 01/21/2022 02/20/2023 1 [facility]No reason for referral information availableWNewark [facility] Work Phone: Summary Purpose Family History Relationship Condition Age at Onset Recorded Date/T gian mother Arthritis Unknown Tremor Unknown father Malignant neoplasm Unknown grandfather Malignant neoplasm Unknown Advance Directives Documents on File Type Date Recorded 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 No February 16, 2020 3:31pm Hospital Course Note HNO ID: [id number] Author: Mary Garrido Service: Hospital Medicine Author Type: Physician Type: [...] AND MEDICAL TEAM: My Main Hospital Doctor: Hunter Garrido Primary Care Provider: REN TURNER MD My Medical Team Members: Treatment Team: Attending Provider: Hunter Garrido Consulting: Darrius Grant Consulting: Collette Nunn (Fel) Consulting: (more content not included)... Note HNO ID: [id number] Author: Manjula Grant Service: Plastic Surgery Author Type: Physician Type: Brief Op Note Filed: 02/17/2020 1:28 PM Note Text: BRIEF OPERATIVE / PROCEDURE NOTE LOG ID: [id number] SURGERY/PROCEDURE DATE: 02/17/2020 INCISION/PROCEDURE START TIME: 1:05 PM INCISION CLOSE/PROCEDURE END TIME: 1:23 PM SURGEON(S)/PROCEDURALIST(S) AND EMPLOYEE BENEFITS DIRECTOR(S): Surgeon(s) and Role: * Darrius Grant - Primary No Additional Staff SURGERY/PROCEDURE(S): I AND D [...] PAGER/CONTACT #: Procedure Findings Note HNO ID: [id number] Author: Manjula Grant Service: Plastic Surgery Author Type: Physician Type: Brief Op Note Filed: 02/17/2020 1:28 PM Note Text: BRIEF OPERATIVE / PROCEDURE NOTE LOG ID: [id number] SURGERY/PROCEDURE DATE: 02/17/2020 INCISION/PROCEDURE START TIME: 1:05 PM INCISION CLOSE/PROCEDURE END TIME: 1:23 PM SURGEON(S)/PROCEDURALIST(S) AND EMPLOYEE BENEFITS DIRECTOR(S): Surgeon(s) and Role: * Darrius Grant - Primary No Additional Staff SURGERY/PROCEDURE(S): I AND D cat bite abscess L wrist dorsum ANESTHESIA: General FINDINGS: seropurulent fluid in subcutaneous space and peritendinous sheath -- no evidence of carpal joint penetration ESTIMATED BLOOD LOSS: 0 ml SPECIMENS: None COMPLICATIONS: None PRE-OP/PRE-PROCEDURE DIAGNOSIS: ABOVE POST-OP/POST-PROCEDURE DIAGNOSIS: Same as Preop SIGNATURE: Darrius Grant MD PATIENT NAME: Zulay Lara Suleiman DATE: February 17, 2020 TIME: 1:26 PM PAGER/CONTACT #: Chief Complaint and Reason for Visit Chief Complaint TO DISCUSS TEST RESU 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) Prolia / Osteoporosis Reason for Visit Osteoporosis Vaccine counseling Fecal incontinence Irritable bowel syndrome with diarrhea Osteoporosis Vaccine counseling CKD (chronic kidney disease) Lichen sclerosus et atrophicus Encounter for routine gynecological examination Chief Complaint 1 Y FU Prolia / Osteoporosis Reason for Visit Hypocalcemia Osteoporosis Vitamin D deficiency Chief Complaint 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) Prolia / Osteoporosis Reason for Visit Encounter for routin e gynecological examination Chief Complaint 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) Prolia / 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 Visit Encounter for routin e gynecological examination Chief Complaint 1 Y FU Prolia / Osteoporosis Reason for Visit Tremor Osteoporosis Vitamin D deficiency Chief Complaint Admit Date 1 Y FU July 21, 2024 8:32am Prolia / Osteoporosis August 04, 2024 1:25pm Reason for Visit Admit Date Osteoporosis July 21, 2024 8:32am Chief Complaint Admit Date Prolia / Osteoporosis February 01, 2025 1: 23pm Chief Complaint Admit Date Prolia / Osteoporosis February 01, 2025 1: 23pm 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) February 27, 2025 1:3 1pm Reason for Visit Admit Date Encounter for routine gynecological exam ination February 27, 2025 1:31pm Additional Source Comments INFORMATION SOURCE (unrecogn ized section and content) DATE CREATED AUTHOR 02/26/2020 [facility] DATE CREATED AUTHOR AUTHOR'S ORGANIZ ATION 03/21/2020 [facility] DATE CREATED AUTHOR AUTHOR'S ORGANIZ ATION 01/26/2022 [facility] DATE CREATED AUTHOR AUTHOR'S ORGANIZ ATION 02/23/2025 [facility] Source Comments (unrecognize d section and content) In the event this informatio n is protected by the Federal Confidentiality of Alcohol and Drug Abuse Patient Records regulations: The Federal rules restrict any use of the information to criminally investigate or prosecute any alcohol or drug abuse patient.[facility] the event this information is protected by the Federal Confidentiality of Alcohol and Drug Abuse Patient Records regulations: The Federal rules restrict any use of the information to criminally investigate or prosecute any alcohol or drug abuse patient.[facility] Care Teams (unrecognized sec tion and content) Stamp Mounter Relationship Specialty Start Date End Date Ren Turner MD [address] [place] [address] PCP - General Internal Medicine 07/29/16 Team Status: Active Member Role Status Dates No Primary Care Physician Family Provider Active Dr. Laura Riddle MD Primary Care Provider Active Team Status: Inactive Member Role Status Dates Dr. Laura Riddle MD Primary Care Provider, Referrin g Provider Active Dr. Kurt Connors MD Attending Provider Active Team Status: Inactive Member Role Status Dates Dr. Laura Riddle MD Primary Care Provider Active Dr. Kurt Connors MD Attending Provider, Referring Provi nikko Active Team Status: Inactive Member Role Status Dates Dr. Laura Riddle MD Primary Care Provider, Referrin g Provider Active Dr. Christina Bazan DO Attending Provider Activ e Team Status: Active Member Role Status Dates Dr. Laura Riddle MD Primary Care Provider Active Dr. Jose Perez MD Attending Provider Active Team Status: Inactive Member Role Status Dates Dr. Laura Riddle MD Primary Care Provider Active Dr. Christina Bazan DO Attending Provider, Refe rring Provider Active Team Status: Active Member Role Status Dates Self Referred Attending Provider Active Dr. Laura Riddle MD Primary Care Provider, Referrin g Provider Active Stamp Mounter Relationship Specialty Start Date End Date Ren Turner MD [address] [place], [place] [id number] PCP - General Internal Medicine 07/29/16 Team Status: Inactive Member Role Status Dates Dr. Laura Riddle MD Primary Care Provider Active Start: July 21, 2024 End: July 21, 2024 Dr. Laura Riddle MD Referring Provider Active Start: July 21, 2024 End: July 21, 2024 Dr. Kurt Connors MD Attending Provider Active Sta rt: July 21, 2024 End: July 21, 2024 Team Status: Inactive Member Role Status Dates Dr. Laura Riddle MD Primary Care Provider Active Start: August 04, 2024 End: August 04, 2024 Dr. Kurt Connors MD Attending Provider Active Sta rt: August 04, 2024 End: August 04, 2024 Dr. Kurt Connors MD Referring Provider Active Sta rt: August 04, 2024 End: August 04, 2024 Team Status: Inactive Member Role Status Dates Dr. Laura Riddle MD Primary Care Provider Active Start: October 05, 2024 End: October 05, 2024 Dr. Kurt Connors MD Attending Provider Active Sta rt: October 05, 2024 End: October 05, 2024 Dr. Kurt Connors MD Referring Provider Active Sta rt: October 05, 2024 End: October 05, 2024 Team Status: Active Member Role/Relationship Status Dates Dr. Laura Riddle MD Primary Care Provider Active Team Status: Inactive Member Role/Relationship Status Dates Dr. Laura Riddle MD Primary Care Provider Active Start: October 05, 2024 End: October 05, 2024 Dr. Kurt Connors MD Attending Provider Active Sta rt: October 05, 2024 End: October 05, 2024 Dr. Kurt Connors MD Referring Provider Active Sta rt: October 05, 2024 End: October 05, 2024 Team Status: Inactive Member Role/Relationship Status Dates Dr. Laura Riddle MD Primary Care Provider Active Start: February 01, 2025 End: February 01, 2025 Dr. Kurt Connors MD Attending Provider Active Sta rt: February 01, 2025 End: February 01, 2025 Dr. Kurt Connors MD Referring Provider Active Sta rt: February 01, 2025 End: February 01, 2025 Team Status: Inactive Member Role/Relationship Status Dates Dr. Laura Riddle MD Primary Care Provider Active Start: February 01, 2025 End: February 01, 2025 Dr. Kurt Connors MD Attending Provider Active Sta rt: February 01, 2025 End: February 01, 2025 Dr. Kurt Connors MD Referring Provider Active Sta rt: February 01, 2025 End: February 01, 2025 Team Status: Inactive Member Role/Relationship Status Dates Dr. Laura Riddle MD Primary Care Provider Active Start: February 27, 2025 End: February 27, 2025 Dr. Laura Riddle MD Referring Provider Active Start: February 27, 2025 End: February 27, 2025 Dr. Christina Bazan DO Attending Provider Activ e Start: February 27, 2025 End: February 27, 2025 Goals (unrecognized section and content) Goals may be documented in a n alternate sectionGoals may be documented in an alternate sectionGoals may be documented in an alternate sectionGoals may be documented in an alternate sectionGoals may be documented in an alternate sectionGoals may be documented in an alternate sectionGoals may be documented in an alternate sectionGoals may be documented in an alternate section FOR RECORDS PERTAINING TO PATIENTS WHO ARE [...] BE BASED ON THE PRIMARY CLINICAL RECORDS. [employer] provides no warranty or guarantee of the accuracy or completeness of information in this document.
== END | disposition home or self-care (01) ==
LOC: OPBI 10:07
PROVIDERS: PCP Family Medicine; Referring Provider Obstetrics & Gynecology; Visit Provider Obstetrics & Gynecology
DX: Z12.31 Encounter for screening mammogram for malignant neoplasm of breast (principal)
CPT/HCPCS: 77063; 77067

== ENCOUNTER → 2025-05-17 | Outpatient (CLI) | payer MEDICARE, SELFPAY ==
--- OUTSIDE RECORDS SUMMARY | 2025-05-17 06:05 | XMS RPT_ITS | CCD ---
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 Laura Riddle MD Primary Care Provider King DEEPIKA, Dr. Hicks Attending Provider King DEEPIKA, Dr. Hicks Referring Provider Janessa POE, Dr. Laura Huff Primary Care Provider King DEEPIKA, Dr. Hicks Attending Provider King DEEPIKA, Dr. Hicks Referring Provider Janessa POE, Dr. Laura Huff Referring Provider Debbie Renner DO, Dr. Vasquez Attending Provider Debbie Renner DO, Dr. Vasquez Referring Provider Janessa POE, Dr. Laura Huff Primary Care Physician King DEEPIKA, Dr. Hicks Attending Physician Debbie Renner DO, Dr. Vasquez Attending Physician Zion POE, Dr. Tucker Attending Physician [phone] Nando POE, Dr. Martínez Primary Care Physician Jolliff, Laura S Referring Unavailable Jolliff, Laura S Primary Care Unavailable RikkideChristina Attending Unavailabl e Waylon, Kurt Attending Unavailable Jolliff, Laura S Primary Care Unavailable Jolliff, Laura S Referring Unavailable Jolliff, Laura S Primary Care Unavailable Waylon, Kurt Referring Unavailable Kane Connorsi Attending Unavailable Jolliff, Laura S Primary Care Unavailable Christina Renner Attending Unavailabl e VeldeChristina Referring Unavailabl e Zion, Caitlin Attending Unavailable Zion, Caitlin Referring Unavailable Collier, Mauricio Primary Care Unavailable Zion, Caitlin Attending Unavailable Zion, Caitlin Referring Unavailable Collier, Mauricio Primary Care Unavailable Jolliff, Laura S Primary Care Unavailable Jolliff, Laura S Attending Unavailable Jolliff, Laura S Referring Unavailable Jolliff, Laura S Primary Care Unavailable Jolliff, Laura S Attending Unavailable Jolliff, Laura S Referring Unavailable Jolliff, Laura S Primary Care Unavailable VeldeChristina Attending Unavailabl e VeldeChristina Referring Unavailabl e Waylon, Kurt Referring Unavailable Jolliff, Laura S Primary Care Unavailable Waylon, Kurt Attending Unavailable Kurt Connors Referring Unavailable Laura Riddle Primary Care Unavailable Kurt Connors Attending Unavailable Laura Riddle Referring Unavailable Caitlin Donovan Attending Unavailable Mauricio Collier Primary Care Unavailable Isael Vieyra Attending Unavailable Allergies Allergy Classification Reported Allergen(s) Allergy Type Date of Onset Reaction(s) Facility (2 sources) Sulfamethoxazole / Trimethoprim Drug Allergy 6 [facility] Work Phone: (10 sources) Sulfamethoxazole Drug Allergy [address] [facility] (10 sources) Trimethoprim Drug Allergy [address] [facility] (1 source) Ibandronate Drug Allergy [address] [facility] (1 source) atorvastatin Drug Allergy 5 [facility] (1 source) Ibadronate Drug Allergy 5 [facility] (1 source) rosuvastatin Drug Allergy 5 [facility] (1 source) Sulfamethoxazole Drug Allergy 5 [facility] (1 source) Trimethoprim Drug Allergy 5 [facility] Medications Current Medications Medication Drug Class(es) Dates Sig (Normalized) Sig (Original) aspirin 81 mg oral tablet (1 source) Platelet Aggregation Inhibitor, Nonsteroidal Anti-inflammatory Drug Start: 04-26-2025 take 1 tablet by mouth once daily Aspirin 81 mg tablet Active 81 mg PO daily April 26, 2025 12:00am Complies with drug therapy atorvastatin 20 mg oral tablet (1 source) HMG-CoA Reductase Inhibitor Start: 04-26-2025 take 1 tablet by mouth once daily Atorvastatin 20 mg tablet Active 20 mg PO daily April 26, 2025 12:00am Complies with drug therapy biotin 1 mg oral capsule (8 sources) Start: 01-27-2023 take 1 capsule by mouth once daily Biotin 1 mg capsule Active 1 mg PO DAILY January 27, 2023 12:00am Complies with drug therapy cholecalciferol 0.125 mg oral capsule (11 sources) Vitamin D Start: 07-23-2022 take 1 capsule by mouth once daily Cholecalciferol (Vitamin D3) 125 mcg (5,000 unit) capsule Active 125 ug PO DAILY July 23, 2022 1:00am Complies with drug therapy Start: 07-29-2016 take 1 capsule by [facility] once daily Cholecalciferol, Vitamin D3, 5,000 unit cap Take 1 capsule by mouth once daily. 0 07/29/2016 Active Comment on above: Take 1 capsule by mo [facility] once daily. clobetasol propionate 0.0005 mg/mg topical ointment (20 sources) Corticosteroid Start: 01-09-2021 End: 04-19-2025 Clobetasol 0.05 % ointment Active 1 [facility] TOPICAL AT BEDTIME as needed April 19, 2025 2:51pm apply thin layer; massage gently into affected area nightly x 6 weeks then 1-2x weekly Complies with drug therapy Start: 08-06-2017 End: 01-03-2019 Clobetasol 0.05 % ointment D iscontinued 1 NMA TOPICAL AT BEDTIME 22 10August 06, 2017 1:00am January 03, 2019 2:20pm apply thin layer; massage gently into affected area Start: 08-06-2017 End: 01-03-2019 Clobetasol Discontinued 1 AP PLIC TOPICAL AT BEDTIME August 06, 2017 12:00am January 03, 2019 1:20pm apply thin layer; massage gently into affected area melatonin 3 mg oral capsule (8 sources) Start: 01-27-2023 take 1 capsule by mouth at bedtime as needed for sleep Melatonin 3 mg capsule Active 3 mg PO BEDTIME as needed for sleep January 27, 2023 12:00am Complies with drug therapy Mineral Oil-Hydrophil Petrolat (Aquaphor) ointment (7 sources) Start: 04-26-2025 Mineral Oil-Hy drophil Petrolat (Aquaphor) ointment Active 1 NMA TOPICAL THREE TIMES A DAY as needed April 26, 2025 10:08am Complies with drug therapy Start: 07-22-2023 End: 04-26-2025 Mineral Oil-Hydrophil Petrol at (Aquaphor) ointment Discontinued 1 NMA TOPICAL THREE TIMES A DAY July 22, 2023 1:00am April 26, 2025 10:09am Start: 07-22-2023 Mineral Oil-Hy drophil Petrolat (Aquaphor) ointment Active 1 NMA TOPICAL [...] 1:00am Start: 07-23-2022 take 1 tablet by walter th every other day Multivitamin Active 1 TABLET PO .QOD July 23, 2022 12:00am Multivitamin tablet (5 sources) Start: 07-23-2022 Multivitamin t ablet Active 1 {tbl} PO .QOD July 23, 2022 1:00am Complies with drug therapy Start: 07-23-2022 Multivitamin t ablet Active 1 {tbl} PO .QOD July 23, 2022 1:00am thioctic acid 600 mg oral capsule (1 source) Start: 04-26-2025 take 1 capsule by mouth once daily Alpha Lipoic Acid 600 mg capsule Active 600 mg PO daily April 26, 2025 12:00am Complies with drug therapy ubidecarenone 100 mg oral tablet (1 source) Start: 04-19-2025 take 10 tablets by mouth once daily Coenzyme Q10 100 mg tablet Active 100 mg PO daily April 19, 2025 12:00am Complies with drug therapy Vitamin B Complex (6 sources) Start: 07-22-2023 [...] tablet d aily. Vitamin B Complex tablet (10 sources) Start: 07-22-2023 Start: 07-22-2023 Vitamin B Comp shayy tablet Active 1 {tbl} PO DAILY as [...] above: Take by mouth once d aily. 1 ml denosumab 60 mg/ml prefilled syringe (20 sources) RANK Ligand Inhibitor Start: 07-24-2021 End: 07-22-2023 Denosumab Active 60 MG SC every 6 months 1 July 22, 2023 9:04am Start: 06-24-2020 End: 08-03-2024 Denosumab 60 mg/mL syringe D iscontinued 60 mg SC every 6 months 1 January 25, 2024 1:37pm August 03, 2024 1:45pm [...] d aily. estradiol 0.1 mg/ml vaginal cream (3 sources) Estrogen Start: 04-19-2025 End: 04-26-2025 Estradiol (Estrace) 0.01 % (0.1 mg/gram) cream Discontinued 1 NMA VAGINAL TWICE A WEEK April 19, 2025 12:00am April 26, 2025 10:08am Start: 08-12-2012 estradiol (EST RACE) 0.01 % (0.1 mg/g) vaginal cream Use 1 g vaginally 3 times a WEEK. 42 g 0 08/12/2012 Active Comment on above: Use 1 g vaginally 3 times a WEEK. loperamide hydrochloride 2 mg oral capsule (1 source) Opioid Agonist Start: 0 take 1 capsule by mouth every twelve hours as needed loperamide (IMODIUM) 2 mg cap(s) Take 1 capsule by mouth twice daily as needed for Diarrhea. 10 capsule 0 02/23/2020 Active Comment on above: Take 1 capsule by mo [facility] twice daily as needed for Diarrhea. niacin 500 mg oral tablet (9 sources) Nicotinic Acid Start: 2 End: 2 take 1 tablet by mouth every week Niacin 500 mg tablet Discontinued 500 mg PO .3X weekly July 23, 2022 1:00am July 23, 2022 10:31am [place] 7-Glh-Vcm-Fish Oil (Fish Oil) 1,200 (144-216) mg capsule (9 sources) Start: 2 End: 2 [place] 6-Hal-Lrp-Fish Oil (Fish Oil) 1,200 (144-216) mg capsule Discontinued 1 NMA PO DAILY July 23, 2022 1:00am July 23, 2022 10:31am Start: 07-23-2022 End: 07-23-2022 take 1 capsule by mouth once daily [place] 4-Zwc-Lla-Fish Oil (Fish Oil) 1,200 (144-216) mg capsule Discontinued 1 CAP PO DAILY July 23, 2022 1:00am July 23, 2022 10:31am Start: 07-23-2022 End: 07-23-2022 take 1 capsule by mouth once daily [place] 0-Zog-Hwp-Fish Oil (Fish Oil) 1,200 (144-216) mg capsule [...] on above: Take 1 tablet by walter every 12 hours as needed for Nausea/Vomiting. rifAXIMin 550 mg oral tablet (10 sources) Rifamycin Antibacterial Start: 01-09-2021 End: 01-23-2021 take 1 tablet by mouth three times daily Rifaximin (Xifaxan) 550 mg tablet Discontinued 550 mg PO THREE TIMES A DAY 42 14 0 January 09, 2021 12:00am January 22, 2021 12:00am January 23, 2021 12:01am rosuvastatin calcium 40 mg oral tablet (1 source) HMG-CoA Reductase Inhibitor Start: 04-19-2025 End: 04-26-2025 take 1 tablet by mouth once daily Rosuvastatin 40 mg tablet Discontinued 40 mg PO daily April 19, 2025 12:00am April 26, 2025 10:06am THERAPEUTIC MULTIVITAMIN TAB (2 sources) Start: 06-30-2007 [...] Date Documented Da te Episodic/Chronic Administrative/social admission (12 sources) Counseling procedure with explicit context; Translations: [Vaccine counseling] Episodic Anxiety disorders (2 sources) Anxiety; Translations: [Anxiety disorder, unspecified] Onset: 07-29-2016 07-29-2016 Chronic Chronic kidney disease (11 sources) Chronic kidney disease; Translations: [Chronic kidney disease, unspecified] Chronic Coronary atherosclerosis and other heart disease (4 sources) Coronary arteriosclerosis; Translations: [Atherosclerotic heart disease of [place] coronary artery without angina pectoris] Onset: 05-09-2025 04-26-2025 Chronic Comment on above: Coronary calcium sco re 152 Disorders of lipid metabolism (6 sources) Mixed hyperlipidemia; Translations: [Mixed hyperlipidemia] Onset: 07-29-2016 07-29-2016 Chronic Menopausal disorders (2 sources) Atrophic vaginitis; Translations: [Postmenopausal atrophic vaginitis] Onset: 07-02-2008 07-02-2008 Chronic Nutritional deficiencies (12 sources) Vitamin D deficiency; Translations: [Vitamin D deficiency, unspecified] Onset: 07-21-2024 07-23-2022 Chronic Osteoporosis (19 sources) Osteoporosis; Translations: [Age-related osteoporosis without current pathological fracture] Onset: 07-29-2016 07-29-2016 Chronic Comment on above: On Prolia Other gastrointestinal disorders (10 sources) Irritable bowel syndrome with diarrhea; Translations: [Irritable bowel syndrome with diarrhea] 01-09-2021 Chronic Comment on above: failed OTC medicatio ns, xifaxan ordered. Other gastrointestinal disorders (1 source) Irritable bowel syndrome with diarrhea; Translations: [Irritable bowel syndrome] Chronic Other gastrointestinal disorders (10 sources) Incontinence of feces; Translations: [Full incontinence of feces] 01-09-2021 Episodic Comment on above: likely related to ch kimi in stool after hospitalization. Other gastrointestinal disorders (10 sources) Finding of measures of abdomen; Translations: [Other specified symptoms and signs involving the digestive system and abdomen] 01-03-2019 Episodic Comment on above: pelvic us Other gastrointestinal disorders (1 source) Full incontinence of feces; Translations: [Full incontinence of feces] Episodic Other nervous system disorders (6 sources) Tremor; Translations: [Tremor, unspecified] 07-22-2023 Episodic Other nervous system disorders (1 source) Tremor, unspecified; Translations: [Abnormal involuntary movements] 07-22-2023 Episodic Other nutritional; endocrine; and metabolic disorders (9 sources) Hypocalcemia; Translations: [Hypocalcemia] 07-23-2022 Chronic Other nutritional; endocrine; and metabolic disorders (2 sources) Hypocalcemia; Translations: [Hypocalcemia] Onset: 05-09-2025 07-23-2022 Chronic Other screening for suspected conditions (not mental disorders or infectious disease) (10 sources) Patient encounter status; Translations: [Encounter for screening mammogram for malignant neoplasm of breast] Onset: 07-29-2016 Episodic Other skin disorders (11 sources) Lichen sclerosus et atrophicus; 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 Past or Other Problems Problem Classification Problem Date Documented Da te Episodic/Chronic Sprains and strains (2 sources) Strain of muscle(s) and tendon(s) of the rotator cuff of right shoulder, initial encounter; Translations: [Strain of unspecified muscle, fascia and tendon at shoulder and upper arm level, right arm, subsequent encounter] Onset: 06-19-2024 Episodic Results Test Name Value Interpretation Reference Range Facility Cardiology Visit Reporton Cardiology Visit Report [facility] [address] [place] [address] OFFICE VISIT Date of Service: 04/26/25 MR#: [id number] Acct: [id number] Name: ZULAY BEARDEN Rep #: [id number] : 1950 Provider: Dr. Caitlin Donovan MD Age/Sex: 75/F Location: [facility] Status: Signed HPI HPI History of Present Illness Details: This lady recently has had coronary artery calcium scoring done. It came back as 152 placing her between the 50th to the 75th percentile. Subsequently she has been referred to us for evaluation and management of her CAD. Patient has any previous history of heart disease. He is physically very active and walks 5 to 6 miles a day. Denies any chest pains or shortness of breath either at rest or with exertion. No palpitations. No orthopnea. No PND. No ankle edema. After her coronary artery calcium score was reported, patient was started on atorvastatin 20 mg daily for her LDL cholesterol of 155 mg/dL and also recommended 81 mg daily of aspirin by her primary care physician. According to the patient, ever since stopping the statin, she has been having constant left arm numbness. According to her, it is there all day long and she goes to sleep with it and wakes up with it as well. 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 RENNER) Predator Control Trapper Required: No Accompanied by: Is patient in pain?: No Allergies sulfamethoxazole (From Bactrim) Allergy (Mild, Verified 04/26/25 10:04) Other trimethoprim (From Bactrim) Allergy (Mild, Verified 04/26/25 10:04) Other ibandronate sodium (From Boniva) Adverse Reaction (Unknown, Verified 04/26/25 10:04) Nausea Medications ???Medication ???Instructions ???Recorded ???Confirmed ???Type cholecalciferol (vitamin D3) 125 125 mcg PO DAILY 07/23/22 04/26/25 History mcg (5,000 unit) capsule multivitamin 1 tab PO .QOD 07/23/22 04/26/25 Hi story biotin 1 mg capsule 1 mg PO DAILY 01/27/23 04/26/25 Hi story melatonin 3 mg capsule 3 mg PO HS PRN sleep 01/27/2309/19 History vitamin B complex 1 tab PO DAILY PRN . 07/22/2312/17 History denosumab 60 mg/mL subcutaneous 60 mg subcut [id number] #1 mL 04/26/25 Rx syringe clobetasol 0.05 % topical ointment 1 applic topical QHS PRN 04/19/2 5 04/26/25 History coenzyme Q10 100 mg tablet 100 mg PO QDAY 04/19/25 04/26/25 H istory alpha lipoic acid 600 mg capsule 600 mg PO QDAY 04/26/25 04/26/25 H istory aspirin 81 mg tablet 81 mg PO QDAY 04/26/25 04/26/25 Hi story atorvastatin 20 mg tablet 20 mg PO QDAY 04/26/25 04/26/25 Hi story mineral oil-hydrophil petrolat 1 applic topical TID PRN 04/26/25 04/26/25 History topical ointment (Aquaphor topical ointment) Have you fallen in the past year?: Yes (while hiking/hunting only. 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 ROS Const Const: Negative for fatigue or weakness Eyes Eyes: Negative for change in vision ENT ENT: Negative for dizziness or balance problems Cardio Chest Pain: No Palpitations: No Edema: None Resp Respiratory: Negative for SOB with activity, SOB at rest or SOB orthopnea SOB lying down GI GI: Negative nausea or heartburn Musc Musc: Negative for balance problems Neuro Neuro: Negative for dizziness, lightheadedness, near syncope, syncope or weakness Endo Endo: Negative for fatigue Cardiology Exam Const Appearance: comfortable and no acute distress Nutritional Appearance: well nourished Neck Neck: no JVD Thomas (more content not included)... Normal [facility] Coronary Angiography CTon Coronary Angiography CT [facility] Imaging Services [address] [place] [address] 03/21/25 0622 MR#: [id number] Acct: [id number] Name: ZULAY BEARDEN Rep #: [id number] : 1950 74 From: Isael Vieyra MD PCP: Dr. Laura Riddle MD Status:REG REF Y Location: CT Calcium Scoring Date of Study:: 03/20/25 Indications Indications: Coronary screening Coronary Calcium Scoring: High-resolution Computed Tomographic imaging of the chest was performed on [03/20/2025], with particular attention paid to the coronary arteries. Images from the examination were analyzed for the presence and extent of coronary artery calcification , using coronary calcium quantification software. The patient tolerated the procedure well and there were no complications. The results of the coronary calcification analysis are provided below. Findings Coronary Artery Left Main (LM): 0 Left Anterior Descending (LAD): 144 Left Circumflex (LCX): 7.63 Right Coronary Artery (RCA): 0 Total Agatston Score: 151.63 Percentile Rankin-75th percentile Calcium Scoring Interpretation: Different methods to categorize the overall amount of coronary plaque. Overall amount CAC SIS Visual of coronary plaque P1 Mild -100 <2 1-2 vessels with mild amount of plaque P2 Moderate 101-300 3-4 1-2 vessels with moderate amount, 3 vessels with mild amount of plaque P3 Severe 301-999 5-7 3 vessels with moderate amount, 1 vessel with severe amount of plaque P4 Extensive >1000 >8 2-3 vessels with severe amount of plaque Calcium Score: Moderate: 1-2 vessels w/moderate amt, 3 vessels w/mild amt of plaque Conclusion: Mild to moderate single-vessel plaque disease. 03/21/25 0624 Date Isael Vieyra MD Cosigner Signature (if applicable): Date CC: Dr. Laura Riddle MD; Dr. Isael Vieyra MD; Dr. Christina Bazan DO Signed Normal [facility] Limited Chest CT Cardiac Onl yon 03-20-[address] Cardiac Only [facility] Imaging Services [address] [place] [id number] Cardiac Only MR#: [id number] Acct: [id number] Name: ZULAY BEARDEN Rep #: [id number] : 1950 F 74 From: Pool Mclaughlin PCP: Dr. Laura Riddle MD Status: REG REF Study: Limited Chest CT Cardiac Only Date of Exam: Exam# [id number] Ordering Dr: Christina Bazan DO PROCEDURE: LIMITED CHEST CT CARDIAC ONLY 03/20/2025 REASON FOR EXAM: SCREENING TECHNIQUE: CT performed for coronary artery calcium scoring. One or more dose reduction techniques were used (e.g., Automated exposure control, adjustment of the mA and/or kV according to patient size, use of iterative reconstruction technique). RADIATION DOSE SUMMARY: CTDlvol: 12.19 mGy DLP: 219.42 mGycm COMPARISON: None. CT/Limited Chest CT Cardiac Only IMPRESSION: Mild aortic calcification is seen. Mild calcification of the aortic valve is noted. Limited imaging of the lungs demonstrates no acute process. No pleural effusion or pneumothorax is seen in visualized areas. No adenopathy is noted. The visualized upper abdomen demonstrates no significant abnormality. Reading Location: [place] [address] CC: Dr. Laura Riddle MD; Dr. Christina Bazan DO Fur Blender: Signed Normal [facility] Breast imaging reportOrdered By: Maggie Chin on 03-02-2025 Study report [facility] Imaging Services [address] [address] SCRN MAMM (CAD)W/ADRIANNA BILAT MR#: [id number] Acct: [id number] Name: ZULAY BEARDEN Rep #: [id number] : 1950 F 74 From: See Desir MD PCP: Dr. Laura Riddle MD Status: [facility] Study:SCRN MAMM (CAD)W/ADRIANNA BILAT Date of Exa m: 03/02/25 Exam# [id number] Ordering Dr: Christina Wood DO EXAM: SCRN MAMM (CAD)W/ADRIANNA BILAT DATE: 03/02/2025 CLINICAL HISTORY: F, Age 74 y/o , SCREEN FOR BREAST CANCER TECHNIQUE: SCRN MAMM (CAD)W/ADRIANNA BILAT COMPARISON: Prior exam(s) were compared FINDINGS: TISSUE DENSITY: The breasts are heterogeneously dense, which may obscure small masses. Bilateral Breast Mammographic Findings: No suspicious masses, calcifications or other abnormalities are identified. BI/SCRN MAMM (CAD)W/ADRIANNA BILAT IMPRESSION: No mammographic evidence of malignancy in either breast OVERALL FINAL ASSESSMENT BI-RADS 1: NEGATIVE. RECOMMENDATION: Routine annual follow-up in 1 Year A letter with findings and recommendations will be mailed to the patient. Reading Location: [id number] CC: Dr. Laura Riddle MD; Dr. Christina Bazan DO ~ Fur Blender: Signed [facility] SCRN MAMM (CAD)W/ADRIANNA BILATo n 03-02-2025 SCRN MAMM (CAD)W/ADRIANNA BILAT [facility] Imaging Services [address] [place], [place] [address] SCRN MAMM (CAD)W/ADRIANNA BILAT MR#: [id number] Acct: [id number] Name: ZULAY BEARDEN Rep #: [id number] : 1950 F 74 From: Maggie Serrato i, MD PCP: Dr. Laura Riddle MD Status: [facility] CLI Study: SCRN MAMM (CAD)W/ADRIANNA BILAT Date of Exam: 03/19 Exam# [id number] Ordering Dr: Christina Bazan DO EXAM: SCRN MAMM (CAD)W/ADRIANNA BILAT DATE: 03/02/2025 CLINICAL HISTORY: F, Age 74 y/o , SCREEN FOR BREAST CANCER TECHNIQUE: SCRN MAMM (CAD)W/ADRIANNA BILAT COMPARISON: Prior exam(s) were compared FINDINGS: TISSUE DENSITY: The breasts are heterogeneously dense, which may obscure small masses. Bilateral Breast Mammographic Findings: No suspicious masses, calcifications or other abnormalities are identified. BI/SCRN MAMM (CAD)W/ADRIANNA BILAT IMPRESSION: No mammographic evidence of malignancy in either breast OVERALL FINAL ASSESSMENT BI-RADS 1: NEGATIVE. RECOMMENDATION: Routine annual follow-up in 1 Year A letter with findings and recommendations will be mailed to the patient. Reading Location: [facility] CC: Dr. Laura Riddle MD; Dr. Christina Bazan DO Fur Blender: Signed [facility] Offset Assistant Press Operator Office Visit Reporton 02-27-2025 Offset Assistant Press Operator Office Visit Report [facility] [address] [place] [address] OFFICE VISIT Date of Service: 02/27/25 MR#: [id number] Acct: [id number] Name: ZULAY BEARDEN Rep #: [id number] : 1950 Provider: Dr. 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 Required: No Is patient in pain?: No Allergies sulfamethoxazole (From Bactrim) Allergy (Mild, Verified 02/27/25 13:34) Other trimethoprim (From Bactrim) Allergy (Mild, Verified 02/27/25 13:34) Other Medications ???Medication ???Instructions ???Recorded ???Confirmed ???Type cholecalciferol (vitamin D3) 125 125 mcg PO DAILY 07/23/22 02/27/25 History mcg (5,000 unit) capsule multivitamin 1 tab PO .QOD 07/23/22 02/27/25 Hi story biotin 1 mg capsule 1 mg PO DAILY 01/27/23 02/27/25 Hi story melatonin 3 mg capsule 3 mg PO HS PRN sleep 01/27/2312/17 History mineral oil-hydrophil petrolat 1 applic topical TID 07/22/2312/17 History topical ointment (Aquaphor topical ointment) vitamin B complex 1 tab PO DAILY PRN . 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 Date Name GA/Weeks Outcome Route Bth Weight Gen Labor Lgth Anesthesia Del Locatn Provider FOB Unknown 1970 Aaron Unknown 1979 Mark [facility] Encounter for routine gynecological examination Details: ZULAY [...] that required antibiotic treatment. The tick was found on her thigh, and she experienced pain and [...] has been advised against statin therapy due to her good HDL levels and concerns about potential side effects. The patient also reports lichen sclerosus, which is being managed with topical treatments. Additionally, she experiences some bladder control issues, although they are not severe at this time. Attestation: Documentation on this patient encounter was supported using ambient scribe technology/ voice AI technology. The patient consented to recording for the purpose of documenting the encounter. Provider reviewed content of the generated note prior to signature. Female Reproductive History Questions: metrorrhagia: No, sexually active: Yes, (more content not included)... Normal [facility] Anion gap in Serum or Plasma Ordered By: Kurt Connors on 10-05-2024 Anion gap [Moles/Vol] 10 mmol/L 5-15 [facility] BUN/creatinine ratioOrdered By: Kurt Connors on 10-05-2024 Urea nitrogen/Creatinine [Mass ratio] 26.7 mg/mg High 10-20 [facility] Bilirubin, totalOrdered By: Kurt Connors on 10-05-2024 Bilirubin [Mass/Vol] 0.49 mg/dL 0.00-1.30 [facility] Calculated very low density lipoprotein (VLDL) cholesterol measurementOrdered By: Kurt Connors on 10-05-2024 Calculated very low density lipoprotein (VLDL) cholesterol measurement 22 mg/dL 5-40 [facility] VLDL Cholesterol 22 mg/dL 5-40 [facility] Carbon dioxide, total [Moles /volume] in Central venous bloodOrdered By: Kurt Connors on 10-05-2024 CO2 [Moles/Vol] 24.2 mmol/L 21.0-32.0 [facility] Chloride assayOrdered By: Jw Connors on 10-05-2024 Chloride [Moles/Vol] 107 mmol/L 98-108 [facility] Comprehensive Metabolic Prof ilon 10-05-2024 Albumin [Mass/Vol] 4.1 g/dL Normal 3.4-4.8 [facility] Comment on above: Performed By: #### L 506.1001, L500.4050 #### [facility] [address] [place], [place], [id number] Albumin/Globulin [Mass ratio] 1.7 {ratio} Normal 0.9-2.4 [facility] Comment on above: Performed By: #### L 506.1001, L500.4050 #### [facility] [address] [place], [address] ALK PHOS 66 U/L Normal 35-104 [facility] Comment on above: Performed By: #### L 506.1001, L500.4050 #### [facility] [address] [place], [address] ALT [Catalytic activity/Vol] 12 U/L Normal <=34 [facility] Comment on above: Performed By: #### L 506.1001, L500.4050 #### [facility] [address] [place], [address] AST [Catalytic activity/Vol] 21 U/L Normal <=31 [facility] Comment on above: Performed By: #### L 506.1001, L500.4050 #### [facility] [address] [place], [address] Bilirubin [Mass/Vol] 0.49 mg/dL Normal 0.00-1.30 [facility] Comment on above: Performed By: #### L 506.1001, L500.4050 #### [facility] [address] [place], [address] BUN/CRE 26.7 RATIO High 10-20 [facility] Comment on above: Performed By: #### L 506.1001, L500.4050 #### [facility] [address] [place], [address] Calcium [Mass/Vol] 9.1 mg/dL Normal 7.6-11.0 [facility] Comment on above: Performed By: #### L 506.1001, L500.4050 #### [facility] [address] [place], [address] Chloride [Moles/Vol] 107 mmol/L Normal 98-108 [facility] Comment on above: Performed By: #### L 506.1001, L500.4050 #### [facility] [address] [place], [address] CO2 [Moles/Vol] 24.2 mmol/L Normal 21.0-32.0 [facility] Comment on above: Performed By: #### L 506.1001, L500.4050 #### [facility] [address] [place], [address] Creatinine [Mass/Vol] 0.88 mg/dL Normal 0.70-1.20 [facility] Comment on above: Performed By: #### L 506.1001, L500.4050 #### [facility] [address] [place], [address] GAP 10 Normal 5-15 [facility] Comment on above: Performed By: #### L 506.1001, L500.4050 #### [facility] [address] [place], [address] GFR/1.73 sq M.predicted among non-blacks MDRD (S/P/Bld) [Vol rate/Area] 69 mL/min/{1.73_m2} Normal >60 [facility] Comment on above: Result Comment: mL/m in/1.73m2 CKD-EPI Creatinine Equation (2020) Performed By: #### L 506.1001, L500.4050 #### [facility] [address] [place], [address] Globulin (S) [Mass/Vol] 2.5 g/dL Normal 2.2-4.2 [facility] Comment on above: Performed By: #### L 506.1001, L500.4050 #### [facility] [address] [place], [address] Glucose [Mass/Vol] 92 mg/dL Normal 70-99 [facility] Comment on above: Performed By: #### L 506.1001, L500.4050 #### [facility] [address] [place], [address] Potassium [Moles/Vol] 4.6 mmol/L Normal 3.3-5.1 [facility] Comment on above: Performed By: #### L 506.1001, L500.4050 #### [facility] [address] [place], [address] Sodium [Moles/Vol] 141 mmol/L Normal 133-145 [facility] Comment on above: Performed By: #### L 506.1001, L500.4050 #### [facility] [address] [place], [address] T PROT 6.6 g/dL Normal 5.9-8.4 [facility] Comment on above: Performed By: #### L 506.1001, L500.4050 #### [facility] [address] [place], [address] Urea nitrogen [Mass/Vol] 23 mg/dL High 4-19 [facility] Comment on above: Performed By: #### L 506.1001, L500.4050 #### [facility] [address] [place], [address] GFR/1.73 sq M.predicted haroldo g non-blacks MDRD (S/P/Bld) [Vol rate/Area]Ordered By: Kurt Connors on 10-05-2024 Estimated GFR (MDRD) Non-Af Amer [address] [facility] Comment on above: mL/min/1.73m2 CKD-EP I Creatinine Equation (2020) Glomerular filtration rate ( GFR) estimation/1.73 sq m using serum, plasma, or whole bOrdered By: Kurt Connors on 10-05-2024 GFR/1.73 sq M.predicted among non-blacks MDRD (S/P/Bld) [Vol rate/Area] 69 mL/min/{1.73_m2} >60 [facility] Comment on above: mL/min/1.73m2 CKD-EP I Creatinine Equation (2020) L506.1001on 10-05-2024 Vitamin D 25-OH 33.6 ng/mL Normal 30-100 [facility] Comment on above: Result Comment: Vivian min D Status Deficiency: <20 ng/mL (50nmol/L) Insufficiency: 20-30 ng/mL (50-75 nmol/L) Sufficiency: 30-100 ng/mL (75-250 nmol/L) Toxicity: >100 ng/mL (>250 nmol/L) Performed By: #### L 506.1001, L500.4050 #### [facility] [address] [place], [place], [id number] LDL calc ser/plasOrdered By: Kurt Connors on 10-05-2024 Cholesterol in LDL [Mass/Vol] 155 mg/dL [facility] Comment on above: Ykdxnvvghv=387-950 m g/dL & Higher Xzrz=312 mg/dL or greater LDL Cholesterol, Calculated 155 mg/dL [facility] Comment on above: Antyeietrk=087-611 m g/dL & Higher Ffih=588 mg/dL or greater Laboratory - Chemistry and C hemistry - challengeOrdered By: Kurt Connors on 10-05-2024 AST [Catalytic activity/Vol] 21 U/L <32 [facility] Lipid Profileon 10-05-2024 CHOL:HDL 3.[address] [facility] Comment on above: Order Comment: OFFIC E CALLED AND SAID TO ADD THIS TEST ON TO BW DONE THIS AM Performed By: #### L 500.4100 #### [facility] [address] [place], [place], [address] Cholesterol [Mass/Vol] 256 mg/dL High <=200 [facility] Comment on above: Order Comment: OFFIC E CALLED AND SAID TO ADD THIS TEST ON TO BW DONE THIS AM Result Comment: Chol esterol level, Desirable <200 mg/dL Borderline high cholesterol 200-239 mg/dL High cholesterol >=240 mg/dL Recommendations of the NCEP Adult Treatment Panel for the following risk-cutoff thresholds for the [place] population. Performed By: #### L 500.4100 #### [facility] [address] [place], [address] Cholesterol in HDL [Mass/Vol] 80 mg/dL Normal [facility] Comment on above: Order Comment: OFFIC [...] age. Performed By: #### L 500.4100 #### [facility] [address] [place], [address] Cholesterol in LDL [Mass/Vol] 155 mg/dL Normal [facility] Comment on above: Order Comment: OFFIC E CALLED AND SAID TO ADD THIS TEST ON TO BW DONE THIS AM Result Comment: Bord sieeuy=554-181 mg/dL Higher Atlp=446 mg/dL or greater Performed By: #### L 500.4100 #### [facility] [address] [place], [address] Cholesterol in VLDL [Mass/Vol] 22 mg/dL Normal 5-40 [facility] Comment on above: Order Comment: OFFIC E CALLED AND SAID TO ADD THIS TEST ON TO BW DONE THIS AM Performed By: #### L 500.4100 #### [facility] [address] [place], [address] Triglyceride [Mass/Vol] 108 mg/dL Normal [facility] Comment on above: Order Comment: OFFIC E CALLED AND SAID TO ADD THIS TEST ON TO BW DONE THIS AM Result Comment: The drugs N-Acetylcysteine and Metamizole may falsely depress this assay. Normal range: <150 mg/dL Borderline High: 150-199 mg/dL High: 200-499 mg/dL Very High: >500 mg/dL Performed By: #### L 500.4100 #### [facility] [address] [place], [address] Potassium (Unsp spec) [Mass/ Vol]Ordered By: Kurt Connors on 10-05-2024 Potassium [Moles/Vol] 4.6 mmol/L 3.3-5.1 [facility] Potassium measurement (mass/ volume)Ordered By: Kurt Connors on 10-05-2024 Potassium (Unsp spec) [Mass/Vol] 4.6 mmol/L 3.3-5.1 [facility] Screening total cholesterol/ high density lipoprotein (HDL) cholesterol ratioOrdered By: Kurt Connors on 10-05-2024 Cholesterol.total/Chol esterol in HDL [Mass ratio] 3.21 {ratio} [facility] Serum creatinine measurement (mass/volume)Ordered By: Kurt Connors on 10-05-2024 Creatinine [Mass/Vol] 0.88 mg/dL 0.70-1.20 [facility] Serum globulin measurementOr dered By: Kurt Connors on 10-05-2024 Globulin (S) [Mass/Vol] 2.5 g/dL 2.2-4.2 [facility] Serum glucose measurement (m ass/volume)Ordered By: Kurt Connors on 10-05-2024 Glucose [Mass/Vol] 92 mg/dL 70-99 [facility] Serum or plasma alanine johnson otransferase (ALT) measurementOrdered By: Kurt Connors on 10-05-2024 ALT [Catalytic activity/Vol] 12 U/L <35 [facility] Serum or plasma albumin maciej urement (mass/volume)Ordered By: Kurt Connors on 10-05-2024 Albumin [Mass/Vol] 4.1 g/dL 3.4-4.8 [facility] Serum or plasma albumin/glob ulin mass ratioOrdered By: Kurt Connors on 10-05-2024 Albumin/Globulin [Mass ratio] 1.7 {ratio} 0.9-2.4 [facility] Serum or plasma alkaline babs sphatase measurementOrdered By: Kurt Connors on 10-05-2024 ALP [Catalytic activity/Vol] 66 U/L 35-104 [facility] Serum or plasma calcium maciej urement (mass/volume)Ordered By: Kurt Connors on 10-05-2024 Calcium [Mass/Vol] 9.1 mg/dL 7.6-11.0 [facility] Serum or plasma cholesterol in HDL measurement (mass/volume)Ordered By: Kurt Connors on 10-05-2024 Cholesterol in HDL [Mass/Vol] 80 mg/dL >40 [facility] Comment on above: National Cholesterol Education Program (NCEP) guidelines:<40 mg/dL: Low HDL-cholesterol (major risk factor for CHD)>= 60 mg/dL: High HDL-cholesterol (negative risk factor for CHD)HDL-cholesterol is affected by a number of factors, e.g. smoking, exercise, hormones, sex and age. Serum or plasma cholesterol measurement (mass/volume)Ordered By: Kurt Connors on 10-05-2024 Cholesterol [Mass/Vol] 256 mg/dL High <201 [facility] Comment on above: Cholesterol level, D esirable <200 mg/dLBorderline high cholesterol 200-239 mg/dLHigh cholesterol >=240 mg/dLRecommendations of the NCEP Adult Treatment Panel for the following risk-cutoff thresholds for the [place] population. Serum or plasma urea nitroge n measurement (mass/volume)Ordered By: Kurt Connors on 10-05-2024 Urea nitrogen [Mass/Vol] 23 mg/dL High 4-19 [facility] Sodium levelOrdered By: Kurt Connors on 10-05-2024 Sodium [Moles/Vol] 141 mmol/L 133-145 [facility] Total proteinOrdered By: Kane Connors on 10-05-2024 Protein [Mass/Vol] 6.6 g/dL 5.9-8.4 [facility] Triglycerides measurementOrd ered By: Kurt Connors on 10-05-2024 Triglyceride [Mass/Vol] 108 mg/dL <199 [facility] Comment on above: The drugs N-Acetylcy steine and Metamizole may falsely depress this assay. Normal range: <150 mg/dLBorderline High: 150-199 mg/dLHigh: 200-499 mg/dLVery High: >500 mg/dL Vitamin D, 25-hydroxyOrdered By: Kurt Connors on 10-05-2024 Vitamin D 25-Hydroxy 33.6 ng/mL 30-100 [facility] Comment on above: Vitamin D StatusDefi ciency: <20 ng/mL (50nmol/L)Insufficiency: 20-30 ng/mL (50-75 nmol/L)Sufficiency: 30-100 ng/mL (75-250 nmol/L)Toxicity: >100 ng/mL (>250 nmol/L) Endocrinology Visit Reporton 07-21-2024 Endocrinology Visit Report [facility] 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 Normal [facility] Inital Evaluation (1) - PTon 05-30-2024 Inital Evaluation (1) - PT [facility] Physical Therapy [facility] [address] [place] [address] [address] [place] [address] / REHABILITATION SERVICES INITIAL EVALUATION MR#: [id number] Acct: [id number] Name: ZULAY BEARDEN Rep #: [id number] : 1950 74 From: Art Doherty DPT Referring Dr.: Dr. Laura Riddle MD Status: RE G RCR Insurance: [employer] [facility] Patient's Visit Information Visit [...] to be FAXED BACK to us at [phone] for Medicare purposes. For Medicare only, by signing this I certify the plan of care. Please let me know if there are questions or concerns regard (more content not included)... Normal [facility] Shoulder min 2 Viewson 05-29 Shoulder min 2 Views [facility] [address] [place], [place] [address] Shoulder min 2 Views MR#: [id number] Acct: [id number] Name: ZULAY BEARDEN Rep #: [id number] : 1950 F 74 From: Rody Mclaughlin PCP: Dr. Laura Riddle MD Status: REG CLI Study: Shoulder min 2 Views Date of Exam: 05/29/24 Exam# [id number] Ordering [place]: [place] [id number] INDICATION: pain post fall EXAMINATION/TECHNIQUE: X-RAY - [...] Signed: Rody Dimas MD at 1:18 EST , CC: Dr. Laura Riddle MD Fur Blender: Signed Normal [facility] Basophil percentageOrdered B y: Kurt Connors on 08-06-2023 Bilirubin [Mass/Vol] 0.60 mg/dL 0.20-1.00 [facility] Comment on above: For patients on eltr ombopag therapy, use of Dimension [place] TBIL is not recommended. Chloride [Moles/Vol] 106 mmol/L 98-107 [facility] Glucose [Mass/Vol] 92 mg/dL 74-106 [facility] Potassium [Moles/Vol] 4.1 mmol/L 3.5-5.1 [facility] Protein [Mass/Vol] 7.2 g/dL 6.4-8.2 [facility] Sodium [Moles/Vol] 141 mmol/L 136-145 [facility] Laboratory - Chemistry and C hemistry - challengeOrdered By: Kurt Connors on 08-06-2023 ALP [Catalytic activity/Vol] 76 U/L 45-117 [facility] ALT [Catalytic activity/Vol] 20 U/L - [facility] CO2 [Moles/Vol] 29.0 mmol/L 21.0-32.0 [facility] Globulin (S) [Mass/Vol] 3.4 g/dL 2.2-4.2 [facility] Urea nitrogen/Creatinine [Mass ratio] 15.8 mg/mg 10-20 [facility] No Panel InformationOrdered By: Kurt Connors on 08-06-2023 Estimated Creatinine Clearance Calc 44.64 ml/min [facility] Estimated GFR (MDRD) Amer 69 mL/min >60 [facility] Comment on above: GFR Calc Estimated GFR (MDRD) Non-Af Amer 57 mL/min >60 [facility] Comment on above: Non- GFR Calc Thyroid Stimulating Hormone (TSH) 2.56 uIU/mL 0.358-3.74 [facility] Vitamin D 25-Hydroxy 59.2 ng/mL [facility] Comment on above: Vitamin D 25(OH) Sta tus Range Deficiency <20 ng/mL (50nmol/L) Insufficiency 20 - 30 ng/mL (50 - 75 nmol/L) Sufficiency 30 - 100 ng/mL (75 - 250 nmol/L) Toxicity >100 ng/mL (>250 nmol/L) Serum or plasma albumin maciej urement (mass/volume)Ordered By: Kurt Connors on 08-06-2023 Albumin [Mass/Vol] 3.8 g/dL 3.2-5.0 [facility] Serum or plasma albumin/glob ulin mass ratioOrdered By: Kurt Connors on 08-06-2023 Albumin/Globulin [Mass ratio] 1.1 {ratio} 0.9-2.4 [facility] Serum or plasma calcium maciej urement (mass/volume)Ordered By: Kurt Connors on 08-06-2023 Calcium [Mass/Vol] 9.5 mg/dL 8.5-10.1 [facility] Serum or plasma creatinine m easurement (mass/volume)Ordered By: Kurt Connors on 08-06-2023 Creatinine [Mass/Vol] 1.01 mg/dL 0.55-1.02 [facility] Comment on above: The validity of the calculated GFR & GFRAA in patients over 70 years has not been determined. Clinical correlation is essential. Serum or plasma urea nitroge n measurement (mass/volume)Ordered By: Kurt Connors on 08-06-2023 Urea nitrogen [Mass/Vol] 16 mg/dL 7-18 [facility] Thin prep Papanicolaou smear with manual screeningOrdered By: Kurt Connors on 08-06-2023 Thin prep Papanicolaou smear with manual screening 19 U/L 15-37 [facility] Thin prep Papanicolaou smear with manual screening 6 5-15 [facility] Basophil percentageOrdered B y: Dr. Connors on 08-05-2022 Bilirubin [Mass/Vol] 0.60 mg/dL 0.20-1.00 [facility] Comment on above: For patients on eltr ombopag therapy, use of Dimension [place] TBIL is not recommended. Chloride [Moles/Vol] 104 mmol/L 98-107 [facility] Glucose [Mass/Vol] 89 mg/dL 74-106 [facility] Potassium [Moles/Vol] 4.1 mmol/L 3.5-5.1 [facility] Protein [Mass/Vol] 6.9 g/dL 6.4-8.2 [facility] Sodium [Moles/Vol] 138 mmol/L 136-145 [facility] Laboratory - Chemistry and C hemistry - challengeOrdered By: Dr. Connors on 08-05-2022 ALP [Catalytic activity/Vol] 62 U/L 45-117 [facility] ALT [Catalytic activity/Vol] 24 U/L 13-56 [facility] CO2 [Moles/Vol] 28.0 mmol/L 21.0-32.0 [facility] Globulin (S) [Mass/Vol] 3.1 g/dL 2.2-4.2 [facility] Urea nitrogen/Creatinine [Mass ratio] 17.2 mg/mg 10-20 [facility] No Panel InformationOrdered By: Dr. Connors on 08-05-2022 Estimated Creatinine Clearance Calc 49.20 ml/min [facility] Estimated GFR (MDRD) Amer 76 mL/min >60 [facility] Comment on above: GFR Calc Estimated GFR (MDRD) Non-Af Amer 63 mL/min >60 [facility] Comment on above: Non- GFR Calc Parathyroid Hormone (Intact) 71.1 pg/mL 18.4-80.1 [facility] Thyroid Stimulating Hormone (TSH) 2.37 uIU/mL 0.358-3.74 [facility] Vitamin D 25-Hydroxy 42.8 ng/mL [facility] Comment on above: Vitamin D 25(OH) Sta tus Range Deficiency <20 ng/mL (50nmol/L) Insufficiency 20 - 30 ng/mL (50 - 75 nmol/L) Sufficiency 30 - 100 ng/mL (75 - 250 nmol/L) Toxicity >100 ng/mL (>250 nmol/L) Serum or plasma albumin maciej urement (mass/volume)Ordered By: Dr. Connors on 08-05-2022 Albumin [Mass/Vol] 3.8 g/dL 3.2-5.0 [facility] Serum or plasma albumin/glob ulin mass ratioOrdered By: Dr. Connors on 08-05-2022 Albumin/Globulin [Mass ratio] 1.2 {ratio} 0.9-2.4 [facility] Serum or plasma calcium maciej urement (mass/volume)Ordered By: Dr. Connors on 08-05-2022 Calcium [Mass/Vol] 9.0 mg/dL 8.5-10.1 [facility] Serum or plasma creatinine m easurement (mass/volume)Ordered By: Dr. Connors on 08-05-2022 Creatinine [Mass/Vol] 0.93 mg/dL 0.55-1.02 [facility] Comment on above: The validity of the calculated GFR & GFRAA in patients over 70 years has not been determined. Clinical correlation is essential. Serum or plasma urea nitroge n measurement (mass/volume)Ordered By: Dr. Connors on 08-05-2022 Urea nitrogen [Mass/Vol] 16 mg/dL 7-18 [facility] Thin prep Papanicolaou smear with manual screeningOrdered By: Dr. Connors on 08-05-2022 Thin prep Papanicolaou smear with manual screening 19 U/L 15-37 [facility] Thin prep Papanicolaou smear with manual screening 6 5-15 [facility] OPERATIVE NOon 03-17-2020 OPERATIVE NO HNO ID: [id number] Author: Darrius H Rudy Service: Plastic Surgery Author Type: Physician Type: Operative Report Filed: 03/20/2020 11:35 AM Note Text: [facility] - Operative Report ZULAY BEARDEN : 1950 AGE: 69. SEX: F PATIENT TYPE: I HOSP SVC: [facility] LOCATION: [id number] ATTENDING PHYSICIAN: HUNTER GARRIDO [facility] NUMBER: [id number] DATE OF SURGERY/PROCEDURE: 02/17/2020 INCISION/PROCEDURE START TIME: 1:05 PM INCISION CLOSE/PROCEDURE END TIME: 1:23 PM PREOPERATIVE DIAGNOSIS: Abscess, left dorsal wrist secondary to cat bite infection. POSTOPERATIVE DIAGNOSIS: Abscess, left dorsal wrist secondary to cat bite infection. 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 She was transferred to [facility] for hand surgical consultation. Aggressive IV antibiotics [...] room in stable condition. Darrius Grant MD ARP:[id number] /[id number] Normal [facility] Basic Metabolic Panelon 07-3 Anion gap [Moles/Vol] 9 mmol/L Normal 9-18 [facility] Comment on above: Performed By: #### G FR #### [facility] [address] [place], [place] [address] Calcium [Mass/Vol] 8.2 mg/dL Low 8.5-10.[address] [facility] Comment on above: Performed By: #### G FR #### [facility] [address] [place], [place] [address] Chloride [Moles/Vol] 111 mmol/L High 97-105 [facility] Comment on above: Performed By: #### G FR #### [facility] [address] [place], [place] [address] CO2 Blood 23 mmol/L Normal 22-[address] [facility] Comment on above: Performed By: #### G FR #### [facility] [address] [place], [place] [address] Creatinine [Mass/Vol] 1.58 mg/dL High 0.58-0.96 [facility] Comment on above: Performed By: #### G FR #### [facility] [address] [place], [place] [address] Glucose [Mass/Vol] 93 mg/dL Normal 74-[address] [facility] Comment on above: Result Comment: The [place] Diabetes [employer] (ADA) provides guidance for cutoff [...] Standards of Medical Care in Diabetes 2016; [place] [employer]. Diabetes Care. 2016;39(Suppl 1). Performed By: #### G FR #### [facility] 1 [place], [place] [address] Potassium [Moles/Vol] 4.0 mmol/L Normal 3.7-5.1 [facility] Comment on above: Performed By: #### G FR #### [facility] 1 [place] [address] Sodium [Moles/Vol] 143 mmol/L Normal 136-[address] [facility] Comment on above: Performed By: #### G FR #### [facility] [address] [place] [address] Urea nitrogen [Mass/Vol] 11 mg/dL Normal 7-[address] [facility] Comment on above: Performed By: #### G FR #### [facility] [address] [place] [address] CASE MANAGEMon 02-23-2020 CASE MANAGEM HNO ID: [id number] Author: Tamiko (Rn) SEUN Canales Service: Care [...] 23, 2020 TIME: 10:09 AM PAGER/CONTACT #: [phone] [facility] CONSULT PROGon 02-23-2020 CONSULT PROG HNO ID: [id number] Author: Darrius Grant Service: Plastic Surgery Author [...] OK). 3. F/u in my office in [place] on 03/07/2020 -- patient should call at her convenience for an appointment anytime this week. Please contact me for any other questions or concerns. Thank you, Amandeep Grant MD Pager: [phone] Normal [facility] ECG COMPLETEon 02-23-2020 ECG COMPLETE NAME : ZULAY BEARDEN PID : [id number] : 1950 Gender : Female Race : ORD : [id number] Procedure Date : Feb 23 2020 13:17:01 Edit Date : Feb 25 2020 11:29:24 Diagnosis:SINUS RHYTHM WITH SHORT TN OTHERWISE NORMAL ECG NO PREVIOUS ECGS AVAILABLE Confirmed by MD HATHAWAY SACHIN ([id number]) on 02/25/2020 11:29:19 AM Ventricular Rate : 67 BPM Atrial Rate : 67 BPM P-R Interval : 106 ms QRS Duration : 78 ms Q-T Interval : 404 ms QTC Calculation(Bazett) : 426 ms P [place] : 41 degrees R [place] : 65 degrees T [place] : 39 degrees Test Reason : Arrhythmia Location : 19 : [id number] Overread By : MD HATHAWAY SACHIN Edited By : MD HATHAWAY SACHIN Referred By : KRISTEN SCHULER Acquired by : KAHTY STOVER Normal [facility] MDRD GFRon 02-23-2020 GFR/1.73 sq M predicted among non-blacks MDRD (S/P/Bld) [Vol rate/Area] 32.35 mL/min/{1.73_m2} Normal >60mL/min/1.[address] [facility] Comment on above: Result Comment: If t he patient is , multiply the result by 1.210. Performed By: #### G FR #### [place] [address] PLAN OF CAREon 02-23-2020 PLAN OF CARE HNO ID: [id number] Author: Minna Gallo (Public Safety [employer]) Service: ? Author Type: ? Type: Plan [...] 60 mg/mL Commonly known as: ONDINA Gallo (Public Safety [employer]) PAGER: [phone] February 23, 2020 6:12 PM Normal [facility] PROGRESSon 02-23-2020 PROGRESS HNO ID: [id number] Author: Hunter Garrido Service: Hospital Medicine Author Type: Physician Type: Progress Notes Filed: 02/23/2020 3:59 PM Note Text: DEPARTMENT OF HOSPITAL MEDICINE PROGRESS NOTE SERVICE DATE: 02/23/2020 SERVICE TIME: 3:41 PM Hospital Medicine/Primary Attending: Hunter Garrido MD NIGHT AND WEEKEND COVERAGE: [place] COVERAGE: From 7am - 7pm, please call [phone] After 7pm, please call cross cover pager #[phone] Subjective INTERVAL HPI: patient seen at bedside. She has been doing dressing changes and was saying that she had instruction from surgeon. Surgery recs are noted in the chart. Iodoform gauze and dressing changes bid. Needs continued follow up as outpatient in [place] office 03/07/2020. Discussed with ID, duration of [...] 23, 2020 TIME: 3:41 PM PAGER/CONTACT #: [phone] etx [phone] [facility] PROGRESS HNO ID: [id number] Author: Anibal Nunn Service: Nephrology Author Type: [...] for follow up at our office in [place] in 1-2 weeks. ? 2. Metabolic acidosis. Serum HCO3 is 23. Likely due to LORETA and diarrhea. Serum HCO3 is stable today. Continue treatment of LORETA as above. Imodium for diarrhea. ? 3. L hand infection s/p cat bite. S/p I+D. Antibiotic as per hospitalist. ? 4. L renal nodule. Will need re imaging at later date. This can be followed as outpt. ? d/w Dr. Garrido Please do not hesitate to contact me at [phone] if there is any question or concern. Divya Velazco MD (Anibal Nunn) [facility] PROGRESS HNO ID: [id number] Author: Gael Villagomez III Service: Infectious Disease [...] 600 mg ORAL q 12 H Gael Villagomez III 600 mg at 02/23/20 0945 - [...] 23, 2020 TIME: 1:55 PM PAGER/CONTACT #: [phone] [facility] PROGRESS HNO ID: [id number] Author: Hunter Garrido Service: Hospital Medicine Author Type: Physician Type: Progress Notes Filed: 02/22/2020 11:47 PM Note Text: DEPARTMENT OF HOSPITAL MEDICINE PROGRESS NOTE SERVICE DATE: 02/22/2020 SERVICE TIME: 11:45 PM Hospital Medicine/Primary Attending: Hunter Garrido MD NIGHT AND WEEKEND COVERAGE: [place] COVERAGE: From 7am - 7pm, please call [phone] After 7pm, please call cross cover pager #[phone] Subjective INTERVAL HPI: patient seen at bedside. [...] onward) Start Dose Route Frequency Ordered Stop 02/16/200 heparin 5,000 Units injection (Medical Risk Categories) 5,000 Units SUBCUTANEOUS EVERY 12 HOURS 02/16/202110 -- VTE Prophylaxis: heparin dvt px Disposition: Home Plan of care discussed with: Provider, RN, Patient SIGNATURE: Hunter Garrido MD PATIENT NAME: Zulay Bearden DATE: February 22, 2020 TIME: 11:45 PM PAGER/CONTACT #: [phone] etx [phone] Normal [facility] CONSULTon 02-22-2020 CONSULT HNO ID: [id number] Author: Gael Villagomez III Service: Infectious Disease [...] g INTRAVENOUS q 8 H Mohammad F Baptism 100 mL/hr at 02/22/20 1414 3.375 g [...] mL/hr at 02/21/20 0613 75 mL/hr at 02/21/20 06 - acetaminophen 650 mg tab(s) (TYLENOL) 650 mg ORAL q 6 H PRN Sherine Mcgill MD 650 mg at 02/21/202023 - LORazepam 0.5 mg injection (ATIVAN) 0.5 mg INTRAVENOUS q 6 H PRN Graham He - heparin 5,000 Units injection 5,000 Units SUBCUTANEOUS q 12 H Darrius H Rudy 5,000 Units at 02/22/20 08 - aluminum-magnesium hydroxide-simethicone 200-200-20 mg/5 mL 30 mL (MAALOX,MYLANTA,MAG-AL PLUS) 30 mL ORAL DAILY PRN Darrius H Rudy - ondansetron 4 mg tab(s) (ZOFRAN) 4 mg ORAL q 6 H PRN Darrius H Rudy Or - ondansetron (PF) 4 mg injection (ZOFRAN) 4 mg INTRAVENOUS q 6 H PRN Darrius H Rudy 4 mg at 02/18/201906 - polyethylene glycol 3350 17 g packet [...] monitoring per pharmacy OTHER As Directed Darrius Parmar Rudy ACTIVE PROBLEM LIST Postmenopausal Atrophic Vaginitis Mixed [...] 23, 2020 TIME: 1:15 AM PAGER/CONTACT #: [phone] [facility] CONSULT PROGon 02-22-2020 CONSULT PROG HNO ID: [id number] Author: Karla Bangura (Pharmacist) Service: Pharmacy Author [...] care. Please contact pharmacy [place]. [place]T [phone] KARLA BANGURA, PHARMACIST [facility] CONSULT PROG HNO ID: [id number] Author: Asha Turner) MD Jey Service: Nephrology Author Type: Resident Type: Consult [...] date. This can be followed as outpt. Diyva Velazco MD (Anibal Nunn) Please do not [...] February 22, 2020 TIME: 1:53 PM PAGER: [phone] [facility] CONSULT PROG HNO ID: [id number] Author: Betsy Newsome (Pharmacist) Service: Pharmacy Author [...] have any questions, [place] [phone]. Age: [age] year old Allergies: ALLERGIES Allergen [...] Vancomycin,Random (ug/mL) Date/Time Value 02/21/2020 2103 14.0 02/20/2020 2057 12.1 BETSY NEWSOME, PHARMACIST Normal [facility] Hemogram/Diffon 02-22-2020 Abs Immature Grans 0.02 thou/cmm Normal 0.00-0.05 [facility] Comment on above: Performed By: #### G FR #### [facility] [address] [place] [address] Abs Neut (ANC) 3.53 thou/cmm Normal 1.56-6.[address] [facility] Comment on above: Performed By: #### G FR #### [facility] [address] [place] [address] Abs. Baso 0.04 thou/cmm Normal 0.01-0.[address] [facility] Comment on above: Performed By: #### G FR #### [facility] [address] [place], [place] [address] Abs. [place] 0.64 thou/cmm Normal 0.27-0.[address] [facility] Comment on above: Performed By: #### G FR #### [facility] [address] [place] [address] Basophils/100 WBC (Bld) 0.7 % Normal [facility] Comment on above: Performed By: #### G FR #### [facility] [address] [place] [address] Eosinophils (Bld) [#/Vol] 0.16 thou/cmm Normal 0.00-0.[address] [facility] Comment on above: Performed By: #### G FR #### [facility] [address] [place] [address] Eosinophils/100 WBC (Bld) 2.7 % Normal [facility] Comment on above: Performed By: #### G FR #### [facility] [address] [place] [address] Erythrocyte distribution width (RBC) [Ratio] 13.2 % Normal 11.7-14.[address] [facility] Comment on above: Performed By: #### G FR #### [facility] [address] [place] [address] Hematocrit (Bld) [Volume fraction] 31.3 % Low 34.1-44.[address] [facility] Comment on above: Performed By: #### G FR #### [facility] [address] [place] [address] Hemoglobin (Bld) [Mass/Vol] 10.0 g/dL Low 11.2-15.[address] [facility] Comment on above: Performed By: #### G FR #### [facility] [address] [place] [address] Immature Grans 0.30 % Normal [facility] Comment on above: Performed By: #### G FR #### [facility] [address] [place] [address] Lymphocytes (Bld) [#/Vol] 1.44 thou/cmm Normal 1.18-3.[address] [facility] Comment on above: Performed By: #### G FR #### [facility] [address] [place], [place] [address] Lymphocytes/100 WBC (Bld) 24.7 % Normal [facility] Comment on above: Performed By: #### G FR #### [facility] [address] [place], [place] [address] MCH (RBC) [Entitic mass] 29.8 pg Normal 25.6-32.[address] [facility] Comment on above: Performed By: #### G FR #### [facility] [address] [place], [place] [address] MCHC (RBC) [Mass/Vol] 31.9 % Normal 31.6-34.8 [facility] Comment on above: Performed By: #### G FR #### [facility] [address] [place] [address] MCV (RBC) [Entitic vol] 93.2 fL Normal 79.4-94.[address] [facility] Comment on above: Performed By: #### G FR #### [facility] [address] [place], [place] [address] Monocytes/100 WBC (Bld) 11.0 % Normal [facility] Comment on above: Performed By: #### G FR #### [facility] [address] [place] [address] Platelet mean volume (Bld) [Entitic vol] 10.8 fL Normal 9.4-12.[address] [facility] Comment on above: Performed By: #### G FR #### [facility] [address] [place], [place] [address] Platelets (Bld) [#/Vol] 197 thou/cmm Normal 182-[address] [facility] Comment on above: Performed By: #### G FR #### [facility] [address] [place], [place] [address] RBC (Bld) [#/Vol] 3.36 mil/cmm Low 3.93-5.[address] [facility] Comment on above: Performed By: #### G FR #### [place] [address] RDW SD 45.4 fl Normal 36.4-46.[address] [facility] Comment on above: Performed By: #### G FR #### [facility] [address] [place] [address] Seg Neutrophil 60.6 % Normal [facility] Comment on above: Performed By: #### G FR #### [facility] [address] [place] [address] WBC (Bld) [#/Vol] 5.82 thou/cmm Normal 3.98-10.04 [facility] Comment on above: Performed By: #### G FR #### [facility] [address] [place] [address] Renal Function Panelon 02-21 Albumin [Mass/Vol] 3.1 g/dL Low 3.9-4.[address] [facility] Comment on above: Performed By: #### G FR #### [facility] [address] [place] [address] Anion gap [Moles/Vol] 10 mmol/L Normal 9-18 [facility] Comment on above: Performed By: #### G FR #### [facility] [address] [place] [address] Calcium [Mass/Vol] 8.4 mg/dL Low 8.5-10.[address] [facility] Comment on above: Performed By: #### G FR #### [facility] [address] [place] [address] Chloride [Moles/Vol] 112 mmol/L High 97-105 [facility] Comment on above: Performed By: #### G FR #### [facility] [address] [place] [address] CO2 Blood 22 mmol/L Normal 22-[address] [facility] Comment on above: Performed By: #### G FR #### [facility] [address] [place] [address] Creatinine [Mass/Vol] 1.76 mg/dL High 0.58-0.96 [facility] Comment on above: Performed By: #### G FR #### [facility] [address] [place], [place] [address] Glucose [Mass/Vol] 94 mg/dL Normal 74-[address] [facility] Comment on above: Result Comment: The [place] [employer] (ADA) provides guidance for cutoff [...] Standards of Medical Care in Diabetes 2016; [place] [employer]. Diabetes Care. 2016;39(Suppl 1). Performed By: #### G FR #### [place] [address] Phosphate [Mass/Vol] 3.3 mg/dL Normal 2.7-4.8 [facility] Comment on above: Performed By: #### G FR #### [facility] [address] [place] [address] Potassium [Moles/Vol] 3.9 mmol/L Normal 3.7-5.1 [facility] Comment on above: Performed By: #### G FR #### [address] [address] Sodium [Moles/Vol] 144 mmol/L Normal 136-[address] [facility] Comment on above: Performed By: #### G FR #### [address] [address] Urea nitrogen [Mass/Vol] 14 mg/dL Normal 7-[address] [facility] Comment on above: Performed By: #### G FR #### [place] [id number] CASE MANAGEMon 02-21-2020 CASE MANAGEM HNO ID: [id number] Author: Kelle Panchal Sec Service: Care Management Author Type: ? Type: Care Mgt Progress Note Filed: 02/21/2020 11:29 AM Note Text: CARE MANAGEMENT PROGRESS NOTE SERVICE DATE: 02/21/2020 SERVICE TIME: 1015 LOS: 4 days IMM Follow Up Copy Given: Yes Copy given to:: Patient Method: In Person SIGNATURE: Kelle Muro PATIENT NAME: Zulay Bearden DATE: February 21, 2020 TIME: 11:29 AM Normal [facility] CONSULT PROGon 02-21-2020 CONSULT PROG HNO ID: [id number] Author: Asha Khanna MD Service: Nephrology Author [...] February 21, 2020 TIME: 1:53 PM PAGER: [phone] [facility] CONSULT PROG HNO ID: [id number] Author: Betsy Newsome (Pharmacist) Service: Pharmacy Author [...] vancomycin level was 12.1 mcg/mL drawn at 2057 on 02/20/2020. This is a 46 hour [...] have any questions, [place] [phone]. Age: [age] year old Allergies: ALLERGIES Allergen [...] Vancomycin Levels: Vancomycin,Random (ug/mL) Date/Time Value 02/20/2020 205 12.1 02/19/2020 2216 20.1 (H) BETSY NEWSOME, PHARMACIST Normal [facility] NURSING PROGon 02-21-2020 NURSING PROG HNO ID: [id number] Author: Zulay (Rn) SEUN Taveras Service: Nursing Author Type: Registered Nurse Type: Nursing Progress Note Filed: 02/21/2020 12:05 PM Note Text: Dr. Garrido at bedside with patient to see her during soaking. Support offered Normal [facility] PROGRESSon 02-21-2020 PROGRESS HNO ID: [id number] Author: Hunter Garrido Service: Hospital Medicine Author Type: Physician Type: Progress Notes Filed: 02/21/2020 12:19 PM Note Text: DEPARTMENT OF HOSPITAL MEDICINE PROGRESS NOTE SERVICE DATE: 02/21/2020 SERVICE TIME: 12:05 PM Hospital Medicine/Primary Attending: Hunter Garrido MD NIGHT AND WEEKEND COVERAGE: [place] COVERAGE: From 7am - 7pm, please call [phone] After 7pm, please call cross cover pager #[phone] Subjective INTERVAL HPI: Patient seen at bedside. [...] zosyn Culture from I and d - coa neg stap Consult ID Pain medicine as needed As [...] 21, 2020 TIME: 12:05 PM PAGER/CONTACT #: [phone] etx [phone] Normal [facility] Renal Function Panelon 02-20 Albumin [Mass/Vol] 3.0 g/dL Low 3.9-4.[address] [facility] Comment on above: Performed By: #### G FR #### [facility] [address] [place], [place] [address] Anion gap [Moles/Vol] 8 mmol/L Low 9-18 [facility] Comment on above: Performed By: #### G FR #### [facility] [address] [place], [place] [address] Calcium [Mass/Vol] 8.2 mg/dL Low 8.5-10.[address] [facility] Comment on above: Performed By: #### G FR #### [facility] [address] [place], [place] [address] Chloride [Moles/Vol] 113 mmol/L High 97-105 [facility] Comment on above: Performed By: #### G FR #### [facility] [address] [place], [place] [address] CO2 Blood 22 mmol/L Normal 22-[address] [facility] Comment on above: Performed By: #### G FR #### [facility] [address] [place], [place] [address] Creatinine [Mass/Vol] 2.09 mg/dL High 0.58-0.96 [facility] Comment on above: Performed By: #### G FR #### [facility] [address] [place], [place] [address] Glucose [Mass/Vol] 94 mg/dL Normal 74-[address] [facility] Comment on above: Result Comment: The [place] Diabetes [employer] (ADA) provides guidance for cutoff [...] Standards of Medical Care in Diabetes 2016; [place] [employer]. Diabetes Care. 2016;39(Suppl 1). Performed By: #### G FR #### [facility] [address] [place] [address] Phosphate [Mass/Vol] 3.1 mg/dL Normal 2.7-4.8 [facility] Comment on above: Performed By: #### G FR #### [facility] [address] [place] [address] Potassium [Moles/Vol] 3.9 mmol/L Normal 3.7-5.1 [facility] Comment on above: Performed By: #### G FR #### [facility] [address] [place] [address] Sodium [Moles/Vol] 143 mmol/L Normal 136-[address] [facility] Comment on above: Performed By: #### G FR #### [facility] [address] [place] [address] Urea nitrogen [Mass/Vol] 12 mg/dL Normal 7-[address] [facility] Comment on above: Performed By: #### G FR #### [facility] [address] [place] [address] Vancomycin,Randomon 02-21-20 20 INR Coag (Bld) [Relative time] 14.0 ug/mL Normal 10.0-20.[address] [facility] Comment on above: Result Comment: Refe rence ranges and high/low indicator flags are provided as general guidelines only. The treating physician must determine appropriate target levels/dosing based on the specific clinical situation. 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 Will follow-up as able. Track Service Person Signature: Nafisa Davis To contact the Spiritual Care Department: Please call [phone] or Page the On-Call Track Service Person at pager [phone] Thank you for the opportunity to be of service. This is an electronically created document. IF PRINTED, PLEASE DO NOT REMOVE FROM THE CHART OR MODIFY PRINTED COPY. Normal [facility] CONSULTon 02-20-2020 CONSULT HNO ID: [id number] Author: Asha Khanna MD Service: Nephrology Author [...] Intake/Output Summary (Last 24 hours) at 02/20/2020 7408 Last data filed at 02/20/2020 1400 Gross [...] February 20, 2020 TIME: 6:58 PM PAGER: [phone] [facility] CONSULT PROGon 02-20-2020 Cholesterol [Mass/Vol] HNO ID: [id number] Author: Darrius Grant Service: Plastic Surgery Author Type: Physician Type: Consult Progress Note Filed: 02/20/2020 12:49 PM Note Text: PLASTIC SURGERY AND HAND SURGERY STAFF NOTE: Appreciate all medical teams' assistance with this patient's care. L hand and wrist pain improving slowly. WBC continues to trend downward. Continue present dressing changes. Amandeep Grant MD Pager: [phone] [facility] CONSULT PROG HNO ID: [id number] Author: Betsy Newsome (Pharmacist) Service: Pharmacy Author [...] have any questions, [place] [phone]. Age: [age] year old Allergies: ALLERGIES Allergen [...] 02/18/2020 2100 17.9 BETSY NEWSOME, PHARMACIST Normal [facility] CPKon 02-20-2020 CK [Catalytic activity/Vol] 42 U/L Normal 42-[address] [facility] Comment on above: Performed By: #### C MP #### [facility] [address] [place] [address] Comprehensive Metabolic Pane lorna 02-20-2020 Albumin [Mass/Vol] 3.1 g/dL Low 3.9-4.[address] [facility] Comment on above: Performed By: #### C MP #### [facility] [address] [place] [address] ALP [Catalytic activity/Vol] 33 U/L Low 34-[address] [facility] Comment on above: Performed By: #### C MP #### [facility] [address] [place] [address] ALT [Catalytic activity/Vol] 8 U/L Normal 7-[address] [facility] Comment on above: Performed By: #### C MP #### [facility] [address] [place] [address] Anion gap [Moles/Vol] 11 mmol/L Normal 9-18 [facility] Comment on above: Performed By: #### C MP #### [facility] [address] [place] [address] AST [Catalytic activity/Vol] 15 U/L Normal 13-[address] [facility] Comment on above: Performed By: #### C MP #### [facility] [address] [place] [address] Bilirubin [Mass/Vol] 0.3 mg/dL Normal 0.2-1.3 [facility] Comment on above: Performed By: #### C MP #### [facility] [address] [place] [address] Calcium [Mass/Vol] 7.9 mg/dL Low 8.5-10.[address] [facility] Comment on above: Performed By: #### C MP #### [facility] [address] [place] [address] Chloride [Moles/Vol] 112 mmol/L High 97-105 [facility] Comment on above: Performed By: #### C MP #### [facility] [address] [place] [address] CO2 Blood 20 mmol/L Low 22-[address] [facility] Comment on above: Performed By: #### C MP #### [facility] [address] [place] [address] Creatinine [Mass/Vol] 2.65 mg/dL High 0.58-0.96 [facility] Comment on above: Performed By: #### C MP #### [facility] [address] [place], [place] [address] Glucose [Mass/Vol] 94 mg/dL Normal 74-[address] [facility] Comment on above: Result Comment: The [place] [employer] (ADA) provides guidance for cutoff [...] Standards of Medical Care in Diabetes 2016; [place] [employer]. Diabetes Care. 2016;39(Suppl 1). Performed By: #### C MP #### [address] [address] Potassium [Moles/Vol] 3.9 mmol/L Normal 3.7-5.1 [facility] Comment on above: Performed By: #### C MP #### [address] [address] Protein [Mass/Vol] 5.1 g/dL Low 6.3-8.[address] [facility] Comment on above: Performed By: #### C MP #### [address] [address] Sodium [Moles/Vol] 143 mmol/L Normal 136-[address] [facility] Comment on above: Performed By: #### C MP #### [facility] [facility] [place], [place] [address] Urea nitrogen [Mass/Vol] 16 mg/dL Normal 7-[address] [facility] Comment on above: Performed By: #### C MP #### [facility] 1 [place], [place] [address] Lipase Bloodon 02-20-2020 Lipase Blood 25 U/L Normal 16-[address] [facility] Comment on above: Performed By: #### C MP #### [address] [address] PROGRESSon 02-20-2020 PROGRESS HNO ID: [id number] Author: Sherine Mcgill MD Service: Hospital Medicine Author Type: Physician Type: Progress Notes Filed: 02/20/2020 4:28 PM Note Text: DEPARTMENT OF HOSPITAL MEDICINE PROGRESS NOTE SERVICE DATE: 02/20/2020 SERVICE TIME: 4:19 PM Hospital Medicine/Primary Attending: Sherine Guajardo MD NIGHT AND WEEKEND COVERAGE: After 7pm please page [phone] CHIEF COMPLAINT: Left hand pain, following cat [...] 02/16/202114 vte non-pharmacologic prophylaxis - none indicated (fl,oh) 02/16/202114 activity - mobilize patient (nh,oh) Lines, Drains, and Airways Line Peripheral 07/27/20 0900 Short Right Forearm 22 Gauge 1 day Plan of care discussed with: Provider, RN, Patient SIGNATURE: Sherine Guajardo MD PATIENT NAME: Zulay Bearden DATE: February 20, 2020 TIME: 4:19 PM PAGER/CONTACT #: Team color pager Disclaimer: Portions of this note may have been generated using Closely voice recognition software. Reasonable efforts were made to correct any dictation errors that resulted due to the programming of this software but some may still be present. Normal [facility] US KIDNEY/BLADDERon 02-20-20 20 US KIDNEY/BLADDER Final Report DATE OF EXAM: Feb 20 2020 10:45AM [facility] 1055 - US KIDNEY/BLADDER / PROCEDURE [...] with Dr. Khanna at time of dictation. Fur Blender: DERECK Transcribe Date/Time: Feb 20 2020 10:59A Dictated by : BETHANIE VIDES MD This examination was interpreted and the report reviewed and electronically signed by: BETHANIE VIDES MD on Feb 20 2020 11:29AM EST Normal [facility] Vancomycin,Randomon 02-20-20 20 INR Coag (Bld) [Relative time] 12.1 ug/mL Normal 10.0-20.[address] [facility] Comment on above: Result Comment: Refe rence ranges and high/low indicator flags are provided as general guidelines only. The treating physician must determine appropriate target levels/dosing based on the specific clinical situation. Performed By: #### G FR #### [facility] 1 [place], [place] [address] Basic Metabolic Panelon 01-24 Anion gap [Moles/Vol] 10 mmol/L Normal 9-18 [facility] Comment on above: Performed By: #### C MP #### [facility] 1 [place] [address] Calcium [Mass/Vol] 7.6 mg/dL Low 8.5-10.[address] [facility] Comment on above: Performed By: #### C MP #### [address] [address] Chloride [Moles/Vol] 112 mmol/L High 97-105 [facility] Comment on above: Performed By: #### C MP #### [facility] 1 [place], [place] [address] CO2 Blood 20 mmol/L Low 22-[address] [facility] Comment on above: Performed By: #### C MP #### [address] [address] Creatinine [Mass/Vol] 2.92 mg/dL High 0.58-0.96 [facility] Comment on above: Performed By: #### C MP #### [place] [address] Glucose [Mass/Vol] 102 mg/dL High 74-[address] [facility] Comment on above: Result Comment: The [place] Diabetes Association (ADA) provides guidance for cutoff [...] Standards of Medical Care in Diabetes 2016; [place] [employer]. Diabetes Care. 2016;39(Suppl 1). Performed By: #### C MP #### [facility] 1 [place], [place] [address] Potassium [Moles/Vol] 3.9 mmol/L Normal 3.7-5.1 [facility] Comment on above: Performed By: #### C MP #### [facility] [address] [place] [address] Sodium [Moles/Vol] 142 mmol/L Normal 136-[address] [facility] Comment on above: Performed By: #### C MP #### [facility] [address] [place] [address] Urea nitrogen [Mass/Vol] 17 mg/dL Normal 7-[address] [facility] Comment on above: Performed By: #### C MP #### [facility] 1 [place], [place] [address] CASE MANAGEMon 02-19-2020 CASE MANAGEM HNO ID: [id number] Author: Kelle Muro Service: Care Management Author Type: ? Type: Care Mgt Progress Note Filed: 02/19/2020 1:49 PM Note Text: CARE MANAGEMENT PROGRESS NOTE SERVICE DATE: 02/19/2020 SERVICE TIME: 1030 LOS: 2 days IMM Follow Up Copy Given: Yes Copy given to:: Patient Method: In Person SIGNATURE: Kelle Muro PATIENT NAME: Zulay Bearden DATE: February 19, 2020 TIME: 1:49 PM PAGER/CONTACT #: Normal [facility] CASE MGT INIT ASSESon 2019 CASE MGT INIT ASS HNO ID: [id number] Author: Tamiko (Rn) SEUN Canales Service: Care Management Author Type: Registered Nurse Type: Care Mgt Initial Assessment Filed: 02/19/2020 4:38 PM Note Text: CARE MANAGEMENT: ASSESSMENT AND DISCHARGE PLAN SERVICE DATE: February 19, 2020 SERVICE TIME: 4:37 PM PRIMARY CARE PHYSICIAN: REN TURNER MD ADMISSION STATUS: Inpatient Needs Prior to Discharge: None [place] [facility]/Public Health Registrar Stated Goals: To have reduction in symptoms;To be cured/healed Health Insurance: Charisma Matta Last Discharge Date: N/A Is this Within the Past 30 days? Last discharge within 30 days: No Advance Directive: Current Advance Directive: None Clinical Trial Assistant Attempted to Assist with AD Completion: Yes [...] Information Primary Emergency Contact: Loy Bearden Address: [address] [place] [address] Relation: Spouse Supportive Patient Contact:: Yes Contact Resources: Family Family Name/Phone: Loy (spouse) [phone] Social Needs Food insecurity Worry: Not on [...] Completely I feel financially burdened by my [id number] expenses for my prescription medication:: 0 - Disagree Completely Risk Score: 0 Patient is categorized as: Low risk < 2 Are you interested in bedside delivery of your medications? No Is Patient Psychosocially Complex?: No ASSESSMENT AND PLAN: Medical Needs: Medical Needs: None Psychosocial Needs: Psychosocial Needs: None FREEDOM OF CHOICE EXPLAINED: [place] of Choice Given: No Reason Not Given: [...] 19, 2020 TIME: 4:37 PM PAGER/CONTACT #: [phone] [facility] CONSULTon 02-19-2020 CONSULT HNO ID: [id number] Author: Asha Khanna MD Service: Nephrology Author [...] labs Most recent imaging Recent Labs 02/19/20 0502/18/20 0550 02/17/20 0329 NA 142 142 139 K 3.9 4.0 3.6* CHLOR 112* 110* 108* CO2 20* 24 22 BUN 17 16 10 CREAT 2.92* 1.58* 0.75 GLUC 102* 120* 97 ANION 10 8* 9 CA 7.6* 8.0* 8.0* Recent Labs 02/19/2052902/18/20 0550 02/17/20 0329 WBC 6.41 7.44 8.41 [...] February 19, 2020 TIME: 3:03 PM PAGER: [phone] [facility] CONSULT PROGon 02-19-2020 CONSULT PROG HNO ID: [id number] Author: Betsy Newsome (Pharmacist) Service: Pharmacy Author [...] have any questions, [place] [phone]. Age: [age] year old Allergies: ALLERGIES Allergen [...] 0849 21.4 (H) BETSY NEWSOME, PHARMACIST Normal [facility] CPKon 02-19-2020 CK [Catalytic activity/Vol] 32 U/L Low 42-[address] [facility] Comment on above: Performed By: #### C MP #### [address] [address] Creatinine, Urineon 02-19-20 20 Creatinine, Urine 79.9 mg/dL Normal 42.2-237.[address] [facility] Comment on above: Performed By: #### C MP #### [facility] [address] [place] [address] Hemogramon 02-19-2020 Erythrocyte distribution width (RBC) [Ratio] 12.7 % Normal 11.7-14.[address] [facility] Comment on above: Performed By: #### C MP #### [facility] [address] [place] [address] Hematocrit (Bld) [Volume fraction] 34.1 % Normal 34.1-44.[address] [facility] Comment on above: Performed By: #### C MP #### [facility] [address] [place] [address] Hemoglobin (Bld) [Mass/Vol] 10.7 g/dL Low 11.2-15.[address] [facility] Comment on above: Performed By: #### C MP #### [facility] [address] [place] [address] MCH (RBC) [Entitic mass] 30.1 pg Normal 25.6-32.[address] [facility] Comment on above: Performed By: #### C MP #### [facility] [address] [place] [address] MCHC (RBC) [Mass/Vol] 31.4 % Low 31.6-34.8 [facility] Comment on above: Performed By: #### C MP #### [facility] [address] [place] [address] MCV (RBC) [Entitic vol] 96.1 fL High 79.4-94.[address] [facility] Comment on above: Performed By: #### C MP #### [facility] [address] [place] [address] Platelet mean volume (Bld) [Entitic vol] 11.2 fL Normal 9.4-12.[address] [facility] Comment on above: Performed By: #### C MP #### [facility] [address] [place] [address] Platelets (Bld) [#/Vol] 164 thou/cmm Low 182-[address] [facility] Comment on above: Performed By: #### C MP #### [facility] 1 [place], [place] [address] RBC (Bld) [#/Vol] 3.55 mil/cmm Low 3.93-5.[address] [facility] Comment on above: Performed By: #### C MP #### [facility] 1 [place], [place] [address] RDW SD 44.9 fl Normal 36.4-46.[address] [facility] Comment on above: Performed By: #### C MP #### [facility] 1 [place], [place] [address] WBC (Bld) [#/Vol] 6.41 thou/cmm Normal 3.98-10.04 [facility] Comment on above: Performed By: #### C MP #### [facility] 1 [place], [place] [address] PROGRESSon 02-19-2020 PROGRESS HNO ID: [id number] Author: Sherine Mcgill MD Service: Hospital Medicine Author Type: Physician Type: Progress Notes Filed: 02/19/2020 11:01 AM Note Text: DEPARTMENT OF HOSPITAL MEDICINE PROGRESS NOTE SERVICE DATE: 02/19/2020 SERVICE TIME: 10:20 AM Hospital Medicine/Primary Attending: Sherine Guajardo MD NIGHT AND WEEKEND COVERAGE: After 7pm please page [phone] CHIEF COMPLAINT: Left hand cellulitis, SUBJECTIVE: Pt [...] 02/16/202114 vte non-pharmacologic prophylaxis - none indicated (nh,ct) 02/16/202114 activity - mobilize patient ([place], [place]) Lines, Drains, and Airways Line Peripheral [...] this note may have been generated using Closely voice recognition software. Reasonable efforts were made to correct any dictation errors that resulted due to the programming of this software but some may still be present. Normal [facility] Sodium,Urineon 02-19-2020 Sodium (U) [Moles/Vol] 26.0 mmol/L Normal 14.0-216.0 [facility] Comment on above: Performed By: #### C MP #### [place] [address] Urinalysis Routineon 020 Bacteria LM.HPF (Urine sed) [#/Area] NONE Normal None [facility] Comment on above: Performed By: #### C MP #### [place] [address] Ep Cells Urine 4.3 /hpf Normal 0.0-5.[address] [facility] Comment on above: Performed By: #### C MP #### [place] [address] Hyaline Cast 1.0 /lpf Normal 0.0-1.[address] [facility] Comment on above: Performed By: #### C MP #### [place] [address] RBC LM.HPF (Urine sed) [#/Area] 4.8 /[HPF] Normal 0.0-5.[address] [facility] Comment on above: Performed By: #### C MP #### [facility] [address] [place] [address] WBC LM.HPF (Urine sed) [#/Area] 5.7 /[HPF] High 0.0-5.[address] [facility] Comment on above: Performed By: #### C MP #### [facility] [address] [place] [address] Appearance (U) CLOUDY Normal [facility] Comment on above: Performed By: #### C MP #### [place] [address] Bilirubin (U) [Mass/Vol] Negative Normal Negative [facility] Comment on above: Performed By: #### C MP #### [place] [address] Color (U) YELLOW Normal [facility] Comment on above: Performed By: #### C MP #### [place] [address] Glucose Ql (U) Negative Normal Negative [facility] Comment on above: Performed By: #### C MP #### [place] [address] Hemoglobin,Urine Negative Normal Negative [facility] Comment on above: Performed By: #### C MP #### [place] [address] Ketone Urine Negative Normal Negative [facility] Comment on above: Performed By: #### C MP #### [place] [address] Leukocytes Esterase Negative Normal Negative [facility] Comment on above: Performed By: #### C MP #### [place] [address] Nitrites Urine Negative Normal Negative [facility] Comment on above: Performed By: #### C MP #### [place] [address] pH (U) 5.0 [pH] Normal 5.0-8.[address] [facility] Comment on above: Performed By: #### C MP #### [facility] [address] [place] [address] Protein (U) [Mass/Vol] TRACE Abnormal Negative [facility] Comment on above: Performed By: #### C MP #### [facility] [address] [place] [address] Specific [place], Ur 1.012 Normal 1.005-1.030 [facility] Comment on above: Performed By: #### C MP #### [facility] [address] [place] [address] Urobilinogen,Ur 0.2 EU/dL Normal 0.2-1.[address] [facility] Comment on above: Performed By: #### C MP #### [facility] [address] [place] [address] Vancomycin,Randomon 02-19-20 20 INR Coag (Bld) [Relative time] 20.1 ug/mL High 10.0-20.[address] [facility] Comment on above: Result Comment: Refe rence ranges and high/low indicator flags are provided as general guidelines only. The treating physician must determine appropriate target levels/dosing based on the specific clinical situation. Performed By: #### C MP #### [facility] [address] [place] [address] Basic Metabolic Panelon 07-2 6-2020 Anion gap [Moles/Vol] 8 mmol/L Low 9-18 [facility] Comment on above: Performed By: #### B MP #### [facility] [address] [place] [address] Calcium [Mass/Vol] 8.0 mg/dL Low 8.5-10.[address] [facility] Comment on above: Performed By: #### B MP #### [facility] [address] [place] [address] Chloride [Moles/Vol] 110 mmol/L High 97-105 [facility] Comment on above: Performed By: #### B MP #### [place] [address] CO2 Blood 24 mmol/L Normal 22-[address] [facility] Comment on above: Performed By: #### B MP #### [facility] 1 [place], [place] [address] Creatinine [Mass/Vol] 1.58 mg/dL High 0.58-0.96 [facility] Comment on above: Performed By: #### B MP #### [facility] 1 [place], [place] [address] Glucose [Mass/Vol] 120 mg/dL High 74-[address] [facility] Comment on above: Result Comment: The [place] Diabetes [employer] (ADA) provides guidance for cutoff [...] Standards of Medical Care in Diabetes 2016; [place] [employer]. Diabetes Care. 2016;39(Suppl 1). Performed By: #### B MP #### [facility] 1 [place], [place] [address] Potassium [Moles/Vol] 4.0 mmol/L Normal 3.7-5.1 [facility] Comment on above: Performed By: #### B MP #### [facility] 1 [place], [place] [address] Sodium [Moles/Vol] 142 mmol/L Normal 136-[address] [facility] Comment on above: Performed By: #### B MP #### [facility] 1 [place], [place] [address] Urea nitrogen [Mass/Vol] 16 mg/dL Normal 7-[address] [facility] Comment on above: Performed By: #### B MP #### [facility] [address] [place], [place] [address] C. diff by PCRon 02-18-2020 C. difficile by PCR Negative Normal Negative [facility] Comment on above: Performed By: #### C DIFF #### [facility] [address] [place] [address] CONSULT PROGon 02-18-2020 Cholesterol [Mass/Vol] HNO ID: [id number] Author: Darrius Grant Service: Plastic Surgery Author Type: Physician Type: Consult Progress Note Filed: 02/18/2020 4:13 PM Note Text: PLASTIC SURGERY AND HAND SURGERY STAFF NOTE: POD # 1 s/p I AND D abscess L dorsal wrist: To begin BID soaks and dressing changes today. WBC trending downward, also. Amandeep Grant MD Pager: [phone] Normal [facility] CONSULT PROG HNO ID: [id number] Author: Jeff (Pharmd) Blanca Service: Pharmacy Author [...] have any questions, [place] [phone]. Age: [age] year old Allergies: ALLERGIES Allergen [...] Date/Time Value 02/18/2020 0849 21.4 (H) Jeff Freshwater, PharmD Normal [facility] Hemogramon 02-18-2020 Erythrocyte distribution width (RBC) [Ratio] 12.6 % Normal 11.7-14.[address] [facility] Comment on above: Performed By: #### C BC1 #### [address] [address] Hematocrit (Bld) [Volume fraction] 34.7 % Normal 34.1-44.[address] [facility] Comment on above: Performed By: #### C BC1 #### [facility] 1 [place], [place] [address] Hemoglobin (Bld) [Mass/Vol] 11.0 g/dL Low 11.2-15.[address] [facility] Comment on above: Performed By: #### C BC1 #### [address] [address] MCH (RBC) [Entitic mass] 30.3 pg Normal 25.6-32.[address] [facility] Comment on above: Performed By: #### C BC1 #### [facility] [address] [place] [id number] MCHC (RBC) [Mass/Vol] 31.7 % Normal 31.6-34.8 [facility] Comment on above: Performed By: #### C BC1 #### [facility] [address] [place] [id number] MCV (RBC) [Entitic vol] 95.6 fL High 79.4-94.[address] [facility] Comment on above: Performed By: #### C BC1 #### [facility] [address] [place] [address] Platelet mean volume (Bld) [Entitic vol] 11.6 fL Normal 9.4-12.[address] [facility] Comment on above: Performed By: #### C BC1 #### [facility] [address] [place] [address] Platelets (Bld) [#/Vol] 156 thou/cmm Low 182-[address] [facility] Comment on above: Performed By: #### C BC1 #### [facility] [address] [place] [address] RBC (Bld) [#/Vol] 3.63 mil/cmm Low 3.93-5.[address] [facility] Comment on above: Performed By: #### C BC1 #### [facility] [address] [place] [address] RDW SD 44.1 fl Normal 36.4-46.[address] [facility] Comment on above: Performed By: #### C BC1 #### [facility] [address] [place] [address] WBC (Bld) [#/Vol] 7.44 thou/cmm Normal 3.98-10.04 [facility] Comment on above: Performed By: #### C BC1 #### [facility] [address] [place] [address] PROGRESSon 02-18-2020 PROGRESS HNO ID: [id number] Author: Graham He Service: Hospital Medicine Author Type: Physician Type: Progress Notes Filed: 02/18/2020 8:59 AM Note Text: DEPARTMENT OF HOSPITAL MEDICINE PROGRESS NOTE SERVICE DATE: 02/18/2020 SERVICE TIME: 8:49 AM Hospital Medicine/Primary Attending: Graham He MD NIGHT AND WEEKEND COVERAGE: [place] COVERAGE: After 7pm, please call cross cover pager #[phone] Subjective INTERVAL HPI: POD#1 IANDD of left [...] 02/16/202114 vte non-pharmacologic prophylaxis - none indicated (nh,oh) 02/16/202114 activity - mobilize patient (nh,ct) VTE Prophylaxis: VTE prophylaxis appropriate Disposition: Home Plan of care discussed with: Patient and RN SIGNATURE: Graham He MD PATIENT NAME: Zulay Bearden DATE: February 18, 2020 TIME: 8:49 AM PAGER/CONTACT #: [phone] Normal [facility] Vancomycin,Randomon 02-18-20 20 INR Coag (Bld) [Relative time] 17.9 ug/mL Normal 10.0-20.[address] [facility] Comment on above: Result Comment: Refe rence ranges and high/low indicator flags are provided as general guidelines only. The treating physician must determine appropriate target levels/dosing based on the specific clinical situation. Performed By: #### V ANC #### [place] [address] INR Coag (Bld) [Relative time] 21.4 ug/mL High 10.0-20.[address] [facility] Comment on above: Result Comment: Refe rence ranges and high/low indicator flags are provided as general guidelines only. The treating physician must determine appropriate target levels/dosing based on the specific clinical situation. Performed By: #### V ANC #### [place] [id number] ANES Jose 02-17-2020 ANES POST HNO ID: [id number] Author: Michelle Hays Service: Anesthesiology Author Type: [...] 17, 2020 TIME: 2:21 PM PAGER/CONTACT #: [phone] [facility] ANES PREOPon 02-17-2020 ANES PREOP HNO ID: [id number] Author: Michelle Hays Service: Anesthesiology Author Type: [...] LIP 06/2010 - COLONOSCOP W/ OR W/O [facility] SPEC 09/26/2012 Colonoscopy - DANVA, DIAG AND/OR THERAPEUTIC Dilation AND curettage - [...] INTRAVENOUS q 6 H PRN Mohammad F Baptism 15 mg at 02/16/202238 - [MAR Hold due to Transfer] HYDROmorphone 0.5 mg injection (DILAUDID) 0.5 mg INTRAVENOUS q 4 H PRN Mohammad F Baptism - [MAR Hold due to Transfer] heparin 5,000 Units injection 5,000 Units SUBCUTANEOUS q 12 H Mohammad F Baptism - [MAR Hold due to Transfer] NaCl 0.9% iv infusion 75 mL/hr INTRAVENOUS CONTINUOUS Mohammad F Baptism 75 mL/hr at 02/16/202129 75 mL/hr at 02/16/202129 - [MAR Hold due to Transfer] aluminum-magnesium hydroxide-simethicone 200-200-20 mg/5 mL 30 mL (MAALOX,MYLANTA,MAG-AL PLUS) 30 mL ORAL DAILY PRN Mohammad F Baptism - [MAR Hold due to Transfer] ondansetron 4 mg tab(s) (ZOFRAN) 4 mg ORAL q 6 H PRN Mohammad F Baptism Or - [MAR Hold due to Transfer] ondansetron (PF) 4 mg injection (ZOFRAN) 4 mg INTRAVENOUS q 6 H PRN Mohammad F Baptism - [MAR Hold due to Transfer] polyethylene glycol 3350 17 g packet (MIRALAX, GLYCOLAX) 17 g ORAL DAILY PRN Mohammad F Baptism - [MAR Hold due to Transfer] docusate sodium 100 mg cap(s) (COLACE) 100 mg ORAL BID PRN Mohammad F Baptism - [MAR Hold due to Transfer] magnesium hydroxide 400 mg/5 mL 30 mL (MOM) 30 mL ORAL DAILY PRN Mohammad F Baptism - [MAR Hold due to Transfer] bisacodyl 10 mg suppository (DULCOLAX) 10 mg RECTAL DAILY PRN Mohammad F Baptism - [MAR Hold due to Transfer] acetaminophen 650 mg tab(s) (TYLENOL) 650 mg ORAL q 6 H PRN Mohammad F Baptism - [MAR Hold due to Transfer] piperacillin-tazobactam iv piggyback 3.375 g in dextrose (iso-osmotic) 50 mL (ZOSYN) 3.375 g INTRAVENOUS q 6 H Mohammad F Baptism 100 mL/hr at 02/17/20 0908 3.375 g at 02/17/20 0908 - [MAR Hold due to Transfer] vancomycin dosing and monitoring per pharmacy OTHER As Directed Mohammad F Baptism - [MAR Hold due to Transfer] vancomycin iv piggyback 1 g in D5W 200 mL (VANCOCIN) 1 g INTRAVENOUS q 12 HR Mohammad F Baptism 200 mL/hr at 02/17/20 1118 1 g [...] February 17, 2020 TIME: 12:00 PM CSN: [id number] [facility] CONSULT PROGon 02-17-2020 CONSULT PROG HNO ID: [id number] Author: Jeff (Pharmd) Freshwater Service: Pharmacy Author [...] Apparently the patient received a dose at [place] on 02/15 before arrival [facility] of 1.25g x1 at 1800 and then received another 1g dose here at 2130. Therefore, will get a level before the 4th dose of the current regimen. We will follow patient renal function, vancomycin levels and doses with you during the course of therapy. Additional recommendations will appear in follow up notes. If you have any questions[place] [phone]. Age: [age] year old Allergies: ALLERGIES Allergen [...] results found for: FLORENCIO Rios, PharmD Normal [facility] Comprehensive Metabolic Pane lorna 02-17-2020 Albumin [Mass/Vol] 3.4 g/dL Low 3.9-4.9 [facility] [facility] Comment on above: Performed By: #### C MP #### [address] [address] ALP [Catalytic activity/Vol] 61 U/L Normal 34-[address] [facility] Comment on above: Performed By: #### C MP #### [facility] 1 [place], [place] [address] ALT [Catalytic activity/Vol] 9 U/L Normal 7-[address] [facility] Comment on above: Performed By: #### C MP #### [address] [address] Anion gap [Moles/Vol] 9 mmol/L Normal 9-18 [facility] Comment on above: Performed By: #### C MP #### [facility] 1 [place], [place] [address] AST [Catalytic activity/Vol] 15 U/L Normal 13-[address] [facility] Comment on above: Performed By: #### C MP #### [address] [address] Bilirubin [Mass/Vol] 0.6 mg/dL Normal 0.2-1.3 [facility] Comment on above: Performed By: #### C MP #### [facility] 1 [place], [place] [address] Calcium [Mass/Vol] 8.0 mg/dL Low 8.5-10.[address] [facility] Comment on above: Performed By: #### C MP #### [facility] 1 [place], [place] [address] Chloride [Moles/Vol] 108 mmol/L High 97-105 [facility] Comment on above: Performed By: #### C MP #### [facility] 1 [place], [place] [address] CO2 Blood 22 mmol/L Normal 22-[address] [facility] Comment on above: Performed By: #### C MP #### [facility] 1 [place], [place] [address] Creatinine [Mass/Vol] 0.75 mg/dL Normal 0.58-0.96 [facility] Comment on above: Performed By: #### C MP #### [facility] 1 [place], [place] [address] Glucose [Mass/Vol] 97 mg/dL Normal 74-[address] [facility] Comment on above: Result Comment: The [place] [employer] (ADA) provides guidance for cutoff [...] Standards of Medical Care in Diabetes 2016; [place] [employer]. Diabetes Care. 2016;39(Suppl 1). Performed By: #### C MP #### [facility] 1 [place], [place] [address] Potassium [Moles/Vol] 3.6 mmol/L Low 3.7-5.1 [facility] Comment on above: Performed By: #### C MP #### [facility] 1 [place], [place] [address] Protein [Mass/Vol] 5.4 g/dL Low 6.3-8.[address] [facility] Comment on above: Performed By: #### C MP #### [facility] 1 [place] [address] Sodium [Moles/Vol] 139 mmol/L Normal 136-[address] [facility] Comment on above: Performed By: #### C MP #### [facility] [address] [place] [address] Urea nitrogen [Mass/Vol] 10 mg/dL Normal 7-[address] [facility] Comment on above: Performed By: #### C MP #### [place] [address] Cult and Smr Aerobicon 02-16 Cult and Smr Aerobic Test performed at [facility] No organisms seen Few Mononuclear cells Many RBCs ORGANISM: *Coagulase negative staphylococcus species (ID: 1) Rare Normal [facility] Comment on above: Performed By: #### C _AER #### [place] [address] Cult and Smr Aerobic Test performed at [facility] No organisms seen Rare Polymorphonuclear leukocytes Rare Mononuclear cells Many RBCs ORGANISM: *Staphylococcus epidermidis (ID: 1) Rare Normal [facility] Comment on above: Performed By: #### C _AER #### [place] [address] HISTORY PHYSICALon 0 HISTORY PHYSICAL HNO ID: [id number] Author: Dmitry Desai Service: Hospital Medicine Author [...] After 7pm, please call cross cover pager #[phone] Subjective CHIEF COMPLAINT / REASON FOR ADMISSION: [...] 60 mg, SUBCUTANEOUS, Q 6 MONTH, Vik Medina, 60 mg at 12/25/19 6903 Cholecalciferol, Vitamin D3, 5,000 unit cap, Take [...] Abs Lymph 2.05 1.00 - 4.00 k/uL [place]% 7.8 % Abs [place] 0.51 <0.87 k/uL Eosin% 0.9 % Abs [...] this note may have been generated using Closely voice recognition software. Reasonable efforts were made to correct any dictation errors that resulted due to the programming of this software but some may still be present. Normal [facility] Hemogramon 02-17-2020 Erythrocyte distribution width (RBC) [Ratio] 13.0 % Normal 11.7-14.[address] [facility] Comment on above: Performed By: #### C BC1 #### [place] [address] Hematocrit (Bld) [Volume fraction] 36.7 % Normal 34.1-44.[address] [facility] Comment on above: Performed By: #### C BC1 #### [address] [address] Hemoglobin (Bld) [Mass/Vol] 11.7 g/dL Normal 11.2-15.[address] [facility] Comment on above: Performed By: #### C BC1 #### [address] [address] MCH (RBC) [Entitic mass] 30.2 pg Normal 25.6-32.[address] [facility] Comment on above: Performed By: #### C BC1 #### [address] [place], [place] [address] MCHC (RBC) [Mass/Vol] 31.9 % Normal 31.6-34.8 [facility] Comment on above: Performed By: #### C BC1 #### [facility] 1 [place] [id number] MCV (RBC) [Entitic vol] 94.6 fL Normal 79.4-94.[address] [facility] Comment on above: Performed By: #### C BC1 #### [facility] 1 [place] [address] Platelet mean volume (Bld) [Entitic vol] 11.4 fL Normal 9.4-12.[address] [facility] Comment on above: Performed By: #### C BC1 #### [place] [address] Platelets (Bld) [#/Vol] 169 thou/cmm Low 182-[address] [facility] Comment on above: Performed By: #### C BC1 #### [facility] [address] [place] [address] RBC (Bld) [#/Vol] 3.88 mil/cmm Low 3.93-5.[address] [facility] Comment on above: Performed By: #### C BC1 #### [facility] [address] [place] [address] RDW SD 44.7 fl Normal 36.4-46.[address] [facility] Comment on above: Performed By: #### C BC1 #### [place] [id number] WBC (Bld) [#/Vol] 8.41 thou/cmm Normal 3.98-10.04 [facility] Comment on above: Performed By: #### C BC1 #### [facility] 1 [place] [id number] NURSING PROGon 02-17-2020 NURSING PROG HNO ID: [id number] Author: Rafaela LazaroRn) SEUN Weeks Service: Nursing Author Type: Registered Nurse Type: Nursing Progress Note Filed: 02/18/2020 2:19 AM Note Text: Nursing Progress Note Patient Name: Zulay Bearden Patient Location: [id number] 02-23 Daily Note: Updated Pts daughter on [...] note was completed by: Rafaela Weeks RN [facility] PROGRESSon 02-17-2020 PROGRESS HNO ID: [id number] Author: Graham He Service: Hospital Medicine Author Type: Physician Type: Progress Notes Filed: 02/17/2020 11:47 AM Note Text: DEPARTMENT OF HOSPITAL MEDICINE PROGRESS NOTE SERVICE DATE: 02/17/2020 SERVICE TIME: 11:31 AM Hospital Medicine/Primary Attending: Graham He MD NIGHT AND WEEKEND COVERAGE: [place] COVERAGE: After 7pm, please call cross cover pager #[phone] Subjective INTERVAL HPI: NAEON. Patient still hsa [...] carotid Lines, Drains, and Airways Line Peripheral 02/16/202326 Admission to Hospital Right Forearm 20 Gauge [...] 02/16/202114 vte non-pharmacologic prophylaxis - none indicated (nh,ct) 02/16/202114 activity - mobilize patient ([place], [place]) VTE Prophylaxis: VTE prophylaxis appropriate Disposition: Home Plan of care discussed with: Patient and RN SIGNATURE: Graham eH MD PATIENT NAME: Zulay Bearden DATE: February 17, 2020 TIME: 11:31 AM PAGER/CONTACT #: [phone] [phone] [facility] CONSULT PROGon 02-16-2020 CONSULT PROG HNO ID: [id number] Author: Renae Corado (Pharmacist) Service: Pharmacy Author Type: Pharmacist Type: [...] any questions, please contact pharmacy at ext [phone]. Age: [age] year old Allergies: ALLERGIES Allergen [...] Vancomycin Levels: No results found for: FLORENCIO CORADO, PHARMACIST [facility] HOSPon 02-16-2020 HOSP Patient:Arnoldo Bearden bartolo rah A MRN: Height:5' 6(1.676 m) Weight:147 lb 12.8 [...] hyperlipidemia [E78.2] Osteoporosis [M81.0] Anxiety [F41.9] Shortened TN interval [R94.31] Cellulitis [L03.90] Allergies: Bactrim [Sulfamethoxazole-Trime thoprim] Date Verified: 02/17/20 Lab Values Lab Value Units Date High Low POTA* 3.6 mmol/L 02/17/2020 5.1 3.7 DEMETRIA* 36.7 % 02/17/2020 44.9 34.1 Progress Notes (): RENAE CORADO, PHARMACIST 02/16/2020 10:05 PM Signed PHARMACY VANCOMYCIN [...] any questions, please contact pharmacy at ext [phone]. Age: [age] year old Allergies: ALLERGIES Allergen [...] Vancomycin Levels: No results found for: FLORENCIO CORADO, PHARMACIST Dmitry Desai MD 02/17/2020 6:23 AM Signed DEPARTMENT OF HOSPITAL MEDICINE HISTORY AND PHYSICAL EXAM AUTHOR: Dmitry Desai MD PATIENT NAME: Zulay Bearden DATE: February 17, 2020 , : 1950 Primary Care Physician: REN TURNER MD NIGHT AND WEEKEND COVERAGE: From 7am - 7pm, please call Sound Physician on duty After 7pm, please call cross cover pager #[phone] Subjective CHIEF COMPLAINT / REASON FOR ADMISSION: [...] LIP 06/2010 - COLONOSCOP W/ OR W/O [facility] SPEC 09/26/2012 Colonoscopy - DANDC, DIAG AND/OR [...] 60 mg, SUBCUTANEOUS, Q 6 MONTH, Vik (Thread Marker) Adam, 60 mg at 12/25/19 1443 Cholecalciferol, [...] Abs Lymph 2.05 1.00 - 4.00 k/uL [place]% 7.8 % Abs [place] 0.51 <0.87 k/uL Eosin% 0.9 % Abs [...] this note may have been generated using Closely voice recognition software. Reasonable efforts were made [...] Apparently the patient received a dose at [place] on 02/15 before arrival [facility] of 1.25g x1 at 1800 and then received another 1g dose here at 2130. Therefore, will get a level before the 4th dose of the current regimen. We will follow patient renal function, vancomycin levels and doses with you during the course of therapy. Additional recommendations will appear in follow up notes. If you have [place] questions[place] [phone]. Age: [age] year old Allergies: ALLERGIES Allergen [...] Graham He MD NIGHT AND WEEKEND COVERAGE: [place] COVERAGE: After 7pm, please call cross cover pager #[phone] Subjective INTERVAL HPI: NAEON. Patient still hsa [...] carotid Lines, Drains, and Airways Line Peripheral 02/16/202326 Admission to Hospital Right Forearm 20 Gauge [...] 02/16/202114 vte non-pharmacologic prophylaxis - none indicated (nh,ct) 02/16/202114 activity - mobilize patient ([place], [place]) VTE Prophylaxis: VTE prophylaxis appropriate Disposition: Home Plan of care discussed with: Patient and RN SIGNATURE: Graham He MD PATIENT NAME: Zulay Bearden DATE: February 17, 2020 TIME: 11:31 AM PAGER/CONTACT #: [phone] [phone] Michelle Hays MD 02/17/2020 12:24 PM Signed [...] INTRAVENOUS q 6 H PRN Mohammad F Baptism 15 mg at 02/16/202238 - [MAR Hold due to Transfer] HYDROmorphone 0.5 mg injection (DILAUDID) 0.5 mg INTRAVENOUS q 4 H PRN Mohammad F Baptism - [MAR Hold due to Transfer] heparin 5,000 Units injection 5,000 Units SUBCUTANEOUS q 12 H Mohammad F Baptism - [MAR Hold due to Transfer] NaCl 0.9% iv infusion 75 mL/hr INTRAVENOUS CONTINUOUS Mohammad F Baptism 75 mL/hr at 02/16/202129 75 mL/hr at 02/16/202129 - [MAR Hold due to Transfer] aluminum-magnesium hydroxide-simethicone 200-200-20 mg/5 mL 30 mL (MAALOX,MYLANTA,MAG-AL PLUS) 30 mL ORAL DAILY PRN Mohammad F Baptism - [MAR Hold due to Transfer] ondansetron 4 mg tab(s) (ZOFRAN) 4 mg ORAL q 6 H PRN Mohammad F Baptism Or - [MAR Hold due to Transfer] ondansetron (PF) 4 mg injection (ZOFRAN) 4 mg INTRAVENOUS q 6 H PRN Mohammad F Baptism - [MAR Hold due to Transfer] polyethylene glycol 3350 17 g packet (MIRALAX, GLYCOLAX) 17 g ORAL DAILY PRN Mohammad F Baptism - [MAR Hold due to Transfer] docusate sodium 100 mg cap(s) (COLACE) 100 mg ORAL BID PRN Mohammad F Baptism - [MAR Hold due to Transfer] magnesium hydroxide 400 mg/5 mL 30 mL (MOM) 30 mL ORAL DAILY PRN Mohammad F Baptism - [MAR Hold due to Transfer] bisacodyl 10 mg suppository (DULCOLAX) 10 mg RECTAL DAILY PRN Mohammad F Baptism - [MAR Hold due to Transfer] acetaminophen 650 mg tab(s) (TYLENOL) 650 mg ORAL q 6 H PRN Mohammad F Baptism - [MAR Hold due to Transfer] piperacillin-tazobactam iv piggyback 3.375 g in dextrose (iso-osmotic) 50 mL (ZOSYN) 3.375 g INTRAVENOUS q 6 H Mohammad F Baptism 100 mL/hr at 02/17/20 0908 3.375 g at 02/17/20 0908 - [MAR Hold due to Transfer] vancomycin dosing and monitoring per pharmacy OTHER As Directed Mohammad F Baptism - [MAR Hold due to Transfer] vancomycin iv piggyback 1 g in D5W 200 mL (VANCOCIN) 1 g INTRAVENOUS q 12 HR Mohammad F Baptism 200 mL/hr at 02/17/20 1118 1 g [...] February 17, 2020 TIME: 12:00 PM CSN: [id number] Normal [facility] Vital Signs Date Time Vital Sign Value Performing Clinician Jennifer jay 04-26-2025 10:03-0400 Body height 165.[address] Laura Riddle MD Work Phone: [facility] 04-26-2025 10:03-0400 Body mass index (BMI) [Ratio] 23.6 kg/m2 Dr. Laura Riddle MD Work Phone: [facility] 04-26-2025 10:03-0400 Body weight 64.[address] Laura Riddle MD Work Phone: [facility] 04-26-2025 10:03-0400 Diastolic blood pressure 74 mm[Hg] Dr. Laura Riddle MD Work Phone: [facility] 04-26-2025 10:03-0400 Heart rate 58 /min Dr. Laura Riddle MD Work Phone: [facility] 04-26-2025 10:03-0400 Respiratory rate 18 /min Dr. Laura Riddle MD Work Phone: [facility] 04-26-2025 10:03-0400 Systolic blood pressure 136 mm[Hg] Dr. Laura Riddle MD Work Phone: [facility] 02-27-2025 13:40-0400 Body height 165.[address] Laura Riddle MD Work Phone: [facility] 02-27-2025 13:40-0400 Body mass index (BMI) [Ratio] 23.8 kg/m2 Dr. Laura Riddle MD Work Phone: 0(903)253-813643 [place] [address] 02-27-2025 13:40-0400 Body weight 64.[address] Laura Riddle MD Work Phone: 0(093)314-117243 [place] [address] 02-27-2025 13:40-0400 Diastolic blood pressure 72 mm[Hg] Dr. Laura Riddle MD Work Phone: 4(381)064-456243 [place] [address] 02-27-2025 13:40-0400 Systolic blood pressure 127 mm[Hg] Dr. Laura Riddle MD Work Phone: 5(600)979-019343 [place] [address] 02-01-2025 13:29-0400 Body height 165.[address] Laura Riddle MD Work Phone: 9(922)238-039873 [address] 02-01-2025 13:29-0400 Body temperature 97.7 [degF] Dr. Laura Riddle MD Work Phone: 3(871)753-148943 [place] [address] 02-01-2025 13:29-0400 Diastolic blood pressure 71 mm[Hg] Dr. Laura Riddle MD Work Phone: 0(600)795-104621 [place] [address] 02-01-2025 13:29-0400 Heart rate 65 /min Dr. Laura Riddle MD Work Phone: 4(108)746-874773 [address] 02-01-2025 13:29-0400 Respiratory rate 16 /min Dr. Laura Riddle MD Work Phone: 3(444)458-936443 [place] [address] 02-01-2025 13:29-0400 SaO2% (BldA) [Mass fraction] 100 % Dr. Laura Riddle MD Work Phone: 4(766)631-810821 [place] [address] 02-01-2025 13:29-0400 Systolic blood pressure 136 mm[Hg] Dr. Laura Riddle MD Work Phone: 5(950)074-094543 [place] [address] 08-04-2024 13:38-0500 Body height 165.[address] Laura Riddle MD Work Phone: 1(051)418-792443 [place] [address] 08-04-2024 13:38-0500 Body temperature 96 [degF] Dr. Laura Riddle MD Work Phone: 0(428)717-667143 [place] [address] 08-04-2024 13:38-0500 Diastolic blood pressure 71 mm[Hg] Dr. Laura Riddle MD Work Phone: 0(746)042-952343 [place] [address] 08-04-2024 13:38-0500 Heart rate 70 /min Dr. Laura Riddle MD Work Phone: 3(686)890-913643 [place] [address] 08-04-2024 13:38-0500 Respiratory rate 16 /min Dr. Laura Riddle MD Work Phone: 5(809)172-106343 [place] [address] 08-04-2024 13:38-0500 SaO2% (BldA) [Mass fraction] 100 % Dr. Laura Riddle MD Work Phone: 7(791)301-481543 [place] [address] 08-04-2024 13:38-0500 Systolic blood pressure 118 mm[Hg] Dr. Laura Riddle MD Work Phone: 4(700)129-726943 [place] [address] 07-21-2024 08:28-0500 Body mass index (BMI) [Ratio] 24.3 kg/m2 Dr. Laura Riddle MD Work Phone: 6(065)272-322043 [place] [address] 07-21-2024 08:28-0500 Body weight 66.[address] Laura Riddle MD Work Phone: 9(531)256-125243 [place] [address] 07-21-2024 08:28-0500 Diastolic blood pressure 73 mm[Hg] Dr. Laura Riddle MD Work Phone: 4(495)789-313343 [place] [address] 07-21-2024 08:28-0500 Heart rate 66 /min Dr. Laura Riddle MD Work Phone: 3(675)994-102043 [place] [address] 07-21-2024 08:28-0500 SaO2% (BldA) [Mass fraction] 98 % Dr. Laura Riddle MD Work Phone: [facility] 07-21-2024 08:28-0500 Systolic blood pressure 129 mm[Hg] Dr. Laura Riddle MD Work Phone: [facility] 08-06-2023 13:28-0500 Body height 165.[address] Laura Riddle Work Phone: [facility] 08-06-2023 13:28-0500 Body mass index (BMI) [Ratio] 22.4 kg/m2 Dr. Laura Riddle Work Phone: 1(356)426-966473 [address] 08-06-2023 13:28-0500 Body temperature 96.7 [degF] Dr. Laura Riddle Work Phone: 9(450)233-420473 [address] 08-06-2023 13:28-0500 Body weight 61.[address] Laura Riddle Work Phone: 0(948)401-053621 [place] [address] 08-06-2023 13:28-0500 Diastolic blood pressure 74 mm[Hg] Dr. Laura Riddle Work Phone: 9(706)777-210021 [place] [address] 08-06-2023 13:28-0500 Heart rate 87 /min Dr. Laura Riddle Work Phone: [facility] 08-06-2023 13:28-0500 Respiratory rate 16 /min Dr. Laura Riddle Work Phone: [facility] 08-06-2023 13:28-0500 SaO2% (BldA) [Mass fraction] 100 % Dr. Laura Riddle Work Phone: [facility] 08-06-2023 13:28-0500 Systolic blood pressure 123 mm[Hg] Dr. Laura Riddle Work Phone: [facility] 07-22-2023 08:55-0500 Body mass index (BMI) [Ratio] 39.7 kg/m2 Dr. Laura Riddle Work Phone: [facility] 07-22-2023 08:55-0500 Body temperature 98.4 [degF] Dr. Laura Riddle Work Phone: [facility] 07-22-2023 08:55-0500 Body weight 108.[address] Laura Riddle Work Phone: [facility] 07-22-2023 08:55-0500 Diastolic blood pressure 73 mm[Hg] Dr. Laura Riddle Work Phone: [facility] 07-22-2023 08:55-0500 Heart rate 71 /min Dr. Laura Riddle Work Phone: [facility] 07-22-2023 08:55-0500 Respiratory rate 16 /min Dr. Laura Riddle Work Phone: [facility] 07-22-2023 08:55-0500 SaO2% (BldA) [Mass fraction] 97 % Dr. Laura Riddle Work Phone: [facility] 07-22-2023 08:55-0500 Systolic blood pressure 117 mm[Hg] Dr. Laura Riddle Work Phone: [facility] 02-05-2023 14:50-0400 Body height 165.[address] Laura Riddle Work Phone: [facility] 02-05-2023 14:50-0400 Body temperature 97 [degF] Dr. Laura Riddle Work Phone: [facility] 02-05-2023 14:50-0400 Diastolic blood pressure 46 mm[Hg] Dr. Laura Riddle Work Phone: [facility] 02-05-2023 14:50-0400 Heart rate 76 /min Dr. Laura Riddle Work Phone: [facility] 02-05-2023 14:50-0400 Respiratory rate 16 /min Dr. Laura Riddle Work Phone: [facility] 02-05-2023 14:50-0400 SaO2% (BldA) [Mass fraction] 94 % Dr. Laura Riddle Work Phone: [facility] 02-05-2023 14:50-0400 Systolic blood pressure 94 mm[Hg] Dr. Laura Riddle Work Phone: [facility] 01-27-2023 08:06-0400 Body mass index (BMI) [Ratio] 22.9 kg/m2 Dr. Laura Riddle Work Phone: [facility] 01-27-2023 08:06-0400 Body weight 62.[address] Laura Riddle Work Phone: 8(279)911-766421 [place] [address] 01-27-2023 08:06-0400 Diastolic blood pressure 70 mm[Hg] Dr. Laura Riddle Work Phone: [facility] 01-27-2023 08:06-0400 Systolic blood pressure 117 mm[Hg] Dr. Laura Riddle Work Phone: 1(505)589-402221 [place] [address] 08-05-2022 13:27-0500 Body height 165.[address] Laura Riddle Work Phone: 2(300)543-758173 [address] 08-05-2022 13:27-0500 Body mass index (BMI) [Ratio] 22.9 kg/m2 Dr. Laura Riddle Work Phone: [facility] 08-05-2022 13:27-0500 Body temperature 97.1 [degF] Dr. Laura Riddle Work Phone: 6(058)347-215421 [place] [address] 08-05-2022 13:27-0500 Body weight 62.[address] Laura Riddle Work Phone: [facility] 08-05-2022 13:27-0500 Diastolic blood pressure 72 mm[Hg] Dr. Laura Riddle Work Phone: 8(000)381-690421 [place] [address] 08-05-2022 13:27-0500 Heart rate 71 /min Dr. Laura Riddle Work Phone: [facility] 08-05-2022 13:27-0500 Respiratory rate 16 /min Dr. Laura Riddle Work Phone: [facility] 08-05-2022 13:27-0500 SaO2% (BldA) [Mass fraction] 98 % Dr. Laura Riddle Work Phone: [facility] 08-05-2022 13:27-0500 Systolic blood pressure 131 mm[Hg] Dr. Laura Riddle Work Phone: [facility] 07-23-2022 09:01-0500 Body mass index (BMI) [Ratio] 23.2 kg/m2 Dr. Laura Riddle Work Phone: [facility] 07-23-2022 09:01-0500 Body temperature 96.7 [degF] Dr. Laura Riddle Work Phone: [facility] 07-23-2022 09:01-0500 Body weight 63.[address] Laura Riddle Work Phone: [facility] 07-23-2022 09:01-0500 Diastolic blood pressure 74 mm[Hg] Dr. Laura Riddle Work Phone: [facility] 07-23-2022 09:01-0500 Heart rate 65 /min Dr. Laura Riddle Work Phone: [facility] 07-23-2022 09:01-0500 Respiratory rate 16 /min Dr. Laura Riddle Work Phone: [facility] 07-23-2022 09:01-0500 SaO2% (BldA) [Mass fraction] 96 % Dr. Laura Riddle Work Phone: [facility] 07-23-2022 09:01-0500 Systolic blood pressure 112 mm[Hg] Dr. Laura Riddle Work Phone: [facility] 02-04-2022 13:44-0400 Body height 162.[address] Laura Riddle Work Phone: [facility] Work Phone: 02-04-2022 13:44-0400 Diastolic blood pressure 59 mm[Hg] Dr. Laura Riddle Work Phone: [facility] Work Phone: 02-04-2022 13:44-0400 Heart rate 68 /min Dr. Laura Riddle Work Phone: [facility] Work Phone: 02-04-2022 13:44-0400 Respiratory rate 16 /min Dr. Laura Riddle Work Phone: [facility] Work Phone: 02-04-2022 13:44-0400 SaO2% (BldA) [Mass fraction] 97 % Dr. Laura Riddle Work Phone: [facility] Work Phone: 02-04-2022 13:44-0400 Systolic blood pressure 104 mm[Hg] Dr. Laura Riddle Work Phone: [facility] Work Phone: 01-21-2022 08:31-0400 Body mass index (BMI) [Ratio] 23.3 kg/m2 Dr. Laura Riddle Work Phone: [facility] Work Phone: 01-21-2022 08:31-0400 Body weight 62.[address] Laura Riddle Work Phone: [facility] Work Phone: 01-21-2022 08:31-0400 Diastolic blood pressure 70 mm[Hg] Dr. Laura Riddle Work Phone: [facility] Work Phone: 01-21-2022 08:31-0400 Systolic blood pressure 100 mm[Hg] Dr. Laura Riddle Work Phone: [facility] Work Phone: 10-24-2021 09:41-0400 Body mass index (BMI) [Ratio] 24 kg/m2 Dr. Laura Riddle Work Phone: [facility] Work Phone: 10-24-2021 09:41-0400 Body temperature 97 [degF] Dr. Laura Riddle Work Phone: [facility] Work Phone: 10-24-2021 09:41-0400 Body weight 64.[address] Laura Riddle Work Phone: [facility] Work Phone: 10-24-2021 09:41-0400 Diastolic blood pressure 82 mm[Hg] Dr. Laura Riddle Work Phone: [facility] Work Phone: 10-24-2021 09:41-0400 Heart rate 77 /min Dr. Laura Riddle Work Phone: [facility] Work Phone: 10-24-2021 09:41-0400 Respiratory rate 18 /min Dr. Laura Riddle Work Phone: [facility] Work Phone: 10-24-2021 09:41-0400 SaO2% (BldA) [Mass fraction] 100 % Dr. Laura Riddle Work Phone: [facility] Work Phone: 10-24-2021 09:41-0400 Systolic blood pressure 130 mm[Hg] Dr. Laura Riddle Work Phone: [facility] Work Phone: Encounters Encounter Date Encounter Type Care Provider Facility Start: [facility] Start: 05-17-[facility] Start: 04-26-2025 End: 04-26-[address] Caitlin Donovan MD -[facility] Work Phone: Start: 04-26-2025 End: 04-26-[address] Laura Riddle MD Work Phone: -[facility] Start: 03-20-[address] Arthur Bazan DO -Cat Scan [facility] Work Phone: Start: 03-20-2025 ambulatory Laura Riddle Facility: [facility] Start: 03-02-2025 End: 03-02-[address] Laura Riddle MD Work Phone: -Outpatient [facility] Start: 03-02-2025 End: 03-02-[address] Christina Bazan DO -Outpatient Breast Imaging Work Phone: Start: 03-02-2025 End: 03-02-2025 ambulatory Laura Riddle Facility:[facility] Start: 02-27-2025 Encounter for gynecological examination (general) (routine) without abnormal findings Christina Bazan [facility] Start: 02-27-2025 End: 02-27-[address] Christina Bazan DO -[facility] Work Phone: Start: 02-27-2025 End: 02-27-[address] Christina Bazan DO [facility] Start: 02-27-2025 End: 02-27-[address] Laura Riddle MD Work Phone: -[facility] Start: 02-01-2025 End: 02-01-[address] Kurt Connors MD -Medical Out Work Phone: Start: 02-01-2025 End: 02-01-[address] Laura Riddle MD Work Phone: -Medical Out Start: 10-05-2024 End: 10-05-[address] Laura Riddle MD Work Phone: [facility] Work Phone: Start: 10-05-2024 End: 10-05-[address] Kurt Connors MD -Laboratory Work Phone: Start: 10-05-2024 End: 10-05-2024 ambulatory Kurt Connors Facility:[facility] Start: 08-04-2024 End: 08-04-[address] Kurt Connors MD -Medical Out Work Phone: Start: 08-04-2024 End: 08-04-2024 ambulatory Laura Riddle Facility:[facility] Start: 07-21-2024 End: 07-21-[address] Kurt Connors MD -[facility] Work Phone: Start: 07-21-2024 End: 07-21-2024 ambulatory Kurt Connors Facility:[facility] Start: 05-30-2024 End: 05-30-2024 ambulatory Laura Riddle Facility:[facility] Start: 05-29-2024 End: 05-29-2024 ambulatory Laura Riddle Facility:[facility] Start: 08-06-2023 End: 08-06-[address] Laura Riddle Work Phone: [facility] Work Phone: Start: 08-06-2023 End: 08-06-[address] Laura Riddle Work Phone: [facility]-Medical Out Work Phone: Start: 07-22-2023 End: 07-22-[address] Laura Riddle Work Phone: [facility] Work Phone: Start: 02-19-2023 Non-patient / Non-visit Dr. Maria Esther Riddle Work Phone: [facility] Start: 02-19-[address] [facility] Start: 02-15-2023 End: 02-15-[address] Laura Riddle Work Phone: [facility] Work Phone: Start: 02-15-2023 End: 02-15-[address] Laura Riddle Work Phone: [facility]-Outpatient Breast Imaging Work Phone: Start: 02-05-2023 End: 02-05-[address] Laura Riddle Work Phone: [facility] Work Phone: Start: 02-05-2023 End: 02-05-[address] Laura Riddle Work Phone: [facility] Work Phone: Start: 01-27-2023 End: 01-27-[address] Laura Riddle Work Phone: [facility] Work Phone: Start: 08-05-2022 End: 08-05-[address] Laura Riddle Work Phone: [facility] Work Phone: Start: 08-05-2022 End: 08-05-[address] Laura Riddle Work Phone: [facility] Start: 07-23-2022 End: 07-23-[address] Laura Riddle Work Phone: [facility] Start: 02-04-2022 End: 02-04-[address] Laura Riddle Work Phone: [facility] Start: 01-21-2022 ambulatory Ren Mclaughlin Work Phone: Internal Medicine [facility] Start: 01-21-2022 End: 01-21-[address] Laura Riddle Work Phone: [facility] Start: 10-24-2021 End: 10-24-[address] Laura Riddle Work Phone: [facility] Start: 05-22-2019 Orders Only Ren Mclaughlin Work Phone: [facility] [place] Comment on above: Osteoporosis without current pathological fracture, unspecified osteoporosis type (Primary Dx) Procedures Date Procedure Procedure Detail Performing Clinician Start: 03-20-2025 CT angiography of co ronary arteries Dr. Laura Riddle MD Work Phone: Start: 03-02-2025 Screening mammography Arnoldo Riddle MD Work Phone: Start: 10-05-2024 Vitamin D, 25-hydrox y measurement Dr. Laura Riddle MD Work Phone: Comment on above: Vitamin [...] Treatment Date Care Activity Detail Author Start: 04-26-2025 End: 04-26-2025 Evaluation of diagnostic study results [facility] Start: 09-24-2024 Lipid panel Lipid Screening [facility] Start: 09-24-2024 LIPID SCREEN LIPID SCREEN [facility] Start: 07-26-2023 Advance Directive Discussion Advance Directive Discussion [facility] Start: 07-26-2023 Depression Assessment Depression Ass essment [facility] Start: 03-26-2023 Covid-19 Vaccine ( season) Covid-19 Vaccine () [facility] Start: 03-26-2023 Influenza vaccination Influenza Vacc ine (#1) [facility] Start: 03-18-2023 DIABETES SCREEN DIABETES SCREEN [facility] Start: 03-18-2023 Diabetes Screening Diabetes Screenin g [facility] Start: 09-26-2022 Colonoscopy COLONOSCOPY [facility] Start: 09-26-2022 COLORECTAL CANCER SCREENING COLORECTAL CANCER SCREENING [facility] Start: 09-26-2022 Screening for malign ant neoplasm of colon [facility] Start: 03-26-2022 Influenza vaccination INFLUENZ A (Season Ended) [facility] Start: 12-25-2021 COVID-19 VACCINE (2 - Pfizer series) COVID-19 VACCINE (2 - Pfizer series) [facility] Start: 07-26-2021 ADVANCE DIRECTIVE DISCUSSION ADVANCE DIRECTIVE DISCUSSION [facility] Start: 01-31-2020 Mammography MAMMOGRAM [facility] Start: 01-31-2020 Screening for malign ant neoplasm of breast Mammogram Screening [facility] Start: 07-29-2017 Adult depression screening assessment DEPRESSION SCREENING [facility] Start: 2015 Pneumococcal Vaccine : 65+ (1 of 1 - PCV) Pneumococcal Vaccine: 65+ (1 of 1 - PCV) [facility] Start: 2015 PNEUMOCOCCAL: 65+ (1 - PCV) PNEUMOCOCCAL: 65+ (1 - PCV) [facility] Start: 2010 RSV Vaccine (1 - 1-d ose 60+ series) RSV Vaccine (1 - 1-dose 60+ series) [facility] Start: 2000 SHINGRIX VACCINE (1 of 2) SHINGRIX VACCINE (1 of 2) [facility] Start: 1995 COLOGUARD (FIT-DNA) COLOGUARD (FIT-D NA) [facility] Start: [address] COLONOGRAPHY [facility] Start: 1995 FECAL OCCULT BLOOD FECAL OCCULT BLOO D [facility] Start: 1995 Screening for malign ant neoplasm of colon [facility] Start: 1995 SIGMOIDOSCOPY SIGMOIDOSCOPY [facility] Start: 1969 Urine microalbumin profile [facility] Start: 1968 HEPATITIS C SCREENING HEPATITIS C [facility] Start: 1968 Hepatitis C screening Hepatitis C [facility] CT angiography of coronary arteries [facility] DXA Bone [Mass/Area] Bone density [facility] Work Phone: MG Breast - bilatera l Screening [facility] Work Phone: MG Breast - bilatera l Screening [facility] End: 02-20-2023 Screening mammography bi 2-view breast inc cad ANÍBAL SCREENING Radiology Routine Encounter for screening mammogram for breast cancer 1 Occurrences starting 01/21/2022 until 02/20/2023 [facility] Work Phone: Comment on above: 1 Occurrences starti ng 01/21/2022 until 02/20/2023 Immunizations Immunization Date Immunization Notes Care Provider Fa cili 04-27-2022 influenza virus vaccine, unspecified formulation Ren Turner MD Work Phone: [facility] 12-04-2021 COVID-19 vaccine, ag e 12+ yr ([employer] - PURPLE TOP) Ren Turner MD Work Phone: [facility] 05-16-2017 influenza, high dose seasonal, preservative-free Ren Turner MD Work Phone: [facility] 05-13-2016 influenza, high dose seasonal, preservative-free Ren Turner MD Work Phone: [facility] Work Phone: 04-25-2011 influenza virus vaccine, unspecified formulation Ren Turner MD Work Phone: [facility] Payers Date Payer Category Payer Unknown 2024 Self-pay [id number] 2023 Unknown [id number] 2019 Unknown ANTHEM BLUE CROS S AND BLUE SHIELD ANTHMERLY STERN O [id number] 2019-Present [phone] [address] [place] [address] HMO [id number] 2017 Medicare HUMANA MEDICARE HUMANA MEDICARE PFFS [id number] 2017-2019 [address] [address] [place] [address] Indemnity [id number] Medicare [id number] Medicare [id number] Unknown [id number] Unknown [id number] Unknown [id number] Unknown [id number] Unknown [id number] Unknown [id number] Unknown [id number] Unknown [id number] Unknown [id number] Unknown [id number] Unknown [id number] Unknown [id number] Unknown [id number] Social History Date Type Detail Facility Start: 08-12-2012 End: 02-27-2025 Tobacco smoking status NHIS Never smoked tobacco [facility] Start: 10-29-2016 End: 03-29-2020 Alcohol intake Current drinker of alcohol (finding) [facility] Start: 10-29-2016 End: 03-29-2020 Alcohol intake [facility] Start: 1950 Sex Assigned At Not on file [facility] Start: 01-21-2022 End: 07-22-2023 Tobacco smoking status NHIS Unknown if ever smoked [facility] Start: 02-16-2020 None [facility] Start: 02-16-2020 Spouse/ Signif icant Other [facility] Start: 1950 Sex Assigned At Female [facility] Start: 08-12-2012 Tobacco use and exposure Smokeless tobacco non-user [facility] Gender identity Not on file [facility] Start: 10-14-2024 Sex Female (finding) [facility] Mental Status Date Assessment Result Facility 02-01-2025 Cognitive function Awake;Alert;A ppropriate;Fol lows Commands [facility] Work Phone: 08-04-2024 Cognitive function Awake;Alert;A ppropriate;Fol lows Commands [facility] Work Phone: 02-05-2023 Cognitive function Awake;Alert;A ppropriate;Fol lows Commands [facility] Work Phone: 08-05-2022 Cognitive function Voice/Name [facility] Work Phone: 02-04-2022 Cognitive function Voice/Name [facility] Work Phone: Clinical Notes 07-02-2008 to 04-26-2025 Note Date & Type Note Facility 04-26-2025 Progress note [facility] 02-27-2025 Evaluation note Diagnosis Onset Date Resolution Encounter for routine gynecological examination noneactive February 27, 2025 1:31pm [facility] Work Phone: 1(825) 630-261408-05-2025 Evaluation note* Diagnosis Onset Date Resolution Status Admit Date Encounter for routine gynecological examination noneactive February 27, 2025 1:31pm Coronary artery disease chronic O ct2024 10:00am Dyslipidemia chronic April 26, 2025 10:00am [facility] Work Phone: 1(814) 450-834408-05-2025 Progress [facility] [address] [place] [address], [address] [place] [address] OFFICE VISIT Date of Service: 02/27/25 MR#: [id number] Acct: [id number] Name: ZULAY BEARDEN Rep #: [id number] : 1950 Provider: Dr. 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 Date Name GA/Weeks Outcome Route Bth Weight Infant Gen [facility] 1970 Aaron Unknown 1979 [facility] Encounter for routine gynecological examination Details: ZULAY [...] hematuria, hot flashes, nipple discharge, pelvic pain, prolapsesymptoms, urinary frequency, urinary incontinence, urinaryurgency, vaginal discharge, vaginal dryness, vaginal odor or vaginal pruritus Skin Skin/Breast: Denies changing lesions, breast mass, breast pain, breast skin changes or nipple discharge Psych Psych: Denies anxiety, change in libido, depression or difficulty concentrating Exam Const General: cooperative, healthy appearing, comfortable, no acute distress, well developed and well groomed HENMO Head: normal to inspection and normocephalic Ears: [...] further. This test is available through a lesly and will help determine the needfor statin therapy based on the results. 02/27/25 1423 curtis Renner DO> Date _ Christina [facility] Signature: Date (if applicable) CC: ~ [facility]08-05-2025 Progress note Author Christina Renner [facility] Note Date/Time February 27, 2025 2:2 3pm [facility] [address], [address] [place] [address] OFFICE VISIT Date of Service: 02/27/25 MR#: [id number] Acct: [id number] Name: ZULAY BEARDEN Rep #: [id number] : 1950 Provider: Dr. 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 Date Name GA/Weeks Outcome Route Bth Weight Infant Gen Labor Lgth Anesthesia Del Locatn Provider [...] acute distress, well developed and well groomed [facility] Head: normal to inspection and [...] further. This test is available through a lesly and will help determine the needfor statin therapy based on the results. 02/27/25 1423 <Electronically signed by Christina Mccann DO> Date _ Christina Bazan DO Cosigner Signature: Date (if applicable) CC: ~ [facility] Work Phone: 1(508) 432-995012-27-2024 Evaluation note* Diagnosis Onset Date Resolution Status Admit Date Osteoporosis chronic June 8:32am [facility] Work Phone: 1([phone]) 116-368706-29-2022 NotePatient Outreach (INTMMN) ZULAY BEARDEN ([id number]) 1950 F Date Time Provider Department 01/21/22 REN TURNER INTMMN During your visit today, we recorded the following information about you: Allergies As of Date: 01/21/2022 Noted Allergy Reaction BACTRIM (SULFAMETHOXAZOLE-TRIMETH*05/27/2006 Comments: Rash and swelling of her throat Date Reviewed: 06/26/2020 Reviewed by: Tri Sheffield LPN - Fully Assessed Visit Diagnosis:Encounter for screening mammogram for breast cancer [Z12.31] Order(s):[facility] [[id number]] Order #: [id number] FUTURE Prescriptions as of 01/26/2022 - denosumab [...] Osteoporosis [M81.0] 07/29/2016 Anxiety [F41.9] 07/29/2016 Shortened TN interval [R94.31] 07/29/2016 Cellulitis [L03.90] 02/16/2020 02/23/2020 LORETA (acute kidney injury) (HCC) [N17.9] 02/23/2020 02/23/2020 Encounter Status:Closed by [email or web address] PPSSILVANA on 01/26/22[facility] 02-14-2021 NotePatient Outreach (INTMMN) ZULAY BEARDEN ([id number]) 1950 F Date Time Provider Department 02/14/21 REN TURNER INTMMN During your visit today, we recorded the following information about you: Allergies As of Date: 02/14/2021 Noted Allergy Reaction BACTRIM (SULFAMETHOXAZOLE-TRIMETH*05/27/2006 Comments: Rash and swelling of her throat Date Reviewed: 06/26/2020 Reviewed by: Tri Sheffield LPN - Fully Assessed Visit Diagnosis:Encounter for screening mammogram for breast cancer [Z12.31] Order(s):[facility] [[id number]] Order #: [id number] FUTURE Prescriptions as of 02/17/2021 - denosumab [...] Osteoporosis [M81.0] 07/29/2016 Anxiety [F41.9] 07/29/2016 Shortened TN interval [R94.31] 07/29/2016 Cellulitis [L03.90] 02/16/2020 02/23/2020 LORETA (acute kidney injury) (HCC) [N17.9] 02/23/2020 02/23/2020 Encounter Status:Closed by [email or web address], PPSUSER on 02/17/21[facility] 02-23-2020 History of Past illness Narrative* Problem Noted Date Resolved Date LORETA (acute kidney injury) 02/23/20202019 Cellulitis 02/16/2020 02/23/2020 Symptomatic menopausal or female climacteric sta satnam 07/02/2008 07/17/2011 documented as of this encounter (statuses as of 01/26/2022) [facility]12-08-2008 History of Past illness Narrative* Problem Noted Date Diagnosed Date Resolved Date Symptomatic menopausal or fe male climacteric states 07/02/2008 07/17/2011 documented as of this encounter (statuses as of 09/13/2023) [facility] note* Diagnosis Encounter for screening mammogram for breast cancer documented in this encounter [facility] note* Diagnosis Onset Date Resolution Status Osteoporosis acute Vaccine counseling acute Fecal incontinence acute Irritable bowel syndrome with diarrhea acute Osteoporosis acute Vaccine counseling acute CKD (chronic kidney disease) chronic Lichen sclerosus et atrophicus chronic Encounter for routine gynecological examination noneactive [facility] Work Phone: Evaluation note* Diagnosis Onset Date Resolution Status Hypocalcemia acute Osteoporosis acute Vitamin D deficiency acute [facility] Work Phone: evaluation note* Diagnosis Onset Date Resolution Status Encounter for routine gynecological examination noneactive [facility] Work Phone: evaluation note* Diagnosis Onset Date Resolution Status Tremor acute Osteoporosis chronic Vitamin D deficiency chronic [facility] Work Phone: evaluation note* Diagnosis Osteoporosis without current pathological fracture, unspecified osteoporosis type- Primary documented in this encounter [facility] noteNo assessment information [facility] Work Phone: evaluation note* Diagnosis Onset Date Resolution Status Admit Date Encounter for routine gynecological examination noneactive February 27, 2025 1:31pm [facility] Work Phone: Progress note Author Caitlin Donovan [facility] Note Date/Time April 26, 2025 10 :41am [facility] [address] [place] [address] OFFICE VISIT Date of Service: 04/26/25 MR#: [id number] Acct: [id number] Name: KEILAKAYLEE REESEORAAgata URBAN Rep #: [id number] : 1950 Provider: Dr. José Miguel Donovan MD Age/Sex: 75/F [place] [facility] Status: Signed HPI HPI History of Present Illness Details: This lady recently has had coronary artery calcium scoring done. It came back as 152 placing her between the 50th to the 75th percentile. Subsequently she has been referred to us for evaluation and management of her CAD. Patient has any previous history of heart disease. He is physically very activeand walks 5 to 6 miles a day. Denies any chest pains or shortness of breath either at rest or with exertion. No palpitations. No orthopnea. No PND. No ankle edema. After her coronary artery calcium score was reported, patient was started on atorvastatin 20 mg daily for her LDL cholesterol of 155 mg/dL and also recommended 81 mg daily of aspirin by her primary care physician. According to the patient, ever since stopping the statin, she has been having constant left arm numbness. According to her, it is there all day long and she goes to sleep with it and wakes up with it as well. 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 RENNER) Predator Control Trapper Required: No Accompanied by: Is patient in pain?: No Allergies sulfamethoxazole (From Bactrim) Allergy (Mild, Verified 04/26/25 10:04) Other trimethoprim (From Bactrim) Allergy (Mild, Verified 04/26/25 10:04) Other ibandronate sodium (From Boniva) Adverse Reaction (Unknown, Verified 04/26/25 10:04) Nausea Medications ?Medication ?Instructions ?Recorded ?Confirmed ?Type cholecalciferol (vitamin D3) 125 125 mcg PO DAILY 06/2604/26/25 History mcg (5,000 unit) capsule multivitamin 1 tab PO .QOD 07/23/2204/26 History biotin 1 mg capsule 1 mg PO DAILY 01/27/2304/26 History melatonin 3 mg capsule 3 mg PO HS PRN sleep 3 04/26/25 History vitamin B complex 1 tab PO DAILY PRN . 3 02/27/25 History denosumab 60 mg/mL subcutaneous 60 mg subcut [id number] #1 mL 08/03/24 04/26/25 Rx syringe clobetasol 0.05 % topical ointment 1 applic topical QH S PRN 04/19/25 04/26/25 History coenzyme Q10 100 mg tablet 100 mg PO QDAY 04/19/2509/19 History alpha lipoic acid 600 mg capsule 600 mg PO QDAY 04/26/25 History aspirin 81 mg tablet 81 mg PO QDAY 04/26/2504/26 History atorvastatin 20 mg tablet 20 mg PO QDAY 04/26/2504/26 History mineral oil-hydrophil petrolat 1 applic topical TID TN N 04/26/25 04/26/25 History topical ointment (Aquaphor topical ointment) Have you fallen in the past year?: Yes (while hiking/hunting only. 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 ROS Const Const: Negative for fatigue or weakness Eyes Eyes: Negative for change in vision ENT ENT: Negative for dizziness or balance problems Cardio Chest Pain: No Palpitations: No Edema: None Resp Respiratory: Negative for SOB with activity, SOB at rest or SOB orthopnea\SOB lying down GI GI: Negative nausea or heartburn Musc Musc: Negative for balance problems Neuro Neuro: Negative for dizziness, lightheadedness, near syncope, syncope or weakness Endo Endo: Negative for fatigue Cardiology Exam Const Appearance: comfortable and no acute distress Nutritional Appearance: well nourished Neck Neck: no JVD Carotids: Negative bruit Chest Auscultation: Bilateral: Clear to Auscultation Cardio Rate: regular rate Rhythm: regular rhythm Heart sounds: S1 normal and S2 normal Neuro General: patient alert, patient awake and patient oriented x3 Extremities Lower Extremity Edema: None: Bilateral Supplemental Info Supplemental Information Labs: HDL Cholesterol, (40-) 80 mg/dL Cholesterol, (<=200) 256 mg/dL H Triglycerides, (-199) 108 mg/dL Diagnostics: Coronary Angiography CT Past Visits: Cardiology Visit Today Assessment and Plan Assessment and Plan (1) Coronary artery disease: Status: Chronic Comment: Coronary calcium score 152 Plan: Continue aspirin. Risk factor modification. Patient complaining of left arm numbness since starting atorvastatin. Counseled to stop for 10 to 14 days and then report to us. Check echocardiogram. Check exercise stress Myoview to evaluate physiological significance. (2) Dyslipidemia: Status: Chronic Plan: See #1 above. Hold atorvastatin for 10 to 14 days and then report to us if her left arm numbness is better. If it is better, then will prescribe another statin. If it is not, then unlikely because of atorvastatin and she should thenfollow-up with her PCP for other causes of her left arm numbness. Orders: Orders 12 Lead EKG performed by [facility] Today E83.51 - Hypocalcemia, R93.1 - Abnormal findings on diagnostic imaging of heart and coronary circulation Plan Details Follow Up: 6 Months Coding Level of Care Code Off vis,new,level 4 Diagnoses Coronary artery disease I25.10 Dyslipidemia E78.5 Coding Level of Care Code Off vis,new,level 4 Diagnoses Coronary artery disease I25.10 Dyslipidemia E78.5 Clinical Quality Measures Falls Risk Screening/Assistive Devices Have you fallen in the past year?: Yes (while hiking/hunting only. Just trips inwoods.) 04/26/25 1042 <Electronically signed by Caitlin Donovan MD> Date _ Caitlin Donovan MD Cosigner Signature: Date (if applicable) CC: Dr. Mauricio Collier MD ~ [facility] Work Phone: Reason for referral (narrative)* Diagnostic Procedure Only (Routine) - Pending Review Specialty Diagnoses / Procedures Referred By Contac t Referred To Contact [facility] Diagnoses Encounter for screening mammogram for breast cancer Procedures ANBÍAL SCREENING SCREENING MAMMOGRAPHY BI 2-VIEW BREAST INC CAD Ren Turner MD [address] [place] [address] [facility] [address] [place] [address] Referral ID Status Reason Start Date Expiration Date Visits Requested Visits Authorized [id number] Pending Review Auto-Generat ed Referral 01/21/2022 02/20/2023 1 1 [facility] for referral (narrative)No reason for referral [facility] Work Phone: Summary Purpose Family History No Family History Records Found Relationship Condition Age at Onset Recorded Date/T gian mother Arthritis Unknown Tremor Unknown father Malignant neoplasm Unknown grandfather Malignant neoplasm Unknown Advance Directives No Advanced Directives Records FoundDocuments on File Type Date Recorded 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 No February 16, 2020 3:31pm Hospital Course Note HNO ID: [id number] Author: Mary Garrido Service: Hospital Medicine Author [...] Hunter Garrido Consulting: Darrius Grant Consulting: Collette Vallejo (Snehal Nunn Consulting: (more content not included)... Note HNO ID: [id number] Author: Manjula Grant Service: Plastic Surgery Author Type: Physician Type: Brief Op Note Filed: 02/17/2020 1:28 PM Note Text: BRIEF OPERATIVE / PROCEDURE NOTE LOG ID: [id number] SURGERY/PROCEDURE DATE: 02/17/2020 INCISION/PROCEDURE START TIME: 1:05 PM INCISION CLOSE/PROCEDURE END TIME: 1:23 PM SURGEON(S)/PROCEDURALIST(S) AND LAND MANAGEMENT SUPERVISOR(S): Surgeon(s) and Role: * Darrius Grant - [...] PAGER/CONTACT #: Procedure Findings Note HNO ID: [id number] Author: Manjula Grant Service: Plastic Surgery Author Type: Physician Type: Brief Op Note Filed: 02/17/2020 1:28 PM Note Text: BRIEF OPERATIVE / PROCEDURE NOTE LOG ID: [id number] SURGERY/PROCEDURE DATE: 02/17/2020 INCISION/PROCEDURE START TIME: 1:05 PM INCISION CLOSE/PROCEDURE END TIME: 1:23 PM SURGEON(S)/PROCEDURALIST(S) AND LAND MANAGEMENT SUPERVISOR(S): Surgeon(s) and Role: * Darrius Grant - [...] Complaint TO DISCUSS TEST RESU LTS 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) Prolia / Osteoporosis Reason for Visit Osteoporosis Vaccine counseling Fecal incontinence Irritable bowel syndrome with diarrhea Osteoporosis Vaccine counseling CKD (chronic kidney disease) Lichen sclerosus et atrophicus Encounter for routine gynecological examination Chief Complaint 1 Y FU Prolia / Osteoporosis Reason for Visit Hypocalcemia Osteoporosis Vitamin D deficiency Chief Complaint 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) Prolia / Osteoporosis Reason for Visit Encounter for routin e gynecological examination Chief Complaint 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) Prolia / 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 [...] Osteoporosis February 01, 2025 1: 23pm 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) February 27, 2025 1:3 1pm Reason for Visit Admit Date Encounter for routine gynecological exam ination February 27, 2025 1:31pm Chief Complaint Admit Date Prolia / Osteoporosis February 01, 2025 1: 23pm 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) February 27, 2025 1:3 1pm SCREENING March 02, 2025 10: 06am Chief Complaint Admit Date Prolia / Osteoporosis February 01, 2025 1: 23pm 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) February 27, 2025 1:3 1pm SCREENING March 02, 2025 10: 06am SCREENING *LESLY* March 20, 2025 7: 05am ABN CCTA (DEBBIE VELPAWEL) April 26, 2025 10:00am Reason for Visit Admit Date Encounter for routine gynecological exam ination February 27, 2025 1:31pm Coronary artery disease April 26 10:00am Dyslipidemia April 26, 2025 10 :00am Additional Source Comments INFORMATION SOURCE (unrecogn ized section and content) DATE CREATED AUTHOR 02/26/2020 [facility] DATE CREATED AUTHOR AUTHOR'S ORGANIZ ATION 03/21/2020 [facility] DATE CREATED AUTHOR AUTHOR'S ORGANIZ ATION 01/26/2022 [facility] DATE CREATED AUTHOR AUTHOR'S ORGANIZ ATION 05/17/2025 [facility] Source Comments (unrecognize d section and content) In the event this informatio n is protected by the Federal Confidentiality of Alcohol and Drug Abuse Patient Records regulations: The Federal rules restrict any use of the information to criminally investigate or prosecute any alcohol or drug abuse patient.[facility] Center[facility] the event this information is protected by the Federal Confidentiality of Alcohol and Drug Abuse Patient Records regulations: The Federal rules restrict any use of the information to criminally investigate or prosecute any alcohol or drug abuse patient.[facility] Care Teams (unrecognized sec tion and content) Tanning Wheel Filler Relationship Specialty Start Date End Date Ren Turner MD [address] [place], [place] [id number] PCP - General Internal Medicine 07/29/16 Team [...] Primary Care Provider, Referrin g Provider Active Tanning Wheel Filler Relationship Specialty Start Date End Date Ren Turner MD [address] [place] [address] PCP - General Internal Medicine 07/29/16 Team [...] February 27, 2025 End: February 27, 2025 Team Status: Inactive Member Role/Relationship Status Dates Dr. Laura Riddle MD Primary Care Provider Active Start: March 02, 2025 End: March 02, 2025 Dr. Christina Bazan DO Attending Provider Activ e Start: March 02, 2025 End: March 02, 2025 Dr. Christina Bazan DO Referring Provider Activ e Start: March 02, 2025 End: March 02, 2025 Team Status: Active Member Role/Relationship Status Dates Dr. Mauricio Collier MD Primary care physician Active Team Status: Inactive Member Role/Relationship Status Dates Dr. Laura Riddle MD Primary care physician Active Start: February 01, 2025 End: February 01, 2025 Dr. Kurt Connors MD Attending physician Active St art: February 01, 2025 End: February 01, 2025 Dr. Kurt Connors MD Referring Provider Active Sta rt: February 01, 2025 End: February 01, 2025 Team Status: Inactive Member Role/Relationship Status Dates Dr. Laura Riddle MD Primary care physician Active Start: February 27, 2025 End: February 27, 2025 Dr. Laura Riddle MD Referring Provider Active Start: February 27, 2025 End: February 27, 2025 Dr. Christina Bazan DO Attending physician Acti ve Start: February 27, 2025 End: February 27, 2025 Team Status: Inactive Member Role/Relationship Status Dates Dr. Laura Riddle MD Primary care physician Active Start: March 02, 2025 End: March 02, 2025 Dr. Christina Bazan DO Attending physician Acti ve Start: March 02, 2025 End: March 02, 2025 Dr. Christina Bazan DO Referring Provider Activ e Start: March 02, 2025 End: March 02, 2025 Team Status: Active Member Role/Relationship Status Dates Dr. Laura Riddle MD Primary care physician Active Start: March 20, 2025 Dr. Christina Bazan DO Attending physician Acti ve Start: March 20, 2025 Dr. Christina Bazan DO Referring Provider Activ e Start: March 20, 2025 Team Status: Inactive Member Role/Relationship Status Dates Dr. Laura Riddle MD Referring Provider Active Start: April 26, 2025 End: April 26, 2025 Dr. Caitlin Donovan MD Attending physician Active Start: April 26, 2025 End: April 26, 2025 Dr. Mauricio Collier MD Primary care physician Active Start: April 26, 2025 End: April 26, 2025 Goals (unrecognized section and content) Goals [...] BE BASED ON THE PRIMARY CLINICAL RECORDS. [employer] [facility]. provides no warranty or guarantee of the accuracy or completeness of information in this document.
--- OUTSIDE RECORDS SUMMARY | 2025-05-17 06:05 | XMS RPT_ITS | CCD ---
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 Hicks Referring Provider Janesas POE, Dr. Laura Huff Primary Care Provider King DEEPIKA, Dr. Hicks Attending Provider King DEEPIKA, Dr. iHcks Referring Provider Janessa POE, Dr. Laura Huff [...] sources) Sulfamethoxazole / Trimethoprim Drug Allergy 6 [facility] Work Phone: (10 sources) Sulfamethoxazole Drug Allergy 2 Other [facility] (10 sources) Trimethoprim Drug Allergy 2 Other [facility] (1 source) Ibandronate Drug Allergy 5 Nausea [facility] (1 source) atorvastatin Drug Allergy 5 [facility] Repository (1 source) Ibadronate Drug Allergy 5 [facility] Repository (1 source) rosuvastatin Drug Allergy 5 [facility]ository (1 source) Sulfamethoxazole Drug Allergy 5 [facility] Repository (1 source) Trimethoprim Drug Allergy 5 [facility] Repository Medications Current Medications Medication Drug [...] therapy Start: 07-29-2016 take 1 capsule by [facility] once daily Cholecalciferol, Vitamin D3, 5,000 unit cap Take 1 capsule by mouth once daily. 0 07/29/2016 Active Comment on above: Take 1 capsule by mo [facility] once daily. clobetasol propionate 0.0005 mg/mg topical [...] on above: Take 1 capsule by mo [facility] twice daily as needed for Diarrhea. niacin 500 mg oral tablet (9 sources) Nicotinic Acid Start: 2 End: 2 take 1 tablet by mouth every week Niacin 500 mg tablet Discontinued 500 mg PO .3X weekly July 23, 2022 1:00am July 23, 2022 10:31am [place] 8-Xfv-Tqp-Fish Oil (Fish Oil) 1,200 (144-216) mg capsule (9 sources) Start: 2 End: 2 [place] 9-Ule-Nzl-Fish Oil (Fish Oil) 1,200 (144-216) mg capsule Discontinued 1 NMA PO DAILY July 23, 2022 1:00am July 23, 2022 10:31am Start: 07-23-2022 End: 07-23-2022 take 1 capsule by mouth once daily [place] 3-Csr-Dsy-Fish Oil (Fish Oil) 1,200 (144-216) mg capsule Discontinued 1 CAP PO DAILY July 23, 2022 1:00am July 23, 2022 10:31am Start: 07-23-2022 End: 07-23-2022 take 1 capsule by mouth once daily [place] 6-Jyp-Ubb-Fish Oil (Fish Oil) 1,200 (144-216) mg capsule [...] Coronary arteriosclerosis; Translations: [Atherosclerotic heart disease of [place] coronary artery without angina pectoris] Onset: 05-09-2025 [...] Facility Cardiology Visit Reporton Cardiology Visit Report [facility] [address] [place] [address] OFFICE VISIT Date of Service: 04/26/25 MR#: [id number] Acct: [id number] Name: ZULAY BEARDEN Rep #: [id number] : 1950 Provider: Dr. 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 Normal [facility] Coronary Angiography CTon Coronary Angiography CT [facility] Imaging Services [address] [place] [address] 03/21/25 0622 MR#: [id number] Acct: [id number] Name: ZULAY BEARDEN Rep #: [id number] : 1950 74 From: Isael Vieyra MD [...] MD; Dr. Christina Bazan DO Signed Normal [facility] Limited Chest CT Cardiac Onl yon 03-20-[address] Cardiac Only [facility] Imaging Services [address] [place] [id number] Cardiac Only MR#: [id number] Acct: [id number] Name: ZULAY BEARDEN Rep #: [id number] : 1950 F 74 From: Pool Mclaughlin PCP: Dr. Laura Riddle MD Status: REG REF Study: Limited Chest CT Cardiac Only Date of Exam: Exam# [id number] Ordering Dr: Christina Bazan DO PROCEDURE: LIMITED [...] abdomen demonstrates no significant abnormality. Reading Location: [place] [address] CC: Dr. Laura Riddle MD; Dr. Christina Bazan DO Adjunct Trainer: Signed Normal [facility] Breast imaging reportOrdered By: Maggie Chin on 03-02-2025 Study report [facility] Imaging Services [address] [place] [address] SCRN MAMM (CAD)W/ADRIANNA BILAT MR#: [id number] Acct: [id number] Name: ZULAY BEARDEN Rep #: [id number] : 1950 F 74 From: See Desir MD PCP: Dr. Laura Riddle MD Status: [facility] Study:SCRN MAMM (CAD)W/ADRIANNA BILAT Date of Exa m: 03/02/25 Exam# [id number] Ordering Dr: Chrsitina Wood DO EXAM: SCRN MAMM (CAD)W/ADRIANNA BILAT [...] be mailed to the patient. Reading Location: [id number] CC: Dr. Laura Riddle MD; Dr. Christina Bazan DO ~ Adjunct Trainer: Signed [facility] SCRN MAMM (CAD)W/ADRIANNA BILATo n 03-02-2025 SCRN MAMM (CAD)W/ADRIANNA BILAT [facility] Imaging Services [address] [place], [place] [address] SCRN MAMM (CAD)W/ADRIANNA BILAT MR#: [id number] Acct: [id number] Name: ZULAY BEARDEN Rep #: [id number] : 1950 F 74 From: Maggie Serrato i, MD PCP: Dr. Laura Riddle MD Status: [facility] CLI Study: SCRN MAMM (CAD)W/ADRIANNA BILAT Date of Exam: 03/19 Exam# [id number] Ordering Dr: Christina Bazan DO EXAM: SCRN [...] Laura Riddle MD; Dr. Christina Bazan DO Adjunct Trainer: Signed Normal [facility] Complex Care Nurse Office Visit Reporton 02-27-2025 Complex Care Nurse Office Visit Report [facility] [address] [place] [address] OFFICE VISIT Date of Service: 02/27/25 MR#: [id number] Acct: [id number] Name: ZULAY BEARDEN Rep #: [id number] : 1950 Provider: Dr. 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 Date Name GA/Weeks Outcome Route Bth Weight Gen Labor Lgth Anesthesia Del Locatn Provider FOB Unknown 1970 Aaron Unknown 1979 Mark [facility] Encounter for routine gynecological examination [...] active: Yes, (more content not included)... Normal [facility] Anion gap in Serum or Plasma Ordered By: Kurt Connors on 10-05-2024 Anion gap [Moles/Vol] 10 mmol/L 5-15 [facility] BUN/creatinine ratioOrdered By: Kurt Connors on 10-05-2024 Urea nitrogen/Creatinine [Mass ratio] 26.7 mg/mg High 10-20 [facility] Bilirubin, totalOrdered By: Kurt Connors on 10-05-2024 Bilirubin [Mass/Vol] 0.49 mg/dL 0.00-1.30 [facility] Calculated very low density lipoprotein (VLDL) cholesterol measurementOrdered By: Kurt Connors on 10-05-2024 Calculated very low density lipoprotein (VLDL) cholesterol measurement 22 mg/dL 5-40 [facility] VLDL Cholesterol 22 mg/dL 5-40 [facility] Carbon dioxide, total [Moles /volume] in Central venous bloodOrdered By: Kurt Connors on 10-05-2024 CO2 [Moles/Vol] 24.2 mmol/L 21.0-32.0 [facility] Chloride assayOrdered By: Jw Connors on 10-05-2024 Chloride [Moles/Vol] 107 mmol/L 98-108 [facility] Comprehensive Metabolic Prof ilon 10-05-2024 Albumin [Mass/Vol] 4.1 g/dL Normal 3.4-4.[address] [facility] Comment on above: Performed By: #### L 506.1001, L500.4050 #### [facility] [address] [place], [place], [id number] Albumin/Globulin [Mass ratio] 1.7 {ratio} Normal 0.9-2.4 [facility] Comment on above: Performed By: #### L 506.1001, L500.4050 #### [facility] [address] [place], [address] ALK PHOS 66 U/L Normal 35-104 [facility] Comment on above: Performed By: #### L 506.1001, L500.4050 #### [facility] [address] [place], [address] ALT [Catalytic activity/Vol] 12 U/L Normal <=34 [facility] Comment on above: Performed By: #### L 506.1001, L500.4050 #### [facility] [address] [place], [address] AST [Catalytic activity/Vol] 21 U/L Normal <=31 [facility] Comment on above: Performed By: #### L 506.1001, L500.4050 #### [facility] [address] [place], [address] Bilirubin [Mass/Vol] 0.49 mg/dL Normal 0.00-1.30 [facility] Comment on above: Performed By: #### L 506.1001, L500.4050 #### [facility] [address] [place], [address] BUN/CRE 26.7 RATIO High 10-20 [facility] Comment on above: Performed By: #### L 506.1001, L500.4050 #### [facility] [address] [place], [address] Calcium [Mass/Vol] 9.1 mg/dL Normal 7.6-11.[address] [facility] Comment on above: Performed By: #### L 506.1001, L500.4050 #### [facility] [address] [place], [address] Chloride [Moles/Vol] 107 mmol/L Normal 98-108 [facility] Comment on above: Performed By: #### L 506.1001, L500.4050 #### [facility] [address] [place], [address] CO2 [Moles/Vol] 24.2 mmol/L Normal 21.0-32.0 [facility] Comment on above: Performed By: #### L 506.1001, L500.4050 #### [facility] [address] [place], [address] Creatinine [Mass/Vol] 0.88 mg/dL Normal 0.70-1.20 [facility] Comment on above: Performed By: #### L 506.1001, L500.4050 #### [facility] [address] [place], [address] GAP 10 Normal 5-15 [facility] Comment on above: Performed By: #### L 506.1001, L500.4050 #### [facility] [address] [place], [address] GFR/1.73 sq M.predicted among non-blacks MDRD (S/P/Bld) [Vol rate/Area] 69 mL/min/{1.73_m2} Normal >60 [facility] Comment on above: Result Comment: mL/m in/1.73m2 CKD-EPI Creatinine Equation (2020) Performed By: #### L 506.1001, L500.4050 #### [facility] [address] [place], [address] Globulin (S) [Mass/Vol] 2.5 g/dL Normal 2.2-4.2 [facility] Comment on above: Performed By: #### L 506.1001, L500.4050 #### [facility] [address] [place], [address] Glucose [Mass/Vol] 92 mg/dL Normal 70-[address] [facility] Comment on above: Performed By: #### L 506.1001, L500.4050 #### [facility] [address] [place], [address] Potassium [Moles/Vol] 4.6 mmol/L Normal 3.3-5.1 [facility] Comment on above: Performed By: #### L 506.1001, L500.4050 #### [facility] [address] [place], [address] Sodium [Moles/Vol] 141 mmol/L Normal 133-[address] [facility] Comment on above: Performed By: #### L 506.1001, L500.4050 #### [facility] [address] [place], [address] T PROT 6.6 g/dL Normal 5.9-8.4 [facility] Comment on above: Performed By: #### L 506.1001, L500.4050 #### [facility] [address] [place], [address] Urea nitrogen [Mass/Vol] 23 mg/dL High 4-19 [facility] Comment on above: Performed By: #### L 506.1001, L500.4050 #### [facility] [address] [place], [address] GFR/1.73 sq M.predicted haroldo g non-blacks MDRD (S/P/Bld) [Vol rate/Area]Ordered By: Kurt Connors on 10-05-2024 Estimated GFR (MDRD) Non-Af Amer 69 >60 [facility] Comment on above: mL/min/1.73m2 CKD-EP I Creatinine Equation (2020) Glomerular filtration rate ( GFR) estimation/1.73 sq m using serum, plasma, or whole bOrdered By: Kurt Connors on 10-05-2024 GFR/1.73 sq M.predicted among non-blacks MDRD (S/P/Bld) [Vol rate/Area] 69 mL/min/{1.73_m2} >60 [facility] Comment on above: mL/min/1.73m2 CKD-EP I Creatinine Equation (2020) L506.1001on 10-05-2024 Vitamin D 25-OH 33.6 ng/mL Normal 30-100 [facility] Comment on above: Result Comment: Vivian min D Status Deficiency: <20 ng/mL (50nmol/L) Insufficiency: 20-30 ng/mL (50-75 nmol/L) Sufficiency: 30-100 ng/mL (75-250 nmol/L) Toxicity: >100 ng/mL (>250 nmol/L) Performed By: #### L 506.1001, L500.4050 #### [facility] [address] [place], [place], [id number] LDL calc ser/plasOrdered By: Kurt Connors on 10-05-2024 Cholesterol in LDL [Mass/Vol] 155 mg/dL [facility] Comment on above: Xlhmwpkxqj=940-553 m g/dL & Higher Rbkr=786 mg/dL or greater LDL Cholesterol, Calculated 155 mg/dL [facility] Comment on above: Kdtspumavt=564-771 m g/dL & Higher Hgje=123 mg/dL or greater Laboratory - Chemistry and C hemistry - challengeOrdered By: Kurt Connors on 10-05-2024 AST [Catalytic activity/Vol] 21 U/L <32 [facility] Lipid Profileon 10-05-2024 CHOL:HDL 3.21 Normal [facility] Comment on above: Order Comment: OFFIC E CALLED AND SAID TO ADD THIS TEST ON TO BW DONE THIS AM Performed By: #### L 500.4100 #### [facility] [address] [place], [place], [address] Cholesterol [Mass/Vol] 256 mg/dL High <=200 [facility] Comment on above: Order Comment: OFFIC E CALLED AND SAID TO ADD THIS TEST ON TO BW DONE THIS AM Result Comment: Chol esterol level, Desirable <200 mg/dL Borderline high cholesterol 200-239 mg/dL High cholesterol >=240 mg/dL Recommendations of the NCEP Adult Treatment Panel for the following risk-cutoff thresholds for the [place] population. Performed By: #### L 500.4100 #### [facility] [address] [place], [address] Cholesterol in HDL [Mass/Vol] 80 mg/dL Normal [facility] Comment on above: Order Comment: OFFIC [...] age. Performed By: #### L 500.4100 #### [facility] [address] [place], [address] Cholesterol in LDL [Mass/Vol] 155 mg/dL Normal [facility] Comment on above: Order Comment: OFFIC E CALLED AND SAID TO ADD THIS TEST ON TO BW DONE THIS AM Result Comment: Bord aithaz=299-416 mg/dL Higher Faog=869 mg/dL or greater Performed By: #### L 500.4100 #### [facility] [address] [place], [address] Cholesterol in VLDL [Mass/Vol] 22 mg/dL Normal 5-40 [facility] Comment on above: Order Comment: OFFIC E CALLED AND SAID TO ADD THIS TEST ON TO BW DONE THIS AM Performed By: #### L 500.4100 #### [facility] [address] [place], [address] Triglyceride [Mass/Vol] 108 mg/dL Normal [facility] Comment on above: Order Comment: OFFIC E CALLED AND SAID TO ADD THIS TEST ON TO BW DONE THIS AM Result Comment: The drugs N-Acetylcysteine and Metamizole may falsely depress this assay. Normal range: <150 mg/dL Borderline High: 150-199 mg/dL High: 200-499 mg/dL Very High: >500 mg/dL Performed By: #### L 500.4100 #### [facility] [address] [place], [address] Potassium (Unsp spec) [Mass/ Vol]Ordered By: Kurt Connors on 10-05-2024 Potassium [Moles/Vol] 4.6 mmol/L 3.3-5.1 [facility] Potassium measurement (mass/ volume)Ordered By: Kurt Connors on 10-05-2024 Potassium (Unsp spec) [Mass/Vol] 4.6 mmol/L 3.3-5.1 [facility] Screening total cholesterol/ high density lipoprotein (HDL) cholesterol ratioOrdered By: Kurt Connors on 10-05-2024 Cholesterol.total/Chol esterol in HDL [Mass ratio] 3.21 {ratio} [facility] Serum creatinine measurement (mass/volume)Ordered By: Kurt Connors on 10-05-2024 Creatinine [Mass/Vol] 0.88 mg/dL 0.70-1.20 [facility] Serum globulin measurementOr dered By: Kurt Connors on 10-05-2024 Globulin (S) [Mass/Vol] 2.5 g/dL 2.2-4.2 [facility] Serum glucose measurement (m ass/volume)Ordered By: Kurt Connors on 10-05-2024 Glucose [Mass/Vol] 92 mg/dL 70-[address] [facility] Serum or plasma alanine johnson otransferase (ALT) measurementOrdered By: Kurt Connors on 10-05-2024 ALT [Catalytic activity/Vol] 12 U/L <35 [facility] Serum or plasma albumin maciej urement (mass/volume)Ordered By: Kurt Connors on 10-05-2024 Albumin [Mass/Vol] 4.1 g/dL 3.4-4.[address] [facility] Serum or plasma albumin/glob ulin mass ratioOrdered By: Kurt Connors on 10-05-2024 Albumin/Globulin [Mass ratio] 1.7 {ratio} 0.9-2.4 [facility] Serum or plasma alkaline babs sphatase measurementOrdered By: Kurt Connors on 10-05-2024 ALP [Catalytic activity/Vol] 66 U/L 35-104 [facility] Serum or plasma calcium maciej urement (mass/volume)Ordered By: Kurt Connors on 10-05-2024 Calcium [Mass/Vol] 9.1 mg/dL 7.6-11.[address] [facility] Serum or plasma cholesterol in HDL measurement (mass/volume)Ordered By: Kurt Connors on 10-05-2024 Cholesterol in HDL [Mass/Vol] 80 mg/dL >40 [facility] Comment on above: National Cholesterol Education Program (NCEP) guidelines:<40 mg/dL: Low HDL-cholesterol (major risk factor for CHD)>= 60 mg/dL: High HDL-cholesterol (negative risk factor for CHD)HDL-cholesterol is affected by a number of factors, e.g. smoking, exercise, hormones, sex and age. Serum or plasma cholesterol measurement (mass/volume)Ordered By: Kurt Connors on 10-05-2024 Cholesterol [Mass/Vol] 256 mg/dL High <201 [facility] Comment on above: Cholesterol level, D esirable <200 mg/dLBorderline high cholesterol 200-239 mg/dLHigh cholesterol >=240 mg/dLRecommendations of the NCEP Adult Treatment Panel for the following risk-cutoff thresholds for the [place] population. Serum or plasma urea nitroge n measurement (mass/volume)Ordered By: Kurt Connors on 10-05-2024 Urea nitrogen [Mass/Vol] 23 mg/dL High 4-19 [facility] Sodium levelOrdered By: Kurt Connors on 10-05-2024 Sodium [Moles/Vol] 141 mmol/L 133-[address] [facility] Total proteinOrdered By: Kane Connors on 10-05-2024 Protein [Mass/Vol] 6.6 g/dL 5.9-8.[address] [facility] Triglycerides measurementOrd ered By: Kurt Connors on 10-05-2024 Triglyceride [Mass/Vol] 108 mg/dL <199 [facility] Comment on above: The drugs N-Acetylcy steine and Metamizole may falsely depress this assay. Normal range: <150 mg/dLBorderline High: 150-199 mg/dLHigh: 200-499 mg/dLVery High: >500 mg/dL Vitamin D, 25-hydroxyOrdered By: Kurt Connors on 10-05-2024 Vitamin D 25-Hydroxy 33.6 ng/mL 30-100 [facility] Comment on above: Vitamin D StatusDefi ciency: <20 ng/mL (50nmol/L)Insufficiency: 20-30 ng/mL (50-75 nmol/L)Sufficiency: 30-100 ng/mL (75-250 nmol/L)Toxicity: >100 ng/mL (>250 nmol/L) Endocrinology Visit Reporton 07-21-2024 Endocrinology Visit Report [facility] 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 Normal [facility] Inital Evaluation (1) - PTon 05-30-2024 Inital Evaluation (1) - PT [facility] Physical Therapy [facility] [address] [place] [address] [address] [place] [address] / REHABILITATION SERVICES INITIAL EVALUATION MR#: [id number] Acct: [id number] Name: ZULAY BEARDEN Rep #: [id number] : 1950 74 From: Art Doherty DPT Referring Dr.: Dr. Laura Riddle MD Status: RE G RCR Insurance: [employer] MEDICARE SENIOR REPLACED BY [facility] SELF PAY INSURANCE Patient's Visit Information Visit [...] to be FAXED BACK to us at [phone] for Medicare purposes. For Medicare only, by signing this I certify the plan of care. Please let me know if there are questions or concerns regard (more content not included)... Normal [facility] Shoulder min 2 Viewson 05-29 Shoulder min 2 Views [facility] Imaging Services [address] [place], [place] [address] Shoulder min 2 Views MR#: [id number] Acct: [id number] Name: ZULAY BEARDEN Rep #: [id number] : 1950 F 74 From: Rody Mclaughlin PCP: Dr. Laura Riddle MD Status: REG CLI Study: Shoulder min 2 Views Date of Exam: 05/29/24 Exam# [id number] Ordering [place]: [place] [id number] INDICATION: pain post fall EXAMINATION/TECHNIQUE: X-RAY - [...] EST , CC: Dr. Laura Riddle MD Adjunct Trainer: Signed Normal [facility] Basophil percentageOrdered B y: Kurt Connors on 08-06-2023 Bilirubin [Mass/Vol] 0.60 mg/dL 0.20-1.00 [facility] Comment on above: For patients on eltr ombopag therapy, use of [place] TBIL is not recommended. Chloride [Moles/Vol] 106 mmol/L 98-107 [facility] Glucose [Mass/Vol] 92 mg/dL 74-[address] [facility] Potassium [Moles/Vol] 4.1 mmol/L 3.5-5.1 [facility] Protein [Mass/Vol] 7.2 g/dL 6.4-8.[address] [facility] Sodium [Moles/Vol] 141 mmol/L 136-[address] [facility] Laboratory - Chemistry and C hemistry - challengeOrdered By: Kurt Connors on 08-06-2023 ALP [Catalytic activity/Vol] 76 U/L 45-117 [facility] ALT [Catalytic activity/Vol] 20 U/L - [facility] CO2 [Moles/Vol] 29.0 mmol/L 21.0-32.0 [facility] Globulin (S) [Mass/Vol] 3.4 g/dL 2.2-4.2 [facility] Urea nitrogen/Creatinine [Mass ratio] 15.8 mg/mg 10-20 [facility] No Panel InformationOrdered By: Kurt Connors on 08-06-2023 Estimated Creatinine Clearance Calc 44.64 ml/min [facility] Estimated GFR (MDRD) Amer 69 mL/min >60 [facility] Comment on above: GFR Calc Estimated GFR (MDRD) Non-Af Amer 57 mL/min >60 [facility] Comment on above: Non- GFR Calc Thyroid Stimulating Hormone (TSH) 2.56 uIU/mL 0.358-3.74 [facility] Vitamin D 25-Hydroxy 59.2 ng/mL [facility] Comment on above: Vitamin D 25(OH) Sta tus Range Deficiency <20 ng/mL (50nmol/L) Insufficiency 20 - 30 ng/mL (50 - 75 nmol/L) Sufficiency 30 - 100 ng/mL (75 - 250 nmol/L) Toxicity >100 ng/mL (>250 nmol/L) Serum or plasma albumin maciej urement (mass/volume)Ordered By: Kurt Connors on 08-06-2023 Albumin [Mass/Vol] 3.8 g/dL 3.2-5.[address] [facility] Serum or plasma albumin/glob ulin mass ratioOrdered By: Kurt Connors on 08-06-2023 Albumin/Globulin [Mass ratio] 1.1 {ratio} 0.9-2.4 [facility] Serum or plasma calcium maciej urement (mass/volume)Ordered By: Kurt Connors on 08-06-2023 Calcium [Mass/Vol] 9.5 mg/dL 8.5-10.[address] [facility] Serum or plasma creatinine m easurement (mass/volume)Ordered By: Kurt Connors on 08-06-2023 Creatinine [Mass/Vol] 1.01 mg/dL 0.55-1.02 [facility] Comment on above: The validity of the calculated GFR & GFRAA in patients over 70 years has not been determined. Clinical correlation is essential. Serum or plasma urea nitroge n measurement (mass/volume)Ordered By: Kurt Connors on 08-06-2023 Urea nitrogen [Mass/Vol] 16 mg/dL 7-18 [facility] Thin prep Papanicolaou smear with manual screeningOrdered By: Kurt Connors on 08-06-2023 Thin prep Papanicolaou smear with manual screening 19 U/L 15-37 [facility] Thin prep Papanicolaou smear with manual screening 6 5-15 [facility] Basophil percentageOrdered B y: Dr. Connors on 08-05-2022 Bilirubin [Mass/Vol] 0.60 mg/dL 0.20-1.00 [facility] Comment on above: For patients on eltr ombopag therapy, use of [place] TBIL is not recommended. Chloride [Moles/Vol] 104 mmol/L 98-107 [facility] Glucose [Mass/Vol] 89 mg/dL 74-[address] [facility] Potassium [Moles/Vol] 4.1 mmol/L 3.5-5.1 [facility] Protein [Mass/Vol] 6.9 g/dL 6.4-8.[address] [facility] Sodium [Moles/Vol] 138 mmol/L 136-[address] [facility] Laboratory - Chemistry and C hemistry - challengeOrdered By: Dr. Connors on 08-05-2022 ALP [Catalytic activity/Vol] 62 U/L 45-117 [facility] ALT [Catalytic activity/Vol] 24 U/L 13-56 [facility] CO2 [Moles/Vol] 28.0 mmol/L 21.0-32.0 [facility] Globulin (S) [Mass/Vol] 3.1 g/dL 2.2-4.2 [facility] Urea nitrogen/Creatinine [Mass ratio] 17.2 mg/mg 10-20 [facility] No Panel InformationOrdered By: Dr. Connors on 08-05-2022 Estimated Creatinine Clearance Calc 49.20 ml/min [facility] Estimated GFR (MDRD) Amer 76 mL/min >60 [facility] Comment on above: GFR Calc Estimated GFR (MDRD) Non-Af Amer 63 mL/min >60 [facility] Comment on above: Non- GFR Calc Parathyroid Hormone (Intact) 71.1 pg/mL 18.4-80.1 [facility] Thyroid Stimulating Hormone (TSH) 2.37 uIU/mL 0.358-3.74 [facility] Vitamin D 25-Hydroxy 42.8 ng/mL [facility] Comment on above: Vitamin D 25(OH) Sta tus Range Deficiency <20 ng/mL (50nmol/L) Insufficiency 20 - 30 ng/mL (50 - 75 nmol/L) Sufficiency 30 - 100 ng/mL (75 - 250 nmol/L) Toxicity >100 ng/mL (>250 nmol/L) Serum or plasma albumin maciej urement (mass/volume)Ordered By: Dr. Connors on 08-05-2022 Albumin [Mass/Vol] 3.8 g/dL 3.2-5.[address] [facility] Serum or plasma albumin/glob ulin mass ratioOrdered By: Dr. Connors on 08-05-2022 Albumin/Globulin [Mass ratio] 1.2 {ratio} 0.9-2.4 [facility] Serum or plasma calcium maciej urement (mass/volume)Ordered By: Dr. Connors on 08-05-2022 Calcium [Mass/Vol] 9.0 mg/dL 8.5-10.[address] [facility] Serum or plasma creatinine m easurement (mass/volume)Ordered By: Dr. Connors on 08-05-2022 Creatinine [Mass/Vol] 0.93 mg/dL 0.55-1.02 [facility] Comment on above: The validity of the calculated GFR & GFRAA in patients over 70 years has not been determined. Clinical correlation is essential. Serum or plasma urea nitroge n measurement (mass/volume)Ordered By: Dr. Connors on 08-05-2022 Urea nitrogen [Mass/Vol] 16 mg/dL 7-18 [facility] Thin prep Papanicolaou smear with manual screeningOrdered By: Dr. Connors on 08-05-2022 Thin prep Papanicolaou smear with manual screening 19 U/L 15-37 [facility] Thin prep Papanicolaou smear with manual screening 6 5-15 [facility] OPERATIVE NOon 03-17-2020 OPERATIVE NO HNO ID: [id number] Author: Darrius H Rudy Service: Plastic Surgery Author Type: Physician Type: Operative Report Filed: 03/20/2020 11:35 AM Note Text: [facility] - Operative Report ZULAY BEARDEN : 1950 AGE: 69. SEX: F PATIENT TYPE: I HOSP SVC: [facility] LOCATION: [id number] ATTENDING PHYSICIAN: HUNTER GARRIDO [facility] NUMBER: [id number] DATE OF SURGERY/PROCEDURE: 02/17/2020 INCISION/PROCEDURE START TIME: 1:05 PM INCISION CLOSE/PROCEDURE END TIME: 1:23 PM PREOPERATIVE DIAGNOSIS: Abscess, left dorsal wrist secondary to cat bite infection. POSTOPERATIVE DIAGNOSIS: Abscess, left dorsal wrist secondary to cat bite infection. SURGEON: Darrius Grant MD SIMULATION DEVELOPER: No Additional Staff SURGERY/PROCEDURE: Incision and drainage [...] oral antibiotics by her family doctor at [place], her infection progressively worsened. She was transferred to [facility] for hand surgical consultation. Aggressive IV [...] room in stable condition. Darrius Grant MD NYP:[id number] /[id number] Normal [facility] Basic Metabolic Panelon 07-3 Anion gap [Moles/Vol] 9 mmol/L Normal 9-18 [facility] Comment on above: Performed By: #### G FR #### [facility] [address] [place], [place] [address] Calcium [Mass/Vol] 8.2 mg/dL Low 8.5-10.2 [facility] Comment on above: Performed By: #### G FR #### [facility] [address] [place], [place] [address] Chloride [Moles/Vol] 111 mmol/L High 97-105 [facility] Comment on above: Performed By: #### G FR #### [facility] [address] [place], [place] [address] CO2 Blood 23 mmol/L Normal 22-30 [facility] Comment on above: Performed By: #### G FR #### [facility] [address] [place], [place] [address] Creatinine [Mass/Vol] 1.58 mg/dL High 0.58-0.96 [facility] Comment on above: Performed By: #### G FR #### [facility] [address] [place], [place] [address] Glucose [Mass/Vol] 93 mg/dL Normal 74-99 [facility] Comment on above: Result Comment: The [place] Diabetes Association (ADA) provides guidance for cutoff [...] Standards of Medical Care in Diabetes 2016; [place] [employer]. Diabetes Care. 2016;39(Suppl 1). Performed By: #### G FR #### [facility] [address] [place], [place] [address] Potassium [Moles/Vol] 4.0 mmol/L Normal 3.7-5.1 [facility] Comment on above: Performed By: #### G FR #### [facility] [address] [place] [address] Sodium [Moles/Vol] 143 mmol/L Normal 136-144 [facility] Comment on above: Performed By: #### G FR #### [facility] [address] [place] [address] Urea nitrogen [Mass/Vol] 11 mg/dL Normal 7-21 [facility] Comment on above: Performed By: #### G FR #### [facility] [address] [place] [address] CASE MANAGEMon 02-23-2020 CASE MANAGEM HNO ID: [id number] Author: Tamiko (Rn) SEUN Canales Service: Care [...] 23, 2020 TIME: 10:09 AM PAGER/CONTACT #: [phone] [facility] CONSULT PROGon 02-23-2020 CONSULT PROG HNO ID: [id number] Author: Darrius Grant Service: Plastic Surgery Author [...] OK). 3. F/u in my office in [place] on 03/07/2020 -- patient should call at her convenience for an appointment anytime this week. Please contact me for any other questions or concerns. Thank you, Amandeep Grant MD Pager: [phone] Normal [facility] ECG COMPLETEon 02-23-2020 ECG COMPLETE NAME : ZULAY BEARDEN PID : [id number] : 1950 Gender : Female Race : ORD : [id number] Procedure Date : Feb 23 2020 13:17:01 Edit Date : Feb 25 2020 11:29:24 Diagnosis:SINUS RHYTHM WITH SHORT FL OTHERWISE NORMAL ECG NO PREVIOUS ECGS AVAILABLE Confirmed by MD HATHAWAY SACHIN ([id number]) on 02/25/2020 11:29:19 AM Ventricular Rate : 67 BPM Atrial Rate : 67 BPM P-R Interval : 106 ms QRS Duration : 78 ms Q-T Interval : 404 ms QTC Calculation(Bazett) : 426 ms P [place] : 41 degrees R [place] : 65 degrees T [place] : 39 degrees Test Reason : Arrhythmia Location : 19 : [id number] Overread By : MD HATHAWAY SACHIN Edited By : MD HATHAWAY SACHIN Referred By : KRISTEN SCHULER Acquired by : KATHY STOVER Normal [facility] MDRD GFRon 02-23-2020 GFR/1.73 sq M predicted among non-blacks MDRD (S/P/Bld) [Vol rate/Area] 32.35 mL/min/{1.73_m2} Normal >60mL/min/1.7 3m2 [facility] Comment on above: Result Comment: If t he patient is , multiply the result by 1.210. Performed By: #### G FR #### [place] [address] PLAN OF CAREon 02-23-2020 PLAN OF CARE HNO ID: [id number] Author: Minna Gallo (Business Leader) Service: ? Author Type: ? Type: Plan [...] 60 mg/mL Commonly known as: ONDINA Gallo (Business Leader) PAGER: [phone] February 23, 2020 6:12 PM Normal [facility] PROGRESSon 02-23-2020 PROGRESS HNO ID: [id number] Author: Hunter Garrido Service: Hospital Medicine Author Type: Physician Type: Progress Notes Filed: 02/23/2020 3:59 PM Note Text: DEPARTMENT OF HOSPITAL MEDICINE PROGRESS NOTE SERVICE DATE: 02/23/2020 SERVICE TIME: 3:41 PM Hospital Medicine/Primary Attending: Hunter Garrido MD NIGHT AND WEEKEND COVERAGE: HEAVENER COVERAGE: From 7am - 7pm, please call [phone] After 7pm, please call cross cover pager #[phone] Subjective INTERVAL HPI: patient seen at bedside. She has been doing dressing changes and was saying that she had instruction from surgeon. Surgery recs are noted in the chart. Iodoform gauze and dressing changes bid. Needs continued follow up as outpatient in [place] office 03/07/2020. Discussed with ID, duration of [...] 23, 2020 TIME: 3:41 PM PAGER/CONTACT #: [phone] etx [phone] [facility] PROGRESS HNO ID: [id number] Author: Anibal Nunn Service: Nephrology Author Type: [...] for follow up at our office in [place] in 1-2 weeks. ? 2. Metabolic acidosis. [...] do not hesitate to contact me at [phone] if there is any question or concern. Divya Velazco MD (Anibal Nunn) [facility] PROGRESS HNO ID: [id number] Author: Gael Villagomez III Service: Infectious Disease [...] 23, 2020 TIME: 1:55 PM PAGER/CONTACT #: [phone] [facility] PROGRESS HNO ID: [id number] Author: Hunter Garrido Service: Hospital Medicine Author Type: Physician Type: Progress Notes Filed: 02/22/2020 11:47 PM Note Text: DEPARTMENT OF HOSPITAL MEDICINE PROGRESS NOTE SERVICE DATE: 02/22/2020 SERVICE TIME: 11:45 PM Hospital Medicine/Primary Attending: Hunter Garrido MD NIGHT AND WEEKEND COVERAGE: HEAVENER COVERAGE: From 7am - 7pm, please call [phone] After 7pm, please call cross cover pager #[phone] Subjective INTERVAL HPI: patient seen at bedside. [...] 22, 2020 TIME: 11:45 PM PAGER/CONTACT #: [phone] etx [phone] Normal [facility] CONSULTon 02-22-2020 CONSULT HNO ID: [id number] Author: Gael Villagomez III Service: Infectious Disease [...] g INTRAVENOUS q 8 H Mohammad F Sabianism 100 mL/hr at 02/22/20 1414 3.375 g [...] 23, 2020 TIME: 1:15 AM PAGER/CONTACT #: [phone] [facility] CONSULT PROGon 02-22-2020 CONSULT PROG HNO ID: [id number] Author: Karla Bangura (Pharmacist) Service: Pharmacy Author [...] care. Please contact [place]T [phone] KARLA BANGURA, PHARMACIST [facility] CONSULT PROG HNO ID: [id number] Author: Asha Turner) MD Jey Service: Nephrology [...] February 22, 2020 TIME: 1:53 PM PAGER: [phone] [facility] CONSULT PROG HNO ID: [id number] Author: Betsy Newsome (Pharmacist) Service: Pharmacy Author [...] have any questions, [place] [phone]. Age: [age] year old Allergies: ALLERGIES Allergen [...] 02/20/2020 2057 12.1 BETSY NEWSOME, PHARMACIST Normal [facility] Hemogram/Diffon 02-22-2020 Abs Immature Grans 0.02 thou/cmm Normal 0.00-0.05 [facility] Comment on above: Performed By: #### G FR #### [facility] [address] [place] [address] Abs Neut (ANC) 3.53 thou/cmm Normal 1.56-6.13 [facility] Comment on above: Performed By: #### G FR #### [facility] [address] [place] [address] Abs. Baso 0.04 thou/cmm Normal 0.01-0.08 [facility] Comment on above: Performed By: #### G FR #### [facility] [address] [place], [place] [address] Abs. Charles 0.64 thou/cmm Normal 0.27-0.70 [facility] Comment on above: Performed By: #### G FR #### [facility] [address] [place] [address] Basophils/100 WBC (Bld) 0.7 % Normal [facility] Comment on above: Performed By: #### G FR #### [facility] [address] [place] [address] Eosinophils (Bld) [#/Vol] 0.16 thou/cmm Normal 0.00-0.31 [facility] Comment on above: Performed By: #### G FR #### [facility] [address] [place] [address] Eosinophils/100 WBC (Bld) 2.7 % Normal [facility] Comment on above: Performed By: #### G FR #### [facility] [address] [place] [address] Erythrocyte distribution width (RBC) [Ratio] 13.2 % Normal 11.7-14.4 [facility] Comment on above: Performed By: #### G FR #### [facility] [address] [place] [address] Hematocrit (Bld) [Volume fraction] 31.3 % Low 34.1-44.9 [facility] Comment on above: Performed By: #### G FR #### [facility] [address] [place] [address] Hemoglobin (Bld) [Mass/Vol] 10.0 g/dL Low 11.2-15.7 [facility] Comment on above: Performed By: #### G FR #### [facility] [address] [place] [address] Immature Grans 0.30 % Normal [facility] Comment on above: Performed By: #### G FR #### [facility] [address] [place] [address] Lymphocytes (Bld) [#/Vol] 1.44 thou/cmm Normal 1.18-3.74 [facility] Comment on above: Performed By: #### G FR #### [facility] [address] [place], [place] [address] Lymphocytes/100 WBC (Bld) 24.7 % Normal [facility] Comment on above: Performed By: #### G FR #### [facility] [address] [place], [place] [address] MCH (RBC) [Entitic mass] 29.8 pg Normal 25.6-32.2 [facility] Comment on above: Performed By: #### G FR #### [facility] [address] [place], [place] [address] MCHC (RBC) [Mass/Vol] 31.9 % Normal 31.6-34.8 [facility] Comment on above: Performed By: #### G FR #### [facility] [address] [place] [address] MCV (RBC) [Entitic vol] 93.2 fL Normal 79.4-94.8 [facility] Comment on above: Performed By: #### G FR #### [facility] [address] [place], [place] [address] Monocytes/100 WBC (Bld) 11.0 % Normal [facility] Comment on above: Performed By: #### G FR #### [facility] [address] [place] [address] Platelet mean volume (Bld) [Entitic vol] 10.8 fL Normal 9.4-12.3 [facility] Comment on above: Performed By: #### G FR #### [facility] [address] [place], [place] [address] Platelets (Bld) [#/Vol] 197 thou/cmm Normal 182-369 [facility] Comment on above: Performed By: #### G FR #### [facility] [address] [place], [place] [address] RBC (Bld) [#/Vol] 3.36 mil/cmm Low 3.93-5.22 [facility] Comment on above: Performed By: #### G FR #### [place] [address] RDW SD 45.4 fl Normal 36.4-46.3 [facility] Comment on above: Performed By: #### G FR #### [facility] [address] [place] [address] Seg Neutrophil 60.6 % Normal [facility] Comment on above: Performed By: #### G FR #### [facility] [address] [place] [address] WBC (Bld) [#/Vol] 5.82 thou/cmm Normal 3.98-10.04 [facility] Comment on above: Performed By: #### G FR #### [facility] [address] [place] [address] Renal Function Panelon 02-21 Albumin [Mass/Vol] 3.1 g/dL Low 3.9-4.9 [facility] Comment on above: Performed By: #### G FR #### [facility] [address] [place] [address] Anion gap [Moles/Vol] 10 mmol/L Normal 9-18 [facility] Comment on above: Performed By: #### G FR #### [facility] [address] [place] [address] Calcium [Mass/Vol] 8.4 mg/dL Low 8.5-10.2 [facility] Comment on above: Performed By: #### G FR #### [facility] [address] [place] [address] Chloride [Moles/Vol] 112 mmol/L High 97-105 [facility] Comment on above: Performed By: #### G FR #### [facility] [address] [place] [address] CO2 Blood 22 mmol/L Normal 22-30 [facility] Comment on above: Performed By: #### G FR #### [facility] [address] [place] [address] Creatinine [Mass/Vol] 1.76 mg/dL High 0.58-0.96 [facility] Comment on above: Performed By: #### G FR #### [facility] [address] [place], [place] [address] Glucose [Mass/Vol] 94 mg/dL Normal 74-99 [facility] Comment on above: Result Comment: The [place] Diabetes Association (ADA) provides guidance for cutoff [...] Standards of Medical Care in Diabetes 2016; [place] [employer]. Diabetes Care. 2016;39(Suppl 1). Performed By: #### G FR #### [place] [address] Phosphate [Mass/Vol] 3.3 mg/dL Normal 2.7-4.8 [facility] Comment on above: Performed By: #### G FR #### [facility] [address] [place] [address] Potassium [Moles/Vol] 3.9 mmol/L Normal 3.7-5.1 [facility] Comment on above: Performed By: #### G FR #### [address] [address] Sodium [Moles/Vol] 144 mmol/L Normal 136-144 [facility] Comment on above: Performed By: #### G FR #### [address] [address] Urea nitrogen [Mass/Vol] 14 mg/dL Normal 7-21 [facility] Comment on above: Performed By: #### G FR #### [place] [id number] CASE MANAGEMon 02-21-2020 CASE MANAGEM HNO ID: [id number] Author: Kelle Panchal Sec Service: Care Management Author Type: ? Type: Care Mgt Progress Note Filed: 02/21/2020 11:29 AM Note Text: CARE MANAGEMENT PROGRESS NOTE SERVICE DATE: 02/21/2020 SERVICE TIME: 1015 LOS: 4 days IMM Follow Up Copy Given: Yes Copy given to:: Patient Method: In Person SIGNATURE: Kelle Muro PATIENT NAME: Zulay Bearden DATE: February 21, 2020 TIME: 11:29 AM Normal [facility] CONSULT PROGon 02-21-2020 CONSULT PROG HNO ID: [id number] Author: Asha Khanna MD Service: Nephrology Author [...] February 21, 2020 TIME: 1:53 PM PAGER: [phone] [facility] CONSULT PROG HNO ID: [id number] Author: Betsy Newsome (Pharmacist) Service: Pharmacy Author [...] have any questions, [place] [phone]. Age: [age] year old Allergies: ALLERGIES Allergen [...] 2216 20.1 (H) BETSY NEWSOME, PHARMACIST Normal [facility] NURSING PROGon 02-21-2020 NURSING PROG HNO ID: [id number] Author: Zulay (Rn) SEUN Taveras Service: Nursing Author Type: Registered Nurse Type: Nursing Progress Note Filed: 02/21/2020 12:05 PM Note Text: Dr. Garrido at bedside with patient to see her during soaking. Support offered Normal [facility] PROGRESSon 02-21-2020 PROGRESS HNO ID: [id number] Author: Hunter Garrido Service: Hospital Medicine Author Type: Physician Type: Progress Notes Filed: 02/21/2020 12:19 PM Note Text: DEPARTMENT OF HOSPITAL MEDICINE PROGRESS NOTE SERVICE DATE: 02/21/2020 SERVICE TIME: 12:05 PM Hospital Medicine/Primary Attending: Hunter Garrido MD NIGHT AND WEEKEND COVERAGE: HEAVENER COVERAGE: From 7am - 7pm, please call [phone] After 7pm, please call cross cover pager #[phone] Subjective INTERVAL HPI: Patient seen at bedside. [...] TIME: 12:05 PM PAGER/CONTACT #: [phone] etx [phone] Normal [facility] Renal Function Panelon 02-20 Albumin [Mass/Vol] 3.0 g/dL Low 3.9-4.9 [facility] Comment on above: Performed By: #### G FR #### [facility] [address] [place], [place] [address] Anion gap [Moles/Vol] 8 mmol/L Low 9-18 [facility] Comment on above: Performed By: #### G FR #### [facility] [address] [place], [place] [address] Calcium [Mass/Vol] 8.2 mg/dL Low 8.5-10.2 [facility] Comment on above: Performed By: #### G FR #### [facility] [address] [place], [place] [address] Chloride [Moles/Vol] 113 mmol/L High 97-105 [facility] Comment on above: Performed By: #### G FR #### [facility] [address] [place], [place] [address] CO2 Blood 22 mmol/L Normal 22-30 [facility] Comment on above: Performed By: #### G FR #### [facility] [address] [place], [place] [address] Creatinine [Mass/Vol] 2.09 mg/dL High 0.58-0.96 [facility] Comment on above: Performed By: #### G FR #### [facility] [address] [place], [place] [address] Glucose [Mass/Vol] 94 mg/dL Normal 74-99 [facility] Comment on above: Result Comment: The [place] Diabetes [employer] (ADA) provides guidance for cutoff [...] Standards of Medical Care in Diabetes 2016; [place] [employer]. Diabetes Care. 2016;39(Suppl 1). Performed By: #### G FR #### [facility] [address] [place] [address] Phosphate [Mass/Vol] 3.1 mg/dL Normal 2.7-4.8 [facility] Comment on above: Performed By: #### G FR #### [facility] [address] [place] [address] Potassium [Moles/Vol] 3.9 mmol/L Normal 3.7-5.1 [facility] Comment on above: Performed By: #### G FR #### [facility] [address] [place] [address] Sodium [Moles/Vol] 143 mmol/L Normal 136-144 [facility] Comment on above: Performed By: #### G FR #### [facility] [address] [place] [address] Urea nitrogen [Mass/Vol] 12 mg/dL Normal 7-21 [facility] Comment on above: Performed By: #### G FR #### [facility] [address] [place] [address] Vancomycin,Randomon 02-21-20 20 INR Coag (Bld) [Relative time] 14.0 ug/mL Normal 10.0-20.0 [facility] Comment on above: Result Comment: Refe rence ranges and high/low indicator flags are provided as general guidelines only. The treating physician must determine appropriate target levels/dosing based on the specific clinical situation. Performed By: #### G FR #### [facility] [address] [place] [address] ALLIED HEALTHon 02-20-2020 ALLIED HEALTH HNO ID: [id number] Author: Tracee (Student) Nafisa Rudolph Service: Spiritual Care Author Type: Student Type: Allied Health Filed: 02/20/2020 11:45 AM Note Text: SPIRITUALCARE Spiritual Care Visit- Brief Note Name: Zulay Bearden Date: February 20, 2020 Notes: As latex dipper attempted visitation by phone-no answer. Will follow-up as able. [employer] Signature: Nafisa Davis To contact the Spiritual Care Department: Please call [phone] or Page the On-Call Director [employer] at pager [phone] Thank you for the opportunity to be of service. This is an electronically created document. IF PRINTED, PLEASE DO NOT REMOVE FROM THE CHART OR MODIFY PRINTED COPY. Normal [facility] CONSULTon 02-20-2020 CONSULT HNO ID: [id number] Author: Asha Khanna MD Service: Nephrology Author [...] Intake/Output Summary (Last 24 hours) at 02/20/2020 0518 Last data filed at 02/20/2020 1400 [address] [...] February 20, 2020 TIME: 6:58 PM PAGER: [phone] [facility] CONSULT PROGon 02-20-2020 Cholesterol [Mass/Vol] HNO ID: [id number] Author: Darrius Grant Service: Plastic Surgery Author Type: Physician Type: Consult Progress Note Filed: 02/20/2020 12:49 PM Note Text: PLASTIC SURGERY AND HAND SURGERY STAFF NOTE: Appreciate all medical teams' assistance with this patient's care. L hand and wrist pain improving slowly. WBC continues to trend downward. Continue present dressing changes. Amandeep Grant MD Pager: [phone] [facility] CONSULT PROG HNO ID: [id number] Author: Betsy Newsome (Pharmacist) Service: Pharmacy Author [...] have any questions, [place] [phone]. Age: [age] year old Allergies: ALLERGIES Allergen [...] 02/18/2020 2100 17.9 BETSY NEWSOME, PHARMACIST Normal [facility] CPKon 02-20-2020 CK [Catalytic activity/Vol] 42 U/L Normal 42-196 [facility] Comment on above: Performed By: #### C MP #### [facility] [address] [place] [address] Comprehensive Metabolic Pane lorna 02-20-2020 Albumin [Mass/Vol] 3.1 g/dL Low 3.9-4.9 [facility] Comment on above: Performed By: #### C MP #### [facility] [address] [place] [address] ALP [Catalytic activity/Vol] 33 U/L Low 34-123 [facility] Comment on above: Performed By: #### C MP #### [facility] [address] [place] [address] ALT [Catalytic activity/Vol] 8 U/L Normal 7-38 [facility] Comment on above: Performed By: #### C MP #### [facility] [address] [place] [address] Anion gap [Moles/Vol] 11 mmol/L Normal 9-18 [facility] Comment on above: Performed By: #### C MP #### [facility] [address] [place] [address] AST [Catalytic activity/Vol] 15 U/L Normal 13-35 [facility] Comment on above: Performed By: #### C MP #### [facility] [address] [place] [address] Bilirubin [Mass/Vol] 0.3 mg/dL Normal 0.2-1.3 [facility] Comment on above: Performed By: #### C MP #### [facility] [address] [place] [address] Calcium [Mass/Vol] 7.9 mg/dL Low 8.5-10.2 [facility] Comment on above: Performed By: #### C MP #### [facility] [address] [place] [address] Chloride [Moles/Vol] 112 mmol/L High 97-105 [facility] Comment on above: Performed By: #### C MP #### [facility] [address] [place] [address] CO2 Blood 20 mmol/L Low 22-30 [facility] Comment on above: Performed By: #### C MP #### [facility] [address] [place] [address] Creatinine [Mass/Vol] 2.65 mg/dL High 0.58-0.96 [facility] Comment on above: Performed By: #### C MP #### [facility] [address] [place], [place] [address] Glucose [Mass/Vol] 94 mg/dL Normal 74-99 [facility] Comment on above: Result Comment: The [place] Diabetes Association (ADA) provides guidance for cutoff [...] Standards of Medical Care in Diabetes 2016; [place] [employer]. Diabetes Care. 2016;39(Suppl 1). Performed By: #### C MP #### [address] [address] Potassium [Moles/Vol] 3.9 mmol/L Normal 3.7-5.1 [facility] Comment on above: Performed By: #### C MP #### [address] [address] Protein [Mass/Vol] 5.1 g/dL Low 6.3-8.0 [facility] Comment on above: Performed By: #### C MP #### [address] [address] Sodium [Moles/Vol] 143 mmol/L Normal 136-144 [facility] Comment on above: Performed By: #### C MP #### [facility] [address] [place], [place] [address] Urea nitrogen [Mass/Vol] 16 mg/dL Normal 7-21 [facility] Comment on above: Performed By: #### C MP #### [facility] [address] [place], [place] [address] Lipase Bloodon 02-20-2020 Lipase Blood 25 U/L Normal 16-61 [facility] Comment on above: Performed By: #### C MP #### [address] [address] PROGRESSon 02-20-2020 PROGRESS HNO ID: [id number] Author: Sherine Mcgill MD Service: Hospital Medicine Author Type: Physician Type: Progress Notes Filed: 02/20/2020 4:28 PM Note Text: DEPARTMENT OF HOSPITAL MEDICINE PROGRESS NOTE SERVICE DATE: 02/20/2020 SERVICE TIME: 4:19 PM Hospital Medicine/Primary Attending: Sherine Guajardo MD NIGHT AND WEEKEND COVERAGE: After 7pm please page [phone] CHIEF COMPLAINT: Left hand pain, following cat [...] indicated (fl,oh) 02/16/202114 activity - mobilize patient (nc,oh) Lines, Drains, and Airways Line Peripheral 07/27/20 0900 Short Right Forearm 22 Gauge 1 day Plan of care discussed with: Provider, RN, Patient SIGNATURE: Sherine Guajardo MD PATIENT NAME: Zulay Bearden DATE: February 20, 2020 TIME: 4:19 PM PAGER/CONTACT #: Team color pager Disclaimer: Portions of this note may have been generated using Incap voice recognition software. Reasonable efforts were made to correct any dictation errors that resulted due to the programming of this software but some may still be present. Normal [facility] US KIDNEY/BLADDERon 02-20-20 20 US KIDNEY/BLADDER Final Report DATE OF EXAM: Feb 20 2020 10:45AM [facility] 1055 - US KIDNEY/BLADDER / PROCEDURE REASON: [...] with Dr. Khanna at time of dictation. Adjunct Trainer: [employer] Transcribe Date/Time: Feb 20 2020 10:59A Dictated by : BETHANIE VIDES MD This examination was interpreted and the report reviewed and electronically signed by: BETHANIE VIDES MD on Feb 20 2020 11:29AM EST Normal [facility] Vancomycin,Randomon 02-20-20 20 INR Coag (Bld) [Relative time] 12.1 ug/mL Normal 10.0-20.0 [facility] Comment on above: Result Comment: Refe rence ranges and high/low indicator flags are provided as general guidelines only. The treating physician must determine appropriate target levels/dosing based on the specific clinical situation. Performed By: #### G FR #### [facility] [address] [place], [place] [address] Basic Metabolic Panelon 01-24 Anion gap [Moles/Vol] 10 mmol/L Normal 9-18 [facility] Comment on above: Performed By: #### C MP #### [facility] [address] [place] [address] Calcium [Mass/Vol] 7.6 mg/dL Low 8.5-10.2 [facility] Comment on above: Performed By: #### C MP #### [address] [address] Chloride [Moles/Vol] 112 mmol/L High 97-105 [facility] Comment on above: Performed By: #### C MP #### [facility] [address] [place], [place] [address] CO2 Blood 20 mmol/L Low 22-30 [facility] Comment on above: Performed By: #### C MP #### [address] [address] Creatinine [Mass/Vol] 2.92 mg/dL High 0.58-0.96 [facility] Comment on above: Performed By: #### C MP #### [place] [address] Glucose [Mass/Vol] 102 mg/dL High 74-99 [facility] Comment on above: Result Comment: The [place] Diabetes [employer] (ADA) provides guidance for cutoff [...] Standards of Medical Care in Diabetes 2016; [place] [employer]. Diabetes Care. 2016;39(Suppl 1). Performed By: #### C MP #### [facility] [address] [place], [place] [address] Potassium [Moles/Vol] 3.9 mmol/L Normal 3.7-5.1 [facility] Comment on above: Performed By: #### C MP #### [facility] [address] [place] [address] Sodium [Moles/Vol] 142 mmol/L Normal 136-144 [facility] Comment on above: Performed By: #### C MP #### [facility] [address] [place] [address] Urea nitrogen [Mass/Vol] 17 mg/dL Normal 7-21 [facility] Comment on above: Performed By: #### C MP #### [facility] [address] [place], [place] [address] CASE MANAGEMon 02-19-2020 CASE MANAGEM HNO ID: [id number] Author: Kelle Mruo Service: Care Management Author Type: ? Type: Care Mgt Progress Note Filed: 02/19/2020 1:49 PM Note Text: CARE MANAGEMENT PROGRESS NOTE SERVICE DATE: 02/19/2020 SERVICE TIME: 1030 LOS: 2 days IMM Follow Up Copy Given: Yes Copy given to:: Patient Method: In Person SIGNATURE: Kelle Muro PATIENT NAME: Zulay Bearden DATE: February 19, 2020 TIME: 1:49 PM PAGER/CONTACT #: Normal [facility] CASE MGT INIT ASSESon 2019 CASE MGT INIT ASS HNO ID: [id number] Author: Tamiko (Rn) SEUN Canales Service: Care Management Author Type: Registered Nurse Type: Care Mgt Initial Assessment Filed: 02/19/2020 4:38 PM Note Text: CARE MANAGEMENT: ASSESSMENT AND DISCHARGE PLAN SERVICE DATE: February 19, 2020 SERVICE TIME: 4:37 PM PRIMARY CARE PHYSICIAN: REN TURNER MD ADMISSION STATUS: Inpatient Needs Prior to Discharge: None MEDICAL: [facility] 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 Last discharge within 30 days: No Advance Directive: Current Advance Directive: None Integration Engineer Attempted to Assist with AD Completion: Yes [...] Information Primary Emergency Contact: Loy Bearden Address: [address] [place] [address] Relation: Spouse Supportive Patient Contact:: Yes Contact Resources: Family Family Name/Phone: Loy (spouse) [phone] Social Needs Food insecurity Worry: Not on [...] Completely I feel financially burdened by my [id number] expenses for my prescription medication:: 0 - Disagree Completely Risk Score: 0 Patient is categorized as: Low risk < 2 Are you interested in bedside delivery of your medications? No Is Patient Psychosocially Complex?: No ASSESSMENT AND PLAN: Medical Needs: Medical Needs: None Psychosocial Needs: Psychosocial Needs: None FREEDOM OF CHOICE EXPLAINED: Lena of Choice Given: No Reason Not Given: [...] 19, 2020 TIME: 4:37 PM PAGER/CONTACT #: [phone] [facility] CONSULTon 02-19-2020 CONSULT HNO ID: [id number] Author: Asha Khanna MD Service: Nephrology Author [...] agents. SIGNATURE: Asha Khanna MD PATIENT NAME: Zluay Bearden DATE: February 19, 2020 TIME: 3:03 PM PAGER: [phone] [facility] CONSULT PROGon 02-19-2020 CONSULT PROG HNO ID: [id number] Author: Betsy Newsome (Pharmacist) Service: Pharmacy Author [...] have any questions, [place] [phone]. Age: [age] year old Allergies: ALLERGIES Allergen [...] 0849 21.4 (H) BETSY NEWSOME, PHARMACIST Normal [facility] CPKon 02-19-2020 CK [Catalytic activity/Vol] 32 U/L Low 42-196 [facility] Comment on above: Performed By: #### C MP #### [address] [address] Creatinine, Urineon 02-19-20 20 Creatinine, Urine 79.9 mg/dL Normal 42.2-237.9 [facility] Comment on above: Performed By: #### C MP #### [facility] [address] [place] [address] Hemogramon 02-19-2020 Erythrocyte distribution width (RBC) [Ratio] 12.7 % Normal 11.7-14.4 [facility] Comment on above: Performed By: #### C MP #### [facility] [address] [place] [address] Hematocrit (Bld) [Volume fraction] 34.1 % Normal 34.1-44.9 [facility] Comment on above: Performed By: #### C MP #### [facility] [address] [place] [address] Hemoglobin (Bld) [Mass/Vol] 10.7 g/dL Low 11.2-15.7 [facility] Comment on above: Performed By: #### C MP #### [facility] [address] [place] [address] MCH (RBC) [Entitic mass] 30.1 pg Normal 25.6-32.2 [facility] Comment on above: Performed By: #### C MP #### [facility] [address] [place] [address] MCHC (RBC) [Mass/Vol] 31.4 % Low 31.6-34.8 [facility] Comment on above: Performed By: #### C MP #### [facility] [address] [place] [address] MCV (RBC) [Entitic vol] 96.1 fL High 79.4-94.8 [facility] Comment on above: Performed By: #### C MP #### [facility] [address] [place] [address] Platelet mean volume (Bld) [Entitic vol] 11.2 fL Normal 9.4-12.3 [facility] Comment on above: Performed By: #### C MP #### [facility] [address] [place] [address] Platelets (Bld) [#/Vol] 164 thou/cmm Low 182-369 [facility] Comment on above: Performed By: #### C MP #### [facility] [address] [place], [place] [address] RBC (Bld) [#/Vol] 3.55 mil/cmm Low 3.93-5.22 [facility] Comment on above: Performed By: #### C MP #### [facility] [address] [place], [place] [address] RDW SD 44.9 fl Normal 36.4-46.3 [facility] Comment on above: Performed By: #### C MP #### [facility] [address] [place], [place] [address] WBC (Bld) [#/Vol] 6.41 thou/cmm Normal 3.98-10.04 [facility] Comment on above: Performed By: #### C MP #### [facility] [address] [place], [place] [address] PROGRESSon 02-19-2020 PROGRESS HNO ID: [id number] Author: Sherine Mcgill MD Service: Hospital Medicine Author Type: Physician Type: Progress Notes Filed: 02/19/2020 11:01 AM Note Text: DEPARTMENT OF HOSPITAL MEDICINE PROGRESS NOTE SERVICE DATE: 02/19/2020 SERVICE TIME: 10:20 AM Hospital Medicine/Primary Attending: Sherine Guajardo MD NIGHT AND WEEKEND COVERAGE: After 7pm please page [phone] CHIEF COMPLAINT: Left hand cellulitis, SUBJECTIVE: Pt [...] 02/16/202114 vte non-pharmacologic prophylaxis - none indicated (nc,ny) 02/16/202114 activity - mobilize patient ([place]) Lines, Drains, and Airways Line Peripheral [...] this note may have been generated using Incap voice recognition software. Reasonable efforts were made to correct any dictation errors that resulted due to the programming of this software but some may still be present. Normal [facility] Sodium,Urineon 02-19-2020 Sodium (U) [Moles/Vol] 26.0 mmol/L Normal 14.0-216.0 [facility] Comment on above: Performed By: #### C MP #### [place] [address] Urinalysis Routineon 020 Bacteria LM.HPF (Urine sed) [#/Area] NONE Normal None [facility] Comment on above: Performed By: #### C MP #### [place] [address] Ep Cells Urine 4.3 /hpf Normal 0.0-5.0 [facility] Comment on above: Performed By: #### C MP #### [place] [address] Hyaline Cast 1.0 /lpf Normal 0.0-1.0 [facility] Comment on above: Performed By: #### C MP #### [place] [address] RBC LM.HPF (Urine sed) [#/Area] 4.8 /[HPF] Normal 0.0-5.0 [facility] Comment on above: Performed By: #### C MP #### [facility] [address] [place] [address] WBC LM.HPF (Urine sed) [#/Area] 5.7 /[HPF] High 0.0-5.0 [facility] Comment on above: Performed By: #### C MP #### [facility] [address] [place] [address] Appearance (U) CLOUDY Normal [facility] Comment on above: Performed By: #### C MP #### [place] [address] Bilirubin (U) [Mass/Vol] Negative Normal Negative [facility] Comment on above: Performed By: #### C MP #### [place] [address] Color (U) YELLOW Normal [facility] Comment on above: Performed By: #### C MP #### [place] [address] Glucose Ql (U) Negative Normal Negative [facility] Comment on above: Performed By: #### C MP #### [place] [address] Hemoglobin,Urine Negative Normal Negative [facility] Comment on above: Performed By: #### C MP #### [place] [address] Ketone Urine Negative Normal Negative [facility] Comment on above: Performed By: #### C MP #### [place] [address] Leukocytes Esterase Negative Normal Negative [facility] Comment on above: Performed By: #### C MP #### [place] [address] Nitrites Urine Negative Normal Negative [facility] Comment on above: Performed By: #### C MP #### [place] [address] pH (U) 5.0 [pH] Normal 5.0-8.0 [facility] Comment on above: Performed By: #### C MP #### [facility] [address] [place] [address] Protein (U) [Mass/Vol] TRACE Abnormal Negative [facility] Comment on above: Performed By: #### C MP #### [facility] [address] [place] [address] Specific [place], Ur 1.012 Normal 1.005-1.030 [facility] Comment on above: Performed By: #### C MP #### [facility] [address] [place] [address] Urobilinogen,Ur 0.2 EU/dL Normal 0.2-1.0 [facility] Comment on above: Performed By: #### C MP #### [facility] [address] [place] [address] Vancomycin,Randomon 02-19-20 20 INR Coag (Bld) [Relative time] 20.1 ug/mL High 10.0-20.0 [facility] Comment on above: Result Comment: Refe rence ranges and high/low indicator flags are provided as general guidelines only. The treating physician must determine appropriate target levels/dosing based on the specific clinical situation. Performed By: #### C MP #### [facility] [address] [place] [address] Basic Metabolic Panelon 07-2 6-2020 Anion gap [Moles/Vol] 8 mmol/L Low 9-18 [facility] Comment on above: Performed By: #### B MP #### [facility] [address] [place] [address] Calcium [Mass/Vol] 8.0 mg/dL Low 8.5-10.2 [facility] Comment on above: Performed By: #### B MP #### [facility] [address] [place] [address] Chloride [Moles/Vol] 110 mmol/L High 97-105 [facility] Comment on above: Performed By: #### B MP #### [place] [address] CO2 Blood 24 mmol/L Normal 22-30 [facility] Comment on above: Performed By: #### B MP #### [facility] [address] [place], [place] [address] Creatinine [Mass/Vol] 1.58 mg/dL High 0.58-0.96 [facility] Comment on above: Performed By: #### B MP #### [facility] [address] [place], [place] [address] Glucose [Mass/Vol] 120 mg/dL High 74-99 [facility] Comment on above: Result Comment: The [place] [employer] (ADA) provides guidance for cutoff [...] Standards of Medical Care in Diabetes 2016; [place] [employer]. Diabetes Care. 2016;39(Suppl 1). Performed By: #### B MP #### [facility] [address] [place], [place] [address] Potassium [Moles/Vol] 4.0 mmol/L Normal 3.7-5.1 [facility] Comment on above: Performed By: #### B MP #### [facility] [address] [place], [place] [address] Sodium [Moles/Vol] 142 mmol/L Normal 136-144 [facility] Comment on above: Performed By: #### B MP #### [facility] [address] [place], [place] [address] Urea nitrogen [Mass/Vol] 16 mg/dL Normal 7-21 [facility] Comment on above: Performed By: #### B MP #### [facility] [address] [place], [place] [address] C. diff by PCRon 02-18-2020 C. difficile by PCR Negative Normal Negative [facility] Comment on above: Performed By: #### C DIFF #### [facility] [address] [place] [address] CONSULT PROGon 02-18-2020 Cholesterol [Mass/Vol] HNO ID: [id number] Author: Darrius Grant Service: Plastic Surgery Author Type: Physician Type: Consult Progress Note Filed: 02/18/2020 4:13 PM Note Text: PLASTIC SURGERY AND HAND SURGERY STAFF NOTE: POD # 1 s/p I AND D abscess L dorsal wrist: To begin BID soaks and dressing changes today. WBC trending downward, also. Amandeep Grant MD Pager: [phone] Normal [facility] CONSULT PROG HNO ID: [id number] Author: Jeff (Pharmd) Blanca Service: Pharmacy Author [...] have any questions, [place] [phone]. Age: [age] year old Allergies: ALLERGIES Allergen [...] 0849 21.4 (H) Jeff Freshwater, PharmD Normal [facility] Hemogramon 02-18-2020 Erythrocyte distribution width (RBC) [Ratio] 12.6 % Normal 11.7-14.4 [facility] Comment on above: Performed By: #### C BC1 #### [address] [address] Hematocrit (Bld) [Volume fraction] 34.7 % Normal 34.1-44.9 [facility] Comment on above: Performed By: #### C BC1 #### [facility] [address] [place], [place] [address] Hemoglobin (Bld) [Mass/Vol] 11.0 g/dL Low 11.2-15.7 [facility] Comment on above: Performed By: #### C BC1 #### [address] [address] MCH (RBC) [Entitic mass] 30.3 pg Normal 25.6-32.2 [facility] Comment on above: Performed By: #### C BC1 #### [facility] [address] [place] [id number] MCHC (RBC) [Mass/Vol] 31.7 % Normal 31.6-34.8 [facility] Comment on above: Performed By: #### C BC1 #### [facility] [address] [place] [id number] MCV (RBC) [Entitic vol] 95.6 fL High 79.4-94.8 [facility] Comment on above: Performed By: #### C BC1 #### [facility] [address] [place] [address] Platelet mean volume (Bld) [Entitic vol] 11.6 fL Normal 9.4-12.3 [facility] Comment on above: Performed By: #### C BC1 #### [facility] [address] [place] [address] Platelets (Bld) [#/Vol] 156 thou/cmm Low 182-369 [facility] Comment on above: Performed By: #### C BC1 #### [facility] [address] [place] [address] RBC (Bld) [#/Vol] 3.63 mil/cmm Low 3.93-5.22 [facility] Comment on above: Performed By: #### C BC1 #### [facility] [address] [place] [address] RDW SD 44.1 fl Normal 36.4-46.3 [facility] Comment on above: Performed By: #### C BC1 #### [facility] [address] [place] [address] WBC (Bld) [#/Vol] 7.44 thou/cmm Normal 3.98-10.04 [facility] Comment on above: Performed By: #### C BC1 #### [facility] [address] [place] [address] PROGRESSon 02-18-2020 PROGRESS HNO ID: [id number] Author: Graham He Service: Hospital Medicine Author Type: Physician Type: Progress Notes Filed: 02/18/2020 8:59 AM Note Text: DEPARTMENT OF HOSPITAL MEDICINE PROGRESS NOTE SERVICE DATE: 02/18/2020 SERVICE TIME: 8:49 AM Hospital Medicine/Primary Attending: Graham He MD NIGHT AND WEEKEND COVERAGE: [place] COVERAGE: After 7pm, please call cross cover pager #[phone] Subjective INTERVAL HPI: POD#1 IANDD of left [...] 02/16/202114 vte non-pharmacologic prophylaxis - none indicated (nc,[place]) 02/16/202114 activity - mobilize patient (nc,ny) VTE Prophylaxis: VTE prophylaxis appropriate Disposition: Home Plan of care discussed with: Patient and RN SIGNATURE: Graham He MD PATIENT NAME: Zulay Bearden DATE: February 18, 2020 TIME: 8:49 AM PAGER/CONTACT #: [phone] Normal [facility] Vancomycin,Randomon 02-18-20 20 INR Coag (Bld) [Relative time] 17.9 ug/mL Normal 10.0-20.0 [facility] Comment on above: Result Comment: Refe rence ranges and high/low indicator flags are provided as general guidelines only. The treating physician must determine appropriate target levels/dosing based on the specific clinical situation. Performed By: #### V ANC #### [place] [address] INR Coag (Bld) [Relative time] 21.4 ug/mL High 10.0-20.0 [facility] Comment on above: Result Comment: Refe rence ranges and high/low indicator flags are provided as general guidelines only. The treating physician must determine appropriate target levels/dosing based on the specific clinical situation. Performed By: #### V ANC #### [place] [id number] ANES Jose 02-17-2020 ANES POST HNO ID: [id number] Author: Michelle Hays Service: Anesthesiology Author Type: [...] 17, 2020 TIME: 2:21 PM PAGER/CONTACT #: [phone] [facility] ANES PREOPon 02-17-2020 ANES PREOP HNO ID: [id number] Author: Michelle Hays Service: Anesthesiology Author Type: [...] LIP 06/2010 - COLONOSCOP W/ OR W/O [facility] SPEC 09/26/2012 Colonoscopy - DANAZ, DIAG AND/OR THERAPEUTIC Dilation AND curettage - [...] INTRAVENOUS q 6 H PRN Mohammad F Sabianism 15 mg at 02/16/202238 - [MAR Hold due to Transfer] HYDROmorphone 0.5 mg injection (DILAUDID) 0.5 mg INTRAVENOUS q 4 H PRN Mohammad F Sabianism - [MAR Hold due to Transfer] heparin 5,000 Units injection 5,000 Units SUBCUTANEOUS q 12 H Mohammad F Sabianism - [MAR Hold due to Transfer] NaCl 0.9% iv infusion 75 mL/hr INTRAVENOUS CONTINUOUS Mohammad F Sabianism 75 mL/hr at 02/16/202129 75 mL/hr at 02/16/202129 - [MAR Hold due to Transfer] aluminum-magnesium hydroxide-simethicone 200-200-20 mg/5 mL 30 mL (MAALOX,MYLANTA,MAG-AL PLUS) 30 mL ORAL DAILY PRN Mohammad F Sabianism - [MAR Hold due to Transfer] ondansetron 4 mg tab(s) (ZOFRAN) 4 mg ORAL q 6 H PRN Mohammad F Sabianism Or - [MAR Hold due to Transfer] ondansetron (PF) 4 mg injection (ZOFRAN) 4 mg INTRAVENOUS q 6 H PRN Mohammad F Sabianism - [MAR Hold due to Transfer] polyethylene glycol 3350 17 g packet (MIRALAX, GLYCOLAX) 17 g ORAL DAILY PRN Mohammad F Sabianism - [MAR Hold due to Transfer] docusate sodium 100 mg cap(s) (COLACE) 100 mg ORAL BID PRN Mohammad F Sabianism - [MAR Hold due to Transfer] magnesium hydroxide 400 mg/5 mL 30 mL (MOM) 30 mL ORAL DAILY PRN Mohammad F Sabianism - [MAR Hold due to Transfer] bisacodyl 10 mg suppository (DULCOLAX) 10 mg RECTAL DAILY PRN Mohammad F Sabianism - [MAR Hold due to Transfer] acetaminophen 650 mg tab(s) (TYLENOL) 650 mg ORAL q 6 H PRN Mohammad F Sabianism - [MAR Hold due to Transfer] piperacillin-tazobactam iv piggyback 3.375 g in dextrose (iso-osmotic) 50 mL (ZOSYN) 3.375 g INTRAVENOUS q 6 H Mohammad F Sabianism 100 mL/hr at 02/17/20 0908 3.375 g at 02/17/20 0908 - [MAR Hold due to Transfer] vancomycin dosing and monitoring per pharmacy OTHER As Directed Mohammad F Sabianism - [MAR Hold due to Transfer] vancomycin iv piggyback 1 g in D5W 200 mL (VANCOCIN) 1 g INTRAVENOUS q 12 HR Mohammad F Sabianism 200 mL/hr at 02/17/20 1118 1 g [...] February 17, 2020 TIME: 12:00 PM CSN: [id number] [facility] CONSULT PROGon 02-17-2020 CONSULT PROG HNO ID: [id number] Author: Jeff (Pharmd) [place] Service: Pharmacy Author [...] at [place] on 02/15 before arrival At [facility] of 1.25g x1 at 1800 and then received another 1g dose here at 2130. Therefore, will get a level before the 4th dose of the current regimen. We will follow patient renal function, vancomycin levels and doses with you during the course of therapy. Additional recommendations will appear in follow up notes. If you [place] any questions[place] [phone]. Age: [age] year old Allergies: ALLERGIES Allergen [...] results found for: FLORENCIO Rios, PharmD Normal [facility] Comprehensive Metabolic Pane lorna 02-17-2020 Albumin [Mass/Vol] 3.4 g/dL Low 3.9-4.9 [facility] Comment on above: Performed By: #### C MP #### [address] [address] ALP [Catalytic activity/Vol] 61 U/L Normal 34-123 [facility] Comment on above: Performed By: #### C MP #### [facility] [address] [place], [place] [address] ALT [Catalytic activity/Vol] 9 U/L Normal 7-38 [facility] Comment on above: Performed By: #### C MP #### [address] [address] Anion gap [Moles/Vol] 9 mmol/L Normal 9-18 [facility] Comment on above: Performed By: #### C MP #### [facility] [address] [place], [place] [address] AST [Catalytic activity/Vol] 15 U/L Normal 13-35 [facility] Comment on above: Performed By: #### C MP #### [address] [address] Bilirubin [Mass/Vol] 0.6 mg/dL Normal 0.2-1.3 [facility] Comment on above: Performed By: #### C MP #### [facility] [address] [place], [place] [address] Calcium [Mass/Vol] 8.0 mg/dL Low 8.5-10.2 [facility] Comment on above: Performed By: #### C MP #### [facility] [address] [place], [place] [address] Chloride [Moles/Vol] 108 mmol/L High 97-105 [facility] Comment on above: Performed By: #### C MP #### [facility] [address] [place], [place] [address] CO2 Blood 22 mmol/L Normal 22-30 [facility] Comment on above: Performed By: #### C MP #### [facility] [address] [place], [place] [address] Creatinine [Mass/Vol] 0.75 mg/dL Normal 0.58-0.96 [facility] Comment on above: Performed By: #### C MP #### [facility] [address] [place], [place] [address] Glucose [Mass/Vol] 97 mg/dL Normal 74-99 [facility] Comment on above: Result Comment: The [place] [employer] Association (ADA) provides guidance for cutoff [...] Standards of Medical Care in Diabetes 2016; [place] [employer]. Diabetes Care. 2016;39(Suppl 1). Performed By: #### C MP #### [facility] [address] [place], [place] [address] Potassium [Moles/Vol] 3.6 mmol/L Low 3.7-5.1 [facility] Comment on above: Performed By: #### C MP #### [facility] [address] [place], [place] [address] Protein [Mass/Vol] 5.4 g/dL Low 6.3-8.0 [facility] Comment on above: Performed By: #### C MP #### [facility] [address] [place] [address] Sodium [Moles/Vol] 139 mmol/L Normal 136-144 [facility] Comment on above: Performed By: #### C MP #### [facility] [address] [place] [address] Urea nitrogen [Mass/Vol] 10 mg/dL Normal 7-21 [facility] Comment on above: Performed By: #### C MP #### [place] [address] Cult and Smr Aerobicon 02-16 Cult and Smr Aerobic Test performed at A [facility] No organisms seen Few Mononuclear cells Many RBCs ORGANISM: *Coagulase negative staphylococcus species (ID: 1) Rare Normal [facility] Comment on above: Performed By: #### C _AER #### [place] [address] Cult and Smr Aerobic Test performed at A [facility] No organisms seen Rare Polymorphonuclear leukocytes Rare Mononuclear cells Many RBCs ORGANISM: *Staphylococcus epidermidis (ID: 1) Rare Normal [facility] Comment on above: Performed By: #### C _AER #### [place] [address] HISTORY PHYSICALon 0 HISTORY PHYSICAL HNO ID: [id number] Author: Dmitry Desai Service: Hospital Medicine Author [...] After 7pm, please call cross cover pager #[phone] Subjective CHIEF COMPLAINT / REASON FOR ADMISSION: [...] MONTH, Vik Medina, 60 mg at 12/25/19 4063 Cholecalciferol, Vitamin D3, 5,000 unit cap, Take [...] Abs Lymph 2.05 1.00 - 4.00 k/uL Charles% 7.8 % Abs Charles 0.51 <0.87 k/uL Eosin% 0.9 % Abs [...] this note may have been generated using [employer] voice recognition software. Reasonable efforts were made to correct any dictation errors that resulted due to the programming of this software but some may still be present. Normal [facility] Hemogramon 02-17-2020 Erythrocyte distribution width (RBC) [Ratio] 13.0 % Normal 11.7-14.4 [facility] Comment on above: Performed By: #### C BC1 #### [place] [address] Hematocrit (Bld) [Volume fraction] 36.7 % Normal 34.1-44.9 [facility] Comment on above: Performed By: #### C BC1 #### [address] [address] Hemoglobin (Bld) [Mass/Vol] 11.7 g/dL Normal 11.2-15.7 [facility] Comment on above: Performed By: #### C BC1 #### [address] [address] MCH (RBC) [Entitic mass] 30.2 pg Normal 25.6-32.2 [facility] Comment on above: Performed By: #### C BC1 #### [address] [place], [place] [address] MCHC (RBC) [Mass/Vol] 31.9 % Normal 31.6-34.8 [facility] Comment on above: Performed By: #### C BC1 #### [facility] [address] [place] [id number] MCV (RBC) [Entitic vol] 94.6 fL Normal 79.4-94.8 [facility] Comment on above: Performed By: #### C BC1 #### [facility] [address] [place] [address] Platelet mean volume (Bld) [Entitic vol] 11.4 fL Normal 9.4-12.3 [facility] Comment on above: Performed By: #### C BC1 #### [place] [address] Platelets (Bld) [#/Vol] 169 thou/cmm Low 182-369 [facility] Comment on above: Performed By: #### C BC1 #### [facility] [address] [place] [address] RBC (Bld) [#/Vol] 3.88 mil/cmm Low 3.93-5.22 [facility] Comment on above: Performed By: #### C BC1 #### [facility] [address] [place] [address] RDW SD 44.7 fl Normal 36.4-46.3 [facility] Comment on above: Performed By: #### C BC1 #### [place] [id number] WBC (Bld) [#/Vol] 8.41 thou/cmm Normal 3.98-10.04 [facility] Comment on above: Performed By: #### C BC1 #### [facility] [address] [place] [id number] NURSING PROGon 02-17-2020 NURSING PROG HNO ID: [id number] Author: Rafaela LazaroRn) SEUN Weeks Service: Nursing Author Type: Registered Nurse Type: Nursing Progress Note Filed: 02/18/2020 2:19 AM Note Text: Nursing Progress Note Patient Name: Zulay Bearden Patient Location: [id number] 02-23 Daily Note: Updated Pts daughter on [...] note was completed by: Rafaela Weeks RN [facility] PROGRESSon 02-17-2020 PROGRESS HNO ID: [id number] Author: Graham He Service: Hospital Medicine Author Type: Physician Type: Progress Notes Filed: 02/17/2020 11:47 AM Note Text: DEPARTMENT OF HOSPITAL MEDICINE PROGRESS NOTE SERVICE DATE: 02/17/2020 SERVICE TIME: 11:31 AM Hospital Medicine/Primary Attending: Graham He MD NIGHT AND WEEKEND COVERAGE: HEAVENER COVERAGE: After 7pm, please call cross cover pager #[phone] Subjective INTERVAL HPI: NAEON. Patient still hsa [...] 02/16/202114 vte non-pharmacologic prophylaxis - none indicated (nc,ny) 02/16/202114 activity - mobilize patient ([place], [place]) VTE Prophylaxis: VTE prophylaxis appropriate Disposition: Home Plan of care discussed with: Patient and RN SIGNATURE: Graham He MD PATIENT NAME: Zulay Bearden DATE: February 17, 2020 TIME: 11:31 AM PAGER/CONTACT #: [phone] [facility] CONSULT PROGon 02-16-2020 CONSULT PROG HNO ID: [id number] Author: Renae Corado (Pharmacist) Service: Pharmacy Author [...] any questions, please contact pharmacy at ext [phone]. Age: [age] year old Allergies: ALLERGIES Allergen [...] No results found for: FLORENCIO CORADO, PHARMACIST [facility] HOSPon 02-16-2020 HOSP Patient:Arnoldo Beardne bartolo rah A MRN: Height:5' 6(1.676 m) [...] hyperlipidemia [E78.2] Osteoporosis [M81.0] Anxiety [F41.9] Shortened FL interval [R94.31] Cellulitis [L03.90] Allergies: Bactrim [Sulfamethoxazole-Trime [...] any questions, please contact pharmacy at ext [phone]. Age: [age] year old Allergies: ALLERGIES Allergen [...] After 7pm, please call cross cover pager #[phone] Subjective CHIEF COMPLAINT / REASON FOR ADMISSION: [...] LIP 06/2010 - COLONOSCOP W/ OR W/O [facility] SPEC 09/26/2012 Colonoscopy - DANDC, DIAG [...] 60 mg, SUBCUTANEOUS, Q 6 MONTH, Vik ([employer]) Adam, 60 mg at 12/25/19 1443 Cholecalciferol, [...] Abs Lymph 2.05 1.00 - 4.00 k/uL Charles% 7.8 % Abs Charles 0.51 <0.87 k/uL Eosin% 0.9 % Abs [...] this note may have been generated using Inc[employer] voice recognition software. Reasonable efforts were made [...] Apparently the patient received a dose at [facility] on 02/15 before arrival At [facility] of 1.25g x1 at 1800 and then received another 1g dose here at 2130. Therefore, will get a level before the 4th dose of the current regimen. We will follow patient renal function, vancomycin levels and doses with you during the course of therapy. Additional recommendations will appear in follow up notes. If you have any questions[place] [phone]. Age: [age] year old Allergies: ALLERGIES Allergen [...] Graham He MD NIGHT AND WEEKEND COVERAGE: HEAVENER COVERAGE: After 7pm, please call cross cover pager #[phone] Subjective INTERVAL HPI: NAEON. Patient still hsa [...] 02/16/202114 vte non-pharmacologic prophylaxis - none indicated (nc,ny) 02/16/202114 activity - mobilize patient ([place]) VTE Prophylaxis: VTE prophylaxis appropriate Disposition: Home Plan of care discussed with: Patient and RN SIGNATURE: Graham He MD PATIENT NAME: Zulay Bearden DATE: February 17, 2020 TIME: 11:31 AM PAGER/CONTACT #: [phone] [phone] Michelle Hays MD 02/17/2020 12:24 PM Signed [...] INTRAVENOUS q 6 H PRN Mohammad F Sabianism 15 mg at 02/16/202238 - [MAR Hold due to Transfer] HYDROmorphone 0.5 mg injection (DILAUDID) 0.5 mg INTRAVENOUS q 4 H PRN Mohammad F Sabianism - [MAR Hold due to Transfer] heparin 5,000 Units injection 5,000 Units SUBCUTANEOUS q 12 H Mohammad F Sabianism - [MAR Hold due to Transfer] NaCl 0.9% iv infusion 75 mL/hr INTRAVENOUS CONTINUOUS Mohammad F Sabianism 75 mL/hr at 02/16/202129 75 mL/hr at 02/16/202129 - [MAR Hold due to Transfer] aluminum-magnesium hydroxide-simethicone 200-200-20 mg/5 mL 30 mL (MAALOX,MYLANTA,MAG-AL PLUS) 30 mL ORAL DAILY PRN Mohammad F Sabianism - [MAR Hold due to Transfer] ondansetron 4 mg tab(s) (ZOFRAN) 4 mg ORAL q 6 H PRN Mohammad F Sabianism Or - [MAR Hold due to Transfer] ondansetron (PF) 4 mg injection (ZOFRAN) 4 mg INTRAVENOUS q 6 H PRN Mohammad F Sabianism - [MAR Hold due to Transfer] polyethylene glycol 3350 17 g packet (MIRALAX, GLYCOLAX) 17 g ORAL DAILY PRN Mohammad F Sabianism - [MAR Hold due to Transfer] docusate sodium 100 mg cap(s) (COLACE) 100 mg ORAL BID PRN Mohammad F Sabianism - [MAR Hold due to Transfer] magnesium hydroxide 400 mg/5 mL 30 mL (MOM) 30 mL ORAL DAILY PRN Mohammad F Sabianism - [MAR Hold due to Transfer] bisacodyl 10 mg suppository (DULCOLAX) 10 mg RECTAL DAILY PRN Mohammad F Sabianism - [MAR Hold due to Transfer] acetaminophen 650 mg tab(s) (TYLENOL) 650 mg ORAL q 6 H PRN Mohammad F Sabianism - [MAR Hold due to Transfer] piperacillin-tazobactam iv piggyback 3.375 g in dextrose (iso-osmotic) 50 mL (ZOSYN) 3.375 g INTRAVENOUS q 6 H Mohammad F Sabianism 100 mL/hr at 02/17/20 0908 3.375 g at 02/17/20 0908 - [MAR Hold due to Transfer] vancomycin dosing and monitoring per pharmacy OTHER As Directed Mohammad F Sabianism - [MAR Hold due to Transfer] vancomycin iv piggyback 1 g in D5W 200 mL (VANCOCIN) 1 g INTRAVENOUS q 12 HR Mohammad F Sabianism 200 mL/hr at 02/17/20 1118 1 g [...] February 17, 2020 TIME: 12:00 PM CSN: [id number] Normal [facility] Vital Signs Date Time Vital Sign Value Performing Clinician Jennifer jay 04-26-2025 10:03-0400 Body height 165.[address] Laura Riddle MD Work Phone: [facility] 04-26-2025 10:03-0400 Body mass index (BMI) [Ratio] 23.6 kg/m2 Dr. Laura Riddle MD Work Phone: [facility] 04-26-2025 10:03-0400 Body weight 64.[address] Laura Riddle MD Work Phone: [facility] 04-26-2025 10:03-0400 Diastolic blood pressure 74 mm[Hg] Dr. Laura Riddle MD Work Phone: [facility] 04-26-2025 10:03-0400 Heart rate 58 /min Dr. Laura Riddle MD Work Phone: [facility] 04-26-2025 10:03-0400 Respiratory rate 18 /min Dr. Laura Riddle MD Work Phone: [facility] 04-26-2025 10:03-0400 Systolic blood pressure 136 mm[Hg] Dr. Laura Riddle MD Work Phone: [facility] 02-27-2025 13:40-0400 Body height 165.[address] Laura Riddle MD Work Phone: [facility] 02-27-2025 13:40-0400 Body mass index (BMI) [Ratio] 23.8 kg/m2 Dr. Laura Riddle MD Work Phone: 9(662)128-944774 [place] [address] 02-27-2025 13:40-0400 Body weight 64.[address] Laura Riddle MD Work Phone: 9(974)657-996474 [place] [address] 02-27-2025 13:40-0400 Diastolic blood pressure 72 mm[Hg] Dr. Laura Riddle MD Work Phone: 5(083)108-621274 [place] [address] 02-27-2025 13:40-0400 Systolic blood pressure 127 mm[Hg] Dr. Laura Riddle MD Work Phone: 4(876)742-611574 [place] [address] 02-01-2025 13:29-0400 Body height 165.[address] Laura Riddle MD Work Phone: 2(987)454-198955 [address] 02-01-2025 13:29-0400 Body temperature 97.7 [degF] Dr. Laura Riddle MD Work Phone: 4(293)701-608874 [place] [address] 02-01-2025 13:29-0400 Diastolic blood pressure 71 mm[Hg] Dr. Laura Riddle MD Work Phone: 9(578)125-563662 [place] [address] 02-01-2025 13:29-0400 Heart rate 65 /min Dr. Laura Riddle MD Work Phone: 9(345)531-092355 [address] 02-01-2025 13:29-0400 Respiratory rate 16 /min Dr. Laura Riddle MD Work Phone: 5(836)898-154874 [place] [address] 02-01-2025 13:29-0400 SaO2% (BldA) [Mass fraction] 100 % Dr. Laura Riddle MD Work Phone: 1(634)126-146462 [place] [address] 02-01-2025 13:29-0400 Systolic blood pressure 136 mm[Hg] Dr. Laura Riddle MD Work Phone: 2(689)332-213374 [place] [address] 08-04-2024 13:38-0500 Body height 165.[address] Laura Riddle MD Work Phone: 8(462)440-433574 [place] [address] 08-04-2024 13:38-0500 Body temperature 96 [degF] Dr. Laura Riddle MD Work Phone: 4(648)423-385174 [place] [address] 08-04-2024 13:38-0500 Diastolic blood pressure 71 mm[Hg] Dr. Laura Riddle MD Work Phone: 9(477)367-803174 [place] [address] 08-04-2024 13:38-0500 Heart rate 70 /min Dr. Laura Riddle MD Work Phone: 3(143)988-734474 [place] [address] 08-04-2024 13:38-0500 Respiratory rate 16 /min Dr. aLura Riddle MD Work Phone: 2(560)428-805174 [place] [address] 08-04-2024 13:38-0500 SaO2% (BldA) [Mass fraction] 100 % Dr. Laura Riddle MD Work Phone: 3(276)942-120874 [place] [address] 08-04-2024 13:38-0500 Systolic blood pressure 118 mm[Hg] Dr. Laura Riddle MD Work Phone: 5(685)133-875074 [place] [address] 07-21-2024 08:28-0500 Body mass index (BMI) [Ratio] 24.3 kg/m2 Dr. Laura Riddle MD Work Phone: 9(181)373-291774 [place] [address] 07-21-2024 08:28-0500 Body weight 66.[address] Laura Riddle MD Work Phone: 5(267)439-650074 [place] [address] 07-21-2024 08:28-0500 Diastolic blood pressure 73 mm[Hg] Dr. Laura Riddle MD Work Phone: 0(575)231-312274 [place] [address] 07-21-2024 08:28-0500 Heart rate 66 /min Dr. Laura Riddle MD Work Phone: 9(331)246-086474 [place] [address] 07-21-2024 08:28-0500 SaO2% (BldA) [Mass fraction] 98 % Dr. Laura Riddle MD Work Phone: [facility] 07-21-2024 08:28-0500 Systolic blood pressure 129 mm[Hg] Dr. Laura Ridlde MD Work Phone: [facility] 08-06-2023 13:28-0500 Body height 165.[address] Laura Riddle Work Phone: [facility] 08-06-2023 13:28-0500 Body mass index (BMI) [Ratio] 22.4 kg/m2 Dr. Laura Riddle Work Phone: 7(713)899-912755 [address] 08-06-2023 13:28-0500 Body temperature 96.7 [degF] Dr. Laura Riddle Work Phone: 1(899)730-389555 [address] 08-06-2023 13:28-0500 Body weight 61.[address] Laura Riddle Work Phone: 9(562)819-644762 [place] [address] 08-06-2023 13:28-0500 Diastolic blood pressure 74 mm[Hg] Dr. Laura Riddle Work Phone: 0(130)532-991962 [place] [address] 08-06-2023 13:28-0500 Heart rate 87 /min Dr. Laura Riddle Work Phone: [facility] 08-06-2023 13:28-0500 Respiratory rate 16 /min Dr. Laura Riddle Work Phone: [facility] 08-06-2023 13:28-0500 SaO2% (BldA) [Mass fraction] 100 % Dr. Laura Riddle Work Phone: [facility] 08-06-2023 13:28-0500 Systolic blood pressure 123 mm[Hg] Dr. Laura Riddle Work Phone: [facility] 07-22-2023 08:55-0500 Body mass index (BMI) [Ratio] 39.7 kg/m2 Dr. Laura Riddle Work Phone: [facility] 07-22-2023 08:55-0500 Body temperature 98.4 [degF] Dr. Laura Riddle Work Phone: [facility] 07-22-2023 08:55-0500 Body weight 108.[address] Laura Riddle Work Phone: [facility] 07-22-2023 08:55-0500 Diastolic blood pressure 73 mm[Hg] Dr. Laura Riddle Work Phone: [facility] 07-22-2023 08:55-0500 Heart rate 71 /min Dr. Laura Riddle Work Phone: [facility] 07-22-2023 08:55-0500 Respiratory rate 16 /min Dr. Laura Riddle Work Phone: [facility] 07-22-2023 08:55-0500 SaO2% (BldA) [Mass fraction] 97 % Dr. Laura Riddle Work Phone: [facility] 07-22-2023 08:55-0500 Systolic blood pressure 117 mm[Hg] Dr. Laura Riddle Work Phone: [facility] 02-05-2023 14:50-0400 Body height 165.[address] Laura Riddle Work Phone: [facility] 02-05-2023 14:50-0400 Body temperature 97 [degF] Dr. Laura Riddle Work Phone: [facility] 02-05-2023 14:50-0400 Diastolic blood pressure 46 mm[Hg] Dr. Laura Riddle Work Phone: [facility] 02-05-2023 14:50-0400 Heart rate 76 /min Dr. Laura Riddle Work Phone: [facility] 02-05-2023 14:50-0400 Respiratory rate 16 /min Dr. Laura Riddle Work Phone: [facility] 02-05-2023 14:50-0400 SaO2% (BldA) [Mass fraction] 94 % Dr. Laura Riddle Work Phone: [facility] 02-05-2023 14:50-0400 Systolic blood pressure 94 mm[Hg] Dr. Laura Riddle Work Phone: [facility] 01-27-2023 08:06-0400 Body mass index (BMI) [Ratio] 22.9 kg/m2 Dr. Laura Riddle Work Phone: [facility] 01-27-2023 08:06-0400 Body weight 62.[address] Laura Riddle Work Phone: 6(925)916-012862 [place] [address] 01-27-2023 08:06-0400 Diastolic blood pressure 70 mm[Hg] Dr. Laura Riddle Work Phone: [facility] 01-27-2023 08:06-0400 Systolic blood pressure 117 mm[Hg] Dr. Laura Riddle Work Phone: 0(490)006-864462 [place] [address] 08-05-2022 13:27-0500 Body height 165.[address] Laura Riddle Work Phone: 0(118)711-945155 [address] 08-05-2022 13:27-0500 Body mass index (BMI) [Ratio] 22.9 kg/m2 Dr. Laura Riddle Work Phone: [facility] 08-05-2022 13:27-0500 Body temperature 97.1 [degF] Dr. Laura Riddle Work Phone: 3(218)911-379062 [place] [address] 08-05-2022 13:27-0500 Body weight 62.[address] Laura Riddle Work Phone: [facility] 08-05-2022 13:27-0500 Diastolic blood pressure 72 mm[Hg] Dr. Laura Riddle Work Phone: 6(998)150-821662 [place] [address] 08-05-2022 13:27-0500 Heart rate 71 /min Dr. Laura Riddle Work Phone: [facility] 08-05-2022 13:27-0500 Respiratory rate 16 /min Dr. Laura Riddle Work Phone: [facility] 08-05-2022 13:27-0500 SaO2% (BldA) [Mass fraction] 98 % Dr. Laura Riddle Work Phone: [facility] 08-05-2022 13:27-0500 Systolic blood pressure 131 mm[Hg] Dr. Laura Riddle Work Phone: [facility] 07-23-2022 09:01-0500 Body mass index (BMI) [Ratio] 23.2 kg/m2 Dr. Laura Riddle Work Phone: [facility] 07-23-2022 09:01-0500 Body temperature 96.7 [degF] Dr. Laura Riddle Work Phone: [facility] 07-23-2022 09:01-0500 Body weight 63.[address] Laura Riddle Work Phone: [facility] 07-23-2022 09:01-0500 Diastolic blood pressure 74 mm[Hg] Dr. Laura Riddle Work Phone: [facility] 07-23-2022 09:01-0500 Heart rate 65 /min Dr. Laura Riddle Work Phone: [facility] 07-23-2022 09:01-0500 Respiratory rate 16 /min Dr. Laura Riddle Work Phone: [facility] 07-23-2022 09:01-0500 SaO2% (BldA) [Mass fraction] 96 % Dr. Laura Riddle Work Phone: [facility] 07-23-2022 09:01-0500 Systolic blood pressure 112 mm[Hg] Dr. Laura Riddle Work Phone: [facility] 02-04-2022 13:44-0400 Body height 162.[address] Laura Riddle Work Phone: [facility] Work Phone: 02-04-2022 13:44-0400 Diastolic blood pressure 59 mm[Hg] Dr. Laura Riddle Work Phone: [facility] Work Phone: 02-04-2022 13:44-0400 Heart rate 68 /min Dr. Laura Riddle Work Phone: [facility] Work Phone: 02-04-2022 13:44-0400 Respiratory rate 16 /min Dr. Laura Riddle Work Phone: [facility] Work Phone: 02-04-2022 13:44-0400 SaO2% (BldA) [Mass fraction] 97 % Dr. Laura Riddle Work Phone: [facility] Work Phone: 02-04-2022 13:44-0400 Systolic blood pressure 104 mm[Hg] Dr. Laura Riddle Work Phone: [facility] Work Phone: 01-21-2022 08:31-0400 Body mass index (BMI) [Ratio] 23.3 kg/m2 Dr. Laura Riddle Work Phone: [facility] Work Phone: 01-21-2022 08:31-0400 Body weight 62.[address] Laura Riddle Work Phone: [facility] Work Phone: 01-21-2022 08:31-0400 Diastolic blood pressure 70 mm[Hg] Dr. Laura Riddle Work Phone: [facility] Work Phone: 01-21-2022 08:31-0400 Systolic blood pressure 100 mm[Hg] Dr. Laura Riddle Work Phone: [facility] Work Phone: 10-24-2021 09:41-0400 Body mass index (BMI) [Ratio] 24 kg/m2 Dr. Laura Riddle Work Phone: [facility] Work Phone: 10-24-2021 09:41-0400 Body temperature 97 [degF] Dr. Laura Riddle Work Phone: [facility] Work Phone: 10-24-2021 09:41-0400 Body weight 64.[address] Laura Riddle Work Phone: [facility] Work Phone: 10-24-2021 09:41-0400 Diastolic blood pressure 82 mm[Hg] Dr. Laura Riddle Work Phone: [facility] Work Phone: 10-24-2021 09:41-0400 Heart rate 77 /min Dr. Laura Riddle Work Phone: [facility] Work Phone: 10-24-2021 09:41-0400 Respiratory rate 18 /min Dr. Laura Riddle Work Phone: [facility] Work Phone: 10-24-2021 09:41-0400 SaO2% (BldA) [Mass fraction] 100 % Dr. Laura Riddle Work Phone: [facility] [facility] Work Phone: 10-24-2021 09:41-0400 Systolic blood pressure 130 mm[Hg] Dr. Laura Riddle Work Phone: [facility] Work Phone: Encounters Encounter Date Encounter Type Care Provider Facility Start: 05-25-2025 [facility]ulatory [facility] Start: 05-17-2025 ambulatory [facility] Start: 04-26-2025 End: 04-26-[address] Caitlin Donovan MD -[facility] Work Phone: Start: 04-26-2025 End: 04-26-[address] Laura Riddle MD Work Phone: -[facility] Start: 03-20-[address] Arthur Bazan DO -Cat Scan [facility] Work Phone: Start: 03-20-2025 ambulatory Laura Riddle Facility: [facility] Start: 03-02-2025 End: 03-02-[address] Laura Riddle MD Work Phone: -[facility]patient [facility] Start: 03-02-2025 End: 03-02-[address] Christina Bazan DO -[facility] Work Phone: Start: 03-02-2025 End: 03-02-2025 ambulatory Laura Riddle Facility:[facility] Start: 02-27-2025 Encounter for gynecological examination (general) (routine) without abnormal findings Christina Bazan [facility] Start: 02-27-2025 End: 02-27-[address] Christina Bazan DO -[facility] Work Phone: Start: 02-27-2025 End: 02-27-[address] Christina Bazan DO [facility] Start: 02-27-2025 End: 02-27-[address] Laura Riddle MD Work Phone: -[facility] Start: 02-01-2025 End: 02-01-[address] Kurt Connors MD -Medical Out Work Phone: Start: 02-01-2025 End: 02-01-[address] Laura Riddle MD Work Phone: -Medical Out Start: 10-05-2024 End: 10-05-[address] Laura Riddle MD Work Phone: [facility] Work Phone: Start: 10-05-2024 End: 10-05-[address] Kurt Connors MD -Laboratory Work Phone: Start: 10-05-2024 End: 10-05-2024 ambulatory Kurt Connors Facility:[facility] Start: 08-04-2024 End: 08-04-[address] Kurt Connors MD -Medical Out Work Phone: Start: 08-04-2024 End: 08-04-2024 ambulatory Laura Riddle Facility:[facility] Start: 07-21-2024 End: 07-21-[address] Kurt Connors MD -[facility] Work Phone: Start: 07-21-2024 End: 07-21-2024 ambulatory Kurt Connors Facility:[facility] Start: 05-30-2024 End: 05-30-2024 ambulatory Laura Riddle Facility:[facility] Start: 05-29-2024 End: 05-29-2024 ambulatory Laura Riddle Facility:[facility] Start: 08-06-2023 End: 08-06-[address] Laura Riddle Work Phone: [facility] Work Phone: Start: 08-06-2023 End: 08-06-[address] Laura Riddle Work Phone: [facility]-Medical Out Work Phone: Start: 07-22-2023 End: 07-22-[address] Laura Riddle Work Phone: [facility] Work Phone: Start: 02-19-2023 Non-patient / Non-visit Dr. Maria Esther Riddle Work Phone: [facility] Start: 02-19-[address] [facility] bragg [facility] Work Phone: Start: 02-15-2023 End: 02-15-[address] aLura Riddle Work Phone: [facility] Work Phone: Start: 02-15-2023 End: 02-15-[address] Laura Riddle Work Phone: [facility]-Outpatient Breast Imaging Work Phone: Start: 02-05-2023 End: 02-05-[address] Laura Riddle Work Phone: [facility] Work Phone: Start: 02-05-2023 End: 02-05-[address] Laura Riddle Work Phone: [facility] Work Phone: Start: 01-27-2023 End: 01-27-[address] Laura Riddle Work Phone: [facility] Work Phone: Start: 08-05-2022 End: 08-05-[address] Laura Riddle Work Phone: [facility] Work Phone: Start: 08-05-2022 End: 08-05-[address] Laura Riddle Work Phone: [facility] Start: 07-23-2022 End: 07-23-[address] Laura Riddle Work Phone: [facility] Start: 02-04-2022 End: 02-04-[address] Laura Riddle Work Phone: [facility] Start: 01-21-2022 ambulatory Ren Mclaughlin Work Phone: Internal Medicine [facility] Start: 01-21-2022 End: 01-21-[address] Laura Riddle Work Phone: [facility] Start: 10-24-2021 End: 10-24-[address] Laura Riddle Work Phone: [facility] Start: 05-22-2019 Orders Only Ren Mclaughlin Work Phone: Family [facility] Comment on above: Osteoporosis without current pathological [...] End: 04-26-2025 Evaluation of diagnostic study results [facility] Start: 09-24-2024 Lipid panel Lipid Screening [facility] Start: 09-24-2024 LIPID SCREEN LIPID SCREEN [facility] Start: 07-26-2023 Advance Directive Discussion Advance Directive Discussion [facility] Start: 07-26-2023 Depression Assessment Depression Ass essment [facility] Start: 03-26-2023 Covid-19 Vaccine ( season) Covid-19 Vaccine () [facility] Start: 03-26-2023 Influenza vaccination Influenza Vacc ine (#1) [facility] Start: 03-18-2023 DIABETES SCREEN DIABETES SCREEN [facility] Start: 03-18-2023 Diabetes Screening Diabetes Screenin g [facility] Start: 09-26-2022 Colonoscopy COLONOSCOPY [facility] Start: 09-26-2022 COLORECTAL CANCER SCREENING COLORECTAL CANCER SCREENING [facility] Start: 09-26-2022 Screening for malign ant neoplasm of colon [facility] Start: 03-26-2022 Influenza vaccination INFLUENZ A (Season Ended) [facility] Start: 12-25-2021 COVID-19 VACCINE (2 - Pfizer series) COVID-19 VACCINE (2 - Pfizer series) [facility] Start: 07-26-2021 ADVANCE DIRECTIVE DISCUSSION ADVANCE DIRECTIVE DISCUSSION [facility] Start: 01-31-2020 Mammography MAMMOGRAM [facility] Start: 01-31-2020 Screening for malign ant neoplasm of breast Mammogram Screening [facility] Start: 07-29-2017 Adult depression screening assessment DEPRESSION SCREENING [facility] Start: 2015 Pneumococcal Vaccine : 65+ (1 of 1 - PCV) Pneumococcal Vaccine: 65+ (1 of 1 - PCV) [facility] Start: 2015 PNEUMOCOCCAL: 65+ (1 - PCV) PNEUMOCOCCAL: 65+ (1 - PCV) [facility] Start: 2010 RSV Vaccine (1 - 1-d ose 60+ series) RSV Vaccine (1 - 1-dose 60+ series) [facility] Start: 2000 SHINGRIX VACCINE (1 of 2) SHINGRIX VACCINE (1 of 2) [facility] Start: 1995 COLOGUARD (FIT-DNA) COLOGUARD (FIT-D NA) [facility] Start: [address] COLONOGRAPHY [facility] Start: 1995 FECAL OCCULT BLOOD FECAL OCCULT BLOO D [facility] Start: 1995 Screening for malign ant neoplasm of colon [facility] Start: [address] [facility] Start: 1969 Urine microalbumin profile [facility] Start: 1968 HEPATITIS C SCREENING HEPATITIS C [facility] Start: 1968 Hepatitis C screening Hepatitis C [facility] angiography of coronary arteries [facility] DXA Bone [Mass/Area] Bone density [facility] Work Phone: MG Breast - bilatera l Screening [facility] Work Phone: MG Breast - bilatera l Screening [facility] End: 02-20-2023 Screening mammography bi 2-view breast inc cad ANÍBAL SCREENING Radiology Routine Encounter for screening mammogram for breast cancer 1 Occurrences starting 01/21/2022 until 02/20/2023 [facility] Work Phone: Comment on above: 1 Occurrences starti ng 01/21/2022 until 02/20/2023 Immunizations Immunization Date Immunization Notes Care Provider Fa cili 04-27-2022 influenza virus vaccine, unspecified formulation Ren Turner MD Work Phone: [facility] 12-04-2021 COVID-19 vaccine, ag e 12+ yr ([employer] - PURPLE TOP) Ren Turner MD Work Phone: [facility] 05-16-2017 influenza, high dose seasonal, preservative-free Ren Turner MD Work Phone: [facility] 05-13-2016 influenza, high dose seasonal, preservative-free Ren Turner MD Work Phone: [facility] Work Phone: 04-25-2011 influenza virus vaccine, unspecified formulation Ren Turner MD Work Phone: [facility] Payers Date Payer Category Payer Unknown 2024 Self-pay [id number] 2023 Unknown [id number] 2019 Unknown ANTHEM BLUE CROS S AND BLUE SHIELD ANTHMERLY STERN O [id number] 2019-Present [phone] [address] [place] [address] HMO [id number] 2017 Medicare HUMANA MEDICARE HUMANA MEDICARE PFFS [id number] 2017-2019 [address] [address] [place] [address] Indemnity [id number] Medicare [id number] Medicare [id number] Unknown [id number] Unknown [id number] Unknown [id number] Unknown [id number] Unknown [id number] Unknown [id number] Unknown [id number] Unknown [id number] Unknown [id number] Unknown [id number] Unknown [id number] Unknown [id number] Unknown [id number] Social History Date Type Detail Facility Start: 08-12-2012 End: 02-27-2025 Tobacco smoking status NHIS Never smoked tobacco [facility] Start: 10-29-2016 End: 03-29-2020 Alcohol intake Current drinker of alcohol (finding) [facility] Start: 10-29-2016 End: 03-29-2020 Alcohol intake [facility] Start: 1950 Sex Assigned At Not on file [facility] Start: 01-21-2022 End: 07-22-2023 Tobacco smoking status NHIS Unknown if ever smoked [facility] Start: 02-16-2020 None [facility] Start: 02-16-2020 Spouse/ Signif icant Other [facility] Start: 1950 Sex Assigned At Female [facility] Start: 08-12-2012 Tobacco use and exposure Smokeless tobacco non-user [facility] Gender identity Not on file [facility] Start: 10-14-2024 Sex Female (finding) [facility] Mental Status Date Assessment Result Facility 02-01-2025 Cognitive function Awake;Alert;A ppropriate;Fol lows Commands [facility] Work Phone: 08-04-2024 Cognitive function Awake;Alert;A ppropriate;Fol lows Commands [facility] Work Phone: 02-05-2023 Cognitive function Awake;Alert;A ppropriate;Fol lows Commands [facility] Work Phone: 08-05-2022 Cognitive function Voice/Name [facility] Work Phone: 02-04-2022 Cognitive function Voice/Name [facility] Work Phone: Clinical Notes 07-02-2008 to 04-26-2025 Note Date & Type Note Facility 04-26-2025 Progress note [facility] 02-27-2025 Evaluation note Diagnosis Onset Date Resolution Encounter for routine gynecological examination noneactive February 27, 2025 1:31pm [facility] Work Phone: 1(291) 784-751408-05-2025 Evaluation note* Diagnosis Onset Date Resolution Status Admit Date Encounter for routine gynecological examination noneactive February 27, 2025 1:31pm Coronary artery disease chronic O ct2024 10:00am Dyslipidemia chronic April 26, 2025 10:00am [facility] Work Phone: 1(411) 990-746208-05-2025 Progress [facility] [address] [place] [address], [address] [place] [address] OFFICE VISIT Date of Service: 02/27/25 MR#: [id number] Acct: [id number] Name: ZULAY BEARDEN Rep #: [id number] : 1950 Provider: Dr. 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 Date Name GA/Weeks Outcome Route Bth Weight Infant Gen Labor Lgth Anesthesia Del [facility] Provider FOB Unknown 1970 Aaron Unknown 1979 [facility] Encounter for routine gynecological examination Details: ZULAY [...] acute distress, well developed and well groomed HENIN Head: normal to inspection and normocephalic Ears: [...] Renner DO> Date _ [facility] Signature: Date (if applicable) CC: ~ [facility]08-05-2025 Progress note Author Christina Renner [facility] Note Date/Time February 27, 2025 2:2 3pm [facility] [address], [address] [place] [address] OFFICE VISIT Date of Service: 02/27/25 MR#: [id number] Acct: [id number] Name: ZULAY BEARDEN Rep #: [id number] : 1950 Provider: Dr. 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 Is patient in pain?: No [...] denosumab 60 mg/mL subcutaneous 60 mg subcut [id number] #1 mL 08/03/24 02/27/25 Rx syringe Is [...] Social History (Updated 02/27/25 @ 13:47 by iLnda Gallegos) Smoking Status: Never smoker alcohol intake: current details: social substance use type: does not use caffeine: Yes what type of physical activity do you participate in: other details: hikes around 7 miles frequency: daily seatbelt use: always do you feel safe at home: Yes additional social history: 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 History 3 Elective abortions [...] acute distress, well developed and well groomed [facility] Head: normal to inspection and normocephalic Ears: [...] 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 Signature: Date (if applicable) CC: ~ [facility] Work Phone: 1(384) 621-335312-27-2024 Evaluation note* Diagnosis Onset Date Resolution Status Admit Date Osteoporosis chronic June 8:32am [facility] Work Phone: 1(317) 159-197306-29-2022 NotePatient Outreach (INTMMN) ZULAY BEARDEN ([id number]) 1950 F Date Time Provider Department 01/21/22 REN TURNER INTMMN During your visit today, we recorded the following information about you: Allergies As of Date: 01/21/2022 Noted Allergy Reaction BACTRIM (SULFAMETHOXAZOLE-TRIMETH*05/27/2006 Comments: Rash and swelling of her throat Date Reviewed: 06/26/2020 Reviewed by: Tri Sheffield LPN - Fully Assessed Visit Diagnosis:Encounter for screening mammogram for breast cancer [Z12.31] Order(s):[facility] SCREENING [[id number]] Order #: [id number] FUTURE Prescriptions as of 01/26/2022 - denosumab [...] Osteoporosis [M81.0] 07/29/2016 Anxiety [F41.9] 07/29/2016 Shortened FL interval [R94.31] 07/29/2016 Cellulitis [L03.90] 02/16/2020 02/23/2020 LORETA (acute kidney injury) (HCC) [N17.9] 02/23/2020 02/23/2020 Encounter Status:Closed by [employer] ([email or web address])SILVANA on 01/26/22[facility] 02-14-2021 NotePatient Outreach (INTMMN) ZULAY BEARDEN ([id number]) 1950 F Date Time Provider Department 02/14/21 REN TURNER INTMMN During your visit today, we recorded the following information about you: Allergies As of Date: 02/14/2021 Noted Allergy Reaction BACTRIM (SULFAMETHOXAZOLE-TRIMETH*05/27/2006 Comments: Rash and swelling of her throat Date Reviewed: 06/26/2020 Reviewed by: Tri Sheffield LPN - Fully Assessed Visit Diagnosis:Encounter for screening mammogram for breast cancer [Z12.31] Order(s):[facility] SCREENING [[id number]] Order #: [id number] FUTURE Prescriptions as of 02/17/2021 - denosumab [...] Osteoporosis [M81.0] 07/29/2016 Anxiety [F41.9] 07/29/2016 Shortened FL interval [R94.31] 07/29/2016 Cellulitis [L03.90] 02/16/2020 02/23/2020 LORETA (acute kidney injury) (HCC) [N17.9] 02/23/2020 02/23/2020 Encounter Status:Closed by [employer], [email or web address])USER on 02/17/21[facility] 02-23-2020 History of Past illness Narrative* Problem Noted Date Resolved Date LORETA (acute kidney injury) 02/23/20202019 Cellulitis 02/16/2020 02/23/2020 Symptomatic menopausal or female climacteric sta satnam 07/02/2008 07/17/2011 documented as of this encounter (statuses as of 01/26/2022) [facility]12-08-2008 History of Past illness Narrative* Problem Noted Date Diagnosed Date Resolved Date Symptomatic menopausal or fe male climacteric states 07/02/2008 07/17/2011 documented as of this encounter (statuses as of 09/13/2023) [facility] note* Diagnosis Encounter for screening mammogram for breast cancer documented in this encounter [facility] note* Diagnosis Onset Date Resolution Status Osteoporosis acute Vaccine counseling acute Fecal incontinence acute Irritable bowel syndrome with diarrhea acute Osteoporosis acute Vaccine counseling acute CKD (chronic kidney disease) chronic Lichen sclerosus et atrophicus chronic Encounter for routine gynecological examination noneactive [facility] Work Phone: Evaluation note* Diagnosis Onset Date Resolution Status Hypocalcemia acute Osteoporosis acute Vitamin D deficiency acute [facility] Work Phone: evaluation note* Diagnosis Onset Date Resolution Status Encounter for routine gynecological examination noneactive [facility] Work Phone: evaluation note* Diagnosis Onset Date Resolution Status Tremor acute Osteoporosis chronic Vitamin D deficiency chronic [facility] Work Phone: evaluation note* Diagnosis Osteoporosis without current pathological fracture, unspecified osteoporosis type- Primary documented in this encounter [facility] noteNo assessment [facility] Work Phone: evaluation note* Diagnosis Onset Date Resolution Status Admit Date Encounter for routine gynecological examination noneactive February 27, 2025 1:31pm [facility] Work Phone: Progress note Author Caitlin Donovan [facility] Note Date/Time April 26, 2025 10 :41am [facility] [address] [place] [address] OFFICE VISIT Date of Service: 04/26/25 MR#: [id number] Acct: [id number] Name: KEILAKAYLEE REESEORAAagta URBAN Rep #: [id number] : 1950 Provider: Dr. 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 Mauricio Collier MD ~ [facility] Work Phone: Reason for referral (narrative)* Diagnostic Procedure Only (Routine) - Pending Review Specialty Diagnoses / Procedures Referred By Contac t Referred To Contact [facility] Diagnoses Encounter for screening mammogram for breast cancer Procedures ANÍBAL SCREENING SCREENING MAMMOGRAPHY BI 2-VIEW BREAST INC CAD Ren Turner MD [address] [place] [address] [facility] [address] [place] [address] Referral ID Status Reason Start Date Expiration Date Visits Requested Visits Authorized [id number] Pending Review Auto-Generat ed Referral 01/21/2022 02/20/2023 1 1 [facility] for referral (narrative)No reason for referral information [facility] Work Phone: Summary Purpose Family History No Family History Records Found Relationship Condition Age at Onset Recorded Date/T gian mother Arthritis Unknown Tremor Unknown father Malignant neoplasm Unknown grandfather Malignant neoplasm Unknown Advance Directives No Advanced Directives Records FoundDocuments on File Type Date Recorded 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 No February 16, 2020 3:31pm Hospital Course Note HNO ID: [id number] Author: Mary Garrido Service: Hospital Medicine Author [...] (more content not included)... Note HNO ID: [id number] Author: Manjula Grant Service: Plastic Surgery Author Type: Physician Type: Brief Op Note Filed: 02/17/2020 1:28 PM Note Text: BRIEF OPERATIVE / PROCEDURE NOTE LOG ID: [id number] SURGERY/PROCEDURE DATE: 02/17/2020 INCISION/PROCEDURE START TIME: 1:05 PM INCISION CLOSE/PROCEDURE END TIME: 1:23 PM SURGEON(S)/PROCEDURALIST(S) AND SIMULATION DEVELOPER(S): Surgeon(s) and Role: * Darrius Grant - [...] PAGER/CONTACT #: Procedure Findings Note HNO ID: [id number] Author: Manjula Grant Service: Plastic Surgery Author Type: Physician Type: Brief Op Note Filed: 02/17/2020 1:28 PM Note Text: BRIEF OPERATIVE / PROCEDURE NOTE LOG ID: [id number] SURGERY/PROCEDURE DATE: 02/17/2020 INCISION/PROCEDURE START TIME: 1:05 PM INCISION CLOSE/PROCEDURE END TIME: 1:23 PM SURGEON(S)/PROCEDURALIST(S) AND SIMULATION DEVELOPER(S): Surgeon(s) and Role: * Darrius Grant - [...] Complaint TO DISCUSS TEST RESU LTS 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) Prolia / Osteoporosis Reason for Visit Osteoporosis Vaccine counseling Fecal incontinence Irritable bowel syndrome with diarrhea Osteoporosis Vaccine counseling CKD (chronic kidney disease) Lichen sclerosus et atrophicus Encounter for routine gynecological examination Chief Complaint 1 Y FU Prolia / Osteoporosis Reason for Visit Hypocalcemia Osteoporosis Vitamin D deficiency Chief Complaint 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) Prolia / Osteoporosis Reason for Visit Encounter for routin e gynecological examination Chief Complaint 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) Prolia / 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 [...] Osteoporosis February 01, 2025 1: 23pm 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) February 27, 2025 1:3 1pm Reason for Visit Admit Date Encounter for routine gynecological exam ination February 27, 2025 1:31pm Chief Complaint Admit Date Prolia / Osteoporosis February 01, 2025 1: 23pm 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) February 27, 2025 1:3 1pm SCREENING March 02, 2025 10: 06am Chief Complaint Admit Date Prolia / Osteoporosis February 01, 2025 1: 23pm 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) February 27, 2025 1:3 1pm SCREENING March [...] section and content) DATE CREATED AUTHOR 02/26/2020 [facility] DATE CREATED AUTHOR AUTHOR'S ORGANIZ ATION 03/21/2020 [facility] DATE CREATED AUTHOR AUTHOR'S ORGANIZ ATION 01/26/2022 [facility] DATE CREATED AUTHOR AUTHOR'S ORGANIZ ATION 05/17/2025 [facility] Source Comments (unrecognize d section and content) In the event this informatio n is protected by the Federal Confidentiality of Alcohol and Drug Abuse Patient Records regulations: The Federal rules restrict any use of the information to criminally investigate or prosecute any alcohol or drug abuse patient.[facility] the event this information is protected by the Federal Confidentiality of Alcohol and Drug Abuse Patient Records regulations: The Federal rules restrict any use of the information to criminally investigate or prosecute any alcohol or drug abuse patient.[facility] Care Teams (unrecognized sec tion and content) [employer]er Relationship Specialty Start Date End Date Ren Turner MD [address] [place], [place] [address] PCP - General Internal Medicine 07/29/16 Team [...] Primary Care Provider, Referrin g 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 Christina Baazn DO Attending physician Acti ve Start: February [...] BE BASED ON THE PRIMARY CLINICAL RECORDS. [facility]. provides no warranty or guarantee of the accuracy or completeness of information in this document.
--- NOTE | 2025-05-17 09:41 | STRESSREP_ITS ---
Stress Test Report Date: 05/17/2025 Procedure: Exercise tolerance test/imaging study Indications: Coronary artery disease Consent: Per the patient Procedure: The patient exercised on a Luther protocol for 7 minutes achieving a peak heart rate of 153 bpm (105% predicted maximal heart rate) with a peak blood pressure 160/54 mmHg and a peak MET capacity of 10.1 METs. The baseline ECG demonstrated sinus rhythm. The peak exercise ECG did not show any ischemic changes. There were no cardiac dysrhythmias pretest, during exercise, or recovery. The functional capacity was considered excellent for age. There was no complaint of chest discomfort during exercise or recovery. The examination was discontinued secondary to target heart rate being achieved. The patient was injected with 11.6 mCi of technetium 99m Cardiolite and subsequently rest SPECT Cardiolite nuclear imaging was obtained in the horizontal long, vertical long, and short axis views. Post-exercise, the patient was injected with 34.8 mCi of technetium 99m Cardiolite and subsequently stress SPECT Cardiolite nuclear imaging was obtained in the horizontal long, vertical long, and short axis views. A gated Cardiolite study at peak stress was obtained. Rest and stress SPECT Cardiolite nuclear imaging status post realignment, normalization, and attenuation correction, demonstrates mild fixed hypoperfusion of the apex. With normal wall motion, consider attenuation artifact. No reversible ischemia. There is end systolic thickening and brightening. The gated Cardiolite study demonstrates myocardial thickening and inward wall motion. The reported LVEF is 81%. Impression: 1. Technically adequate (percent predicted maximal heart rate greater than 85%) exercise tolerance test 2. Peak exercise ECG with no ischemic changes. No chest pain reported 3. There were no cardiac dysrhythmias pretest, during exercise, or recovery 4. Rest and stress SPECT Cardiolite nuclear imaging demonstrate relative uniform tracer uptake and myocardial perfusion appearing within normal limits. 5. The gated Cardiolite study reports an LVEF of 81%. This note was generated with [employer]ation software. It may contain incorrect words, spelling, and punctuation that were not noted in checking the note before signing.
== END | disposition home or self-care (01) ==
PROVIDERS: PCP Family Medicine; Referring Provider Internal Medicine Cardiovascular Disease; Visit Provider Internal Medicine Cardiovascular Disease
DX: I25.10 Atherosclerotic heart disease of native coronary artery without angina pectoris (principal); E78.5 Hyperlipidemia, unspecified
CPT/HCPCS: 78452; 93017; A9500; A4216